=== PATIENT | male | born 1960 | race Caucasian/White ===

== ENCOUNTER 2017-08-18 17:42 | Inpatient (IN) | payer OTHER ==
[2017-08-18 17:45] VITALS: BMI 27.4
[2017-08-18 17:55] LABS: BASO % 0.6 % (0.0-2.0); EOS # 0.3 K/uL (0.0-0.7); EOS % 3.8 % (0.0-4.0); HEMOGLOBIN 15.7 g/dL (12.0-18.0); LYMPH # 2.9 K/uL (1.0-4.3); LYMPH % 39.5 % (20.0-40.0); MEAN CELL VOLUME 84.1 fL (80.0-94.0); MEAN CORPUSCULAR HEMOGLOBIN 29.5 pg (27.0-31.0); MEAN CORPUSCULAR HGB CONC 35.1 g/dL (33.0-37.0); MEAN PLATELET VOLUME 8.7 fL (7.2-11.7); MONO # 0.5 K/uL (0.0-0.8); MONO % 6.5 % (0.0-10.0); NEUT # 3.6 K/uL (1.8-7.0); NEUT % 49.6 % (50.0-75.0); NRBC % 0.1 % (0.0-2.0); RBC 5.31 Mil/uL (4.40-5.90); RED CELL DISTRIBUTION WIDTH 13.7 % (11.5-14.5); WHITE BLOOD COUNT 7.3 K/uL (4.8-10.8)
[2017-08-18] MEDS ORDERED: Morphine 4 MG/ML VIAL ONE ×2 (18:01→18:30)
--- NOTE | 2017-08-18 18:07 | C.PDOC ---
History Of Present Illness 57 y/o M c history of inner ear problem that causes dizziness p/w chest pain x 2 hours. Pain is midsternal, nonradiating, constant, started at rest. Non smoker. No recent URI like symptoms. Brother around same age had [place]. Denies fever, dyspnea, nausea, vomiting, back pain, leg swelling. No PMD Chief Complaint (Nursing): Chest Pain Past Medical History Vital Signs: Last Vital Signs Temp Pulse 91 H 08/18/17 17:45 Resp 20 08/18/17 17:45 BP 170/119 H 08/18/17 17:45 Pulse Ox 96 08/18/17 17:45 Family History: States: [place] - Social History Hx Alcohol Use: No Hx Substance Use: No Review Of Systems Except As Marked, All Systems Reviewed And Found Negative. Constitutional: Negative for: Fever Gastrointestinal: Negative for: Vomiting Physical Exam - Physical Exam Additional Physical Exam Comments: Gen: Nontoxic Head: NC Eyes: PERRL Neck: Supple Chest: Reproducible tenderness CV: Regular rate Lungs: CTA b/l Abd: Soft, NT, ND Ext: No swelling Neuro: Alert, no focal deficit ED Course And Treatment - Laboratory Results Result Diagrams: 08/18/17 17:51 O2 Sat by Pulse Oximetry: 96 Medical Decision Making Medical Decision Making: EKG performed immediately upon arrival. Sinus rhythm, 90 bpm, ST elevations III and aVF, ST depressions in I and aVL, V2. CODE HEART activated. Dr. Robert HOLGUIN HEART concrete pipe machine operator came to ED, will take patient to cytology laboratory manager. Dr. De La O at bedside, patient will be admitted to hospitalist service after procedure. Loaded with ASA, Brillinta, Heparin. CXR shows no consolidation. Disposition Discussed With : Clark Jones Doctor Will See Patient In The: ED - Disposition Disposition: HOSPITALIZED Disposition Time: 18:09 Condition: GUARDED - POA Core Measure Indicators: Code Heart - Clinical Impression Clinical Impression: STEMI (ST elevation myocardial infarction)
[2017-08-18 18:08] LABS: ALBUMIN 4.4 g/dL (3.5-5.0); ALT/SGPT 32 U/L (21-72); AST/SGOT 23 U/L (17-59); BLOOD UREA NITROGEN 17 mg/dL (9-20); CALCIUM 8.9 mg/dl (8.6-10.4); GFR AFRICAN-AMERICAN > 60; GFR NON-AFRICAN AMERICAN > 60
[2017-08-18] MEDS ORDERED: Nitroglycerin 50mg in D5W 50 MG/250 ML BOTTLE IV ONE (18:12)
[2017-08-18] MEDS ORDERED: Midazolam 2 MG/2 ML VIAL ONE (18:12)
[2017-08-18] MEDS ORDERED: Lidocaine 2% Inj (20ml) ONE (18:21)
[2017-08-18 18:22] LABS: ALB/GLOB RATIO 1.1 (1.0-2.1)
[2017-08-18] MEDS ORDERED: Iohexol 350mg/ml 100 ML ONE (18:25)
[2017-08-18] MEDS ORDERED: Iohexol 350mgl/ml 50 ML ONE (18:27)
[2017-08-18] MEDS ORDERED: Amiodarone 150mg/3 ml vial ONE (18:28)
[2017-08-18] MEDS ORDERED: Eptifibatide 20 mg/10mL Inj IVP ONE (20:01)
--- NOTE | 2017-08-18 20:38 | CP.PCM.CON ---
History of Present Illness - History of Present Illness History of Present Illness: 57 M with h/o dizziness on meds, h/o hepc s/p treatment for 6 months in 2005, around 4 pm after meal started to have chest pain, which kept on getting worse, patient presented to ER was found to have inferior STEMI. Patient is in ICU post CHARO in RCA proximal and mid, patient also had some disease in LAD and left main, pending detail cath report. 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 As per him dizziness intermittently with change in position for last 6 months and is on medication twice daily, but would not know more details. PMH as above PSH eye surg Allergies NKDA Social lives with friends, originally from [place] here since few months, denies alocohol, drugs, smoking Family history 2 elder brothers had [place] at his age one Meds for dizziness details not available Review of Systems - Review of Systems All systems: reviewed and no additional remarkable complaints except (HPI) Past Patient History - Past Social History Smoking Status: Never Smoked Alcohol: None Home Situation {Lives}: Friends Domestic Violence: Negative - NEUROLOGICAL Hx Neurological Disorder: Yes Hx Vertigo: Yes - PSYCHIATRIC Hx Substance Use: No - SURGICAL HISTORY Hx Surgeries: No Meds Allergies/Adverse Reactions: Allergies Allergy/AdvReac Type Severity Reaction Status Date / Time No Known Allergies Allergy Verified 08/18/17 17:44 - Medications Medications: Current Medications Aspirin (Aspirin Chewable) 81 mg PO DAILY [facility] Carvedilol (Coreg) 3.125 mg PO BID [facility] Enalapril Maleate (Vasotec) 5 mg PO DAILY [facility] Famotidine (Pepcid) 20 mg PO DAILY [facility] Heparin Sodium (Porcine) (Heparin) 5,000 units SC Q8 [facility] Rosuvastatin Calcium (Crestor) 20 mg PO HS [facility] Ticagrelor (Brilinta) 90 mg PO BID [facility] Physical Exam - Additional Findings Additional findings: * HEENT JAZMIN * Neck Supple * Chest Clear * CVS Regular, no gallop or rub * PA soft, nt, bs present, right groin dressing, no swelling or oozing * Ext no edema, b/l dp and pd present * 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 Results - Vital Signs Recent Vital Signs: Last Vital Signs Temp Pulse 87 08/18/17 18:03 Resp 17 08/18/17 18:03 BP 162/113 H 08/18/17 18:03 Pulse Ox 96 08/18/17 18:09 - Labs Result Diagrams: 08/18/17 17:51 08/18/17 17:51 Labs: Laboratory Results - last 24 hr 08/18/17 08/18/17 08/18/17 17:49 17:51 17:51 WBC 7.3 RBC 5.31 Hgb 15.7 Hct 44.6 MCV 84.1 MCH 29.5 MCHC 35.1 RDW 13.7 Plt Count 238 MPV 8.7 Neut % (Auto) 49.6 L Lymph % (Auto) 39.5 [place] % (Auto) 6.5 Eos % (Auto) 3.8 Baso % (Auto) 0.6 Neut # 3.6 Lymph # 2.9 [place] # 0.5 Eos # 0.3 Baso # 0.0 Sodium 133 Potassium 4.1 Chloride 97 L Carbon Dioxide 27 Anion Gap 14 BUN 17 Creatinine 1.0 Est GFR ( Amer) > 60 Est GFR (Non-Af Amer) > 60 POC Glucose (mg/dL) 151 H Random Glucose 134 H Calcium 8.9 Total Bilirubin 0.4 AST 23 ALT 32 Alkaline Phosphatase 56 Troponin I Total Protein 8.3 Albumin 4.4 Globulin 3.9 Albumin/Globulin Ratio 1.1 Blood Type Antibody Screen 08/18/17 08/18/17 17:51 17:51 WBC RBC Hgb Hct MCV MCH MCHC RDW Plt Count MPV Neut % (Auto) Lymph % (Auto) [place] % (Auto) Eos % (Auto) Baso % (Auto) Neut # Lymph # [facility] # Eos # Baso # Sodium Potassium Chloride Carbon Dioxide Anion Gap BUN Creatinine Est GFR ( Amer) Est GFR (Non-Af Amer) POC Glucose (mg/dL) Random Glucose Calcium Total Bilirubin AST ALT Alkaline Phosphatase Troponin I 0.0160 Total Protein Albumin Globulin Albumin/Globulin Ratio Blood Type A POSITIVE Antibody Screen Negative Assessment & Plan - Assessment and Plan (Free Text) Assessment: * Inferior STEMI s/p 2 CHARO in RCA, other ie LM, and LAD some disease * H/o some dizziness x6 months controlled * H/o hepc treated as per patient in 2005 * Family h/o CAD * HTN noticed in hospital ? essential * Hyperglycemia noticed in hospital ? stress related will check Hgba1c Plan: * Guideline directed medical management ASA, brilianta, coreg, enalpril, crestor * Echo * GI/DVT prophylaxis * Hgba1c, lipid panel * See orders for detail.
--- NOTE | 2017-08-18 22:17 | CP.PCM.HP ---
<Ajit Linton - Last Filed: 08/19/17 00:09> History of Present Illness - History of Present Illness History of Present Illness: PGY-1 H&P for Dr. Stein CC: "chest pain earlier but not now" Patient was seen at 23:00 on 08/18/17 in the ICU. This is a 57 year old male with PMHx of hepatitis C who came in complaining of chest pain that began around 4 PM today. It was described as a progressively worsening squeezing pain located sternally. The chest pain began after a meal. Patient does not usually see doctors in his home country. He is visiting from [place] since 08/12/17 and is living with friends presently. Patient's EKG revealed ST segment elevations in leads II, III, and aVF indicating an acute inferior wall LA. Code Heart was called and patient underwent cardiac catheterization by Dr. Jones with two CHARO, one placed in proximal RCA and one in the mid RCA. Site of access was right groin. Patient states that he now feels well and denies any chest pain or shortness of breath presently. Patient has no acute complaints at this time. PMHx: Hepatitis C s/p treatment in 2005 PSHx: unspecified eye surgery Allergies: NKDA Social: Visiting from [place]. Denies tobacco, alcohol, drugs. Family Hx: Brother with [place] at age 55. Two brothers in total with heart disease. PMD: Denies Home medications: Patient takes one medication for dizziness but he does not know the name of it. Present on Admission - Present on Admission Any Indicators Present on Admission: No Review of Systems - Constitutional Constitutional: absent: Chills, Fever - EENT Eyes: absent: Change in Vision Ears: absent: Decreased Hearing Nose/Mouth/Throat: absent: Nasal Congestion - Cardiovascular Cardiovascular: absent: Chest Pain, Diaphoresis, Dyspnea, Palpitations - Respiratory Respiratory: absent: Cough, Dyspnea - Gastrointestinal Gastrointestinal: absent: Abdominal Pain, Nausea, Vomiting - Genitourinary Genitourinary: absent: Dysuria - Musculoskeletal Musculoskeletal: absent: Back Pain - Integumentary Integumentary: absent: Rash - Neurological Neurological: absent: Dizziness, Headaches, Weakness - Psychiatric Psychiatric: absent: Anxiety - Endocrine Endocrine: absent: Fatigue, Palpitations Past Patient History - Past Medical History & Family History Past Medical History?: Yes - Past Social History Smoking Status: Never Smoked Alcohol: None Home Situation {Lives}: Friends Domestic Violence: Negative - CARDIAC Hx Angina: Yes - PULMONARY Hx Respiratory Disorders: No - NEUROLOGICAL Hx Neurological Disorder: Yes Hx Vertigo: Yes - HEENT Hx HEENT Problems: No - RENAL Hx Chronic Kidney Disease: No - ENDOCRINE/METABOLIC Hx Endocrine Disorders: No - HEMATOLOGICAL/ONCOLOGICAL Hx Hepatitis C: Yes - INTEGUMENTARY Hx Dermatological Problems: No - MUSCULOSKELETAL/RHEUMATOLOGICAL Hx Musculoskeletal Disorders: No Hx Falls: No - GASTROINTESTINAL Hx Gastrointestinal Disorders: No - GENITOURINARY/GYNECOLOGICAL Hx Genitourinary Disorders: No - PSYCHIATRIC Hx Substance Use: No - SURGICAL HISTORY Hx Surgeries: No - ANESTHESIA Hx Anesthesia: No Meds Allergies/Adverse Reactions: Allergies Allergy/AdvReac Type Severity Reaction Status Date / Time No Known Allergies Allergy Verified 08/18/17 17:44 Physical Exam - Constitutional Appears: No Acute Distress - Head Exam Head Exam: ATRAUMATIC, NORMOCEPHALIC - Eye Exam Eye Exam: EOMI, PERRL - ENT Exam ENT Exam: Mucous Membranes Moist - Respiratory Exam Respiratory Exam: Clear to Auscultation Bilateral, NORMAL BREATHING PATTERN. absent: Rales, Rhonchi, Wheezes - Cardiovascular Exam Cardiovascular Exam: REGULAR RHYTHM, +S1, +S2. absent: Bradycardia, Tachycardia - GI/Abdominal Exam GI & Abdominal Exam: Normal Bowel Sounds, Soft. absent: Distended, Guarding, Tenderness - Extremities Exam Extremities exam: Positive for: pedal pulses present. Negative for: pedal edema , tenderness - Neurological Exam Neurological exam: Alert, CN II-XII Intact, Oriented x3 - Psychiatric Exam Psychiatric exam: Normal Affect, Normal Mood - Skin Skin Exam: Dry, Warm Additional comments: Right groin access site dressing c/d/i No hematoma noted over the region Results - Vital Signs Recent Vital Signs: Last Vital Signs Temp 98.4 F 08/18/17 20:00 Pulse 93 H 08/18/17 22:00 Resp 23 08/18/17 22:00 BP 166/103 H 08/18/17 22:00 Pulse Ox 95 08/18/17 22:00 - Labs Result Diagrams: 08/18/17 17:51 08/18/17 17:51 Labs: Laboratory Results - last 24 hr 08/18/17 08/18/17 08/18/17 17:49 17:51 17:51 WBC 7.3 RBC 5.31 Hgb 15.7 Hct 44.6 MCV 84.1 MCH 29.5 MCHC 35.1 RDW 13.7 Plt Count 238 MPV 8.7 Neut % (Auto) 49.6 L Lymph % (Auto) 39.5 [place] % (Auto) 6.5 Eos % (Auto) 3.8 Baso % (Auto) 0.6 Neut # 3.6 Lymph # 2.9 [place] # 0.5 Eos # 0.3 Baso # 0.0 Sodium 133 Potassium 4.1 Chloride 97 L Carbon Dioxide 27 Anion Gap 14 BUN 17 Creatinine 1.0 Est GFR ( Amer) > 60 Est GFR (Non-Af Amer) > 60 POC Glucose (mg/dL) 151 H Random Glucose 134 H Calcium 8.9 Total Bilirubin 0.4 AST 23 ALT 32 Alkaline Phosphatase 56 Troponin I Total Protein 8.3 Albumin 4.4 Globulin 3.9 Albumin/Globulin Ratio 1.1 Blood Type Antibody Screen 08/18/17 08/18/17 17:51 17:51 WBC RBC Hgb Hct MCV MCH MCHC RDW Plt Count MPV Neut % (Auto) Lymph % (Auto) [place] % (Auto) Eos % (Auto) Baso % (Auto) Neut # Lymph # [place] # Eos # Baso # Sodium Potassium Chloride Carbon Dioxide Anion Gap BUN Creatinine Est GFR ( Amer) Est GFR (Non-Af Amer) POC Glucose (mg/dL) Random Glucose Calcium Total Bilirubin AST ALT Alkaline Phosphatase Troponin I 0.0160 Total Protein Albumin Globulin Albumin/Globulin Ratio Blood Type A POSITIVE Antibody Screen Negative Assessment & Plan - Assessment and Plan (Free Text) Plan: Code Heart Acute Inferior ST segment Elevation Myocardial Infarction s/p cardiac cath by Dr. Jones CHARO placed in proximal and mid RCA f/u Echocardiogram Management per ICU ASA 81 mg PO daily Brilianta 90 mg PO BID Coreg 3,125 mg PO BID Enalpril 5 mg PO daily Crestor 20 mg PO HS Prophylactic Measure Pepcid 20 mg PO daily Heparin 5000 units SC Q8H Case DW Dr. Sarita Linton PGY-1 <Donnie Stein - Last Filed: 08/19/17 06:18> Results - Vital Signs Recent Vital Signs: Last Vital Signs Temp 98.4 F 08/18/17 20:15 Pulse 81 08/19/17 06:00 Resp 18 08/19/17 06:00 BP 160/100 H 08/19/17 05:41 Pulse Ox 100 08/19/17 06:00 - Labs Result Diagrams: 08/18/17 17:51 08/18/17 17:51 Labs: Laboratory Results - last 24 hr 08/18/17 08/18/17 08/18/17 17:49 17:51 17:51 WBC 7.3 RBC 5.31 Hgb 15.7 Hct 44.6 MCV 84.1 MCH 29.5 MCHC 35.1 RDW 13.7 Plt Count 238 MPV 8.7 Neut % (Auto) 49.6 L Lymph % (Auto) 39.5 [place] % (Auto) 6.5 Eos % (Auto) 3.8 Baso % (Auto) 0.6 Neut # 3.6 Lymph # 2.9 [place] # 0.5 Eos # 0.3 Baso # 0.0 Sodium 133 Potassium 4.1 Chloride 97 L Carbon Dioxide 27 Anion Gap 14 BUN 17 Creatinine 1.0 Est GFR ( Amer) > 60 Est GFR (Non-Af Amer) > 60 POC Glucose (mg/dL) 151 H Random Glucose 134 H Calcium 8.9 Total Bilirubin 0.4 AST 23 ALT 32 Alkaline Phosphatase 56 Troponin I Total Protein 8.3 Albumin 4.4 Globulin 3.9 Albumin/Globulin Ratio 1.1 Blood Type Antibody Screen 08/18/17 08/18/17 17:51 17:51 WBC RBC Hgb Hct MCV MCH MCHC RDW Plt Count MPV Neut % (Auto) Lymph % (Auto) [place] % (Auto) Eos % (Auto) Baso % (Auto) Neut # Lymph # [place] # Eos # Baso # Sodium Potassium Chloride Carbon Dioxide Anion Gap BUN Creatinine Est GFR ( Amer) Est GFR (Non-Af Amer) POC Glucose (mg/dL) Random Glucose Calcium Total Bilirubin AST ALT Alkaline Phosphatase Troponin I 0.0160 Total Protein Albumin Globulin Albumin/Globulin Ratio Blood Type A POSITIVE Antibody Screen Negative Assessment & Plan - Date & Time Date: 08/19/17 (I have seen and examined the patient. I agree with the findings and plan of care as documented by Dr. Linton. Patient with STEMI. Cardiac Intervention by Dr. Jones. Admit to ICU for further management and close monitoring. Monitor vitals closely and any signs of bleeding from cath site. ) Time: 06:17 Attending/Attestation - Attestation I have personally seen and examined this patient.: Yes I have fully participated in the care of the patient.: Yes I have reviewed all pertinent clinical information: Yes
--- NOTE | 2017-08-19 00:39 | CARDCATH ---
PROCEDURE DATE: 08/18/2017 INDICATIONS: Mr. Holbrook is a 57-year-old male, who presented with acute onset of chest pain 2 hours prior to presentation to the ED with ST elevation in inferior leads. He was emergently brought to the cardiac warehouse general laborer for ST elevation DE involving the inferior leads. PROCEDURE PERFORMED: 1. Emergent left heart catheterization with selective left and right coronary angiogram. 2. PTCA stenting of proximal and mid RCA with deployment of 4.0 x 18 Xience drug-eluting stent across the RCA and 3.5 x 23 Xience drug-eluting stent in the mid RCA, lesion reduction from 100 % down to 0% PEGGY 3 flow. 3. A 6-Portuguese for right femoral arterial access and Mynx closure device for hemostasis. TECHNIQUE OF PROCEDURE: After obtaining informed consent, the patient was brought to the cardiac cath suite emergently. Using modified Seldinger technique, a 6-Portuguese sheath was introduced into the right femoral artery. Subsequently, over a JR4 guiding catheter, initial angiogram of the RCA revealed 100% occlusion. TECHNIQUES OF INTERVENTION: Whisper wire was used and easily able to negotiate through the 100% RCA occlusion. A 2.0 x 25 balloon was used for initial inflation and subsequently 3.5 x 23 Xience drug-eluting stent was deployed in the mid RCA. The proximal edge of the stent had a hazy plaque for which 4.0 x 18 Xience drug eluting stent. Final angiogram was done, showed lesion reduction down to 0% PEGGY 3 flow. Distal PDA had 55% stenosis. Subsequently, left coronary angiograms were obtained with a JL-4 diagnostic catheter and an LV gram was obtained with a pigtail catheter. HEMODYNAMIC FINDINGS: Left ventricular end-diastolic pressure was 20 mmHg. There was no gradient noted upon the aortic valve. Left ventricular ejection fraction 45% to 50% with basal inferior hypokinesis. Left main large-sized vessel at the distal bifurcation had a 20% stenosis, left circumflex medium-sized vessel runs in the AV groove, gives off large obtuse marginal branch, which has mid 65% stenosis by trifurcation to three smaller branches. The left anterior descending artery large-sized vessel had a proximal 55% stenosis, gives off two medium-sized diagonal branches, type 2 wrap-around vessels. IMPRESSION: Successful percutaneous transluminal coronary angioplasty stenting of proximal and mid right coronary artery 100% thrombotic occlusion, deployment of 2 drug-eluting stents. RECOMMENDATIONS: Dual antiplatelet therapy for 1 year, guideline directed therapy for coronary artery disease, aspirin, statin, beta-blockers, nitrates, plus/minus BALTA inhibitors depending on ejection fraction. Check echocardiogram, monitoring in ICU for 24 hours. Clark Jones MD MTDD
[2017-08-19 06:31] LABS: BASO % 0.2 % (0.0-2.0); EOS # 0.2 K/uL (0.0-0.7); EOS % 2.3 % (0.0-4.0); HEMOGLOBIN 15.2 g/dL (12.0-18.0); LYMPH # 1.8 K/uL (1.0-4.3); LYMPH % 21.1 % (20.0-40.0); MEAN CELL VOLUME 84.8 fL (80.0-94.0); MEAN CORPUSCULAR HEMOGLOBIN 30.2 pg (27.0-31.0); MEAN CORPUSCULAR HGB CONC 35.6 g/dL (33.0-37.0); MEAN PLATELET VOLUME 9.3 fL (7.2-11.7); MONO # 0.6 K/uL (0.0-0.8); MONO % 7.4 % (0.0-10.0); NRBC % 0.1 % (0.0-2.0); RBC 5.05 Mil/uL (4.40-5.90); RED CELL DISTRIBUTION WIDTH 13.7 % (11.5-14.5); WHITE BLOOD COUNT 8.7 K/uL (4.8-10.8)
[2017-08-19 06:42] LABS: LDL CHOLESTEROL 129 mg/dL (0-129)
[2017-08-19 07:17] LABS: ALB/GLOB RATIO 1.2 (1.0-2.1); ALBUMIN 4.1 g/dL (3.5-5.0); ALT/SGPT 34 U/L (21-72); AST/SGOT 108 U/L (17-59); BLOOD UREA NITROGEN 13 mg/dL (9-20); CALCIUM 8.3 mg/dl (8.6-10.4); GFR AFRICAN-AMERICAN > 60; GFR NON-AFRICAN AMERICAN > 60; HDL CHOLESTEROL 31 mg/dL (30-70); MAGNESIUM 1.6 mg/dL (1.6-2.3)
[2017-08-19 08:44] LABS: HEPATITIS C ANTIBODY REACTIVE (NEGATIVE)
--- NOTE | 2017-08-19 09:38 | CP.PCM.PN ---
Subjective - Date & Time of Evaluation Date of Evaluation: 08/19/17 Time of Evaluation: 09:20 - Subjective Subjective: Medical Attending Note: Patient seen and examined at bedside. Medical Intrepretor: [id number] Pedro Luis Choudhury Patient reports the chest pain he came in with is now half. Patient denies fever , denies chills, denies cough, reports he has a different pain located underneath "shock pad" denies the adhesive is bothering him cannot describe it when probed, denies abdominal pain, denies nausea, denies urination. Patient reports had bowel movement yesterday and per Rn, making urine. Patient has history of Hepatitis C. Patient reports he received injections for it. Patient reports mother has a history of hepatits and used to give her insulin shots and attributes to this method. Patient reports he is visiting from [facility], is here for only 3 weeks, but unable to tell me when he is supposed to go back. Objective - Vital Signs/Intake and Output Vital Signs (last 24 hours): Temp Pulse Resp BP Pulse Ox 98.4 F 82 27 H 152/94 H 98 08/18/17 20:15 08/19/17 09:20 08/19/17 09:20 08/19/17 08:41 08/19/17 09:20 Intake and Output: 08/19/17 08/19/17 06:59 18:59 Intake Total 820 150 Output Total 1300 500 Balance -480 -350 - Medications Medications: Current Medications Aspirin (Aspirin Chewable) 81 mg PO DAILY [facility] Carvedilol (Coreg) 3.125 mg PO BID [facility] Last Admin: 08/18/17 21:32 Dose: 3.125 mg Enalapril Maleate (Vasotec) 5 mg PO DAILY [facility] Famotidine (Pepcid) 20 mg PO DAILY [facility] Heparin Sodium (Porcine) (Heparin) 5,000 units SC Q8 [facility] Last Admin: 08/19/17 05:33 Dose: 5,000 units Rosuvastatin Calcium (Crestor) 20 mg PO HS [facility] Last Admin: 08/18/17 21:32 Dose: 20 mg Ticagrelor (Brilinta) 90 mg PO BID [facility] - Labs Labs: 08/19/17 06:10 08/19/17 06:11 - Constitutional Appears: Non-toxic, No Acute Distress - Head Exam Head Exam: NORMAL INSPECTION - Eye Exam Eye Exam: EOMI - ENT Exam ENT Exam: Mucous Membranes Moist - Respiratory Exam Respiratory Exam: Clear to Ausculation Bilateral. absent: Rales, Rhonchi, Wheezes, NORMAL BREATHING PATTERN - Cardiovascular Exam Cardiovascular Exam: REGULAR RHYTHM, +S1, +S2 - GI/Abdominal Exam GI & Abdominal Exam: Soft, Normal Bowel Sounds. absent: Distended, Firm, Guarding, Rigid, Tenderness, Rebound - Extremities Exam Extremities Exam: Normal Capillary Refill. absent: Pedal Edema, Tenderness - Back Exam Back Exam: absent: CVA tenderness (L), CVA tenderness (R) - Neurological Exam Neurological Exam: Alert, Awake, Oriented x3 - Psychiatric Exam Psychiatric exam: Normal Affect, Normal Mood - Skin Skin Exam: Dry, Intact, Normal Color, Warm Assessment and Plan (1) STEMI (ST elevation myocardial infarction) Assessment & Plan: Cardiology: Dr. Jones on the case help appreciated Code Heart 08/18/2017 RCA s/p CHARO stents Aspirin 81mg PO daily Coreg 3.125mg PO BID Enalapril 5mg PO daily Crestor 20mg POqHS Brilinta 90mg PO BID Pending Echocardiogram pending a1c Lipid panel abnormal: high TG, high cholestrol, Low HDL Status: Acute (2) Hepatitis-C Assessment & Plan: Reports he has been treated previously on Crestor 5mg POqHS Monitor liver function tests Status: Chronic (3) Prophylactic measure Assessment & Plan: Heparin 5000 units subq 8H Pepcid 20mg PO BID Status: Acute
--- NOTE | 2017-08-19 10:06 | RAD ---
PROCEDURE: CHEST RADIOGRAPH, 1 VIEW HISTORY: chest pain COMPARISON: None available. FINDINGS: LUNGS: Shallow lung volume. No consolidation PLEURA: No pneumothorax or pleural fluid seen. CARDIOVASCULAR: Mild cardiomegaly and minimal central pulmonary venous congestion inferred -shallow lung volume status also noted. OSSEOUS STRUCTURES: No significant abnormalities. VISUALIZED UPPER ABDOMEN: Normal. OTHER FINDINGS: Overlying cardiac devices IMPRESSION: Shallow lung volumes, mild cardiomegaly and minimal central pulmonary venous congestion. No consolidation. . No significant appearing pleural effusion or pneumothorax
[2017-08-19 11:23] LABS: SQUAMOUS EPITHIAL < 1 /hpf (0-5); URINE BILIRUBIN NEGATIVE (NEGATIVE); URINE BLOOD 1+ (NEGATIVE); URINE CLARITY Clear (Clear); URINE COLOR Straw (YELLOW); URINE GLUCOSE (UA) 1+ mg/dL (Normal); URINE LEUKOCYTE ESTERASE NEG Leu/uL (Negative); URINE NITRATE NEGATIVE (NEGATIVE); URINE PROTEIN NEGATIVE (NEGATIVE); URINE UROBILINOGEN NORMAL mg/dL (0.2-1.0)
--- NOTE | 2017-08-19 12:14 | CP.PCM.CON ---
History of Present Illness - History of Present Illness History of Present Illness: Consultation s/p AL for inferior wall AL HPI: 57 year old male with hx of vertigo for which he was initiated on some abx and antivert about 2 weeks ago presented with c/o substernal chest pressure like sensation with accompanying STEMI in inferior leads yestereday around 6pm. Emergently taken to [employer] and underwent PCI of proximal and mid RCA with CHARO x 2 this morning mild chest discomfort BP and hemodynamic stable Review of Systems - Review of Systems All systems: reviewed and no additional remarkable complaints except - Constitutional Constitutional: As Per HPI. absent: Anorexia, Chills, Daytime Sleepiness, Excessive Sweating, Fatigue, Fever, Frequent Falls, Headache, Increased Appetite , Lethargy, Malaise, Night Sweats, Snoring, Sleep Apnea, Weight Gain, Weight Loss, Weakness, Other - EENT Eyes: As Per HPI. absent: Blind Spots, Blurred Vision, Change in Vision, Decreased Night Vision, Diplopia, Discharge, Dry Eye, Exophthalmos, Floaters, Irritation, Itchy Eyes, Loss of Peripheral Vision, Pain, Photophobia, Requires Corrective Lenses, Sees Flashes, Spots in Vision, Tunnel Vision, Other Visual Disturbances, Loss of Vision, Other Ears: As Per HPI. absent: Decreased Hearing, Ear Discharge, Ear Pain, Tinnitus , Abnormal Hearing, Disequilibrium, Dizziness, Other Nose/Mouth/Throat: As Per HPI. absent: Epistaxis, Nasal Congestion, Nasal Discharge, Nasal Obstruction, Nasal Trauma, Nose Pain, Post Nasal Drip, Sinus Pain, Sinus Pressure, Bleeding Gums, Change in Voice, Dental Pain, Dry Mouth, Dysphagia, Halitosis, Hoarsness, Lip Swelling, Mouth Lesions, Mouth Pain, Odynophagia, Sore Throat, Throat Swelling, Tongue Swelling, Facial Pain, Neck Pain, Neck Mass, Other - Cardiovascular Cardiovascular: As Per HPI, Chest Pain, Chest Pain at Rest, Dyspnea. absent: Acrocyanosis, Chest Pain with Activity, Claudication, Diaphoresis, Dyspnea on Exertion, Edema, Irregular Heart Rhythm, Pain Radiating to Arm/Neck/Jaw, Leg Edema, Leg Ulcers, Lightheadedness, Orthopnea, Palpitations, Paroxysmal Nocturnal Dyspnea, Pedal Edema, Radiating Pain, Rapid Heart Rate, Slow Heart Rate, Syncope, Other - Respiratory Respiratory: As Per HPI. absent: Cough, Dyspnea, Hemoptysis, Dyspnea on Exertion, Wheezing, Snoring, Stridor, Pain on Inspiration, Chest Congestion, Excessive Mucous Production, Change in Mucous Color, Pain with Coughing, Other - Gastrointestinal Gastrointestinal: As Per HPI. absent: Abdominal Pain, Belching, Bloating, Change in Bowel Habits, Change in Stool Character, Coffee Ground Emesis, Constipation, Cramping, Diarrhea, Dyspepsia, Dysphagia, Early Satiety, Excessive Flatus, Fecal Incontinence, Heartburn, Hematemesis, Hematochezia, Loose Stools, Melena, Nausea, Odynophagia, Temesmus, Vomiting, Other - Genitourinary Genitourinary: As Per HPI. absent: Change in Urinary Stream, Difficulty Urinating, Dysuria, Flank Pain, Hematuria, Pyuria, Nocturia, Urinary Incontinence, Urinary Frequency, Urinary Hesitance, Urinary Urgency, Voiding Freq/Small Amts, Freq UTI, Hx Renal/Bladder Calculi, Hx /Renal Surgery, Bladder Distension, Other - Integumentary Integumentary: As Per HPI. absent: Acne, Alopecia, Bleeding Lesions, Change in Hair, Change in Nails, Change in Pigmentation, Changing Lesions, Dry Skin, Erythema, Furuncle, Hirsutism, Lesions, New Lesions, Non-Healing Lesions, Photosensitivity, Pruritus, Rash, Skin Pain, Skin Ulcer, Sores, Striae, Swelling , Unusual Bruising, Wounds, Jaundice, Other - Psychiatric Psychiatric: As Per HPI. absent: Abnormal Sleep Pattern, Anhedonia, Anxiety, Auditory Hallucinations, Behavioral Changes, Change in Appetite, Change in Libido, Confusion, Depression, Difficulty Concentrating, Hallucinations, Homicidal Ideation, Hopelessness, Irritability, Memory Loss, Mood Swings, Panic Attacks, Paranoia, Suicidal Ideation, Visual Hallucinations, Tactile Hallucinations, Other - Endocrine Endocrine: As Per HPI. absent: Change in Body Appearance, Change in Libido, Cold Intolorance, Deepening of Voice, Excessive Sweating, Fatigue, Flushing, Heat Intolorance, Increase in Ring/Shoe/Hat Size, Palpitations, Polydipsia, Polyphagia, Polyuria, Other - Hematologic/Lymphatic Hematologic: As Per HPI. absent: Easy Bleeding, Easy Bruising, Lymphadenopathy , Other Past Patient History - Past Medical History & Family History Past Medical History?: Yes - Past Social History Smoking Status: Never Smoked Alcohol: None Home Situation {Lives}: Friends Domestic Violence: Negative - CARDIAC Hx Angina: Yes - PULMONARY Hx Respiratory Disorders: No - NEUROLOGICAL Hx Neurological Disorder: Yes Hx Vertigo: Yes - HEENT Hx HEENT Problems: No - RENAL Hx Chronic Kidney Disease: No - ENDOCRINE/METABOLIC Hx Endocrine Disorders: No - HEMATOLOGICAL/ONCOLOGICAL Hx Hepatitis C: Yes - INTEGUMENTARY Hx Dermatological Problems: No - MUSCULOSKELETAL/RHEUMATOLOGICAL Hx Musculoskeletal Disorders: No Hx Falls: No - GASTROINTESTINAL Hx Gastrointestinal Disorders: No - GENITOURINARY/GYNECOLOGICAL Hx Genitourinary Disorders: No - PSYCHIATRIC Hx Substance Use: No - SURGICAL HISTORY Hx Surgeries: No - ANESTHESIA Hx Anesthesia: No Meds Allergies/Adverse Reactions: Allergies Allergy/AdvReac Type Severity Reaction Status Date / Time No Known Allergies Allergy Verified 08/18/17 17:44 - Medications Medications: Current Medications Aspirin (Aspirin Chewable) 81 mg PO DAILY [facility] Last Admin: 08/19/17 10:43 Dose: 81 mg Carvedilol (Coreg) 3.125 mg PO BID [facility] Last Admin: 08/19/17 10:42 Dose: 3.125 mg Enalapril Maleate (Vasotec) 5 mg PO DAILY [facility] Last Admin: 08/19/17 10:42 Dose: 5 mg Famotidine (Pepcid) 20 mg PO DAILY [facility] Last Admin: 08/19/17 10:42 Dose: 20 mg Heparin Sodium (Porcine) (Heparin) 5,000 units SC Q8 [facility] Last Admin: 08/19/17 05:33 Dose: 5,000 units Rosuvastatin Calcium (Crestor) 20 mg PO HS [facility] Last Admin: 08/18/17 21:32 Dose: 20 mg Ticagrelor (Brilinta) 90 mg PO BID [facility] Last Admin: 08/19/17 10:43 Dose: 90 mg Physical Exam - Constitutional Appears: Well - Head Exam Head Exam: ATRAUMATIC, NORMAL INSPECTION, NORMOCEPHALIC - Eye Exam Eye Exam: EOMI, Normal appearance, PERRL Pupil Exam: NORMAL ACCOMODATION, PERRL - ENT Exam ENT Exam: Mucous Membranes Moist, Normal Exam - Neck Exam Neck exam: Positive for: Normal Inspection - Respiratory Exam Respiratory Exam: Clear to Auscultation Bilateral, NORMAL BREATHING PATTERN - Cardiovascular Exam Cardiovascular Exam: REGULAR RHYTHM, RRR, +S1, +S2, Systolic Murmur - GI/Abdominal Exam GI & Abdominal Exam: Normal Bowel Sounds, Soft. absent: Tenderness - Extremities Exam Extremities exam: Positive for: normal inspection - Back Exam Back exam: NORMAL INSPECTION - Neurological Exam Neurological exam: Alert, CN II-XII Intact, Normal Gait, Oriented x3, Reflexes Normal - Psychiatric Exam Psychiatric exam: Normal Affect, Normal Mood - Skin Skin Exam: Dry, Intact, Normal Color, Warm Results - Vital Signs Recent Vital Signs: Last Vital Signs Temp 98.4 F 08/18/17 20:15 Pulse 82 08/19/17 09:20 Resp 27 H 08/19/17 09:20 BP 153/100 H 08/19/17 10:42 Pulse Ox 98 08/19/17 09:20 - Labs Result Diagrams: 08/19/17 06:10 08/19/17 06:11 Labs: Laboratory Results - last 24 hr 08/18/17 08/18/17 08/18/17 17:49 17:51 17:51 WBC 7.3 RBC 5.31 Hgb 15.7 Hct 44.6 MCV 84.1 MCH 29.5 MCHC 35.1 RDW 13.7 Plt Count 238 MPV 8.7 Neut % (Auto) 49.6 L Lymph % (Auto) 39.5 [place] % (Auto) 6.5 Eos % (Auto) 3.8 Baso % (Auto) 0.6 Neut # 3.6 Lymph # 2.9 Trimble # 0.5 Eos # 0.3 Baso # 0.0 Sodium 133 Potassium 4.1 Chloride 97 L Carbon Dioxide 27 Anion Gap 14 BUN 17 Creatinine 1.0 Est GFR ( Amer) > 60 Est GFR (Non-Af Amer) > 60 POC Glucose (mg/dL) 151 H Random Glucose 134 H Hemoglobin A1c Calcium 8.9 Magnesium Total Bilirubin 0.4 AST 23 ALT 32 Alkaline Phosphatase 56 Troponin I Total Protein 8.3 Albumin 4.4 Globulin 3.9 Albumin/Globulin Ratio 1.1 Triglycerides Cholesterol LDL Cholesterol Direct HDL Cholesterol Urine Color Urine Clarity Urine pH Ur Specific [place] Urine Protein Urine Glucose (UA) Urine Ketones Urine Blood Urine Nitrate Urine Bilirubin Urine Urobilinogen Ur Leukocyte Esterase Urine WBC (Auto) Urine RBC (Auto) Ur Squamous Epith Cells Hepatitis C Antibody Blood Type Antibody Screen 08/18/17 08/18/17 08/19/17 17:51 17:51 06:10 WBC 8.7 RBC 5.05 Hgb 15.2 Hct 42.8 MCV 84.8 MCH 30.2 MCHC 35.6 RDW 13.7 Plt Count 195 MPV 9.3 Neut % (Auto) 69.0 Lymph % (Auto) 21.1 [place] % (Auto) 7.4 Eos % (Auto) 2.3 Baso % (Auto) 0.2 Neut # 6.0 Lymph # 1.8 Trimble # 0.6 Eos # 0.2 Baso # 0.0 Sodium Potassium Chloride Carbon Dioxide Anion Gap BUN Creatinine Est GFR ( Amer) Est GFR (Non-Af Amer) POC Glucose (mg/dL) Random Glucose Hemoglobin A1c Calcium Magnesium Total Bilirubin AST ALT Alkaline Phosphatase Troponin I 0.0160 Total Protein Albumin Globulin Albumin/Globulin Ratio Triglycerides Cholesterol LDL Cholesterol Direct HDL Cholesterol Urine Color Urine Clarity Urine pH Ur Specific [place] Urine Protein Urine Glucose (UA) Urine Ketones Urine Blood Urine Nitrate Urine Bilirubin Urine Urobilinogen Ur Leukocyte Esterase Urine WBC (Auto) Urine RBC (Auto) Ur Squamous Epith Cells Hepatitis C Antibody Blood Type A POSITIVE Antibody Screen Negative 08/19/17 08/19/17 08/19/17 06:11 06:11 11:09 WBC RBC Hgb Hct MCV MCH MCHC RDW Plt Count MPV Neut % (Auto) Lymph % (Auto) [place] % (Auto) Eos % (Auto) Baso % (Auto) Neut # Lymph # Trimble # Eos # Baso # Sodium 131 L Potassium 3.8 Chloride 100 Carbon Dioxide 22 Anion Gap 13 BUN 13 Creatinine 0.8 Est GFR ( Amer) > 60 Est GFR (Non-Af Amer) > 60 POC Glucose (mg/dL) Random Glucose 100 Hemoglobin A1c 5.4 Calcium 8.3 L Magnesium 1.6 Total Bilirubin 0.7 AST 108 H D ALT 34 Alkaline Phosphatase 62 Troponin I 25.1000 H* Total Protein 7.5 Albumin 4.1 Globulin 3.5 Albumin/Globulin Ratio 1.2 Triglycerides 389 H Cholesterol 231 H LDL Cholesterol Direct 129 HDL Cholesterol 31 Urine Color Straw Urine Clarity Clear Urine pH 5.0 Ur Specific [place] 1.013 Urine Protein Negative Urine Glucose (UA) 1+ H Urine Ketones Negative Urine Blood 1+ H Urine Nitrate Negative Urine Bilirubin Negative Urine Urobilinogen Normal Ur Leukocyte Esterase Neg Urine WBC (Auto) < 1 Urine RBC (Auto) 2 Ur Squamous Epith Cells < 1 Hepatitis C Antibody Reactive Blood Type Antibody Screen Assessment & Plan (1) STEMI (ST elevation myocardial infarction) Assessment and Plan: cont dapt echo bb, statins, nitrates Status: Acute (2) HTN (hypertension) Status: Acute (3) Dyslipidemia Status: Acute (4) Hepatitis-C Status: Chronic
--- NOTE | 2017-08-19 13:28 | CP.CCUPN ---
<Katalina Sage - Last Filed: 08/19/17 13:33> CCU Subjective - Physician Review Subjective (Free Text): 08/19/17 13:[address] Howard Patient seen and examined at bedside. Patient tolerated procedure well yesterday. Patient had some mild chest discomfort but denies, fever, chills, nausea, vomiting, diarrhea. Critical Care Time Spent (in minutes): 35 CCU Objective - Vital Signs / Intake & Output Vital Signs (Last 4 hours): Vital Signs BP 08/19/17 10:42 153/100 H Intake and Output (Last 8hrs): Intake & Output 08/18/17 08/19/17 08/19/17 22:59 06:59 14:59 Intake Total 390 430 150 Output Total 600 700 500 Balance -210 -270 -350 Weight 170 lb 206 lb 11.2 oz Intake: Intake, IV Amount 150 150 Left Antecubital 150 150 Oral 240 280 150 Output: Urine 600 700 500 Urine, Voided 600 700 500 Other: Voiding Method Urinal # Bowel Movements 0 0 0 - Physical Exam Physical Exam Limitations: Positive for: Altered Mental Status Head: Positive for: Atraumatic, Normocephalic Extroacular Muscles: Positive for: EOMI Conjunctiva: Positive for: Normal Ears: Positive for: Normal Mouth: Positive for: Moist Mucous Membranes. Negative for: Dry Pharnyx: Positive for: Normal. Negative for: ERYTHEMA, EXUDATE, TONSILS ENLARGED, Muffled/Hoarse Voice Nose (Internal): Positive for: Normal Inspection Neck: Positive for: Normal Range of Motion, Trachea Midline Respiratory/Chest: Positive for: Clear to Auscultation. Negative for: Respiratory Distress, Decreased Breath Sounds Cardiovascular: Positive for: Regular Rate and Rhythm, Normal S1, S2 Abdomen: Positive for: Normal Bowel Sounds. Negative for: Tenderness, Distention Upper Extremity: Positive for: Normal Inspection Lower Extremity: Positive for: Normal Inspection, Capillary Refill < 2 s, Other (no hematoma at right femoral entrance site, no bruit, no breakthrough bleeding) . Negative for: Edema, CALF TENDERNESS Neurological: Positive for: CN II-XII Intact Skin: Positive for: Warm, Dry - Medications Active Medications: Active Medications Generic Name Dose Route Start Last Admin Trade Name Freq PRN Reason Stop Dose Admin Aspirin 81 mg 08/19/17 10:00 08/19/17 10:43 Aspirin Chewable PO 81 mg DAILY MAURA Administration Carvedilol 3.125 mg 08/18/17 20:30 08/19/17 10:42 Coreg PO 3.125 mg BID MAURA Administration Enalapril Maleate 5 mg 08/19/17 10:00 08/19/17 10:42 Vasotec PO 5 mg DAILY MAURA Administration Famotidine 20 mg 08/19/17 10:00 08/19/17 10:42 Pepcid PO 20 mg DAILY MAURA Administration Heparin Sodium (Porcine) 5,000 units 08/18/17 22:00 08/19/17 05:33 Heparin SC 5,000 units Q8 MAURA Administration Rosuvastatin Calcium 20 mg 08/18/17 22:00 08/18/17 21:32 Crestor PO 20 mg HS MAURA Administration Ticagrelor 90 mg 08/19/17 10:00 08/19/17 10:43 Brilinta PO 90 mg BID MAURA Administration - Patient Studies Lab Studies: Lab Studies 08/19/17 08/19/17 08/19/17 Range/Units 11:09 06:11 06:11 WBC (4.8-10.8) K/uL RBC (4.40-5.90) Mil/uL Hgb (12.0-18.0) g/dL Hct (35.0-51.0) % MCV (80.0-94.0) fL MCH (27.0-31.0) pg MCHC (33.0-37.0) g/dL RDW (11.5-14.5) % Plt Count (130-400) K/uL MPV (7.2-11.7) fL Neut % (Auto) (50.0-75.0) % Lymph % (Auto) (20.0-40.0) % [place] % (Auto) (0.0-10.0) % Eos % (Auto) (0.0-4.0) % Baso % (Auto) (0.0-2.0) % Neut # (1.8-7.0) K/uL Lymph # (1.0-4.3) K/uL [place] # (0.0-0.8) K/uL Eos # (0.0-0.7) K/uL Baso # (0.0-0.2) K/uL Sodium 131 L (132-148) mmol/L Potassium 3.8 (3.6-5.2) mmol/L Chloride 100 (98-107) mmol/L Carbon Dioxide 22 (22-30) mmol/L Anion Gap 13 (10-20) BUN 13 (9-20) mg/dL Creatinine 0.8 (0.8-1.5) mg/dL Est GFR ( Amer) > 60 Est GFR (Non-Af Amer) > 60 POC Glucose (mg/dL) (65-110) mg/dL Random Glucose 100 (75-110) mg/dL Hemoglobin A1c 5.4 (4.2-6.5) % Calcium 8.3 L (8.6-10.4) mg/dl Magnesium 1.6 (1.6-2.3) mg/dL Total Bilirubin 0.7 (0.2-1.3) mg/dL AST 108 H D (17-59) U/L ALT 34 (21-72) U/L Alkaline Phosphatase 62 (38-126) U/L Troponin I 25.1000 H* (0.00-0.120) ng/mL Total Protein 7.5 (6.3-8.3) g/dL Albumin 4.1 (3.5-5.0) g/dL Globulin 3.5 (2.2-3.9) gm/dL Albumin/Globulin Ratio 1.2 (1.0-2.1) Triglycerides 389 H (0-149) mg/dL Cholesterol 231 H (0-199) mg/dL LDL Cholesterol Direct 129 (0-129) mg/dL HDL Cholesterol 31 (30-70) mg/dL Urine Color Straw (YELLOW) Urine Clarity Clear (Clear) Urine pH 5.0 (5.0-8.0) Ur Specific [place] 1.013 (1.003-1.030) Urine Protein Negative (NEGATIVE) mg/dL Urine Glucose (UA) 1+ H (Normal) mg/dL Urine Ketones Negative (NEGATIVE) mg/dL Urine Blood 1+ H (NEGATIVE) Urine Nitrate Negative (NEGATIVE) Urine Bilirubin Negative (NEGATIVE) Urine Urobilinogen Normal (0.2-1.0) mg/dL Ur Leukocyte Esterase Neg (Negative) [place]/uL Urine WBC (Auto) < 1 (0-5) /hpf Urine RBC (Auto) 2 (0-3) /hpf Ur Squamous Epith Cells < 1 (0-5) /hpf Hepatitis C Antibody Reactive (NEGATIVE) Blood Type Antibody Screen 08/19/17 08/18/17 08/18/17 Range/Units 06:10 17:51 17:51 WBC 8.7 (4.8-10.8) K/uL RBC 5.05 (4.40-5.90) Mil/uL Hgb 15.2 (12.0-18.0) g/dL Hct 42.8 (35.0-51.0) % MCV 84.8 (80.0-94.0) fL MCH 30.2 (27.0-31.0) pg MCHC 35.6 (33.0-37.0) g/dL RDW 13.7 (11.5-14.5) % Plt Count 195 (130-400) K/uL MPV 9.3 (7.2-11.7) fL Neut % (Auto) 69.0 (50.0-75.0) % Lymph % (Auto) 21.1 (20.0-40.0) % [place] % (Auto) 7.4 (0.0-10.0) % Eos % (Auto) 2.3 (0.0-4.0) % Baso % (Auto) 0.2 (0.0-2.0) % Neut # 6.0 (1.8-7.0) K/uL Lymph # 1.8 (1.0-4.3) K/uL [place] # 0.6 (0.0-0.8) K/uL Eos # 0.2 (0.0-0.7) K/uL Baso # 0.0 (0.0-0.2) K/uL Sodium (132-148) mmol/L Potassium (3.6-5.2) mmol/L Chloride (98-107) mmol/L Carbon Dioxide (22-30) mmol/L Anion Gap (10-20) BUN (9-20) mg/dL Creatinine (0.8-1.5) mg/dL Est GFR ( Amer) Est GFR (Non-Af Amer) POC Glucose (mg/dL) (65-110) mg/dL Random Glucose (75-110) mg/dL Hemoglobin A1c (4.2-6.5) % Calcium (8.6-10.4) mg/dl Magnesium (1.6-2.3) mg/dL Total Bilirubin (0.2-1.3) mg/dL AST (17-59) U/L ALT (21-72) U/L Alkaline Phosphatase (38-126) U/L Troponin I 0.0160 (0.00-0.120) ng/mL Total Protein (6.3-8.3) g/dL Albumin (3.5-5.0) g/dL Globulin (2.2-3.9) gm/dL Albumin/Globulin Ratio (1.0-2.1) Triglycerides (0-149) mg/dL Cholesterol (0-199) mg/dL LDL Cholesterol Direct (0-129) mg/dL HDL Cholesterol (30-70) mg/dL Urine Color (YELLOW) Urine Clarity (Clear) Urine pH (5.0-8.0) Ur Specific [place] (1.003-1.030) Urine Protein (NEGATIVE) mg/dL Urine Glucose (UA) (Normal) mg/dL Urine Ketones (NEGATIVE) mg/dL Urine Blood (NEGATIVE) Urine Nitrate (NEGATIVE) Urine Bilirubin (NEGATIVE) Urine Urobilinogen (0.2-1.0) mg/dL Ur Leukocyte Esterase (Negative) [place]a/uL Urine WBC (Auto) (0-5) /hpf Urine RBC (Auto) (0-3) /hpf Ur Squamous Epith Cells (0-5) /hpf Hepatitis C Antibody (NEGATIVE) Blood Type A POSITIVE Antibody Screen Negative 08/18/17 08/18/17 08/18/17 Range/Units 17:51 17:51 17:49 WBC 7.3 (4.8-10.8) K/uL RBC 5.31 (4.40-5.90) Mil/uL Hgb 15.7 (12.0-18.0) g/dL Hct 44.6 (35.0-51.0) % MCV 84.1 (80.0-94.0) fL MCH 29.5 (27.0-31.0) pg MCHC 35.1 (33.0-37.0) g/dL RDW 13.7 (11.5-14.5) % Plt Count 238 (130-400) K/uL MPV 8.7 (7.2-11.7) fL Neut % (Auto) 49.6 L (50.0-75.0) % Lymph % (Auto) 39.5 (20.0-40.0) % [place] % (Auto) 6.5 (0.0-10.0) % Eos % (Auto) 3.8 (0.0-4.0) % Baso % (Auto) 0.6 (0.0-2.0) % Neut # 3.6 (1.8-7.0) K/uL Lymph # 2.9 (1.0-4.3) K/uL [place] # 0.5 (0.0-0.8) K/uL Eos # 0.3 (0.0-0.7) K/uL Baso # 0.0 (0.0-0.2) K/uL Sodium 133 (132-148) mmol/L Potassium 4.1 (3.6-5.2) mmol/L Chloride 97 L (98-107) mmol/L Carbon Dioxide 27 (22-30) mmol/L Anion Gap 14 (10-20) BUN 17 (9-20) mg/dL Creatinine 1.0 (0.8-1.5) mg/dL Est GFR ( Amer) > 60 Est GFR (Non-Af Amer) > 60 POC Glucose (mg/dL) 151 H (65-110) mg/dL Random Glucose 134 H (75-110) mg/dL Hemoglobin A1c (4.2-6.5) % Calcium 8.9 (8.6-10.4) mg/dl Magnesium (1.6-2.3) mg/dL Total Bilirubin 0.4 (0.2-1.3) mg/dL AST 23 (17-59) U/L ALT 32 (21-72) U/L Alkaline Phosphatase 56 (38-126) U/L Troponin I (0.00-0.120) ng/mL Total Protein 8.3 (6.3-8.3) g/dL Albumin 4.4 (3.5-5.0) g/dL Globulin 3.9 (2.2-3.9) gm/dL Albumin/Globulin Ratio 1.1 (1.0-2.1) Triglycerides (0-149) mg/dL Cholesterol (0-199) mg/dL LDL Cholesterol Direct (0-129) mg/dL HDL Cholesterol (30-70) mg/dL Urine Color (YELLOW) Urine Clarity (Clear) Urine pH (5.0-8.0) Ur Specific [place] (1.003-1.030) Urine Protein (NEGATIVE) mg/dL Urine Glucose (UA) (Normal) mg/dL Urine Ketones (NEGATIVE) mg/dL Urine Blood (NEGATIVE) Urine Nitrate (NEGATIVE) Urine Bilirubin (NEGATIVE) Urine Urobilinogen (0.2-1.0) mg/dL Ur Leukocyte Esterase (Negative) Mila/uL Urine WBC (Auto) (0-5) /hpf Urine RBC (Auto) (0-3) /hpf Ur Squamous Epith Cells (0-5) /hpf Hepatitis C Antibody (NEGATIVE) Blood Type Antibody Screen Laboratory Results - last 24 hr 08/18/17 08/18/17 08/18/17 17:49 17:51 17:51 WBC 7.3 RBC 5.31 Hgb 15.7 Hct 44.6 MCV 84.1 MCH 29.5 MCHC 35.1 RDW 13.7 Plt Count 238 MPV 8.7 Neut % (Auto) 49.6 L Lymph % (Auto) 39.5 [place] % (Auto) 6.5 Eos % (Auto) 3.8 Baso % (Auto) 0.6 Neut # 3.6 Lymph # 2.9 [place] # 0.5 Eos # 0.3 Baso # 0.0 Sodium 133 Potassium 4.1 Chloride 97 L Carbon Dioxide 27 Anion Gap 14 BUN 17 Creatinine 1.0 Est GFR ( Amer) > 60 Est GFR (Non-Af Amer) > 60 POC Glucose (mg/dL) 151 H Random Glucose 134 H Hemoglobin A1c Calcium 8.9 Magnesium Total Bilirubin 0.4 AST 23 ALT 32 Alkaline Phosphatase 56 Troponin I Total Protein 8.3 Albumin 4.4 Globulin 3.9 Albumin/Globulin Ratio 1.1 Triglycerides Cholesterol LDL Cholesterol Direct HDL Cholesterol Urine Color Urine Clarity Urine pH Ur Specific [place] Urine Protein Urine Glucose (UA) Urine Ketones Urine Blood Urine Nitrate Urine Bilirubin Urine Urobilinogen Ur Leukocyte Esterase Urine WBC (Auto) Urine RBC (Auto) Ur Squamous Epith Cells Hepatitis C Antibody Blood Type Antibody Screen 08/18/17 08/18/17 08/19/17 17:51 17:51 06:10 WBC 8.7 RBC 5.05 Hgb 15.2 Hct 42.8 MCV 84.8 MCH 30.2 MCHC 35.6 RDW 13.7 Plt Count 195 MPV 9.3 Neut % (Auto) 69.0 Lymph % (Auto) 21.1 [place] % (Auto) 7.4 Eos % (Auto) 2.3 Baso % (Auto) 0.2 Neut # 6.0 Lymph # 1.8 [place] # 0.6 Eos # 0.2 Baso # 0.0 Sodium Potassium Chloride Carbon Dioxide Anion Gap BUN Creatinine Est GFR ( Amer) Est GFR (Non-Af Amer) POC Glucose (mg/dL) Random Glucose Hemoglobin A1c Calcium Magnesium Total Bilirubin AST ALT Alkaline Phosphatase Troponin I 0.0160 Total Protein Albumin Globulin Albumin/Globulin Ratio Triglycerides Cholesterol LDL Cholesterol Direct HDL Cholesterol Urine Color Urine Clarity Urine pH Ur Specific [place] Urine Protein Urine Glucose (UA) Urine Ketones Urine Blood Urine Nitrate Urine Bilirubin Urine Urobilinogen Ur Leukocyte Esterase Urine WBC (Auto) Urine RBC (Auto) Ur Squamous Epith Cells Hepatitis C Antibody Blood Type A POSITIVE Antibody Screen Negative 08/19/17 08/19/17 08/19/17 06:11 06:11 11:09 WBC RBC Hgb Hct MCV MCH MCHC RDW Plt Count MPV Neut % (Auto) Lymph % (Auto) [place] % (Auto) Eos % (Auto) Baso % (Auto) Neut # Lymph # [place] # Eos # Baso # Sodium 131 L Potassium 3.8 Chloride 100 Carbon Dioxide 22 Anion Gap 13 BUN 13 Creatinine 0.8 Est GFR ( Amer) > 60 Est GFR (Non-Af Amer) > 60 POC Glucose (mg/dL) Random Glucose 100 Hemoglobin A1c 5.4 Calcium 8.3 L Magnesium 1.6 Total Bilirubin 0.7 AST 108 H D ALT 34 Alkaline Phosphatase 62 Troponin I 25.1000 H* Total Protein 7.5 Albumin 4.1 Globulin 3.5 Albumin/Globulin Ratio 1.2 Triglycerides 389 H Cholesterol 231 H LDL Cholesterol Direct 129 HDL Cholesterol 31 Urine Color Straw Urine Clarity Clear Urine pH 5.0 Ur Specific [place] 1.013 Urine Protein Negative Urine Glucose (UA) 1+ H Urine Ketones Negative Urine Blood 1+ H Urine Nitrate Negative Urine Bilirubin Negative Urine Urobilinogen Normal Ur Leukocyte Esterase Neg Urine WBC (Auto) < 1 Urine RBC (Auto) 2 Ur Squamous Epith Cells < 1 Hepatitis C Antibody Reactive Blood Type Antibody Screen EKG/Cardiology Studies: Cardiology / EKG Studies 08/18/17 17:45 ELECTROCARDIOGRAM Stat Comment: Mode Of Transportation: BED Reason For Exam: chest pain 08/18/17 17:55 EKG [ELECTROCARDIOGRAM] Stat Comment: Mode Of Transportation: BED Reason For Exam: code heart Fingerstick Blood Sugar Results: 151 Critical Care Progress Note - Nutrition Nutrition: Nutrition Category Date Time Status Heart Healthy Diet [DIET] Diets 08/19/17 Breakfast Active Assessment/Plan - Assessment and Plan (Free Text) Assessment: 57M presents with chest pain for two hours and found to have an occlusion. Patient is s/p CHARO x2 08/18/2017 Plan Neuro: Monitor vitals Cardio: STEMI Troponin I 08/18/17 17:51 0.0160 08/19/17 06:11 25.100 ASA 81mg PO QD Coreg 3.125mg PO BID Enlapril 5mg PO QD Heparin 5,000 u SC Q8 Rosuvastatin 20mg PO QHS Ticagrelor (Brilinta) 90 mg PO BID Pulm: Maintain O2 saturation >92% Endo: Hgb A1c Lipid panel TG 389, Cholesterol 231, LDL 129, HDL 31 GI: AST/ALT, ALP 08/18/17 23/32, 56 08/19/17 108/34, 62 Diet: Heart Healthy Diet : Renal: I/O:820/1300 = -480cc Heme/Onc: H/H: 08/18 15.7/44.6 08/19 15.2/42.8 COAG: MSK: Activity as tolerated ID: f/u AM CBC Hepatitis C antibody reactive Prophylaxis: DVT: SCDs, Heparin 5,000 u SC Q8 GI: Pepcid 20mg PO QD Discussed with Dr. Lee Sage DO PGY1 - Date & Time Date: 08/19/17 Time: 13:34 <Zackery Howard - Last Filed: 08/19/17 18:29> CCU Objective - Vital Signs / Intake & Output Vital Signs (Last 4 hours): Vital Signs Pulse Resp BP Pulse Ox 08/19/17 15:10 92 H 23 96 08/19/17 15:00 94 H 25 H 96 08/19/17 14:50 90 29 H 96 08/19/17 14:41 90 28 H 116/75 96 08/19/17 14:40 90 28 H 96 08/19/17 14:30 90 30 H 96 Intake and Output (Last 8hrs): Intake & Output 08/19/17 08/19/17 08/19/17 06:59 14:59 22:59 Intake Total 430 600 Output Total 700 1050 Balance -270 -450 Weight 206 lb 11.2 oz Intake: Intake, IV Amount 150 Left Antecubital 150 Oral 280 600 Output: Urine 700 1050 Urine, Voided 700 1050 Other: # Bowel Movements 0 0 - Medications Active Medications: Active Medications Generic Name Dose Route Start Last Admin Trade Name Freq PRN Reason Stop Dose Admin Aspirin 81 mg 08/19/17 10:00 08/19/17 10:43 Aspirin Chewable PO 81 mg DAILY MAURA Administration Carvedilol 3.125 mg 08/18/17 20:30 08/19/17 10:42 Coreg PO 3.125 mg BID MAURA Administration Enalapril Maleate 5 mg 08/19/17 10:00 08/19/17 10:42 Vasotec PO 5 mg DAILY MAURA Administration Famotidine 20 mg 08/19/17 10:00 08/19/17 10:42 Pepcid PO 20 mg DAILY MAURA Administration Heparin Sodium (Porcine) 5,000 units 08/18/17 22:00 08/19/17 15:00 Heparin SC 5,000 units Q8 MAURA Administration Rosuvastatin Calcium 20 mg 08/18/17 22:00 08/18/17 21:32 Crestor PO 20 mg HS MAURA Administration Ticagrelor 90 mg 08/19/17 10:00 08/19/17 10:43 Brilinta PO 90 mg BID MAURA Administration - Patient Studies Lab Studies: Lab Studies 08/19/17 08/19/17 08/19/17 Range/Units 11:09 06:11 06:11 WBC (4.8-10.8) K/uL RBC (4.40-5.90) Mil/uL Hgb (12.0-18.0) g/dL Hct (35.0-51.0) % MCV (80.0-94.0) fL MCH (27.0-31.0) pg MCHC (33.0-37.0) g/dL RDW (11.5-14.5) % Plt Count (130-400) K/uL MPV (7.2-11.7) fL Neut % (Auto) (50.0-75.0) % Lymph % (Auto) (20.0-40.0) % [place] % (Auto) (0.0-10.0) % Eos % (Auto) (0.0-4.0) % Baso % (Auto) (0.0-2.0) % Neut # (1.8-7.0) K/uL Lymph # (1.0-4.3) K/uL [place] # (0.0-0.8) K/uL Eos # (0.0-0.7) K/uL Baso # (0.0-0.2) K/uL Sodium 131 L (132-148) mmol/L Potassium 3.8 (3.6-5.2) mmol/L Chloride 100 (98-107) mmol/L Carbon Dioxide 22 (22-30) mmol/L Anion Gap 13 (10-20) BUN 13 (9-20) mg/dL Creatinine 0.8 (0.8-1.5) mg/dL Est GFR ( Amer) > 60 Est GFR (Non-Af Amer) > 60 Random Glucose 100 (75-110) mg/dL Hemoglobin A1c 5.4 (4.2-6.5) % Calcium 8.3 L (8.6-10.4) mg/dl Magnesium 1.6 (1.6-2.3) mg/dL Total Bilirubin 0.7 (0.2-1.3) mg/dL AST 108 H D (17-59) U/L ALT 34 (21-72) U/L Alkaline Phosphatase 62 (38-126) U/L Troponin I 25.1000 H* (0.00-0.120) ng/mL Total Protein 7.5 (6.3-8.3) g/dL Albumin 4.1 (3.5-5.0) g/dL Globulin 3.5 (2.2-3.9) gm/dL Albumin/Globulin Ratio 1.2 (1.0-2.1) Triglycerides 389 H (0-149) mg/dL Cholesterol 231 H (0-199) mg/dL LDL Cholesterol Direct 129 (0-129) mg/dL HDL Cholesterol 31 (30-70) mg/dL Urine Color Straw (YELLOW) Urine Clarity Clear (Clear) Urine pH 5.0 (5.0-8.0) Ur Specific [place] 1.013 (1.003-1.030) Urine Protein Negative (NEGATIVE) mg/dL Urine Glucose (UA) 1+ H (Normal) mg/dL Urine Ketones Negative (NEGATIVE) mg/dL Urine Blood 1+ H (NEGATIVE) Urine Nitrate Negative (NEGATIVE) Urine Bilirubin Negative (NEGATIVE) Urine Urobilinogen Normal (0.2-1.0) mg/dL Ur Leukocyte Esterase Neg (Negative) Mila/uL Urine WBC (Auto) < 1 (0-5) /hpf Urine RBC (Auto) 2 (0-3) /hpf Ur Squamous Epith Cells < 1 (0-5) /hpf Hepatitis C Antibody Reactive (NEGATIVE) Blood Type Antibody Screen 08/19/17 08/18/17 Range/Units 06:10 17:51 WBC 8.7 (4.8-10.8) K/uL RBC 5.05 (4.40-5.90) Mil/uL Hgb 15.2 (12.0-18.0) g/dL Hct 42.8 (35.0-51.0) % MCV 84.8 (80.0-94.0) fL MCH 30.2 (27.0-31.0) pg MCHC 35.6 (33.0-37.0) g/dL RDW 13.7 (11.5-14.5) % Plt Count 195 (130-400) K/uL MPV 9.3 (7.2-11.7) fL Neut % (Auto) 69.0 (50.0-75.0) % Lymph % (Auto) 21.1 (20.0-40.0) % [place] % (Auto) 7.4 (0.0-10.0) % Eos % (Auto) 2.3 (0.0-4.0) % Baso % (Auto) 0.2 (0.0-2.0) % Neut # 6.0 (1.8-7.0) K/uL Lymph # 1.8 (1.0-4.3) K/uL [place] # 0.6 (0.0-0.8) K/uL Eos # 0.2 (0.0-0.7) K/uL Baso # 0.0 (0.0-0.2) K/uL Sodium (132-148) mmol/L Potassium (3.6-5.2) mmol/L Chloride (98-107) mmol/L Carbon Dioxide (22-30) mmol/L Anion Gap (10-20) BUN (9-20) mg/dL Creatinine (0.8-1.5) mg/dL Est GFR ( Amer) Est GFR (Non-Af Amer) Random Glucose (75-110) mg/dL Hemoglobin A1c (4.2-6.5) % Calcium (8.6-10.4) mg/dl Magnesium (1.6-2.3) mg/dL Total Bilirubin (0.2-1.3) mg/dL AST (17-59) U/L ALT (21-72) U/L Alkaline Phosphatase (38-126) U/L Troponin I (0.00-0.120) ng/mL Total Protein (6.3-8.3) g/dL Albumin (3.5-5.0) g/dL Globulin (2.2-3.9) gm/dL Albumin/Globulin Ratio (1.0-2.1) Triglycerides (0-149) mg/dL Cholesterol (0-199) mg/dL LDL Cholesterol Direct (0-129) mg/dL HDL Cholesterol (30-70) mg/dL Urine Color (YELLOW) Urine Clarity (Clear) Urine pH (5.0-8.0) Ur Specific [place] (1.003-1.030) Urine Protein (NEGATIVE) mg/dL Urine Glucose (UA) (Normal) mg/dL Urine Ketones (NEGATIVE) mg/dL Urine Blood (NEGATIVE) Urine Nitrate (NEGATIVE) Urine Bilirubin (NEGATIVE) Urine Urobilinogen (0.2-1.0) mg/dL Ur Leukocyte Esterase (Negative) Mila/uL Urine WBC (Auto) (0-5) /hpf Urine RBC (Auto) (0-3) /hpf Ur Squamous Epith Cells (0-5) /hpf Hepatitis C Antibody (NEGATIVE) Blood Type A POSITIVE Antibody Screen Negative Laboratory Results - last 24 hr 08/18/17 08/19/17 08/19/17 17:51 06:10 06:11 WBC 8.7 RBC 5.05 Hgb 15.2 Hct 42.8 MCV 84.8 MCH 30.2 MCHC 35.6 RDW 13.7 Plt Count 195 MPV 9.3 Neut % (Auto) 69.0 Lymph % (Auto) 21.1 [place] % (Auto) 7.4 Eos % (Auto) 2.3 Baso % (Auto) 0.2 Neut # 6.0 Lymph # 1.8 [place] # 0.6 Eos # 0.2 Baso # 0.0 Sodium 131 L Potassium 3.8 Chloride 100 Carbon Dioxide 22 Anion Gap 13 BUN 13 Creatinine 0.8 Est GFR ( Amer) > 60 Est GFR (Non-Af Amer) > 60 Random Glucose 100 Hemoglobin A1c Calcium 8.3 L Magnesium 1.6 Total Bilirubin 0.7 AST 108 H D ALT 34 Alkaline Phosphatase 62 Troponin I 25.1000 H* Total Protein 7.5 Albumin 4.1 Globulin 3.5 Albumin/Globulin Ratio 1.2 Triglycerides 389 H Cholesterol 231 H LDL Cholesterol Direct 129 HDL Cholesterol 31 Urine Color Urine Clarity Urine pH Ur Specific [place] Urine Protein Urine Glucose (UA) Urine Ketones Urine Blood Urine Nitrate Urine Bilirubin Urine Urobilinogen Ur Leukocyte Esterase Urine WBC (Auto) Urine RBC (Auto) Ur Squamous Epith Cells Hepatitis C Antibody Reactive Blood Type A POSITIVE Antibody Screen Negative 08/19/17 08/19/17 06:11 11:09 WBC RBC Hgb Hct MCV MCH MCHC RDW Plt Count MPV Neut % (Auto) Lymph % (Auto) [place] % (Auto) Eos % (Auto) Baso % (Auto) Neut # Lymph # [place] # Eos # Baso # Sodium Potassium Chloride Carbon Dioxide Anion Gap BUN Creatinine Est GFR ( Amer) Est GFR (Non-Af Amer) Random Glucose Hemoglobin A1c 5.4 Calcium Magnesium Total Bilirubin AST ALT Alkaline Phosphatase Troponin I Total Protein Albumin Globulin Albumin/Globulin Ratio Triglycerides Cholesterol LDL Cholesterol Direct HDL Cholesterol Urine Color Straw Urine Clarity Clear Urine pH 5.0 Ur Specific [place] 1.013 Urine Protein Negative Urine Glucose (UA) 1+ H Urine Ketones Negative Urine Blood 1+ H Urine Nitrate Negative Urine Bilirubin Negative Urine Urobilinogen Normal Ur Leukocyte Esterase Neg Urine WBC (Auto) < 1 Urine RBC (Auto) 2 Ur Squamous Epith Cells < 1 Hepatitis C Antibody Blood Type Antibody Screen EKG/Cardiology Studies: Cardiology / EKG Studies 08/18/17 17:45 ELECTROCARDIOGRAM Stat Comment: Mode Of Transportation: BED Reason For Exam: chest pain 08/18/17 17:55 EKG [ELECTROCARDIOGRAM] Stat Comment: Mode Of Transportation: BED Reason For Exam: code heart Critical Care Progress Note - Nutrition Nutrition: Nutrition Category Date Time Status Heart Healthy Diet [DIET] Diets 08/19/17 Breakfast Active Attending/Attestation - Attestation I have personally seen and examined this patient.: Yes I have fully participated in the care of the patient.: Yes I have reviewed all pertinent clinical information: Yes Notes (Text): 08/19/17 18:28 I have seen and examined the patient. Medical records, lab studies, and imaging were reviewed by me and a management plan was formulated on multidisciplinary rounds with resident Dr. Sage. I agree with their documented assessment and plan. s/p cardiac cath, no complaints of chest pain, monitoring. if remains stable will downgrade to the floors tomorrow. Continue current medical management as per cardiology. Critical Care Time 35 minutes. Multi-disciplinary rounds were performed with house staff, nursing, speech therapy, respiratory therapy, pharmacy and nutrition with integrated input from the primary team/attending and other consulting services. The documented time is cumulative and includes review of patient data/exams/labs/chart review and examination of the patient on rounds and throughout the day; time is exclusive of any procedures or teaching time.
--- NOTE | 2017-08-19 13:38 | CARD ---
APPROVED REPORT EKG Measurement Heart [id number] CO [id number] <Conclusion> Normal sinus rhythm Possible Left atrial enlargement Left ventricular hypertrophy with repolarization abnormality ST elevation, consider inferior injury or acute infarct ACUTE CT / STEMI Consider right ventricular involvement in acute inferior infarct Abnormal ECG
[2017-08-20 06:24] LABS: BASO % 0.5 % (0.0-2.0); EOS # 0.3 K/uL (0.0-0.7); EOS % 3.3 % (0.0-4.0); HEMOGLOBIN 15.1 g/dL (12.0-18.0); LYMPH # 2.7 K/uL (1.0-4.3); MEAN CELL VOLUME 85.3 fL (80.0-94.0); MEAN CORPUSCULAR HEMOGLOBIN 29.8 pg (27.0-31.0); MEAN CORPUSCULAR HGB CONC 34.9 g/dL (33.0-37.0); MEAN PLATELET VOLUME 8.9 fL (7.2-11.7); MONO # 0.7 K/uL (0.0-0.8); NEUT # 4.4 K/uL (1.8-7.0); NEUT % 54.2 % (50.0-75.0); NRBC % 0.1 % (0.0-2.0); RBC 5.08 Mil/uL (4.40-5.90); RED CELL DISTRIBUTION WIDTH 13.9 % (11.5-14.5)
[2017-08-20 06:39] LABS: ALB/GLOB RATIO 1.1 (1.0-2.1); ALBUMIN 3.9 g/dL (3.5-5.0); ALT/SGPT 33 U/L (21-72); AST/SGOT 68 U/L (17-59); BLOOD UREA NITROGEN 14 mg/dL (9-20); CALCIUM 8.2 mg/dl (8.6-10.4); GFR AFRICAN-AMERICAN > 60; GFR NON-AFRICAN AMERICAN > 60; MAGNESIUM 1.8 mg/dL (1.6-2.3)
--- NOTE | 2017-08-20 08:06 | CP.CCUPN ---
<Katalina Sage - Last Filed: 08/20/17 08:06> CCU Subjective - Physician Review Subjective (Free Text): 08/20/17 08:[address] Mart Patient seen and examined at bedside. No acute events overnight. Patient denies fever, chills, nausea, vomiting, difficulty breathing. CCU Objective - Vital Signs / Intake & Output Vital Signs (Last 4 hours): Vital Signs Pulse Resp BP Pulse Ox 08/20/17 07:00 83 20 95 08/20/17 06:42 78 21 117/81 95 08/20/17 06:00 109 H 29 H 117/81 93 L 08/20/17 05:41 78 22 105/79 08/20/17 04:41 79 22 112/76 Intake and Output (Last 8hrs): Intake & Output 08/19/17 08/20/17 08/20/17 22:59 06:59 14:59 Intake Total 660 100 Output Total 900 850 Balance -240 -750 Weight 203 lb 0.6 oz Intake: Oral 660 100 Output: Urine 900 850 Urine, Voided 900 850 Other: # Bowel Movements 0 0 - Physical Exam Head: Positive for: Atraumatic, Normocephalic Extroacular Muscles: Positive for: EOMI Conjunctiva: Positive for: Normal Ears: Positive for: Normal Mouth: Positive for: Moist Mucous Membranes. Negative for: Dry Pharnyx: Positive for: Normal. Negative for: ERYTHEMA, EXUDATE, TONSILS ENLARGED, Muffled/Hoarse Voice Nose (Internal): Positive for: Normal Inspection Neck: Positive for: Normal Range of Motion, Trachea Midline Respiratory/Chest: Positive for: Clear to Auscultation. Negative for: Respiratory Distress, Decreased Breath Sounds Cardiovascular: Positive for: Regular Rate and Rhythm, Normal S1, S2 Abdomen: Positive for: Normal Bowel Sounds. Negative for: Tenderness, Distention Upper Extremity: Positive for: Normal Inspection Lower Extremity: Positive for: Normal Inspection, Capillary Refill < 2 s, Other (no hematoma at right femoral entrance site, no bruit, no breakthrough bleeding) . Negative for: Edema, CALF TENDERNESS Neurological: Positive for: CN II-XII Intact Skin: Positive for: Warm, Dry - Medications Active Medications: Active Medications Generic Name Dose Route Start Last Admin Trade Name Freq PRN Reason Stop Dose Admin Aspirin 81 mg 08/19/17 10:00 08/19/17 10:43 Aspirin Chewable PO 81 mg DAILY MAURA Administration Carvedilol 3.125 mg 08/18/17 20:30 08/19/17 19:00 Coreg PO 3.125 mg BID MAURA Administration Enalapril Maleate 5 mg 08/19/17 10:00 08/19/17 10:42 Vasotec PO 5 mg DAILY MAURA Administration Famotidine 20 mg 08/19/17 10:00 08/19/17 10:42 Pepcid PO 20 mg DAILY MAURA Administration Heparin Sodium (Porcine) 5,000 units 08/18/17 22:00 08/20/17 06:44 Heparin SC 5,000 units Q8 MAURA Administration Rosuvastatin Calcium 20 mg 08/18/17 22:00 08/19/17 22:38 Crestor PO 20 mg HS MAURA Administration Ticagrelor 90 mg 08/19/17 10:00 08/19/17 19:00 Brilinta PO 90 mg BID MAURA Administration - Patient Studies Lab Studies: Lab Studies 08/20/17 08/20/17 08/19/17 Range/Units 06:17 06:15 11:09 WBC 8.0 (4.8-10.8) K/uL RBC 5.08 (4.40-5.90) Mil/uL Hgb 15.1 (12.0-18.0) g/dL Hct 43.3 (35.0-51.0) % MCV 85.3 (80.0-94.0) fL MCH 29.8 (27.0-31.0) pg MCHC 34.9 (33.0-37.0) g/dL RDW 13.9 (11.5-14.5) % Plt Count 200 (130-400) K/uL MPV 8.9 (7.2-11.7) fL Neut % (Auto) 54.2 (50.0-75.0) % Lymph % (Auto) 33.0 (20.0-40.0) % Morton % (Auto) 9.0 (0.0-10.0) % Eos % (Auto) 3.3 (0.0-4.0) % Baso % (Auto) 0.5 (0.0-2.0) % Neut # 4.4 (1.8-7.0) K/uL Lymph # 2.7 (1.0-4.3) K/uL Morton # 0.7 (0.0-0.8) K/uL Eos # 0.3 (0.0-0.7) K/uL Baso # 0.0 (0.0-0.2) K/uL Sodium 134 (132-148) mmol/L Potassium 3.8 (3.6-5.2) mmol/L Chloride 104 (98-107) mmol/L Carbon Dioxide 24 (22-30) mmol/L Anion Gap 11 (10-20) BUN 14 (9-20) mg/dL Creatinine 1.0 (0.8-1.5) mg/dL Est GFR ( Amer) > 60 Est GFR (Non-Af Amer) > 60 Random Glucose 103 (75-110) mg/dL Hemoglobin A1c (4.2-6.5) % Calcium 8.2 L (8.6-10.4) mg/dl Phosphorus 3.5 (2.5-4.5) mg/dL Magnesium 1.8 (1.6-2.3) mg/dL Total Bilirubin 0.9 (0.2-1.3) mg/dL AST 68 H D (17-59) U/L ALT 33 (21-72) U/L Alkaline Phosphatase 57 (38-126) U/L Total Protein 7.4 (6.3-8.3) g/dL Albumin 3.9 (3.5-5.0) g/dL Globulin 3.4 (2.2-3.9) gm/dL Albumin/Globulin Ratio 1.1 (1.0-2.1) Urine Color Straw (YELLOW) Urine Clarity Clear (Clear) Urine pH 5.0 (5.0-8.0) Ur Specific [place] 1.013 (1.003-1.030) Urine Protein Negative (NEGATIVE) mg/dL Urine Glucose (UA) 1+ H (Normal) mg/dL Urine Ketones Negative (NEGATIVE) mg/dL Urine Blood 1+ H (NEGATIVE) Urine Nitrate Negative (NEGATIVE) Urine Bilirubin Negative (NEGATIVE) Urine Urobilinogen Normal (0.2-1.0) mg/dL Ur Leukocyte Esterase Neg (Negative) Mila/uL Urine WBC (Auto) < 1 (0-5) /hpf Urine RBC (Auto) 2 (0-3) /hpf Ur Squamous Epith Cells < 1 (0-5) /hpf Hepatitis C Antibody (NEGATIVE) 08/19/17 08/19/17 Range/Units 06:11 06:11 WBC (4.8-10.8) K/uL RBC (4.40-5.90) Mil/uL Hgb (12.0-18.0) g/dL Hct (35.0-51.0) % MCV (80.0-94.0) fL MCH (27.0-31.0) pg MCHC (33.0-37.0) g/dL RDW (11.5-14.5) % Plt Count (130-400) K/uL MPV (7.2-11.7) fL Neut % (Auto) (50.0-75.0) % Lymph % (Auto) (20.0-40.0) % Morton % (Auto) (0.0-10.0) % Eos % (Auto) (0.0-4.0) % Baso % (Auto) (0.0-2.0) % Neut # (1.8-7.0) K/uL Lymph # (1.0-4.3) K/uL Morton # (0.0-0.8) K/uL Eos # (0.0-0.7) K/uL Baso # (0.0-0.2) K/uL Sodium (132-148) mmol/L Potassium (3.6-5.2) mmol/L Chloride (98-107) mmol/L Carbon Dioxide (22-30) mmol/L Anion Gap (10-20) BUN (9-20) mg/dL Creatinine (0.8-1.5) mg/dL Est GFR ( Amer) Est GFR (Non-Af Amer) Random Glucose (75-110) mg/dL Hemoglobin A1c 5.4 (4.2-6.5) % Calcium (8.6-10.4) mg/dl Phosphorus (2.5-4.5) mg/dL Magnesium (1.6-2.3) mg/dL Total Bilirubin (0.2-1.3) mg/dL AST (17-59) U/L ALT (21-72) U/L Alkaline Phosphatase (38-126) U/L Total Protein (6.3-8.3) g/dL Albumin (3.5-5.0) g/dL Globulin (2.2-3.9) gm/dL Albumin/Globulin Ratio (1.0-2.1) Urine Color (YELLOW) Urine Clarity (Clear) Urine pH (5.0-8.0) Ur Specific [place] (1.003-1.030) Urine Protein (NEGATIVE) mg/dL Urine Glucose (UA) (Normal) mg/dL Urine Ketones (NEGATIVE) mg/dL Urine Blood (NEGATIVE) Urine Nitrate (NEGATIVE) Urine Bilirubin (NEGATIVE) Urine Urobilinogen (0.2-1.0) mg/dL Ur Leukocyte Esterase (Negative) Mila/uL Urine WBC (Auto) (0-5) /hpf Urine RBC (Auto) (0-3) /hpf Ur Squamous Epith Cells (0-5) /hpf Hepatitis C Antibody Reactive (NEGATIVE) Laboratory Results - last 24 hr 08/19/17 08/19/17 08/19/17 06:11 06:11 11:09 WBC RBC Hgb Hct MCV MCH MCHC RDW Plt Count MPV Neut % (Auto) Lymph % (Auto) Morton % (Auto) Eos % (Auto) Baso % (Auto) Neut # Lymph # Morton # Eos # Baso # Sodium Potassium Chloride Carbon Dioxide Anion Gap BUN Creatinine Est GFR ( Amer) Est GFR (Non-Af Amer) Random Glucose Hemoglobin A1c 5.4 Calcium Phosphorus Magnesium Total Bilirubin AST ALT Alkaline Phosphatase Total Protein Albumin Globulin Albumin/Globulin Ratio Urine Color Straw Urine Clarity Clear Urine pH 5.0 Ur Specific [place] 1.013 Urine Protein Negative Urine Glucose (UA) 1+ H Urine Ketones Negative Urine Blood 1+ H Urine Nitrate Negative Urine Bilirubin Negative Urine Urobilinogen Normal Ur Leukocyte Esterase Neg Urine WBC (Auto) < 1 Urine RBC (Auto) 2 Ur Squamous Epith Cells < 1 Hepatitis C Antibody Reactive 08/20/17 08/20/17 06:15 06:17 WBC 8.0 RBC 5.08 Hgb 15.1 Hct 43.3 MCV 85.3 MCH 29.8 MCHC 34.9 RDW 13.9 Plt Count 200 MPV 8.9 Neut % (Auto) 54.2 Lymph % (Auto) 33.0 Morton % (Auto) 9.0 Eos % (Auto) 3.3 Baso % (Auto) 0.5 Neut # 4.4 Lymph # 2.7 Morton # 0.7 Eos # 0.3 Baso # 0.0 Sodium 134 Potassium 3.8 Chloride 104 Carbon Dioxide 24 Anion Gap 11 BUN 14 Creatinine 1.0 Est GFR ( Amer) > 60 Est GFR (Non-Af Amer) > 60 Random Glucose 103 Hemoglobin A1c Calcium 8.2 L Phosphorus 3.5 Magnesium 1.8 Total Bilirubin 0.9 AST 68 H D ALT 33 Alkaline Phosphatase 57 Total Protein 7.4 Albumin 3.9 Globulin 3.4 Albumin/Globulin Ratio 1.1 Urine Color Urine Clarity Urine pH Ur Specific [place] Urine Protein Urine Glucose (UA) Urine Ketones Urine Blood Urine Nitrate Urine Bilirubin Urine Urobilinogen Ur Leukocyte Esterase Urine WBC (Auto) Urine RBC (Auto) Ur Squamous Epith Cells Hepatitis C Antibody Fingerstick Blood Sugar Results: 151 Critical Care Progress Note - Nutrition Nutrition: Nutrition Category Date Time Status Heart Healthy Diet [DIET] Diets 08/19/17 Breakfast Active Assessment/Plan - Assessment and Plan (Free Text) Assessment: 57M presents with chest pain for two hours and found to have an occlusion of coronary arteries. Patient is s/p CHARO x2 08/18/2017 Plan Neuro: Monitor vitals Cardio: STEMI Troponin I 08/18/17 17:51 0.0160 08/19/17 06:11 25.100 ASA 81mg PO QD Coreg 3.125mg PO BID Enlapril 5mg PO QD Heparin 5,000 u SC Q8 Rosuvastatin 20mg PO QHS Ticagrelor (Brilinta) 90 mg PO BID Pulm: Maintain O2 saturation >92% Endo: Hgb A1c Lipid panel TG 389, Cholesterol 231, LDL 129, HDL 31 GI: AST/ALT, ALP 08/18/17 23/32, 56 08/19/17 108/34, 62 Diet: Heart Healthy Diet : Renal: I/O: 1360/2800 = -1440 Heme/Onc: H/H: 08/18 15.7/44.6 08/19 15.2/42.8 08/20 15.1/43.3 MSK: Activity as tolerated ID: f/u AM CBC Hepatitis C antibody reactive Prophylaxis: DVT: SCDs, Heparin 5,000 u SC Q8 GI: Pepcid 20mg PO QD 08/20/2017: Patient is clinically stable for transfer to telemetry Discussed with Dr. Barron Sage, DO PGY1 <Freddie Mart S - Last Filed: 08/20/17 17:44> CCU Objective - Vital Signs / Intake & Output Vital Signs (Last 4 hours): Vital Signs Temp Pulse Resp BP Pulse Ox 08/20/17 17:00 82 22 95 08/20/17 16:41 78 23 124/89 97 08/20/17 16:00 78 26 H 97 08/20/17 15:41 80 26 H 120/86 96 08/20/17 15:00 81 26 H 97 08/20/17 14:41 79 17 121/86 08/20/17 14:00 97.8 F Intake and Output (Last 8hrs): Intake & Output 08/20/17 08/20/17 08/20/17 06:59 14:59 22:59 Intake Total 100 460 Output Total 850 400 0 Balance -750 60 0 Weight 203 lb 0.6 oz Intake: Oral 100 460 Output: Urine 850 400 Urine, Voided 850 400 Emesis 0 0 Other: # Bowel Movements 0 0 0 - Medications Active Medications: Active Medications Generic Name Dose Route Start Last Admin Trade Name Freq PRN Reason Stop Dose Admin Aspirin 81 mg 08/19/17 10:00 08/20/17 10:30 Aspirin Chewable PO 81 mg DAILY MAURA Administration Clopidogrel Bisulfate 75 mg 08/20/17 10:00 08/20/17 10:31 Plavix PO 75 mg DAILY MAURA Administration Enalapril Maleate 5 mg 08/19/17 10:00 08/20/17 10:30 Vasotec PO 5 mg DAILY MAURA Administration Famotidine 20 mg 08/19/17 10:00 08/20/17 10:31 Pepcid PO 20 mg DAILY MAURA Administration Heparin Sodium (Porcine) 5,000 units 08/18/17 22:00 08/20/17 14:50 Heparin SC 5,000 units Q8 MAURA Administration Metoprolol Tartrate 50 mg 08/20/17 10:00 08/20/17 10:31 Lopressor PO 50 mg BID MAURA Administration Rosuvastatin Calcium 20 mg 08/18/17 22:00 08/19/17 22:38 Crestor PO 20 mg HS MAURA Administration - Patient Studies Lab Studies: Microbiology Studies 08/19/17 Unknown MRSA Culture (Admit) - Final Naris MRSA NOT DETECTED 08/19/17 11:23 Urine Culture - Final Urine,Shine No Growth (<1,000 CFU/ML) Lab Studies 08/20/17 08/20/17 Range/Units 06:17 06:15 WBC 8.0 (4.8-10.8) K/uL RBC 5.08 (4.40-5.90) Mil/uL Hgb 15.1 (12.0-18.0) g/dL Hct 43.3 (35.0-51.0) % MCV 85.3 (80.0-94.0) fL MCH 29.8 (27.0-31.0) pg MCHC 34.9 (33.0-37.0) g/dL RDW 13.9 (11.5-14.5) % Plt Count 200 (130-400) K/uL MPV 8.9 (7.2-11.7) fL Neut % (Auto) 54.2 (50.0-75.0) % Lymph % (Auto) 33.0 (20.0-40.0) % Morton % (Auto) 9.0 (0.0-10.0) % Eos % (Auto) 3.3 (0.0-4.0) % Baso % (Auto) 0.5 (0.0-2.0) % Neut # 4.4 (1.8-7.0) K/uL Lymph # 2.7 (1.0-4.3) K/uL Morton # 0.7 (0.0-0.8) K/uL Eos # 0.3 (0.0-0.7) K/uL Baso # 0.0 (0.0-0.2) K/uL Sodium 134 (132-148) mmol/L Potassium 3.8 (3.6-5.2) mmol/L Chloride 104 (98-107) mmol/L Carbon Dioxide 24 (22-30) mmol/L Anion Gap 11 (10-20) BUN 14 (9-20) mg/dL Creatinine 1.0 (0.8-1.5) mg/dL Est GFR ( Amer) > 60 Est GFR (Non-Af Amer) > 60 Random Glucose 103 (75-110) mg/dL Calcium 8.2 L (8.6-10.4) mg/dl Phosphorus 3.5 (2.5-4.5) mg/dL Magnesium 1.8 (1.6-2.3) mg/dL Total Bilirubin 0.9 (0.2-1.3) mg/dL AST 68 H D (17-59) U/L ALT 33 (21-72) U/L Alkaline Phosphatase 57 (38-126) U/L Total Creatine Kinase 292 H (55-170) U/L CK-MB (Mass) 9.84 H (0.0-3.38) ng/mL Troponin I 7.1300 H* (0.00-0.120) ng/mL Total Protein 7.4 (6.3-8.3) g/dL Albumin 3.9 (3.5-5.0) g/dL Globulin 3.4 (2.2-3.9) gm/dL Albumin/Globulin Ratio 1.1 (1.0-2.1) Laboratory Results - last 24 hr 08/20/17 08/20/17 06:15 06:17 WBC 8.0 RBC 5.08 Hgb 15.1 Hct 43.3 MCV 85.3 MCH 29.8 MCHC 34.9 RDW 13.9 Plt Count 200 MPV 8.9 Neut % (Auto) 54.2 Lymph % (Auto) 33.0 Morton % (Auto) 9.0 Eos % (Auto) 3.3 Baso % (Auto) 0.5 Neut # 4.4 Lymph # 2.7 Morton # 0.7 Eos # 0.3 Baso # 0.0 Sodium 134 Potassium 3.8 Chloride 104 Carbon Dioxide 24 Anion Gap 11 BUN 14 Creatinine 1.0 Est GFR ( Amer) > 60 Est GFR (Non-Af Amer) > 60 Random Glucose 103 Calcium 8.2 L Phosphorus 3.5 Magnesium 1.8 Total Bilirubin 0.9 AST 68 H D ALT 33 Alkaline Phosphatase 57 Total Creatine Kinase 292 H CK-MB (Mass) 9.84 H Troponin I 7.1300 H* Total Protein 7.4 Albumin 3.9 Globulin 3.4 Albumin/Globulin Ratio 1.1 Critical Care Progress Note - Nutrition Nutrition: Nutrition Category Date Time Status Heart Healthy Diet [DIET] Diets 08/19/17 Breakfast Active Attending/Attestation - Attestation I have personally seen and examined this patient.: Yes I have fully participated in the care of the patient.: Yes I have reviewed all pertinent clinical information: Yes Notes (Text): 08/20/17 17:43 patient seen and examined in the intensive care unit. Stable for transfer to telemetry Continue present treatment
--- NOTE | 2017-08-20 09:15 | CP.PCM.PN ---
Subjective - Date & Time of Evaluation Date of Evaluation: 08/20/17 Time of Evaluation: 09:12 - Subjective Subjective: feeling fine status post MO of RCA two days ago mild epigastric discomfort noted HR fluctuated 100 getting out of bed. Objective - Vital Signs/Intake and Output Vital Signs (last 24 hours): Temp Pulse Resp BP Pulse Ox 99.6 F 83 20 117/81 95 08/20/17 04:00 08/20/17 07:00 08/20/17 07:00 08/20/17 06:42 08/20/17 07:00 Intake and Output: 08/20/17 08/20/17 06:59 18:59 Intake Total 460 Output Total 1250 Balance -790 - Medications Medications: Current Medications Aspirin (Aspirin Chewable) 81 mg PO DAILY [facility] Last Admin: 08/19/17 10:43 Dose: 81 mg Carvedilol (Coreg) 3.125 mg PO BID [facility] Last Admin: 08/19/17 19:00 Dose: 3.125 mg Enalapril Maleate (Vasotec) 5 mg PO DAILY [facility] Last Admin: 08/19/17 10:42 Dose: 5 mg Famotidine (Pepcid) 20 mg PO DAILY [facility] Last Admin: 08/19/17 10:42 Dose: 20 mg Heparin Sodium (Porcine) (Heparin) 5,000 units SC Q8 [facility] Last Admin: 08/20/17 06:44 Dose: 5,000 units Rosuvastatin Calcium (Crestor) 20 mg PO HS [facility] Last Admin: 08/19/17 22:38 Dose: 20 mg Ticagrelor (Brilinta) 90 mg PO BID [facility] Last Admin: 08/19/17 19:00 Dose: 90 mg - Labs Labs: 08/20/17 06:15 08/20/17 06:17 - Constitutional Appears: Well - Head Exam Head Exam: ATRAUMATIC, NORMAL INSPECTION, NORMOCEPHALIC - Eye Exam Eye Exam: Conjunctival injection, EOMI, Normal appearance, PERRL Pupil Exam: NORMAL ACCOMODATION, PERRL - ENT Exam ENT Exam: Mucous Membranes Moist, Normal Exam - Neck Exam Neck Exam: Full ROM, Normal Inspection. absent: Lymphadenopathy - Respiratory Exam Respiratory Exam: Clear to Ausculation Bilateral, NORMAL BREATHING PATTERN - Cardiovascular Exam Cardiovascular Exam: REGULAR RHYTHM, +S1, +S2, Murmur - GI/Abdominal Exam GI & Abdominal Exam: Soft, Normal Bowel Sounds. absent: Tenderness - Extremities Exam Extremities Exam: Full ROM, Normal Capillary Refill, Normal Inspection. absent : Joint Swelling, Pedal Edema - Back Exam Back Exam: NORMAL INSPECTION - Neurological Exam Neurological Exam: Alert, Awake, CN II-XII Intact, Normal Gait, Oriented x3 - Psychiatric Exam Psychiatric exam: Normal Affect, Normal Mood - Skin Skin Exam: Dry, Intact, Normal Color, Warm Assessment and Plan (1) STEMI (ST elevation myocardial infarction) Assessment & Plan: change Brilinta to Plavix. chg coreg to metoprolol cont dapt , cont bb and acei and statins Status: Acute (2) HTN (hypertension) Assessment & Plan: bp stable Status: Acute (3) Dyslipidemia Assessment & Plan: cont statins Status: Acute (4) Hepatitis-C Status: Chronic
[2017-08-20 09:19] LABS: CK-MB 9.84 ng/mL (0.0-3.38)
--- NOTE | 2017-08-20 09:28 | CP.PCM.PN ---
Subjective - Date & Time of Evaluation Date of Evaluation: 08/20/17 Time of Evaluation: 09:20 - Subjective Subjective: Medical Attending Note: Patient seen and examined at bedside. No family present at bedside. Patient denies headache, denies chest pain, reports mild right lower quadrant pain, denies constipation, denies diarrhea, denies constipation. Objective - Vital Signs/Intake and Output Vital Signs (last 24 hours): Temp Pulse Resp BP Pulse Ox 99.6 F 83 20 117/81 95 08/20/17 04:00 08/20/17 07:00 08/20/17 07:00 08/20/17 06:42 08/20/17 07:00 Intake and Output: 08/20/17 08/20/17 06:59 18:59 Intake Total 460 Output Total 1250 Balance -790 - Medications Medications: Current Medications Aspirin (Aspirin Chewable) 81 mg PO DAILY [facility] Last Admin: 08/19/17 10:43 Dose: 81 mg Enalapril Maleate (Vasotec) 5 mg PO DAILY [facility] Last Admin: 08/19/17 10:42 Dose: 5 mg Famotidine (Pepcid) 20 mg PO DAILY [facility] Last Admin: 08/19/17 10:42 Dose: 20 mg Heparin Sodium (Porcine) (Heparin) 5,000 units SC Q8 [facility] Last Admin: 08/20/17 06:44 Dose: 5,000 units Rosuvastatin Calcium (Crestor) 20 mg PO HS [facility] Last Admin: 08/19/17 22:38 Dose: 20 mg - Labs Labs: 08/20/17 06:15 08/20/17 06:17 - Constitutional Appears: Non-toxic, No Acute Distress - Head Exam Head Exam: NORMAL INSPECTION - Eye Exam Eye Exam: EOMI - ENT Exam ENT Exam: Mucous Membranes Dry - Respiratory Exam Respiratory Exam: Clear to Ausculation Bilateral, NORMAL BREATHING PATTERN. absent: Rales, Rhonchi - Cardiovascular Exam Cardiovascular Exam: REGULAR RHYTHM, +S1, +S2 - GI/Abdominal Exam GI & Abdominal Exam: Soft, Normal Bowel Sounds. absent: Distended, Firm, Guarding, Rigid, Tenderness, Rebound - Extremities Exam Extremities Exam: absent: Pedal Edema, Tenderness - Neurological Exam Neurological Exam: Alert, Awake, Oriented x3 - Psychiatric Exam Psychiatric exam: Normal Affect, Normal Mood - Skin Skin Exam: Dry, Normal Color, Warm Assessment and Plan (1) STEMI (ST elevation myocardial infarction) Assessment & Plan: Cardiology: Dr. Jones on the case help appreciated Code Heart 08/18/2017 RCA s/p CHARO stents Aspirin 81mg PO daily Coreg 3.125mg PO BID-->switch to beta tay (Lopressor 50mg PO BID) Enalapril 5mg PO daily Crestor 20mg POqHS Brilinta 90mg PO BID-->switch to Plavix to make an affordable option for the patient Pending Echocardiogram-->awaiting official report a1c: 5.4 Lipid panel abnormal: high TG, high cholestrol, Low HDL Status: Acute (2) Hepatitis-C Assessment & Plan: Reports he has been treated previously on Crestor 5mg POqHS Monitor liver function tests Status: Chronic (3) Prophylactic measure Assessment & Plan: Heparin 5000 units subq 8H Pepcid 20mg PO BID Status: Acute
--- NOTE | 2017-08-20 12:04 | CARD ---
APPROVED REPORT EXAM: Two-dimensional and M-mode echocardiogram with Doppler and color Doppler. Other Information Quality : GoodRhythm : INDICATION Dyspnea Chest Pain Palpitations Stemi 2D DIMENSIONS IVSd1.2 (0.7-1.1cm)LVDd4.5 (3.9-5.9cm) PWd1.2 (0.7-1.1cm)LVDs3.3 (2.5-4.0cm) FS (%) 28.1 %LVEF (%)54.5 (>50%) M-Mode DIMENSIONS Left Atrium (MM)3.07 (2.5-4.0cm)Aortic Root3.87 (2.2-3.7cm) Aortic Cusp Exc.2.45 (1.5-2.0cm) Mitral Valve MV E Gaqvfhww82.0cm/sMV A Niieaetz67.5cm/sE/A ratio0.6 TDI E/Lateral E'0.0E/Medial E'0.0 Tricuspid Valve TR Peak [id number] Peak [id number] LEFT VENTRICLE The left ventricle is normal size. There is mild concentric left ventricular hypertrophy. The Ejection Fraction is 55-60%. There is normal LV segmental wall motion. Transmitral Doppler flow pattern is Grade I-abnormal relaxation pattern. RIGHT VENTRICLE The right ventricle is normal size. The right ventricular systolic function is normal. ATRIA The left atrium size is normal. The right atrium size is normal. The interatrial septum is intact with no evidence for an atrial septal defect. AORTIC VALVE The aortic valve is normal in structure. No aortic regurgitation is present. MITRAL VALVE The mitral valve is normal in structure. There is no mitral valve regurgitation noted. TRICUSPID VALVE The tricuspid valve is normal in structure. There is mild tricuspid regurgitation. Right ventricular systolic pressure is estimated at 34 mmHg. There is no pulmonary hypertension. PULMONIC VALVE The pulmonary valve is normal in structure. There is trace pulmonic valvular regurgitation. GREAT VESSELS The aortic root is normal in size. The IVC is normal in size and collapses >50% with inspiration. PERICARDIAL EFFUSION There is no pericardial effusion. <Conclusion> The left ventricle is normal size. There is mild concentric left ventricular hypertrophy. The Ejection Fraction is 55-60%. Transmitral Doppler flow pattern is Grade I-abnormal relaxation pattern. There is mild tricuspid regurgitation. Right ventricular systolic pressure is estimated at 34 mmHg. There is no pulmonary hypertension.
--- NOTE | 2017-08-20 13:00 | CP.PCM.DIS ---
Provider - Provider Date of Admission: 08/18/17 19:43 Attending physician: Clark Jones MD Consults: Dr. Robert Rodas Time Spent in preparation of Discharge (in minutes): 31 Diagnosis - Discharge Diagnosis (1) STEMI (ST elevation myocardial infarction) Status: Resolved Comment: Please see discharge sumary for further details. (2) Hepatitis-C Status: Chronic Comment: Please see discharge sumary for further details. (3) Coronary artery disease Status: Acute Comment: Please see discharge sumary for further details. (4) Lipid disorder Status: Chronic Comment: Please see discharge sumary for further details. Hospital Course - Lab Results Lab Results: Micro Results 08/19/17 11:23 Urine,Shine Urine Culture - Final No Growth (<1,000 CFU/ML) Most Recent Lab Values WBC 8.0 K/uL (4.8-10.8) 08/20/17 06:15 RBC 5.08 Mil/uL (4.40-5.90) 08/20/17 06:15 Hgb 15.1 g/dL (12.0-18.0) 08/20/17 06:15 Hct 43.3 % (35.0-51.0) 08/20/17 06:15 MCV 85.3 fL (80.0-94.0) 08/20/17 06:15 MCH 29.8 pg (27.0-31.0) 08/20/17 06:15 MCHC 34.9 g/dL (33.0-37.0) 08/20/17 06:15 RDW 13.9 % (11.5-14.5) 08/20/17 06:15 Plt Count 200 K/uL (130-400) 08/20/17 06:15 MPV 8.9 fL (7.2-11.7) 08/20/17 06:15 Neut % (Auto) 54.2 % (50.0-75.0) 08/20/17 06:15 Lymph % (Auto) 33.0 % (20.0-40.0) 08/20/17 06:15 [place] % (Auto) 9.0 % (0.0-10.0) 08/20/17 06:15 Eos % (Auto) 3.3 % (0.0-4.0) 08/20/17 06:15 Baso % (Auto) 0.5 % (0.0-2.0) 08/20/17 06:15 Neut # 4.4 K/uL (1.8-7.0) 08/20/17 06:15 Lymph # 2.7 K/uL (1.0-4.3) 08/20/17 06:15 Glynn # 0.7 K/uL (0.0-0.8) 08/20/17 06:15 Eos # 0.3 K/uL (0.0-0.7) 08/20/17 06:15 Baso # 0.0 K/uL (0.0-0.2) 08/20/17 06:15 Sodium 134 mmol/L (132-148) 08/20/17 06:17 Potassium 3.8 mmol/L (3.6-5.2) 08/20/17 06:17 Chloride 104 mmol/L (98-107) 08/20/17 06:17 Carbon Dioxide 24 mmol/L (22-30) 08/20/17 06:17 Anion Gap 11 (10-20) 08/20/17 06:17 BUN 14 mg/dL (9-20) 08/20/17 06:17 Creatinine 1.0 mg/dL (0.8-1.5) 08/20/17 06:17 Est GFR ( Amer) > 60 08/20/17 06:17 Est GFR (Non-Af Amer) > 60 08/20/17 06:17 POC Glucose (mg/dL) 151 mg/dL (65-110) H 08/18/17 17:49 Random Glucose 103 mg/dL (75-110) 08/20/17 06:17 Hemoglobin A1c 5.4 % (4.2-6.5) 08/19/17 06:11 Calcium 8.2 mg/dl (8.6-10.4) L 08/20/17 06:17 Phosphorus 3.5 mg/dL (2.5-4.5) 08/20/17 06:17 Magnesium 1.8 mg/dL (1.6-2.3) 08/20/17 06:17 Total Bilirubin 0.9 mg/dL (0.2-1.3) 08/20/17 06:17 AST 68 U/L (17-59) H D 08/20/17 06:17 ALT 33 U/L (21-72) 08/20/17 06:17 Alkaline Phosphatase 57 U/L (38-126) 08/20/17 06:17 Total Creatine Kinase 292 U/L (55-170) H 08/20/17 06:17 CK-MB (Mass) 9.84 ng/mL (0.0-3.38) H 08/20/17 06:17 Troponin I 7.1300 ng/mL (0.00-0.120) H* 08/20/17 06:17 Total Protein 7.4 g/dL (6.3-8.3) 08/20/17 06:17 Albumin 3.9 g/dL (3.5-5.0) 08/20/17 06:17 Globulin 3.4 gm/dL (2.2-3.9) 08/20/17 06:17 Albumin/Globulin Ratio 1.1 (1.0-2.1) 08/20/17 06:17 Triglycerides 389 mg/dL (0-149) H 08/19/17 06:11 Cholesterol 231 mg/dL (0-199) H 08/19/17 06:11 LDL Cholesterol Direct 129 mg/dL (0-129) 08/19/17 06:11 HDL Cholesterol 31 mg/dL (30-70) 08/19/17 06:11 Urine Color Straw (YELLOW) 08/19/17 11:09 Urine Clarity Clear (Clear) 08/19/17 11:09 Urine pH 5.0 (5.0-8.0) 08/19/17 11:09 Ur Specific Ione 1.013 (1.003-1.030) 08/19/17 11:09 Urine Protein Negative mg/dL (NEGATIVE) 08/19/17 11:09 Urine Glucose (UA) 1+ mg/dL (Normal) H 08/19/17 11:09 Urine Ketones Negative mg/dL (NEGATIVE) 08/19/17 11:09 Urine Blood 1+ (NEGATIVE) H 08/19/17 11:09 Urine Nitrate Negative (NEGATIVE) 08/19/17 11:09 Urine Bilirubin Negative (NEGATIVE) 08/19/17 11:09 Urine Urobilinogen Normal mg/dL (0.2-1.0) 08/19/17 11:09 Ur Leukocyte Esterase Neg Mila/uL (Negative) 08/19/17 11:09 Urine WBC (Auto) < 1 /hpf (0-5) 08/19/17 11:09 Urine RBC (Auto) 2 /hpf (0-3) 08/19/17 11:09 Ur Squamous Epith Cells < 1 /hpf (0-5) 08/19/17 11:09 Hepatitis C Antibody Reactive (NEGATIVE) 08/19/17 06:11 Blood Type A POSITIVE 08/18/17 17:51 Antibody Screen Negative 08/18/17 17:51 - Hospital Course Hospital Course: CC: "chest pain earlier but not now" Patient was seen at 23:00 on 08/18/17 in the ICU. This is a 57 year old male with PMHx of hepatitis C who came in complaining of chest pain that began around 4 PM today. It was described as a progressively worsening squeezing pain located sternally. The chest pain began after a meal. Patient does not usually see doctors in his home country. He is visiting from [place] since 08/12/17 and is living with friends presently. Patient's EKG revealed ST segment elevations in leads II, III, and aVF indicating an acute inferior wall CO. Code Heart was called and patient underwent cardiac catheterization by Dr. Jones with two CHARO, one placed in proximal RCA and one in the mid RCA. Site of access was right groin. Patient states that he now feels well and denies any chest pain or shortness of breath presently. Patient has no acute complaints at this time. PMHx: Hepatitis C s/p treatment in 2005 PSHx: unspecified eye surgery Allergies: NKDA Social: Visiting from [place]. Denies tobacco, alcohol, drugs. Family Hx: Brother with CO at age 55. Two brothers in total with heart disease. PMD: Denies Home medications: Patient takes one medication for dizziness but he does not know the name of it. Insights Manager on the case. Patient required emergent catherization , which revealed successful percuaneous transluminal coronary angioplasty stenting of proximal and mid right coronary artery 100% thrombotic occlusion, deployment of 2 drug eluting stents. Patient transferred to ICU post procedure, monitored and stable for the telemetry floors. Per cardiology, patient is stable for discharge. Discussed with patient using [employer] #Asfrnicolle Flex [place] [id number] in regards to his medications, diet and lifestyle modifications and will need to follow-up with cardiology here and back at home in [facility]. Discharge Medications: 1) Aspirin 81mg PO daily (30 tabs/0) 2) Plavix 75mg PO daily (30 tabs/1) 3) Lopressor 50mg PO BID (60 tabs/0) 4) Enalapril 5mg PO daily (30 tabs/0) 5) Lipitor 40mg POqHS (30 tabs/0) This is a summary of patient's hospitalization. Please see EMR for further details. Patient is referred to see Dr. Jones in his office within 2 weeks of discharge. - Date & Time of H&P Date of H&P: 08/18/17 Time of H&P: 22:17 Discharge Exam - Head Exam Head Exam: NORMAL INSPECTION - Eye Exam Eye Exam: EOMI - ENT Exam ENT Exam: Mucous Membranes Moist - Respiratory Exam Respiratory Exam: Clear to PA & Lateral, NORMAL BREATHING PATTERN. absent: Rales, Rhonchi, Wheezes - Cardiovascular Exam Cardiovascular Exam: REGULAR RHYTHM, +S1, +S2 - GI/Abdominal Exam GI & Abdominal Exam: Normal Bowel Sounds, Soft. absent: Distended, Firm, Guarding, Rebound, Rigid, Tenderness - Extremities Exam Extremities exam: pedal pulses present - Back Exam Back exam: absent: CVA tenderness (L), CVA tenderness (R), paraspinal tenderness , rash noted - Neurological Exam Neurological exam: Alert, Oriented x3 - Skin Skin Exam: Dry, Intact, Normal Color, Warm Discharge Plan - Discharge Medications Prescriptions: Aspirin [Aspirin Chewable] 81 mg PO DAILY #30 chew Atorvastatin [Lipitor] 40 mg PO HS #30 tab Clopidogrel [Plavix] 75 mg PO DAILY #30 tab Enalapril Maleate [Vasotec] 5 mg PO DAILY #30 tab Metoprolol Tartrate [Lopressor] 50 mg PO BID #60 tab - Follow Up Plan Condition: STABLE Disposition: HOME/ ROUTINE Referrals: Clark Jones MD [Staff Provider] -
[2017-08-20 15:06] VITALS: TEMP 97.8
[2017-08-20 17:36] VITALS: BP 124/89; PULSE 82; RESP 22; O2SAT 95
--- NOTE | 2017-08-22 07:04 | CARD ---
APPROVED REPORT EKG Measurement Heart [id number] <Conclusion> Normal sinus rhythm Left axis deviation Abnormal ECG
== END 2017-08-20 18:43 | disposition home or self-care (01) | DRG 853 ==
LOC: C.ER 17:42 → EDBD 17:42 → C.ER 18:07 → C.9I 19:43
PROVIDERS: ADMIT Internal Medicine Interventional Cardiology; ATTEND Internal Medicine Interventional Cardiology
PROC: 027035Z Dilation of Coronary Artery, One Artery with Two Drug-eluting Intraluminal Devices, Percutaneous Approach (ICD-10-PCS; principal; 2017-08-18)
PROC: 4A023N7 Measurement of Cardiac Sampling and Pressure, Left Heart, Percutaneous Approach (ICD-10-PCS; 2017-08-18)
PROC: B2161ZZ Fluoroscopy of Right and Left Heart using Low Osmolar Contrast (ICD-10-PCS; 2017-08-18)
PROC: B2111ZZ Fluoroscopy of Multiple Coronary Arteries using Low Osmolar Contrast (ICD-10-PCS; 2017-08-18)
DX: I21.19 ST elevation (STEMI) myocardial infarction involving other coronary artery of inferior wall (principal); B19.20 Unspecified viral hepatitis C without hepatic coma; I25.10 Atherosclerotic heart disease of native coronary artery without angina pectoris; Z82.49 Family history of ischemic heart disease and other diseases of the circulatory system; R42 Dizziness and giddiness; E78.5 Hyperlipidemia, unspecified; I10 Essential (primary) hypertension

== ENCOUNTER 2017-08-29 16:37 | Observation (INO) | payer OTHER ==
[2017-08-29 16:37] VITALS: BMI 27.4
[2017-08-29 17:39] LABS: BASO # 0.1 K/uL (0.0-0.2); EOS # 0.4 K/uL (0.0-0.7); EOS % 5.4 % (0.0-4.0); HEMOGLOBIN 14.5 g/dL (12.0-18.0); LYMPH # 2.7 K/uL (1.0-4.3); LYMPH % 35.4 % (20.0-40.0); MEAN CELL VOLUME 83.5 fL (80.0-94.0); MEAN CORPUSCULAR HEMOGLOBIN 30.3 pg (27.0-31.0); MEAN CORPUSCULAR HGB CONC 36.3 g/dL (33.0-37.0); MEAN PLATELET VOLUME 8.4 fL (7.2-11.7); MONO # 0.6 K/uL (0.0-0.8); MONO % 7.7 % (0.0-10.0); NEUT # 3.8 K/uL (1.8-7.0); NEUT % 50.5 % (50.0-75.0); NRBC % 0.1 % (0.0-2.0); RBC 4.78 Mil/uL (4.40-5.90); RED CELL DISTRIBUTION WIDTH 13.7 % (11.5-14.5); WHITE BLOOD COUNT 7.6 K/uL (4.8-10.8)
[2017-08-29 17:47] LABS: INR 1.1; PROTHROMBIN TIME 12.5 SECONDS (9.7-12.2)
[2017-08-29 17:56] LABS: ALB/GLOB RATIO 1.2 (1.0-2.1); ALBUMIN 4.3 g/dL (3.5-5.0); ALT/SGPT 30 U/L (21-72); AST/SGOT 29 U/L (17-59); BLOOD UREA NITROGEN 16 mg/dL (9-20); CALCIUM 8.8 mg/dl (8.6-10.4); GFR AFRICAN-AMERICAN > 60; GFR NON-AFRICAN AMERICAN > 60
[2017-08-29 18:02] LABS: CK-MB 0.46 ng/mL (0.0-3.38)
[2017-08-29 18:03] LABS: B-TYPE NATRIURETIC PEPTIDE 150 pg/mL (0-900)
--- NOTE | 2017-08-29 18:40 | C.PDOC ---
Time Seen by Provider: 08/29/17 16:56 Chief Complaint (Nursing): Chest Pain History Per: Patient, Family Onset/Duration Of Symptoms: Hrs (since last night) Current Symptoms Are (Timing): Still Present Severity: Moderate Quality: "Pain" Associated Symptoms: Dyspnea Modifying Factors: Other Indicated Below Nitro Therapy Administered: 3, Per ED, Partial Relief Additional History Per: Prior Records Past Medical History Reviewed: Historical Data, Nursing Documentation, Vital Signs Vital Signs: Last Vital Signs Temp 98.9 F 08/29/17 16:42 Pulse 82 08/29/17 17:45 Resp 20 08/29/17 17:45 BP 115/65 08/29/17 17:45 Pulse Ox 100 08/29/17 17:45 - Medical History PMH: AMI-STEMI, CAD Surgical History: Coronary Stent - [facility] Procedures DILATION OF 1 COR ART WITH 2 DRUG-ELUT, PERC APPROACH (08/18/17) FLUOROSCOPY OF MULT COR ART USING L OSM CONTRAST (08/18/17) FLUOROSCOPY OF RIGHT AND LEFT HEART USING L OSM CONTRAST (08/18/17) MEASURE OF CARDIAC SAMPL & PRESSURE, L HEART, PERC APPROACH (08/18/17) Family History: States: [place] - Social History Hx Tobacco Use: No Hx Alcohol Use: No Hx Substance Use: No Review Of Systems Except As Marked, All Systems Reviewed And Found Negative. Constitutional: Negative for: Fever, Weakness Cardiovascular: Positive for: Chest Pain Respiratory: Positive for: Shortness of Breath. Negative for: Hemoptysis Gastrointestinal: Negative for: Vomiting, Abdominal Pain Musculoskeletal: Negative for: Leg Pain Skin: Negative for: Rash Neurological: Negative for: Weakness, Numbness Physical Exam - Physical Exam Appears: Non-toxic, No Acute Distress Skin: Normal Color, Warm, Dry, No Rash Head: Atraumatic, Normacephalic Eye(s): bilateral: Normal Inspection, PERRL, EOMI Neck: Normal ROM, Supple Cardiovascular: Rhythm Regular Respiratory: Normal Breath Sounds, No Accessory Muscle Use Gastrointestinal/Abdominal: Soft, No Tenderness Back: No CVA Tenderness Extremity: Normal ROM, No Pedal Edema, No Calf Tenderness Neurological/Psych: Oriented x3, Normal Motor, Normal Sensation ED Course And Treatment - Laboratory Results Result Diagrams: 08/29/17 17:35 08/29/17 17:35 Lab Interpretation: No Acute Changes ECG: Interpreted By Me, Viewed By Me ECG Rhythm: Sinus Rhythm, ST/T Changes (T wave inversions in II, III and aVF), Nonspecific Changes ECG Interpretation: Abnormal Rate From EC O2 Sat by Pulse Oximetry: 100 Pulse Ox Interpretation: Normal - Radiology CXR: Viewed By Me, Read By Radiologist CXR Interpretation: Yes: No Acute Disease Progress - Interventions Interventions:: Observation, Oxygen - Medications Administered Oral: Aspirin (taken at home today) - Data Reviewed Data Reviewed: Lab, Diagnostic imaging, EKG, Old records - Patient Status Patient status: Mostly improved - Continuity of Care Discussed patient case with:: Patient, Family-HIPPA compliant, ED Nurse, On- call PMD-pt unassigned Disposition Discussed With DrLucia: Jamison Siddiqi Comment: He accepted pt on hospitalist service. Counseled Patient/Family Regarding: Studies Performed, Diagnosis - Disposition Disposition: HOSPITALIZED Disposition Time: 18:43 Condition: STABLE - Clinical Impression Clinical Impression: Chest pain, rule out acute myocardial infarction
[2017-08-29] MEDS ORDERED: Home Med 1 UNIT PO SCH ×2 (22:45)
--- NOTE | 2017-08-29 23:03 | CP.PCM.HP ---
<Luis Carlos Peoples - Last Filed: 08/29/17 23:40> History of Present Illness - History of Present Illness History of Present Illness: This patient is a 57 year old male from [place], with a PMHx of Hep C, recent STEMI, CAD s/p 2 drug eluding stents who presents complaining of intermittent episodes of non radiating, sharp, chest pain that started about 9pm yesterday. The chest pain is associated with SOB. Patient also complains of dyspnea on exertion that has been getting progressively worse since his discharge from [facility] on 08/20/17. Patient denies taking medication for his symptoms. He has been complaint with his medications from [facility] and his discharge medications from his previous visit at [facility]. Patient was admitted to [facility] for a STEMI on 08/18/17 that required emergent catherization which revealed successful percutaneous transluminal coronary angioplasty stenting of proximal and mid right coronary artery 100% thrombotic occlusion, deployment of 2 drug eluting stents. Patient states that when he walks up the stairs he must walk slowly and catch his breath with each step. ROS POSITIVES: Chest pain, SOB, Dyspnea on exertion NEGATIVES: fever, chills, dizziness, headache, changes in vision, abdominal pain, nausea, vomiting, diarrhea, constipation, urinary symptoms PMHx: Hepatitis C s/p treatment in 2005 PSHx: unspecified eye surgery Allergies: NKDA Social: Visiting from [place]. Denies tobacco, alcohol, drugs. Family Hx: Brother with MS at age 55. Two brothers in total with heart disease. Meds from [facility] (Non FDA Approved) - Bromazepam 1.5mg PO BID, Betahistine Dihydrochloride 16mg BID, Etifoxine 50mg BID, Cinnarizine 75 HS Meds from [facility]: ASA 81, Plavix 75 PO Daily, Lopressor 50mg PO BID, Enalapril 5mg PO, Lipitor 40mg PO HS PMD: Denies Present on Admission - Present on Admission Any Indicators Present on Admission: No Review of Systems - Review of Systems Review of Systems: As per HPI Past Patient History - Past Medical History & Family History Past Medical History?: Yes - Past Social History Smoking Status: Never Smoked - CARDIAC Hx Cardiac Disorders: Yes Hx Angina: Yes - PULMONARY Hx Respiratory Disorders: No - NEUROLOGICAL Hx Neurological Disorder: Yes Hx Vertigo: Yes - HEENT Hx HEENT Problems: No - RENAL Hx Chronic Kidney Disease: No - ENDOCRINE/METABOLIC Hx Endocrine Disorders: No - HEMATOLOGICAL/ONCOLOGICAL Hx Hepatitis C: Yes - INTEGUMENTARY Hx Dermatological Problems: No - MUSCULOSKELETAL/RHEUMATOLOGICAL Hx Musculoskeletal Disorders: No Hx Falls: No - GASTROINTESTINAL Hx Gastrointestinal Disorders: No - GENITOURINARY/GYNECOLOGICAL Hx Genitourinary Disorders: No - PSYCHIATRIC Hx Substance Use: No - SURGICAL HISTORY Hx Coronary Stent: Yes - ANESTHESIA Hx Anesthesia: No Hx Anesthesia Reactions: No Meds Allergies/Adverse Reactions: Allergies Allergy/AdvReac Type Severity Reaction Status Date / Time No Known Allergies Allergy Verified 08/29/17 16:43 Physical Exam - Constitutional Appears: Well, Non-toxic, No Acute Distress - Head Exam Head Exam: ATRAUMATIC, NORMAL INSPECTION, NORMOCEPHALIC - Eye Exam Eye Exam: EOMI, Normal appearance - ENT Exam ENT Exam: Mucous Membranes Moist - Neck Exam Neck exam: Positive for: Normal Inspection - Respiratory Exam Respiratory Exam: Clear to Auscultation Bilateral. absent: Rales, Rhonchi, Wheezes - Cardiovascular Exam Cardiovascular Exam: RRR, +S1, +S2. absent: Diastolic murmur, Systolic Murmur - GI/Abdominal Exam GI & Abdominal Exam: Normal Bowel Sounds, Soft. absent: Tenderness - Extremities Exam Extremities exam: Positive for: normal capillary refill. Negative for: pedal edema - Neurological Exam Neurological exam: Alert, Oriented x3 - Psychiatric Exam Psychiatric exam: Normal Affect, Normal Mood - Skin Skin Exam: Dry, Intact, Normal Color, Warm Results - Vital Signs Recent Vital Signs: Last Vital Signs Temp 98.6 F 08/29/17 20:56 Pulse 86 08/29/17 20:56 Resp 18 08/29/17 20:56 BP 119/79 08/29/17 20:56 Pulse Ox 96 08/29/17 20:56 - Labs Result Diagrams: 08/29/17 17:35 08/29/17 17:35 Labs: Laboratory Results - last 24 hr 08/29/17 08/29/17 08/29/17 17:35 17:35 17:35 WBC 7.6 RBC 4.78 Hgb 14.5 Hct 40.0 MCV 83.5 MCH 30.3 MCHC 36.3 RDW 13.7 Plt Count 253 MPV 8.4 Neut % (Auto) 50.5 Lymph % (Auto) 35.4 [place] % (Auto) 7.7 Eos % (Auto) 5.4 H Baso % (Auto) 1.0 Neut # 3.8 Lymph # 2.7 [place] # 0.6 Eos # 0.4 Baso # 0.1 PT 12.5 H INR 1.1 APTT 27 Sodium 133 Potassium 4.0 Chloride 99 Carbon Dioxide 26 Anion Gap 13 BUN 16 Creatinine 1.0 Est GFR ( Amer) > 60 Est GFR (Non-Af Amer) > 60 Random Glucose 147 H Calcium 8.8 Total Bilirubin 0.7 AST 29 ALT 30 Alkaline Phosphatase 60 Total Creatine Kinase 102 CK-MB (Mass) 0.46 Troponin I 0.0160 NT-Pro-B Natriuret Pep 150 Total Protein 7.8 Albumin 4.3 Globulin 3.5 Albumin/Globulin Ratio 1.2 Assessment & Plan - Assessment and Plan (Free Text) Assessment: This patient is a 57 year old male from [place], with a PMHx of Hep C, recent STEMI, CAD s/p 2 drug eluding stents admitted for evaluation and treatment of chest pain r/o ACS. Plan: Chest pain, Rule out ACS Angina vs Norman Syndrome Received Nitro in ED EKG (Admission): Sinus Rhythm, ST/T Changes (T wave inversions in II, III and aVF), Nonspecific Changes, PENDING Official Read CXR (Admission): No acute disease process. PENDING OFFICIAL READ Trop #1 - NEGATIVE BNP (Admission): WNL EKG x 2 DONNELL x 2 Restart Home medications: Aspirin [Aspirin Chewable] 81 mg PO DAILY Atorvastatin [Lipitor] 40 mg PO HS Clopidogrel [Plavix] 75 mg PO DAILY Enalapril Maleate [Vasotec] 5 mg PO DAILY Metoprolol Tartrate [Lopressor] 50 mg PO BID Consult Cardiology (Dr. Jones) ECHO - Want to rule out possible Norman's Syndrome Hx of CAD Restarted Home Meds: Aspirin [Aspirin Chewable] 81 mg PO DAILY Clopidogrel [Plavix] 75 mg PO DAILY Atorvastatin [Lipitor] 40 mg PO HS HLD Restart Home Atorvastatin [Lipitor] 40 mg PO HS Hx of Hep C Reports he has been treated previously Monitor LFT's Hx of Dizziness 2/2 Unspecified condition Patient was prescribed medications for dizziness in [place] Medications listed in HPI. He has them with him. Was notified by pharmacy that those medications are not FDA approved. Will start Ativan 1 HS PRN Consider Meclizine if patient has symptoms. Proph Lovenox Protonix Heart Health 2gm Sodium Diet Patient seen and discussed with Attending Luis Carlos Peoples - PGY1 - Date & Time Date: 08/29/17 Time: 20:05 <Garett Guerra - Last Filed: 08/30/17 07:30> Results - Vital Signs Recent Vital Signs: Last Vital Signs Temp 98.1 F 08/30/17 04:00 Pulse 69 08/30/17 04:12 Resp 20 08/30/17 04:00 BP 106/69 08/30/17 04:00 Pulse Ox 97 08/30/17 04:00 - Labs Result Diagrams: 08/29/17 17:35 08/29/17 17:35 Labs: Laboratory Results - last 24 hr 08/29/17 08/29/17 08/29/17 17:35 17:35 17:35 WBC 7.6 RBC 4.78 Hgb 14.5 Hct 40.0 MCV 83.5 MCH 30.3 MCHC 36.3 RDW 13.7 Plt Count 253 MPV 8.4 Neut % (Auto) 50.5 Lymph % (Auto) 35.4 [place] % (Auto) 7.7 Eos % (Auto) 5.4 H Baso % (Auto) 1.0 Neut # 3.8 Lymph # 2.7 [place] # 0.6 Eos # 0.4 Baso # 0.1 PT 12.5 H INR 1.1 APTT 27 Sodium 133 Potassium 4.0 Chloride 99 Carbon Dioxide 26 Anion Gap 13 BUN 16 Creatinine 1.0 Est GFR ( Amer) > 60 Est GFR (Non-Af Amer) > 60 Random Glucose 147 H Calcium 8.8 Total Bilirubin 0.7 AST 29 ALT 30 Alkaline Phosphatase 60 Total Creatine Kinase 102 CK-MB (Mass) 0.46 Troponin I 0.0160 NT-Pro-B Natriuret Pep 150 Total Protein 7.8 Albumin 4.3 Globulin 3.5 Albumin/Globulin Ratio 1.2 08/30/17 08/30/17 00:47 06:34 WBC RBC Hgb Hct MCV MCH MCHC RDW Plt Count MPV Neut % (Auto) Lymph % (Auto) [place] % (Auto) Eos % (Auto) Baso % (Auto) Neut # Lymph # [place] # Eos # Baso # PT INR APTT Sodium Potassium Chloride Carbon Dioxide Anion Gap BUN Creatinine Est GFR ( Amer) Est GFR (Non-Af Amer) Random Glucose Calcium Total Bilirubin AST ALT Alkaline Phosphatase Total Creatine Kinase 89 82 CK-MB (Mass) 0.35 0.23 Troponin I 0.0130 < 0.0120 NT-Pro-B Natriuret Pep Total Protein Albumin Globulin Albumin/Globulin Ratio Attending/Attestation - Attestation I have personally seen and examined this patient.: Yes I have fully participated in the care of the patient.: Yes I have reviewed all pertinent clinical information: Yes Notes (Text): CP x 1 day, SOB since MS, h/o STEMI s/p PCI x2, and 2 more lesions, DD of atypical cp, norman's syn, recurrence Plan Echo, r/o effusion, if continues CP will need inpatient stress, if positive trop may need cath.
[2017-08-30 01:15] LABS: CK-MB 0.35 ng/mL (0.0-3.38); TROPONIN I 0.013 ng/mL (0.00-0.120)
[2017-08-30 01:58] VITALS: RESP 20
--- NOTE | 2017-08-30 04:05 | RAD ---
HISTORY: chest pain COMPARISON: None available. TECHNIQUE: Chest, one view. FINDINGS: LUNGS: No focal consolidation. Please note that chest x-ray has limited sensitivity for the detection of pulmonary masses. PLEURA: No significant pleural effusion identified. No definite pneumothorax . CARDIOVASCULAR: The cardiomediastinal silhouette appears within normal limits of size. OSSEOUS STRUCTURES: No acute osseous abnormality identified. VISUALIZED UPPER ABDOMEN: Elevation of the right hemidiaphragm. OTHER FINDINGS: None. IMPRESSION: No focal consolidation, significant pleural effusion, or definite pneumothorax identified.
[2017-08-30 07:21] LABS: CK-MB 0.23 ng/mL (0.0-3.38)
[2017-08-30 09:17] VITALS: PULSE 82; TEMP 98.3; O2SAT 99
[2017-08-30 09:41] VITALS: BP 120/70
[2017-08-30] MEDS ORDERED: Pantoprazole 40 mg EC Tab PO SCH (10:00)
[2017-08-30] MEDS ORDERED: Home Med 1 UNIT PO SCH ×6 (10:00→22:00)
[2017-08-30] MEDS ORDERED: Enoxaparin 40 mg Syringe SC SCH (10:00)
--- NOTE | 2017-08-30 17:45 | CP.PCM.DIS ---
<Sania James DO - Last Filed: 08/30/17 17:36> Provider - Provider Date of Admission: 08/29/17 18:43 Attending physician: Garett Guerra MD Time Spent in preparation of Discharge (in minutes): 40 Diagnosis - Discharge Diagnosis (1) Chest pain, rule out acute myocardial infarction Status: Acute Comment: DONNELL negative x 3, no EKG changes noted (2) Coronary artery disease Status: Acute Comment: Patient maintained on home medications Plavix, ASA 81mg. Patient to follow up with weather strip installer Dr. Jones on 09/02/17. (3) Dyslipidemia Status: Acute Comment: Patient maintained on home medication Lipitor 40mg. (4) HTN (hypertension) Status: Acute Comment: Patient maintained on home medications enalapril 5mg, metoprolol 50mg PO BID. Hospital Course - Lab Results Lab Results: Most Recent Lab Values WBC 7.6 K/uL (4.8-10.8) 08/29/17 17:35 RBC 4.78 Mil/uL (4.40-5.90) 08/29/17 17:35 Hgb 14.5 g/dL (12.0-18.0) 08/29/17 17:35 Hct 40.0 % (35.0-51.0) 08/29/17 17:35 MCV 83.5 fL (80.0-94.0) 08/29/17 17:35 MCH 30.3 pg (27.0-31.0) 08/29/17 17:35 MCHC 36.3 g/dL (33.0-37.0) 08/29/17 17:35 RDW 13.7 % (11.5-14.5) 08/29/17 17:35 Plt Count 253 K/uL (130-400) 08/29/17 17:35 MPV 8.4 fL (7.2-11.7) 08/29/17 17:35 Neut % (Auto) 50.5 % (50.0-75.0) 08/29/17 17:35 Lymph % (Auto) 35.4 % (20.0-40.0) 08/29/17 17:35 [place] % (Auto) 7.7 % (0.0-10.0) 01/12/18 17:35 Eos % (Auto) 5.4 % (0.0-4.0) H 08/29/17 17:35 Baso % (Auto) 1.0 % (0.0-2.0) 08/29/17 17:35 Neut # 3.8 K/uL (1.8-7.0) 08/29/17 17:35 Lymph # 2.7 K/uL (1.0-4.3) 08/29/17 17:35 [place] # 0.6 K/uL (0.0-0.8) 08/29/17 17:35 Eos # 0.4 K/uL (0.0-0.7) 08/29/17 17:35 Baso # 0.1 K/uL (0.0-0.2) 08/29/17 17:35 PT 12.5 SECONDS (9.7-12.2) H 08/29/17 17:35 INR 1.1 08/29/17 17:35 APTT 27 SECONDS (21-34) 08/29/17 17:35 D-Dimer, Quantitative < 200 ng/mlDDU (0-243) 08/30/17 09:52 Sodium 133 mmol/L (132-148) 08/29/17 17:35 Potassium 4.0 mmol/L (3.6-5.2) 08/29/17 17:35 Chloride 99 mmol/L (98-107) 08/29/17 17:35 Carbon Dioxide 26 mmol/L (22-30) 08/29/17 17:35 Anion Gap 13 (10-20) 08/29/17 17:35 BUN 16 mg/dL (9-20) 08/29/17 17:35 Creatinine 1.0 mg/dL (0.8-1.5) 08/29/17 17:35 Est GFR ( Amer) > 60 08/29/17 17:35 Est GFR (Non-Af Amer) > 60 08/29/17 17:35 Random Glucose 147 mg/dL (75-110) H 08/29/17 17:35 Calcium 8.8 mg/dl (8.6-10.4) 08/29/17 17:35 Total Bilirubin 0.7 mg/dL (0.2-1.3) 08/29/17 17:35 AST 29 U/L (17-59) 08/29/17 17:35 ALT 30 U/L (21-72) 08/29/17 17:35 Alkaline Phosphatase 60 U/L (38-126) 08/29/17 17:35 Total Creatine Kinase 82 U/L (55-170) 08/30/17 06:34 CK-MB (Mass) 0.23 ng/mL (0.0-3.38) 08/30/17 06:34 Troponin I < 0.0120 ng/mL (0.00-0.120) 08/30/17 06:34 NT-Pro-B Natriuret Pep 150 pg/mL (0-900) 08/29/17 17:35 Total Protein 7.8 g/dL (6.3-8.3) 08/29/17 17:35 Albumin 4.3 g/dL (3.5-5.0) 08/29/17 17:35 Globulin 3.5 gm/dL (2.2-3.9) 08/29/17 17:35 Albumin/Globulin Ratio 1.2 (1.0-2.1) 08/29/17 17:35 TSH 3rd Generation 0.76 mIU/L (0.46-4.68) 08/30/17 06:34 - Hospital Course Hospital Course: On Admission: This patient is a 57 year old male from [place], with a PMHx of Hep C, recent STEMI, CAD s/p 2 drug eluting stents who presents complaining of intermittent episodes of non radiating, sharp, chest pain that started about 9pm yesterday. The chest pain is associated with SOB. Patient also complains of dyspnea on exertion that has been getting progressively worse since his discharge from [facility] on 08/20/17. Patient denies taking medication for his symptoms. He has been complaint with his medications from [place] and his discharge medications from his previous visit at [facility]. Patient was admitted to [facility] for a STEMI on 08/18/17 that required emergent catheterization which revealed successful percutaneous transluminal coronary angioplasty stenting of proximal and mid right coronary artery 100% thrombotic occlusion, deployment of 2 drug eluting stents. Patient states that when he walks up the stairs he must walk slowly and catch his breath with each step. During hospitalization: Patient was given nitro in the ED with resolution of his chest pain. DONNELL panel was negative x 3. EKGs did not show changes from patient's baseline. D-dimer <200 BNP 150 On day following admission, patient reports resolution of his symptoms. Patient denies chest pressure, only reports point tenderness which was relieved with NSAIDs. Case was discussed with weather strip installer Dr. Jones who saw patient on last admission on 08/18/17. Per Dr. Jones, patient can be discharged home on Imdur 60mg PO Daily. Patient is to follow up with Dr. Jones in the office on 09/02/17. Patient is to resume his other home medications: aspirin 81mg, lipitor 40mg, Plavix 75mg, vasotec 5mg. Patient is to return to the ED if his symptoms reoccur or worsen. Discharge Exam - Head Exam Head Exam: ATRAUMATIC, NORMAL INSPECTION, NORMOCEPHALIC - Eye Exam Eye Exam: EOMI, Normal appearance - ENT Exam ENT Exam: Mucous Membranes Moist - Respiratory Exam Respiratory Exam: Chest Wall Tenderness (left rib), Clear to PA & Lateral, NORMAL BREATHING PATTERN - Cardiovascular Exam Cardiovascular Exam: +S1, +S2. absent: Systolic Murmur - GI/Abdominal Exam GI & Abdominal Exam: Normal Bowel Sounds, Soft. absent: Tenderness - Extremities Exam Extremities exam: normal inspection - Neurological Exam Neurological exam: Alert - Psychiatric Exam Psychiatric exam: Normal Affect - Skin Skin Exam: Warm Discharge Plan - Discharge Medications Prescriptions: RX: Aspirin [Aspirin Chewable] 81 mg PO DAILY #30 chew RX: Atorvastatin [Lipitor] 40 mg PO HS #30 tab RX: Clopidogrel [Plavix] 75 mg PO DAILY #30 tab RX: Enalapril Maleate [Vasotec] 5 mg PO DAILY #30 tab RX: Isosorbide Mononitrate [Imdur] 60 mg PO DAILY #30 tab - Follow Up Plan Condition: STABLE Disposition: HOME/ ROUTINE Instructions: Enalapril (By mouth), Aspirin (By mouth), Isosorbide Mononitrate (By mouth), Atorvastatin (By mouth), Clopidogrel (By mouth), Chest Pain (DC), Hypertension (DC), Hypertension (GEN) Additional Instructions: Patient is stable for discharge home as per Dr. Freitas. Patient is to see Dr. Jones in his office this coming 09/02/17. Patient is being discharged with new medication Imdur 60mg daily. Patient is to return to the ED if his symptoms reoccur or worsen. Referrals: Clark Jones MD [Staff Provider] - 09/02/17 <Vilma Freitas V - Last Filed: 08/30/17 20:37> Provider - Provider Date of Admission: 08/29/17 18:43 Attending physician: Garett Guerra MD Hospital Course - Lab Results Lab Results: Most Recent Lab Values WBC 7.6 K/uL (4.8-10.8) 08/29/17 17:35 RBC 4.78 Mil/uL (4.40-5.90) 08/29/17 17:35 Hgb 14.5 g/dL (12.0-18.0) 08/29/17 17:35 Hct 40.0 % (35.0-51.0) 08/29/17 17:35 MCV 83.5 fL (80.0-94.0) 08/29/17 17:35 MCH 30.3 pg (27.0-31.0) 08/29/17 17:35 MCHC 36.3 g/dL (33.0-37.0) 08/29/17 17:35 RDW 13.7 % (11.5-14.5) 08/29/17 17:35 Plt Count 253 K/uL (130-400) 08/29/17 17:35 MPV 8.4 fL (7.2-11.7) 08/29/17 17:35 Neut % (Auto) 50.5 % (50.0-75.0) 08/29/17 17:35 Lymph % (Auto) 35.4 % (20.0-40.0) 08/29/17 17:35 [place] % (Auto) 7.7 % (0.0-10.0) 08/29/17 17:35 Eos % (Auto) 5.4 % (0.0-4.0) H 08/29/17 17:35 Baso % (Auto) 1.0 % (0.0-2.0) 08/29/17 17:35 Neut # 3.8 K/uL (1.8-7.0) 08/29/17 17:35 Lymph # 2.7 K/uL (1.0-4.3) 08/29/17 17:35 [place] # 0.6 K/uL (0.0-0.8) 08/29/17 17:35 Eos # 0.4 K/uL (0.0-0.7) 08/29/17 17:35 Baso # 0.1 K/uL (0.0-0.2) 08/29/17 17:35 PT 12.5 SECONDS (9.7-12.2) H 08/29/17 17:35 INR 1.1 08/29/17 17:35 APTT 27 SECONDS (21-34) 08/29/17 17:35 D-Dimer, Quantitative < 200 ng/mlDDU (0-243) 08/30/17 09:52 Sodium 133 mmol/L (132-148) 08/29/17 17:35 Potassium 4.0 mmol/L (3.6-5.2) 08/29/17 17:35 Chloride 99 mmol/L (98-107) 08/29/17 17:35 Carbon Dioxide 26 mmol/L (22-30) 08/29/17 17:35 Anion Gap 13 (10-20) 08/29/17 17:35 BUN 16 mg/dL (9-20) 08/29/17 17:35 Creatinine 1.0 mg/dL (0.8-1.5) 08/29/17 17:35 Est GFR ( Amer) > 60 08/29/17 17:35 Est GFR (Non-Af Amer) > 60 08/29/17 17:35 Random Glucose 147 mg/dL (75-110) H 08/29/17 17:35 Calcium 8.8 mg/dl (8.6-10.4) 08/29/17 17:35 Total Bilirubin 0.7 mg/dL (0.2-1.3) 08/29/17 17:35 AST 29 U/L (17-59) 08/29/17 17:35 ALT 30 U/L (21-72) 08/29/17 17:35 Alkaline Phosphatase 60 U/L (38-126) 08/29/17 17:35 Total Creatine Kinase 82 U/L (55-170) 08/30/17 06:34 CK-MB (Mass) 0.23 ng/mL (0.0-3.38) 08/30/17 06:34 Troponin I < 0.0120 ng/mL (0.00-0.120) 08/30/17 06:34 NT-Pro-B Natriuret Pep 150 pg/mL (0-900) 08/29/17 17:35 Total Protein 7.8 g/dL (6.3-8.3) 08/29/17 17:35 Albumin 4.3 g/dL (3.5-5.0) 08/29/17 17:35 Globulin 3.5 gm/dL (2.2-3.9) 08/29/17 17:35 Albumin/Globulin Ratio 1.2 (1.0-2.1) 08/29/17 17:35 TSH 3rd Generation 0.76 mIU/L (0.46-4.68) 08/30/17 06:34 Attending/Attestation - Attestation I have personally seen and examined this patient.: Yes I have fully participated in the care of the patient.: Yes I have reviewed all pertinent clinical information, including history, physical exam and plan: Yes Notes (Text): Patient seen, examined, and case discussed with day-time resident. Patient seen this morning. Patient denies acute complaints. Patient reports point tenderness over the 4th ICU Rib space only. Patient had receive nitrate overnight and reports chest pain has resolved. Patient seen with his nephew at bedside. DONNELL X3: negative. D-dimer negative. TSH within normal. Given one time dose of Toradol 30mg IV X1. Case discussed with his weather strip installer, Dr. Jones, per cardiology, stable for discharge, recommend to start Imdur 60mg Po daily, and f/u this upcoming Friday , 09/02/17. Patient reports he has postponed his flight back to [facility] which was originally scheduled for this Friday, and plans to go back in September 2017. Discharge Diagnoses: (1) Chest pain, rule out acute myocardial infarction Status: Acute Comment: DONNELL negative x 3, no EKG changes noted from prior EKG post-cath from last admission Probnp: within normal D-dimer negative TSH within normal C/w Aspirin, beta-tay, statin, kevyn-inhibitor, and plavix. Start Imdur 60mg PO daily (2) Coronary artery disease Status: Chronic Comment: Patient maintained on home medications Plavix 75mg PO daily, ASA 81mg Po daily, Lipitor 40mg POqdaily, Enalapril 5mg POdaily. and Lopressor 50mg PO BID. Patient to follow up with weather strip installer Dr. Jones on 09/02/17 in his office. Patient has scheduled appointment since last admission for post-NM follow-up. (3) Dyslipidemia Status: Chronic Comment: Patient maintained on home medication Lipitor 40mg. POqHS This is a summary of patient's hospitalization. Please refer to EMR for further details.
--- NOTE | 2017-09-01 09:07 | CARD ---
APPROVED REPORT EKG Measurement Heart [id number] <Conclusion> Normal sinus rhythm Left anterior fascicular block Moderate voltage criteria for LVH, may be normal variant T wave abnormality, consider inferior ischemia Abnormal ECG
--- NOTE | 2017-09-01 15:03 | CARD ---
APPROVED REPORT EKG Measurement Heart [id number] MT [id number] <Conclusion> Normal sinus rhythm Left axis deviation Minimal voltage criteria for LVH, may be normal variant T wave abnormality, consider inferior ischemia Abnormal ECG
--- NOTE | 2017-09-01 15:05 | CARD ---
APPROVED REPORT EKG Measurement Heart [id number] <Conclusion> Normal sinus rhythm Left axis deviation Minimal voltage criteria for LVH, may be normal variant T wave abnormality, consider inferior ischemia Abnormal ECG
== END 2017-08-30 13:56 | disposition home or self-care (01) ==
LOC: C.ER 16:37 → C.9E 18:43 → C.6T 20:01
PROVIDERS: ADMIT Internal Medicine; ATTEND Internal Medicine
DX: R07.89 Other chest pain (principal); I10 Essential (primary) hypertension; E78.5 Hyperlipidemia, unspecified; I25.10 Atherosclerotic heart disease of native coronary artery without angina pectoris
CPT/HCPCS: 36415; 71045; 80053; 83880; 84443; 84484; 85025; 85378; 85610; 85730; 93005; 99285; G0378; J1650

== ENCOUNTER 2017-11-22 17:25 | Emergency (ER) | payer SELFPAY ==
[2017-11-22 17:25] VITALS: BMI 27.4
[2017-11-22 18:08] LABS: BASO % 0.4 % (0.0-2.0); EOS # 0.2 K/uL (0.0-0.7); HEMOGLOBIN 15.3 g/dL (12.0-18.0); LYMPH # 3.6 K/uL (1.0-4.3); LYMPH % 39.9 % (20.0-40.0); MEAN CELL VOLUME 85.9 fL (80.0-94.0); MEAN CORPUSCULAR HEMOGLOBIN 29.7 pg (27.0-31.0); MEAN CORPUSCULAR HGB CONC 34.6 g/dL (33.0-37.0); MEAN PLATELET VOLUME 8.6 fL (7.2-11.7); MONO # 0.6 K/uL (0.0-0.8); MONO % 6.2 % (0.0-10.0); NEUT # 4.7 K/uL (1.8-7.0); NEUT % 51.5 % (50.0-75.0); RBC 5.16 Mil/uL (4.40-5.90); RED CELL DISTRIBUTION WIDTH 13.5 % (11.5-14.5); WHITE BLOOD COUNT 9.1 K/uL (4.8-10.8)
[2017-11-22 18:19] LABS: ALB/GLOB RATIO 1.4 (1.0-2.1); ALBUMIN 4.1 g/dL (3.5-5.0); ALT/SGPT 69 U/L (21-72); AST/SGOT 29 U/L (17-59); BLOOD UREA NITROGEN 19 mg/dL (9-20); CALCIUM 8.6 mg/dl (8.6-10.4); GFR AFRICAN-AMERICAN > 60; GFR NON-AFRICAN AMERICAN > 60
[2017-11-22 18:31] LABS: CK-MB 0.81 ng/mL (0.0-3.38)
[2017-11-22 22:17] LABS: CK-MB 0.66 ng/mL (0.0-3.38)
--- NOTE | 2017-11-22 22:22 | C.PDOC ---
History Of Present Illness Pt c/o left sided chest pain that started while lifting a moderately heavy object. 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) Current Symptoms Are (Timing): Still Present Severity: Moderate Quality: "Pain" Modifying Factors: Other Indicated Below Exacerbating Factors: Movement Additional History Per: Prior Records Past Medical History Reviewed: Historical Data, Nursing Documentation, Vital Signs Vital Signs: Last Vital Signs Temp 98.1 F 11/22/17 17:32 Pulse 78 11/22/17 19:29 Resp 16 11/22/17 19:29 BP 106/62 11/22/17 19:29 Pulse Ox 95 11/22/17 19:29 - Medical History PMH: AMI-STEMI, CAD Surgical History: Coronary Stent (X 19 AUG 2017) - [facility] Procedures DILATION OF 1 COR ART WITH 2 DRUG-ELUT, PERC APPROACH (08/18/17) FLUOROSCOPY OF MULT COR ART USING L OSM CONTRAST (08/18/17) FLUOROSCOPY OF RIGHT AND LEFT HEART USING L OSM CONTRAST (08/18/17) MEASURE OF CARDIAC SAMPL & PRESSURE, L HEART, PERC APPROACH (08/18/17) Family History: States: [place] - Social History Hx Tobacco Use: No Hx Alcohol Use: No Hx Substance Use: No - Immunization History Hx Influenza Vaccination: No Review Of Systems Except As Marked, All Systems Reviewed And Found Negative. Constitutional: Negative for: Fever, Weakness Cardiovascular: Negative for: Light Headedness Respiratory: Negative for: Shortness of Breath, Hemoptysis Gastrointestinal: Negative for: Nausea, Vomiting, Abdominal Pain Musculoskeletal: Negative for: Neck Pain, Leg Pain Skin: Negative for: Rash Neurological: Negative for: Weakness, Numbness Physical Exam - Physical Exam Appears: Non-toxic, No Acute Distress Skin: Normal Color, Warm, Dry, No Rash Head: Atraumatic, Normacephalic Eye(s): bilateral: PERRL, EOMI Neck: Normal ROM, Supple Chest: Symmetrical, No Deformity, Tenderness (left chest wall), No Ecchymosis, No Subcutaneous Emphysema Cardiovascular: Rhythm Regular Respiratory: Normal Breath Sounds, No Accessory Muscle Use Gastrointestinal/Abdominal: Soft, No Tenderness Back: No CVA Tenderness Extremity: Normal ROM, No Pedal Edema, No Calf Tenderness Extremity: Bilateral: Normal Color And Temperature Pulses: Left Radial: Normal, Right Radial: Normal Neurological/Psych: Oriented x3, Normal Motor, Normal Sensation ED Course And Treatment - Laboratory Results Result Diagrams: 11/22/17 18:05 11/22/17 18:05 Lab Interpretation: No Acute Changes Interpretation Of Abnormal: CE's negative x 2. ECG: Interpreted By Me, Viewed By Me ECG Rhythm: Sinus Rhythm, Nonspecific Changes ECG Interpretation: No Acute Changes Rate From EC O2 Sat by Pulse Oximetry: 95 Pulse Ox Interpretation: Normal - Radiology CXR: Interpreted by Me, Viewed By Me CXR Interpretation: Yes: No Acute Disease Progress Note: Pain resolved after Tylenol. Reassessment Condition: Improved ED EKG Interpretation - Interpreted by ED Physician Interpreted by ED Physician: Yes - Type Type: 12 lead EKG Comparison: Similar to previous EKG - Rhythm Rhythm: Normal sinus - Rate BPM: 60 - [place]: Left - Conduction Conduction: Normal conduction - Impression Impression:: Non-specific Progress - Interventions Interventions:: Observation - Medications Administered Oral: Acetaminophen - Data Reviewed Data Reviewed: Lab, Diagnostic imaging, EKG, Old records - Patient Status Patient status: Completely improved - Continuity of Care Discussed patient case with:: Patient, ED Nurse - Patient Plan Patient Plan: Discharge, F/U with PCP, Continue present meds Disposition Counseled Patient/Family Regarding: Studies Performed, Diagnosis, Need For Followup - Disposition Referrals: [facility] [Outside] Disposition: HOME/ ROUTINE Disposition Time: 22:25 Condition: IMPROVED Additional Instructions: Follow up in the clinic for further evaluation and treatment. Return to the ER if you develop chest pain, shortness of breath, dizziness, worsening of symptoms or if you have any other concerns. Instructions: Chest Pain (DC) - Clinical Impression Clinical Impression: Chest pain
[2017-11-22 22:27] VITALS: BP 143/87; PULSE 63; RESP 14; TEMP 98.4; O2SAT 98
--- NOTE | 2017-11-23 07:45 | RAD ---
Chest x-ray single frontal view History: Chest pain. Comparison: 08/29/2017 Findings: Mild venous congestion. Patchy increased markings at the left lung base. Tortuous aorta. Mild cardiomegaly. Degenerative changes in the spine and shoulders. Impression: Mild venous congestion. Patchy increased markings at the left lung base. Tortuous aorta. Mild cardiomegaly.
== END 2017-11-22 23:21 | disposition home or self-care (01) ==
LOC: C.ER 17:25
DX: R07.9 Chest pain, unspecified (principal)

== ENCOUNTER 2018-03-04 17:05 | Inpatient (IN) | payer MEDICAID ==
[2018-03-04 17:12] VITALS: BMI 28.3
--- NOTE | 2018-03-04 18:09 | C.PDOC ---
History Of Present Illness 57 y/o male with history of CAD and s/p STEMI with placement of 2 drug eluting stents in 08/2017 presents to ED with c/o left sided chest pressure pain developed 1 hour ago associated with mild sob. Patient states he took 3 baby aspirin which subsided pain but pain is now 3/10. Patient states pain is similar to pain of prior CT in 08/2017 but not as severe, denies cough, nausea, vomiting, leg swelling, fever, chills or any other complaints at this time. Time Seen by Provider: 03/04/18 17:50 Chief Complaint (Nursing): Chest Pain History Per: Patient History/Exam Limitations: no limitations Onset/Duration Of Symptoms: Days Current Symptoms Are (Timing): Still Present Quality: "Pain" Past Medical History Reviewed: Historical Data, Nursing Documentation, Vital Signs Vital Signs: Last Vital Signs Temp 98.5 F 03/04/18 17:16 Pulse 60 03/04/18 20:14 Resp 20 03/04/18 20:14 BP 144/84 03/04/18 20:14 Pulse Ox 97 03/04/18 20:14 - Medical History PMH: CAD Surgical History: Coronary Stent (X 19 AUG 2017) - [facility] Procedures DILATION OF 1 COR ART WITH 2 DRUG-ELUT, PERC APPROACH (08/18/17) FLUOROSCOPY OF MULT COR ART USING L OSM CONTRAST (08/18/17) FLUOROSCOPY OF RIGHT AND LEFT HEART USING L OSM CONTRAST (08/18/17) MEASURE OF CARDIAC SAMPL & PRESSURE, L HEART, PERC APPROACH (08/18/17) Family History: States: [place] - Social History Hx Tobacco Use: No Hx Alcohol Use: No Hx Substance Use: No - Immunization History Hx Tetanus Toxoid Vaccination: No Hx Influenza Vaccination: No Hx Pneumococcal Vaccination: No Review Of Systems Constitutional: Negative for: Fever, Chills Cardiovascular: Positive for: Chest Pain. Negative for: Palpitations Respiratory: Positive for: Shortness of Breath. Negative for: Cough Gastrointestinal: Negative for: Nausea, Vomiting Skin: Negative for: Rash Physical Exam - Physical Exam Appears: Non-toxic, No Acute Distress Skin: Warm, Dry, No Rash Head: Atraumatic, Normacephalic Eye(s): bilateral: Normal Inspection Oral Mucosa: Moist Neck: Normal ROM, Supple Chest: Symmetrical Cardiovascular: Rhythm Regular Respiratory: Normal Breath Sounds, No Rales, No Rhonchi, No Wheezing Gastrointestinal/Abdominal: Soft, No Tenderness, No Guarding, No Rebound Back: No CVA Tenderness Extremity: Normal ROM, Capillary Refill (<2 seconds) Neurological/Psych: Oriented x3, Normal Speech, Normal Cognition ED Course And Treatment - Laboratory Results Result Diagrams: 03/04/18 18:37 03/04/18 18:37 Lab Interpretation: No Acute Changes ECG: Interpreted By Me ECG Rhythm: Sinus Rhythm ECG Interpretation: No Acute Changes, No Changes From Prior O2 Sat by Pulse Oximetry: 96 (RA) Pulse Ox Interpretation: Normal - Radiology CXR: Interpreted by Me CXR Interpretation: Yes: No Acute Disease Reevaluation Time: 20:07 Reassessment Condition: Improved - Physician Consult Information Time Consulting Physician Contacted: 20:16 Physician Contacted: Donnie Stein Outcome Of Conversation: Patient to be kept for cardiac observation. Disposition - Disposition Disposition: HOSPITALIZED Disposition Time: 20:17 Condition: STABLE - POA Present On Arrival: None - Clinical Impression Clinical Impression: Chest pain - Scribe Statement The provider has reviewed the documentation as recorded by the Tamyibsierra Wilcox All medical record entries made by the Foreign were at my direction and personally dictated by me. I have reviewed the chart and agree that the record accurately reflects my personal performance of the history, physical exam, medical decision making, and the department course for this patient. I have also personally directed, reviewed, and agree with the discharge instructions and disposition.
[2018-03-04 18:53] LABS: ALB/GLOB RATIO 1.5 (1.0-2.1); ALBUMIN 4.5 g/dL (3.5-5.0); ALT/SGPT 33 U/L (21-72); AST/SGOT 25 U/L (17-59); BLOOD UREA NITROGEN 18 mg/dL (9-20); CALCIUM 9.3 mg/dl (8.6-10.4); GFR AFRICAN-AMERICAN > 60; GFR NON-AFRICAN AMERICAN > 60
[2018-03-04 19:05] LABS: BASO % 0.6 % (0.0-2.0); EOS # 0.3 K/uL (0.0-0.7); EOS % 4.8 % (0.0-4.0); HEMOGLOBIN 14.5 g/dL (12.0-18.0); LYMPH # 2.6 K/uL (1.0-4.3); LYMPH % 37.3 % (20.0-40.0); MEAN CELL VOLUME 85.8 fL (80.0-94.0); MEAN CORPUSCULAR HEMOGLOBIN 29.9 pg (27.0-31.0); MEAN CORPUSCULAR HGB CONC 34.9 g/dL (33.0-37.0); MEAN PLATELET VOLUME 9.3 fL (7.2-11.7); MONO # 0.5 K/uL (0.0-0.8); MONO % 7.8 % (0.0-10.0); NEUT # 3.4 K/uL (1.8-7.0); NEUT % 49.5 % (50.0-75.0); RBC 4.84 Mil/uL (4.40-5.90); WHITE BLOOD COUNT 6.9 K/uL (4.8-10.8)
--- NOTE | 2018-03-04 20:27 | CP.PCM.HP ---
<Whitney Pickens - Last Filed: 03/04/18 21:39> History of Present Illness - History of Present Illness History of Present Illness: Medicine Note for Hospitalist Service CC: Chest pain HPI: This is a 57 year old Uz[place] male with PMHx of Inferior wall NV s/p 2 CHARO, Dyslipidemia, Hepatitis C s/p treatment in 2005, and Vertigo who presents to the ED with chest pain. Law Office Assistant #[id number] assisted me in retrieving the history. Patient reports he was walking around his apartment earlier today when he started to feel sharp, aching chest pain that was localized near the apex of his heart around 4:30PM. Admitted to dizziness, shortness of breath and generalized bilateral upper extremity weakness. Denied any syncopal episode or diaphoresis. Patient reports the pain became better after he was given ASA in the ED. He reports he is compliant with his medications and takes them daily. He has followed up with Dr. Jones 09/2017. Denied any fever, chills, headache, abdominal pain, n/v/d/c, or urinary complaints. PMHx: Inferior Wall NV (RCA) s/p 2 CHARO 08/19/2017, Dyslipidemia, Hepatitis C s/p treatment in 2005, Vertigo PSHx: unspecified eye surgery Meds: Aspirin 81mg PO daily, Plavix 75mg PO daily, Lopressor 50mg PO BID, Enalapril 5mg PO daily, Imdur 60mg PO Daily, Lipitor 40mg POqHS Allergies: NKDA SHx: Denies tobacco, alcohol, drugs. FHx: Brother with NV at age 55. Two brothers in total with heart disease. Pharmacy: [facility] [phone] Present on Admission - Present on Admission Any Indicators Present on Admission: No Past Patient History - Past Medical History & Family History Past Medical History?: Yes - Past Social History Smoking Status: Never Smoked - CARDIAC Hx Cardiac Disorders: Yes Hx Angina: Yes Hx Heart Attack: Yes - PULMONARY Hx Respiratory Disorders: No - NEUROLOGICAL Hx Neurological Disorder: Yes Hx Vertigo: Yes - HEENT Hx HEENT Problems: No - RENAL Hx Chronic Kidney Disease: No - ENDOCRINE/METABOLIC Hx Endocrine Disorders: No - HEMATOLOGICAL/ONCOLOGICAL Hx Hepatitis C: Yes - INTEGUMENTARY Hx Dermatological Problems: No - MUSCULOSKELETAL/RHEUMATOLOGICAL Hx Musculoskeletal Disorders: No Hx Falls: No - GASTROINTESTINAL Hx Gastrointestinal Disorders: No - GENITOURINARY/GYNECOLOGICAL Hx Genitourinary Disorders: No - PSYCHIATRIC Hx Substance Use: No - SURGICAL HISTORY Hx Coronary Stent: Yes (X 19 AUG 2017) - ANESTHESIA Hx Anesthesia: No Hx Anesthesia Reactions: No Meds Allergies/Adverse Reactions: Allergies Allergy/AdvReac Type Severity Reaction Status Date / Time No Known Allergies Allergy Verified 03/04/18 17:12 Physical Exam - Constitutional Appears: No Acute Distress - Head Exam Head Exam: NORMAL INSPECTION, NORMOCEPHALIC - Eye Exam Eye Exam: EOMI, Normal appearance, PERRL. absent: Nystagmus, Scleral icterus Pupil Exam: NORMAL ACCOMODATION - ENT Exam ENT Exam: Mucous Membranes Moist Additional comments: Left ear erythmatous, not TTP pinna, tragus, or mastoid - Neck Exam Neck exam: Positive for: Normal Inspection - Respiratory Exam Respiratory Exam: Clear to Auscultation Bilateral, NORMAL BREATHING PATTERN. absent: Decreased Breath Sounds, Wheezes - Cardiovascular Exam Cardiovascular Exam: REGULAR RHYTHM. absent: Diastolic murmur, Systolic Murmur - GI/Abdominal Exam GI & Abdominal Exam: Normal Bowel Sounds, Soft. absent: Distended, Tenderness - Rectal Exam Rectal Exam: Deferred - Extremities Exam Extremities exam: Positive for: normal inspection, pedal pulses present. Negative for: pedal edema, tenderness - Back Exam Back exam: NORMAL INSPECTION - Neurological Exam Neurological exam: Alert, CN II-XII Intact, Oriented x3 - Psychiatric Exam Psychiatric exam: Normal Affect, Normal Mood - Skin Skin Exam: Dry, Intact, Normal Color, Warm Results - Vital Signs Recent Vital Signs: Last Vital Signs Temp 98.5 F 03/04/18 17:16 Pulse 60 03/04/18 20:14 Resp 20 03/04/18 20:14 BP 144/84 03/04/18 20:14 Pulse Ox 96 03/04/18 20:17 - Labs Result Diagrams: 03/04/18 18:37 03/04/18 18:37 Labs: Laboratory Results - last 24 hr 03/04/18 03/04/18 18:37 18:37 WBC 6.9 RBC 4.84 Hgb 14.5 Hct 41.5 MCV 85.8 MCH 29.9 MCHC 34.9 RDW 14.0 Plt Count 173 MPV 9.3 Neut % (Auto) 49.5 L Lymph % (Auto) 37.3 [place] % (Auto) 7.8 Eos % (Auto) 4.8 H Baso % (Auto) 0.6 Neut # (Auto) 3.4 Lymph # (Auto) 2.6 [place] # (Auto) 0.5 Eos # (Auto) 0.3 Baso # (Auto) 0.0 Sodium 142 Potassium 4.2 Chloride 105 Carbon Dioxide 25 Anion Gap 17 BUN 18 Creatinine 0.9 Est GFR ( Amer) > 60 Est GFR (Non-Af Amer) > 60 Random Glucose 112 H Calcium 9.3 Total Bilirubin 0.7 AST 25 ALT 33 Alkaline Phosphatase 40 Troponin I < 0.0120 Total Protein 7.4 Albumin 4.5 Globulin 3.0 Albumin/Globulin Ratio 1.5 Assessment & Plan - Assessment and Plan (Free Text) Plan: Chest Pain r/o ACS August 2017 Admission - [facility]- underwent PCI of proximal and mid RCA with CHARO x [address] Jones - ECHO - LVEF 55%, mild LVH On this admission: Cardiology consulted - Dr. Jones - Initial DONNELL negative, EKG NSR @ 82BPM - CXR: no infiltrates noted - Follow serial ROMIs, EKGs, repeat ECHO, nuclear stress test 03/05/18 Restarted home medications: -ASA 81mg PO daily, Plavix 75mg PO daily, Enalapril 5mg PO daily, Lopressor 50mg PO BID, Imdur 60mg PO daily, and Lipitor 40mg PO daily CAD - Resumed home medications: ASA 81mg PO daily, Plavix 75mg PO daily, Enalapril 5mg PO daily, Lopressor 50mg PO BID and Lipitor 40mg PO daily Dyslipidemia - Resumed home medication: Lipitor 40mg PO daily Hx Treated Hepatitis C Vertigo - Asymptomatic currently Prophylactic Measures - GI PPX: Protonix - DVT PPX: SCDs, Lovenox - HHD DW Dr. Stein, Whitney Pickens DO, PGY2 <Donnie Stein - Last Filed: 03/05/18 06:22> Results - Vital Signs Recent Vital Signs: Last Vital Signs Temp 98.5 F 03/05/18 06:00 Pulse 66 03/05/18 06:00 Resp 20 03/05/18 06:00 BP 132/74 03/05/18 06:00 Pulse Ox 97 03/05/18 06:00 - Labs Result Diagrams: 03/04/18 18:37 03/04/18 18:37 Labs: Laboratory Results - last 24 hr 03/04/18 03/04/18 03/04/18 18:37 18:37 18:37 WBC 6.9 RBC 4.84 Hgb 14.5 Hct 41.5 MCV 85.8 MCH 29.9 MCHC 34.9 RDW 14.0 Plt Count 173 MPV 9.3 Neut % (Auto) 49.5 L Lymph % (Auto) 37.3 [place] % (Auto) 7.8 Eos % (Auto) 4.8 H Baso % (Auto) 0.6 Neut # (Auto) 3.4 Lymph # (Auto) 2.6 [place] # (Auto) 0.5 Eos # (Auto) 0.3 Baso # (Auto) 0.0 Sodium 142 Potassium 4.2 Chloride 105 Carbon Dioxide 25 Anion Gap 17 BUN 18 Creatinine 0.9 Est GFR ( Amer) > 60 Est GFR (Non-Af Amer) > 60 Random Glucose 112 H Hemoglobin A1c Calcium 9.3 Total Bilirubin 0.7 AST 25 ALT 33 Alkaline Phosphatase 40 Total Creatine Kinase CK-MB (Mass) Troponin I < 0.0120 Total Protein 7.4 Albumin 4.5 Globulin 3.0 Albumin/Globulin Ratio 1.5 Triglycerides 155 H D Cholesterol 105 LDL Cholesterol Direct 42 HDL Cholesterol 31 Free T4 TSH 3rd Generation 0.89 03/04/18 03/04/18 03/05/18 18:37 21:22 02:39 WBC RBC Hgb Hct MCV MCH MCHC RDW Plt Count MPV Neut % (Auto) Lymph % (Auto) [place] % (Auto) Eos % (Auto) Baso % (Auto) Neut # (Auto) Lymph # (Auto) [place] # (Auto) Eos # (Auto) Baso # (Auto) Sodium Potassium Chloride Carbon Dioxide Anion Gap BUN Creatinine Est GFR ( Amer) Est GFR (Non-Af Amer) Random Glucose Hemoglobin A1c 5.3 Calcium Total Bilirubin AST ALT Alkaline Phosphatase Total Creatine Kinase 91 CK-MB (Mass) 0.40 Troponin I < 0.0120 Total Protein Albumin Globulin Albumin/Globulin Ratio Triglycerides Cholesterol LDL Cholesterol Direct HDL Cholesterol Free T4 0.82 TSH 3rd Generation Assessment & Plan - Date & Time Date: 03/05/18 (I have seen and examined the patient. I agree with the findings and plan of care as documented by Dr. Pickens. Patient with chest pain. History of CAD and previous stents placed during [facility]. Consult to Cardio. Continue home meds. ROMIx3 with EKG. 2D Echo. Stress test. Monitor for acute changes.) Time: 06:20 Attending/Attestation - Attestation I have personally seen and examined this patient.: Yes I have fully participated in the care of the patient.: Yes I have reviewed all pertinent clinical information: Yes
[2018-03-04] MEDS ORDERED: Neomycin/Polymyxin/Hydrocort Otic Soln BOTTLE AU SCH (22:00)
[2018-03-05 08:11] LABS: BASO % 0.5 % (0.0-2.0); EOS # 0.4 K/uL (0.0-0.7); HEMOGLOBIN 15.4 g/dL (12.0-18.0); LYMPH # 2.6 K/uL (1.0-4.3); LYMPH % 36.1 % (20.0-40.0); MEAN CELL VOLUME 84.7 fL (80.0-94.0); MEAN CORPUSCULAR HEMOGLOBIN 29.8 pg (27.0-31.0); MEAN CORPUSCULAR HGB CONC 35.2 g/dL (33.0-37.0); MEAN PLATELET VOLUME 9.2 fL (7.2-11.7); MONO # 0.5 K/uL (0.0-0.8); MONO % 6.7 % (0.0-10.0); NEUT # 3.7 K/uL (1.8-7.0); NEUT % 51.7 % (50.0-75.0); NRBC % 0.1 % (0.0-2.0); RBC 5.17 Mil/uL (4.40-5.90); RED CELL DISTRIBUTION WIDTH 13.8 % (11.5-14.5); WHITE BLOOD COUNT 7.2 K/uL (4.8-10.8)
[2018-03-05 08:12] LABS: ALB/GLOB RATIO 1.6 (1.0-2.1); ALBUMIN 4.6 g/dL (3.5-5.0); ALT/SGPT 36 U/L (21-72); AST/SGOT 28 U/L (17-59); BLOOD UREA NITROGEN 14 mg/dL (9-20); CALCIUM 9.3 mg/dl (8.6-10.4); GFR AFRICAN-AMERICAN > 60; GFR NON-AFRICAN AMERICAN > 60
--- NOTE | 2018-03-05 10:04 | CP.PCM.PN ---
<Harley Huggins - Last Filed: 03/05/18 21:53> Subjective - Date & Time of Evaluation Date of Evaluation: 03/05/18 Time of Evaluation: 10:04 - Subjective Subjective: Progress Note for Hospitalist service Patient seen and examined at bedside. Patient speaks Belarusian. 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 He states he does not have chest pain, shortness of breath or palpitations currently. Admits to feeling dizzy which he has experienced for a few months now. He states he has had some swelling of his lower extremities about a month ago, which has since improved. He denies nausea, vomiting, diarrhea, leg pain, abdominal pain. He reports he arrived here from [place] in July 2017, however has been here since he had a heart attack in August. He states he has been taking his medication regularly. He denies any recent long flights or trips. Code star was called after patient fell today after he had his stress test today. He denies syncopal episode, but states he felt dizzy, lost his balance and fell. He denied hitting his head or losing consciousness. He states he landed on his right side and braced his fall with his hands. He then complained of pain to his right shoulder and hand. Objective - Vital Signs/Intake and Output Vital Signs (last 24 hours): Temp Pulse Resp BP Pulse Ox 97.8 F 60 20 142/86 97 03/05/18 07:35 03/05/18 07:45 03/05/18 07:35 03/05/18 07:35 03/05/18 07:35 - Medications Medications: Current Medications Aspirin (Aspirin Chewable) 81 mg PO DAILY [facility] Clopidogrel Bisulfate (Plavix) 75 mg PO DAILY [facility] Enalapril Maleate (Vasotec) 5 mg PO DAILY [facility] Enoxaparin Sodium (Lovenox) 40 mg SC DAILY [facility] Ibuprofen (Motrin Tab) 400 mg PO Q6 PRN PRN Reason: Pain, Mild (1-3) Isosorbide Mononitrate (Imdur) 60 mg PO DAILY [facility] Metoprolol Tartrate (Lopressor) 50 mg PO BID [facility] Neomycin/Polymyxin/Hydrocortisone (Cortisporin Otic Soln) 4 drop AU QID [facility] Last Admin: 03/04/18 21:58 Dose: 4 drop Pantoprazole Sodium (Protonix Ec Tab) 20 mg PO DAILY [facility] Rosuvastatin Calcium (Crestor) 20 mg PO HS [facility] Last Admin: 03/04/18 21:58 Dose: 20 mg - Labs Labs: 03/05/18 07:47 03/05/18 07:47 - Constitutional Appears: Well, No Acute Distress - Head Exam Head Exam: ATRAUMATIC, NORMOCEPHALIC - Eye Exam Eye Exam: EOMI - ENT Exam ENT Exam: Mucous Membranes Moist - Neck Exam Neck Exam: Full ROM. absent: Tenderness - Respiratory Exam Respiratory Exam: Clear to Ausculation Bilateral, NORMAL BREATHING PATTERN. absent: Rales, Rhonchi, Wheezes, Respiratory Distress, Stridor - Cardiovascular Exam Cardiovascular Exam: REGULAR RHYTHM, +S1, +S2. absent: Tachycardia - GI/Abdominal Exam GI & Abdominal Exam: Soft, Normal Bowel Sounds. absent: Distended, Firm, Tenderness - Extremities Exam Extremities Exam: absent: Calf Tenderness, Pedal Edema - Back Exam Back Exam: absent: CVA tenderness (L), CVA tenderness (R) - Neurological Exam Neurological Exam: Alert, Awake, Oriented x3 - Skin Skin Exam: Dry, Intact, Warm Assessment and Plan - Assessment and Plan (Free Text) Plan: Assessment/plan Chest Pain r/o ACS August 2017 Admission - [facility]- underwent PCI of proximal and mid RCA with CHARO x [address] Jones - ECHO - LVEF 55%, mild LVH Current admission: Cardiology consulted - Dr. Jones, help appreciated - Initial EKG NSR @ 82BPM - CXR: no infiltrates noted - Troponins x3 negative - Review of rn social services revealed patient remained in sinus rhythm in 60s - PEGGY score of 3, RACE score of 0 - Follow up ECHO results - 03/05/18 nuclear stress test results: evidence of old inferior wall GA. No evidence of reversible ischemia. Aggressive medical management and risk factor modification. Restarted home medications: -ASA 81mg PO daily, Plavix 75mg PO daily, Enalapril 5mg PO daily, Lopressor 50mg PO BID, Imdur 60mg PO daily, and Lipitor 40mg PO daily (Crestor 20mg given for Lipitor since not in formulary) CAD - Resumed home medications: ASA 81mg PO daily, Plavix 75mg PO daily, Enalapril 5mg PO daily, Lopressor 50mg PO BID and Lipitor 40mg PO daily (Crestor 20mg given for Lipitor since not in formulary) Dyslipidemia - Crestor 20mg PO HS Fall Vertigo - Code Star was called after patient fell when he became dizzy after his nuclear stress test today. He denies LOC, chest pain, shortness of breath, head trauma. He states he simply felt dizzy and fell, bracing his fall with his hands. - 03/05/18 Xrays of right shoulder and humerus no acute fracture or dislocation - 03/05/18 Xray of right hand: 10mm radioopaque foreign body in 1st web space; patient later admitted he had hand surgery 20 years ago with a surgical clip in place. Lower extremity swelling Follow up on dopplers Hx of Hepatitis C - Treated Prophylactic Measures - GI PPX: Protonix - DVT PPX: SCDs, Lovenox 40mg SC - HHD Case discussed with Dr. Zena Huggins, PGY1 <Vilma Freitas V - Last Filed: 03/07/18 17:32> Objective - Vital Signs/Intake and Output Vital Signs (last 24 hours): Temp Pulse Resp BP Pulse Ox 98.6 F 67 20 118/73 98 03/07/18 15:00 03/07/18 15:00 03/07/18 15:00 03/07/18 15:00 03/07/18 15:00 Intake and Output: 03/07/18 03/07/18 06:59 18:59 Intake Total 110 600 Balance 110 600 - Medications Medications: Current Medications Acetaminophen (Tylenol 325mg Tab) 650 mg PO Q6 PRN PRN Reason: Pain, moderate (4-7) Aspirin (Aspirin Chewable) 81 mg PO DAILY [facility] Last Admin: 03/07/18 09:29 Dose: 81 mg Clopidogrel Bisulfate (Plavix) 75 mg PO DAILY [facility] Last Admin: 03/07/18 09:29 Dose: 75 mg Diazepam (Valium) 2 mg PO Q12 [facility] Last Admin: 03/07/18 09:33 Dose: 2 mg Enalapril Maleate (Vasotec) 5 mg PO DAILY [facility] Last Admin: 03/07/18 09:29 Dose: 5 mg Enoxaparin Sodium (Lovenox) 40 mg SC DAILY [facility] Last Admin: 03/06/18 10:11 Dose: 40 mg Sodium Chloride (Sodium Chloride 0.9%) 1,000 mls @ 50 mls/hr IV .Q20H [facility] Last Admin: 03/07/18 11:20 Dose: 50 mls/hr Ibuprofen (Motrin Tab) 400 mg PO Q6 PRN PRN Reason: Pain, Mild (1-3) Isosorbide Mononitrate (Imdur) 60 mg PO DAILY [facility] Last Admin: 03/07/18 09:29 Dose: 60 mg Metoprolol Tartrate (Lopressor) 50 mg PO BID [facility] Last Admin: 03/07/18 09:29 Dose: 50 mg Nitroglycerin (Nitrostat Sl Tab) 0.4 mg SL Q5M PRN PRN Reason: Chest Pain Rosuvastatin Calcium (Crestor) 20 mg PO HS [facility] Last Admin: 03/06/18 21:36 Dose: 20 mg - Labs Labs: 03/07/18 08:29 03/07/18 08:29 Attending/Attestation - Attestation I have personally seen and examined this patient.: Yes I have fully participated in the care of the patient.: Yes I have reviewed all pertinent clinical information, including history, physical exam and plan: Yes Notes (Text): This is a late computer entry for 03/05/2018. Patient seen, examined, and case discussed with medical clerk. Patient with this morning for the first part of nuclear stress test. I saw patient in the waiting area awaiting the second part of his nuclear stress. Patient reports he feeling okay. Denies chest pain denies dizziness denies shortness of breath denies abdominal pain is nausea denies vomiting. Patient was a "Code Star" wherein he had a witnessed fall after we've asked her study by pressure staff. Resolution responded to code Star ordered additional imaging. I reviewed imaging with resident. We asked for hand surgeon to evaluate. Patient noted complaints of right shoulder pain and snuffbox pain over the right hand no acute intervention noted by hand surgeon. Patient has had prior surgical intervention for his hand many years ago. We'll continue follow-up with cardiology in regards to cardiac workup. Assessment and Plan (1) Chest Pain Coronary Artery Disease Prior history of STEMI (ST elevation myocardial infarction) Assessment & Plan: * Monitor on telemetry * Cardiology (Dr. Jones) electronic court recorder-->help appreciated * [facility] 08/18/2017-->RCA s/p CHARO stents; Cardiac cath report available in the EMR. * Aspirin 81mg PO daily * Lopressor 50mg PO BID * Enalapril 5mg PO daily * Crestor 20mg POqHS * Plavix 75mg PO daily * Initial EKG NSR @ 82BPM * CXR: no infiltrates noted * Troponins x3 negative * PEGGY score of 4 (CAD risk factors, ASA, severe angina, and Known CAD)-->20% risk at 14 days of all cause mortality, new or recurrent GA, or severe recurrent ischemia requiring urgent revascularization. 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 No evidence of reversible ischemia. Aggressive medical management and risk factor modification. * Hgba1c: 5.3 * T cholestrol: 105 HDL:31 LDL: 42 * TSH within normal Status: Acute (2) Hepatitis-C Assessment & Plan: * Reports he has been treated previously * on Crestor 5mg POqHS * Monitor liver function tests Status: Chronic (3) Vertigo Assessment & Plan: * Prior hx of vertigo. (4) Syncopal Episode Assessment & Plan: * [facility] was called on 03/05/18 after patient fell when he became dizzy after his nuclear stress test today. Resident went to assess him. He denies LOC, chest pain, shortness of breath, head trauma. He states he simply felt dizzy and fell, bracing his fall with his hands. I spoke with instructional supervisor, noted patient did well walking for 6-9 minutes on the treadmill no episodes of dizziness noted. * 03/05/18 Xrays of right shoulder and humerus no acute fracture or dislocation * 03/05/18 Xray of right hand: 10mm radioopaque foreign body in 1st web space; patient later admitted he had hand surgery 20 years ago with a surgical clip in place. * Patient was seen and evaluated by surgery rotating on hand surgery. No intervention. patient recalled later that he has had prior hand surgery intervention with the resident went to assess him (5) Leg swelling Assessment & Plan: * pending venous doppler * nonpitting * Well's criteria: 0 low risk for DVT (6) Prophylactic measure Assessment & Plan: * Heparin 5000 units subq 8H * Pepcid 20mg PO BID * Monitor on telemetry Status: Acute
--- NOTE | 2018-03-05 10:48 | RAD ---
Date of service: 03/04/2018 PROCEDURE: CHEST RADIOGRAPH, 1 VIEW HISTORY: chest pain COMPARISON: 11/22/2017. FINDINGS: LUNGS: Clear. PLEURA: No pneumothorax or pleural fluid seen. CARDIOVASCULAR: No radiographic findings to suggest acute or significant cardiovascular disease. OSSEOUS STRUCTURES: No significant abnormalities. VISUALIZED UPPER ABDOMEN: Normal. OTHER FINDINGS: None. IMPRESSION: No active disease. No acute/significant interval changes.
[2018-03-05] MEDS: Enoxaparin 40 mg Syringe SC SCH (11:25)
[2018-03-05] MEDS: Pantoprazole 20 mg EC Tab PO SCH (11:25)
--- NOTE | 2018-03-05 11:28 | CARD ---
APPROVED REPORT Date of service: 03/04/2018 EKG Measurement Heart [id number] <Conclusion> Normal sinus rhythm Possible Left atrial enlargement Borderline ECG
--- NOTE | 2018-03-05 12:27 | CP.PCM.CON ---
History of Present Illness - History of Present Illness History of Present Illness: PGY-[address] Rust Pt is a pleasant 57 yo M with PMHx Hep C, CAD, STEMI s/p placement of 2 stents in August 2017. Pt came to ED last night with sudden sharp, non-radiating L- sided chest pain that was relieved slightly with aspirin, with associated dizziness, SOB and generalized UE weakness. EKG showed left axis deviation with possible left atrial enlargement, no ST or T wave changes. Troponins have been negative x2. Patient stated that the pain he experienced during his prior AK was much more severe than the pain he has experienced during this current admission. Today patient still complains of localized L-sided chest pain, but decreased from yesterday. Pt currently complaining of shortness of breath with walking short distances, and feels very dizzy. Pt denies alcohol or tobacco use. Pt does have a significant family history of cardiac disease. One of his brother has suffered 3 MIs and his other brother due to AK in his 50s. Pt also admits to difficulty sleeping while laying flat due to SOB and lower extremity swelling that is new, for one month. Denies any history of lung disease. +dyspnea with exertion, chest pain, lower exremity edema, dizziness, distal UE paresthesias Denies dyspnea at rest, nausea, vomiting Review of Systems - Constitutional Constitutional: absent: Chills, Fever - Cardiovascular Cardiovascular: Chest Pain, Chest Pain at Rest, Dyspnea on Exertion, Pedal Edema. absent: Pain Radiating to Arm/Neck/Jaw, Palpitations Additional comments: Denies SOB at rest - Respiratory Respiratory: absent: Cough, Wheezing - Gastrointestinal Gastrointestinal: absent: Abdominal Pain, Nausea, Vomiting - Musculoskeletal Musculoskeletal: Tingling Additional comments: tingling in hands b/l - Neurological Neurological: Dizziness, Paresthesias. absent: Focal Weakness Past Patient History - Past Medical History & Family History Past Medical History?: Yes - Past Social History Smoking Status: Never Smoked - CARDIAC Hx Cardiac Disorders: Yes Hx Angina: Yes Hx Heart Attack: Yes - PULMONARY Hx Respiratory Disorders: No - NEUROLOGICAL Hx Neurological Disorder: Yes Hx Vertigo: Yes - HEENT Hx HEENT Problems: No - RENAL Hx Chronic Kidney Disease: No - ENDOCRINE/METABOLIC Hx Endocrine Disorders: No - HEMATOLOGICAL/ONCOLOGICAL Hx Hepatitis C: Yes - INTEGUMENTARY Hx Dermatological Problems: No - MUSCULOSKELETAL/RHEUMATOLOGICAL Hx Musculoskeletal Disorders: No Hx Falls: No - GASTROINTESTINAL Hx Gastrointestinal Disorders: No - GENITOURINARY/GYNECOLOGICAL Hx Genitourinary Disorders: No - PSYCHIATRIC Hx Substance Use: No - SURGICAL HISTORY Hx Coronary Stent: Yes (X 19 AUG 2017) - ANESTHESIA Hx Anesthesia: No Hx Anesthesia Reactions: No Meds Allergies/Adverse Reactions: Allergies Allergy/AdvReac Type Severity Reaction Status Date / Time No Known Allergies Allergy Verified 03/04/18 17:12 - Medications Medications: Current Medications Aspirin (Aspirin Chewable) 81 mg PO DAILY [facility] Last Admin: 03/05/18 11:25 Dose: 81 mg Clopidogrel Bisulfate (Plavix) 75 mg PO DAILY [facility] Last Admin: 03/05/18 11:25 Dose: 75 mg Enalapril Maleate (Vasotec) 5 mg PO DAILY [facility] Last Admin: 03/05/18 11:27 Dose: 5 mg Enoxaparin Sodium (Lovenox) 40 mg SC DAILY [facility] Last Admin: 03/05/18 11:25 Dose: 40 mg Ibuprofen (Motrin Tab) 400 mg PO Q6 PRN PRN Reason: Pain, Mild (1-3) Isosorbide Mononitrate (Imdur) 60 mg PO DAILY [facility] Last Admin: 03/05/18 11:25 Dose: 60 mg Metoprolol Tartrate (Lopressor) 50 mg PO BID [facility] Last Admin: 03/05/18 11:27 Dose: 50 mg Pantoprazole Sodium (Protonix Ec Tab) 20 mg PO DAILY [facility] Last Admin: 03/05/18 11:25 Dose: 20 mg Rosuvastatin Calcium (Crestor) 20 mg PO [facility] Last Admin: 03/04/18 21:58 Dose: 20 mg Physical Exam - Eye Exam Eye Exam: EOMI, Normal appearance, PERRL Pupil Exam: PERRL - ENT Exam ENT Exam: Mucous Membranes Moist - Respiratory Exam Respiratory Exam: Clear to Auscultation Bilateral, NORMAL BREATHING PATTERN - Cardiovascular Exam Cardiovascular Exam: REGULAR RHYTHM, +S1, +S2. absent: JVD - GI/Abdominal Exam GI & Abdominal Exam: Normal Bowel Sounds. absent: Tenderness - Neurological Exam Neurological exam: Alert, CN II-XII Intact, Oriented x3 Results - Vital Signs Recent Vital Signs: Last Vital Signs Temp 97.8 F 03/05/18 07:35 Pulse 60 03/05/18 07:45 Resp 20 03/05/18 07:35 BP 130/84 03/05/18 11:27 Pulse Ox 97 03/05/18 07:35 - Labs Result Diagrams: 03/05/18 07:47 03/05/18 07:47 Labs: Laboratory Results - last 24 hr 03/04/18 03/04/18 03/04/18 18:37 18:37 18:37 WBC 6.9 RBC 4.84 Hgb 14.5 Hct 41.5 MCV 85.8 MCH 29.9 MCHC 34.9 RDW 14.0 Plt Count 173 MPV 9.3 Neut % (Auto) 49.5 L Lymph % (Auto) 37.3 Avery % (Auto) 7.8 Eos % (Auto) 4.8 H Baso % (Auto) 0.6 Neut # (Auto) 3.4 Lymph # (Auto) 2.6 Avery # (Auto) 0.5 Eos # (Auto) 0.3 Baso # (Auto) 0.0 Sodium 142 Potassium 4.2 Chloride 105 Carbon Dioxide 25 Anion Gap 17 BUN 18 Creatinine 0.9 Est GFR ( Amer) > 60 Est GFR (Non-Af Amer) > 60 Random Glucose 112 H Hemoglobin A1c Calcium 9.3 Phosphorus Magnesium Total Bilirubin 0.7 AST 25 ALT 33 Alkaline Phosphatase 40 Total Creatine Kinase CK-MB (Mass) Troponin I < 0.0120 Total Protein 7.4 Albumin 4.5 Globulin 3.0 Albumin/Globulin Ratio 1.5 Triglycerides 155 H D Cholesterol 105 LDL Cholesterol Direct 42 HDL Cholesterol 31 Free T4 TSH 3rd Generation 0.89 03/04/18 03/04/18 03/05/18 18:37 21:22 02:39 WBC RBC Hgb Hct MCV MCH MCHC RDW Plt Count MPV Neut % (Auto) Lymph % (Auto) Avery % (Auto) Eos % (Auto) Baso % (Auto) Neut # (Auto) Lymph # (Auto) Avery # (Auto) Eos # (Auto) Baso # (Auto) Sodium Potassium Chloride Carbon Dioxide Anion Gap BUN Creatinine Est GFR ( Amer) Est GFR (Non-Af Amer) Random Glucose Hemoglobin A1c 5.3 Calcium Phosphorus Magnesium Total Bilirubin AST ALT Alkaline Phosphatase Total Creatine Kinase 91 CK-MB (Mass) 0.40 Troponin I < 0.0120 Total Protein Albumin Globulin Albumin/Globulin Ratio Triglycerides Cholesterol LDL Cholesterol Direct HDL Cholesterol Free T4 0.82 TSH 3rd Generation 03/05/18 03/05/18 07:47 07:47 WBC 7.2 RBC 5.17 Hgb 15.4 Hct 43.8 MCV 84.7 MCH 29.8 MCHC 35.2 RDW 13.8 Plt Count 190 MPV 9.2 Neut % (Auto) 51.7 Lymph % (Auto) 36.1 Avery % (Auto) 6.7 Eos % (Auto) 5.0 H Baso % (Auto) 0.5 Neut # (Auto) 3.7 Lymph # (Auto) 2.6 Avery # (Auto) 0.5 Eos # (Auto) 0.4 Baso # (Auto) 0.0 Sodium 143 Potassium 4.1 Chloride 105 Carbon Dioxide 27 Anion Gap 15 BUN 14 Creatinine 0.9 Est GFR ( Amer) > 60 Est GFR (Non-Af Amer) > 60 Random Glucose 103 Hemoglobin A1c Calcium 9.3 Phosphorus 3.5 Magnesium 1.8 Total Bilirubin 1.0 AST 28 ALT 36 Alkaline Phosphatase 40 Total Creatine Kinase CK-MB (Mass) Troponin I Total Protein 7.5 Albumin 4.6 Globulin 2.9 Albumin/Globulin Ratio 1.6 Triglycerides Cholesterol LDL Cholesterol Direct HDL Cholesterol Free T4 TSH 3rd Generation Assessment & Plan (1) Chest pain Assessment and Plan: Hx CAD, AK s/p 2 CHARO On tele EKG: No acute ST or T wave changes Troponins: negative x2 Nuclear stress test (03/05): Fixed inferior wall defect Symptomatic CAD: Plan for diagnostic cardiac catheterization next week Status: Acute (2) Coronary artery disease Assessment and Plan: Continue aspirin, plavix, BALTA, Imdur, Metoprolol, Rosuvastatin Patient experiencing symptomatic CAD- consider diagnostic cardiac cath Status: Acute
--- NOTE | 2018-03-05 15:44 | PCM.FALL ---
<Harley Huggins - Last Filed: 03/05/18 21:49> Post Fall Progress Note - Post Fall Fall Date: 03/05/18 Fall Time: 15:20 Description of Fall: Nguyễn hassan was called at 1520 Patient had finished nuclear stress test in vascular lab, and was putting on his clothes when he states that he felt dizzy and fell to the floor. He denies losing consciousness, and fell landing on his buttocks and right side. He reportedly broke his floor using his hands. Now complains of pain to right shoulder and right hand. Denies hitting his head. He states he felt like the room was spinning prior to his fall, consistent with prior history of vertigo. He denies feeling chest pain, shortness of breath or palpitations. BP 110/62 HR 60 - Post Fall Exam Vital Sign: Temp Pulse Resp BP Pulse Ox 97.8 F 64 20 130/84 97 03/05/18 07:35 03/05/18 12:15 03/05/18 07:35 03/05/18 11:27 03/05/18 08:00 Skull Exam: Negative for: Scalp wound, Scalp hematoma, Scalp depression, Ridge in skull (normal) Eye Exam: Positive for: Pupils equal, Pupils reactive Ear Exam: Negative for: Discharge, Bleeding Nose Exam: Negative for: Discharge, Bleeding Skin Exam: Positive for: Colour (normal). Negative for: Lacerations, Grazes, Bruising Mouth Exam: Negative for: Tongue bitten, Teeth dislodge Neck Exam: Negative for: Tenderness, Tingling, Weakness Spinal Exam: Negative for: Tenderness, Tingling, Weakness Chest Exam: Negative for: Difficulty breathing, Tenderness in collar bones, Tenderness in ribs Abdomen Exam: Negative for: Tenderness Pelvic Exam: Negative for: Tenderness, Hematuria Arm Exam: Positive for: Alteration in range of movement (Pain with elevation of right arm. Pain in right shoulder and right hand. ) Leg Exam: Negative for: Deformity, Alteration in range of movement Impression/Plan: 57 year old male with history of inferior wall OR, dyslipidemia, Hep C treated and vertigo who fell after he had a nuclear stress test in vascular lab today. Right shoulder pain - Xrays to right shoulder no fracture or dislocation - Xray to right humerus no fracture or dislocation Right hand pain -Xrays to right hand : 10mm linear radioopaque foreign body in the 1st webspace. no acute fracture or dislocation. Harley Huggins, PGYI <Vilma Freitas V - Last Filed: 03/07/18 17:35> Post Fall Progress Note - Post Fall Exam Vital Sign: Temp Pulse Resp BP Pulse Ox 98.6 F 67 20 118/73 98 03/07/18 15:00 03/07/18 15:00 03/07/18 15:00 03/07/18 15:00 03/07/18 15:00 Arm Exam: Positive for: Alteration in range of movement (Noted primarily pain with elevation of right arm. Pain in right shoulder and right hand. ) Attending/Attestation - Attestation Notes (Text): reviewed imaging rest resident. Requested opinion of hand surgeon given right hand x-ray questionable foreign body. the resident came and saw patient no acute intervention per surgery. Patient later called resident that he has had prior hand surgery and right snuffbox area of hand in the past.
--- NOTE | 2018-03-05 16:18 | CARD ---
APPROVED REPORT Date of service: 03/05/2018 EKG Measurement Heart [id number] [place] [id number] <Conclusion> Sinus bradycardia Left axis deviation Incomplete right bundle branch block Abnormal ECG
--- NOTE | 2018-03-05 16:43 | CARD ---
APPROVED REPORT Date of service: 03/05/2018 Protocol: BONNY Test Type: Stress Nuclear Test Indications: CHEST PAIN Medications: LIST SCAN Medical History: CHEST PAIN Target HR: 165 bpm Resting ECG: normal Resting Heart Rate: 80 bpm Resting Blood Pressure: 120/80mmHg submaximum (85%): 140 bpm TEST SUMMARY PRETESTWARM-UP23:[id number]/80.0. EXERCISESTAGE 103:[id number]/80.0. EXERCISESTAGE 203:[id number]/80.3. EXERCISESTAGE 302:[id number]/84.0. RDLPVQUK38:36..[id number]/82.0. POST EXERCISE Reason for Termination: Fatigue Target HR: No Max HR: 150 bpm 90% of Maximum Predicted HR: 165 bpm Exercise duration: 08:48 min:sec, 3 Stage Exercise capacity: 10.1METs Max Blood Pressure: 206/84mmHg Blood Pressure response to exercise: normal resting BP - appropriate response Heart Rate response to exercise: appropriate Chest Pain: No, none Angina index: 0 Arrhythmia: No, none ST Change: No, none Deviation: 0 mm EXAM: Myocardial Perfusion STRESS/REST Imaging Protocol The imaging protocol used to acquire images was Stress Tc-99m/rest Tc-99m 1 day Stress Spect myocardial perfusion imaging was performed in supine position 45 minutes following the injection of 12.3 mCi of Tc-99 Myoview. Gated Rest Spect was performed 58 minutes after intravenous 32.5 mci Tc-99 Myoview injection. The images were gated to evaluate regional wall motion and calculate ventricular ejection fraction.Images were reconstructed using backfilter projection method in short horizontal and verticle long axis. Spect slices were generated. RESTING DATA DKR423.32scAG3.40L/min1/3 Pk. Filling Rate1.40EDV/sec LV Time to Pk. Filling Rabj388.06msec ESV41.00mlMyocardial Adqp606.00gLV Time to Pk. Ejection Arhc123.38msec Pk. Fill Rate1.97EDV/secAv. Heart Rate58.00bpm EF59.00%Pk. Emptying Rate2.85ESV/sec STRESS DATA OUV424.71weKP5.10L/min ESV35.00mlMyocardial Vhzd074.00g Pk. Fill Rate2.67EDV/sec EF67.00%Pk. Emptying Rate3.16ESV/sec 1/3 Pk. Filling Rate1.31EDV/secRegional WT score at stress:0.00 LV Time to Pk. Filling Rate:242.46msecRegional WM score at stress:0.00 LV Time to Pk. Ejection Rate:165.79msecSummed WT score at stress:1.00 Av. Heart Rate71.00bpmSummed WM score at stress:0.00 Study quality was fair. Left Ventricular size was Normal at Rest and Stress. LV Perfusion 1 Perfusion Defect Location: inferior Perfusion Defect Size: Small (1-2 segments) Perfusion Defect Severity: Mild Type of Perfusion Defect: Fixed TCD/TID: Yes LV Perf. Quant 17 Seg. SSS2.00 17 Seg. SRS1.00 17 Seg. SDS1.00 Stress Defect Extent (% LAD)0.00Rest Defect Extent (% LAD)0.00Rev. Defect Extent (% LAD)0.00 Stress Defect Extent (% LCX)0.00Rest Defect Extent (% LCX)13.80Rev. Defect Extent (% LCX)0.00 Stress Defect Extent (% RCA)2.20Rest Defect Extent (% RCA)0.00Rev. Defect Extent (% RCA)2.20 Stress Defect Extent (% NARDA)0.90Rest Defect Extent (% NARDA)2.40Rev. Defect Extent (% NARDA)0.90 Other Information Quality:Average Overall Exercise Capacity: Average IMPRESSION Abnormal Myocardial Perfusion exercise stress study Diseased Vessels: Right Coronary Global LV Function: Normal Stress Test Summary: Normal LV Perfusion Summary: Abnormal Metabolism/Perfusion Defects: - Fixed inferior wall defect Conclusion 1. 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 - No evidence of reversible ischemia 3. - Aggressive medical management and risk factor modification
--- NOTE | 2018-03-05 16:56 | RAD ---
PROCEDURE: Radiographs of the right humerus. HISTORY: code star, right shoulder pain COMPARISON: None. FINDINGS: BONES: Bone alignment and mineralization are normal. There is no acute displaced fracture or bone destruction. SOFT TISSUES: Normal. OTHER FINDINGS: None. IMPRESSION: No acute fracture or dislocation.
--- NOTE | 2018-03-05 16:59 | RAD ---
Date of service: 03/05/2018 PROCEDURE: Radiographs of the Right Shoulder HISTORY: code star COMPARISON: No prior. FINDINGS: BONES: Bone alignment and mineralization are normal. There is no acute displaced fracture or bone destruction. JOINTS: Normal. Glenohumeral and acromioclavicular joints preserved. No osteoarthritis. SOFT TISSUES: Normal. OTHER FINDINGS: None. IMPRESSION: No acute fracture or dislocation.
--- NOTE | 2018-03-05 17:04 | RAD ---
PROCEDURE: Right Hand Radiographs. HISTORY: code star COMPARISON: None. FINDINGS: BONES: There is diffuse bone demineralization. There is no acute displaced fracture or bone destruction. JOINTS: Normal. SOFT TISSUES: There is a 10 mm linear radiopaque foreign body in the 1st web space with soft tissue swelling. OTHER FINDINGS: None. IMPRESSION: 10 mm linear radiopaque foreign body in the 1st web space. No acute fracture or dislocation.
[2018-03-05 17:39] LABS: CK-MB 0.34 ng/mL (0.0-3.38)
--- NOTE | 2018-03-05 22:32 | CARD ---
APPROVED REPORT Date of service: 03/05/2018 EXAM: Two-dimensional and M-mode echocardiogram with Doppler and color Doppler. INDICATION Chest Pain Non STEMI Surgery/Intervention CORONARY STENTS IN RISK FACTORS Hypertension 2D DIMENSIONS IVSd1.1 (0.7-1.1cm)LVDd4.6 (3.9-5.9cm) PWd1.0 (0.7-1.1cm)LVDs3.1 (2.5-4.0cm) FS (%) 33.2 %LVEF (%)61.9 (>50%) M-Mode DIMENSIONS Left Atrium (MM)3.65 (2.5-4.0cm)IVSd1.11 (0.7-1.1cm) Aortic Root3.75 (2.2-3.7cm)LVDd4.65 (4.0-5.6cm) Aortic Cusp Exc.2.02 (1.5-2.0cm)PWd1.04 (0.7-1.1cm) FS (%) 34 %LVDs3.08 (2.0-3.8cm) LVEF (%)62 (>50%) Mitral Valve MV E Quvkeojm49.8cm/sMV A Qgxbxmmw59.1cm/sE/A ratio0.7 TDI E/Lateral E'0.0E/Medial E'0.0 Tricuspid Valve TR Peak Evalirrh761tn/sTR Peak Gr.00mzZuMDNL01foLk LEFT VENTRICLE The left ventricle is normal size. There is normal left ventricular wall thickness. Left ventricle systolic function is normal. The Ejection Fraction is 60-65%. There is normal LV segmental wall motion. Tissue Doppler imaging reveals abnormal left ventricular diastolic dysfunction. RIGHT VENTRICLE The right ventricle is normal size. There is normal right ventricular wall thickness. The right ventricular systolic function is normal. ATRIA The left atrium size is normal. The right atrium size is normal. The interatrial septum is intact with no evidence for an atrial septal defect. AORTIC VALVE The aortic valve is normal in structure. No aortic regurgitation is present. There is no aortic valvular stenosis. There is no aortic valvular vegetation. MITRAL VALVE The mitral valve is normal in structure. There is no evidence of mitral valve prolapse. There is no mitral valve stenosis. There is no mitral valve regurgitation noted. TRICUSPID VALVE The tricuspid valve is normal in structure. There is mild tricuspid regurgitation. Right ventricular systolic pressure is estimated at less than 30 mmHg. There is no pulmonary hypertension. PULMONIC VALVE The pulmonary valve is normal in structure. There is mild pulmonic valvular regurgitation. GREAT VESSELS The aortic root is normal in size. PERICARDIAL EFFUSION There is no significant pericardial effusion. <Conclusion> Left ventricle systolic function is normal. The Ejection Fraction is 60-65%. Diastolic dysfunction. No aortic regurgitation is present. There is no mitral valve regurgitation noted. There is mild tricuspid regurgitation. There is no pulmonary hypertension. There is mild pulmonic valvular regurgitation.
[2018-03-06 06:34] LABS: BASO % 0.6 % (0.0-2.0); EOS # 0.4 K/uL (0.0-0.7); EOS % 5.3 % (0.0-4.0); HEMOGLOBIN 14.9 g/dL (12.0-18.0); LYMPH # 2.6 K/uL (1.0-4.3); LYMPH % 34.3 % (20.0-40.0); MEAN CELL VOLUME 84.8 fL (80.0-94.0); MEAN CORPUSCULAR HEMOGLOBIN 29.8 pg (27.0-31.0); MEAN CORPUSCULAR HGB CONC 35.1 g/dL (33.0-37.0); MONO # 0.6 K/uL (0.0-0.8); MONO % 7.7 % (0.0-10.0); NEUT # 3.9 K/uL (1.8-7.0); NEUT % 52.1 % (50.0-75.0); RBC 5.01 Mil/uL (4.40-5.90); RED CELL DISTRIBUTION WIDTH 13.9 % (11.5-14.5); WHITE BLOOD COUNT 7.5 K/uL (4.8-10.8)
[2018-03-06 06:51] LABS: ALB/GLOB RATIO 1.5 (1.0-2.1); ALBUMIN 4.4 g/dL (3.5-5.0); ALT/SGPT 35 U/L (21-72); AST/SGOT 30 U/L (17-59); BLOOD UREA NITROGEN 13 mg/dL (9-20); CALCIUM 9.2 mg/dl (8.6-10.4); GFR AFRICAN-AMERICAN > 60; GFR NON-AFRICAN AMERICAN > 60
--- NOTE | 2018-03-06 07:30 | CP.PCM.CON ---
History of Present Illness - History of Present Illness History of Present Illness: Hand Surgery Consult for Dr. Luna This is a 57M who presented with chest pain and admitted for cardiac workup to rule out HI. He reports that during the chest pain episode he fell and has pain over his thenar eminence. He denies any pain in the hand associated with the foreign body. He reports surgery in his first web[place] in [place] 20 years ago. PMHx: Inferior Wall HI (RCA) s/p 2 CHARO 08/19/2017, Dyslipidemia, Hepatitis C s/p treatment in 2005, Vertigo PSHx: unspecified eye surgery, right hand surgery 20 years ago Meds: Aspirin 81mg PO daily, Plavix 75mg PO daily, Lopressor 50mg PO BID, Enalapril 5mg PO daily, Imdur 60mg PO Daily, Lipitor 40mg POqHS Allergies: NKDA SHx: Denies tobacco, alcohol, drugs. Review of Systems - Review of Systems Review of Systems: 12 point review of symptoms conductied and negative except complaints of right hand pain, chest pain and dizziness Past Patient History - Past Medical History & Family History Past Medical History?: Yes - Past Social History Smoking Status: Never Smoked - CARDIAC Hx Cardiac Disorders: Yes Hx Angina: Yes Hx Heart Attack: Yes - PULMONARY Hx Respiratory Disorders: No - NEUROLOGICAL Hx Neurological Disorder: Yes Hx Vertigo: Yes - HEENT Hx HEENT Problems: No - RENAL Hx Chronic Kidney Disease: No - ENDOCRINE/METABOLIC Hx Endocrine Disorders: No - HEMATOLOGICAL/ONCOLOGICAL Hx Hepatitis C: Yes - INTEGUMENTARY Hx Dermatological Problems: No - MUSCULOSKELETAL/RHEUMATOLOGICAL Hx Musculoskeletal Disorders: No Hx Falls: No - GASTROINTESTINAL Hx Gastrointestinal Disorders: No - GENITOURINARY/GYNECOLOGICAL Hx Genitourinary Disorders: No - PSYCHIATRIC Hx Substance Use: No - SURGICAL HISTORY Hx Coronary Stent: Yes (X 19 AUG 2017) - ANESTHESIA Hx Anesthesia: No Hx Anesthesia Reactions: No Meds Allergies/Adverse Reactions: Allergies Allergy/AdvReac Type Severity Reaction Status Date / Time No Known Allergies Allergy Verified 03/04/18 17:12 - Medications Medications: Current Medications Aspirin (Aspirin Chewable) 81 mg PO DAILY [facility] Last Admin: 03/05/18 11:25 Dose: 81 mg Clopidogrel Bisulfate (Plavix) 75 mg PO DAILY [facility] Last Admin: 03/05/18 11:25 Dose: 75 mg Enalapril Maleate (Vasotec) 5 mg PO DAILY [facility] Last Admin: 03/05/18 11:27 Dose: 5 mg Enoxaparin Sodium (Lovenox) 40 mg SC DAILY [facility] Last Admin: 03/05/18 11:25 Dose: 40 mg Ibuprofen (Motrin Tab) 400 mg PO Q6 PRN PRN Reason: Pain, Mild (1-3) Isosorbide Mononitrate (Imdur) 60 mg PO DAILY [facility] Last Admin: 03/05/18 11:25 Dose: 60 mg Metoprolol Tartrate (Lopressor) 50 mg PO BID [facility] Last Admin: 03/05/18 17:16 Dose: Not Given Pantoprazole Sodium (Protonix Ec Tab) 20 mg PO DAILY [facility] Last Admin: 03/05/18 11:25 Dose: 20 mg Rosuvastatin Calcium (Crestor) 20 mg PO HS [facility] Last Admin: 03/05/18 21:18 Dose: 20 mg Physical Exam - Constitutional Appears: Non-toxic, No Acute Distress - Head Exam Head Exam: ATRAUMATIC, NORMOCEPHALIC - Eye Exam Eye Exam: EOMI - ENT Exam ENT Exam: Mucous Membranes Moist - Respiratory Exam Respiratory Exam: NORMAL BREATHING PATTERN - Extremities Exam Additional comments: Mild tenderness over right thenar eminence, no mobility issues or sensory deficits in the right hand. no tenderness over first web space. Results - Vital Signs Recent Vital Signs: Last Vital Signs Temp 98.1 F 03/06/18 04:45 Pulse 63 03/06/18 04:45 Resp 20 03/06/18 04:45 BP 115/70 03/06/18 04:45 Pulse Ox 99 03/06/18 03:00 - Labs Result Diagrams: 03/06/18 06:21 03/06/18 06:21 Labs: Laboratory Results - last 24 hr 03/05/18 03/05/18 03/05/18 07:47 07:47 17:09 WBC 7.2 RBC 5.17 Hgb 15.4 Hct 43.8 MCV 84.7 MCH 29.8 MCHC 35.2 RDW 13.8 Plt Count 190 MPV 9.2 Neut % (Auto) 51.7 Lymph % (Auto) 36.1 Hinds % (Auto) 6.7 Eos % (Auto) 5.0 H Baso % (Auto) 0.5 Neut # (Auto) 3.7 Lymph # (Auto) 2.6 Hinds # (Auto) 0.5 Eos # (Auto) 0.4 Baso # (Auto) 0.0 Sodium 143 Potassium 4.1 Chloride 105 Carbon Dioxide 27 Anion Gap 15 BUN 14 Creatinine 0.9 Est GFR ( Amer) > 60 Est GFR (Non-Af Amer) > 60 Random Glucose 103 Calcium 9.3 Phosphorus 3.5 Magnesium 1.8 Total Bilirubin 1.0 AST 28 ALT 36 Alkaline Phosphatase 40 Total Creatine Kinase 70 CK-MB (Mass) 0.34 Troponin I < 0.0120 Total Protein 7.5 Albumin 4.6 Globulin 2.9 Albumin/Globulin Ratio 1.6 03/06/18 03/06/18 06:21 06:21 WBC 7.5 RBC 5.01 Hgb 14.9 Hct 42.5 MCV 84.8 MCH 29.8 MCHC 35.1 RDW 13.9 Plt Count 190 MPV 9.0 Neut % (Auto) 52.1 Lymph % (Auto) 34.3 Hinds % (Auto) 7.7 Eos % (Auto) 5.3 H Baso % (Auto) 0.6 Neut # (Auto) 3.9 Lymph # (Auto) 2.6 Hinds # (Auto) 0.6 Eos # (Auto) 0.4 Baso # (Auto) 0.0 Sodium 143 Potassium 4.2 Chloride 104 Carbon Dioxide 28 Anion Gap 15 BUN 13 Creatinine 1.0 Est GFR ( Amer) > 60 Est GFR (Non-Af Amer) > 60 Random Glucose 98 Calcium 9.2 Phosphorus 3.8 Magnesium 1.9 Total Bilirubin 1.0 AST 30 ALT 35 Alkaline Phosphatase 40 Total Creatine Kinase CK-MB (Mass) Troponin I Total Protein 7.2 Albumin 4.4 Globulin 2.9 Albumin/Globulin Ratio 1.5 Assessment & Plan - Assessment and Plan (Free Text) Assessment: 57M with chest pain and incidental foreign body in right hand continue medical management of current medical problems patient may followup on an elective basis for foreign body removal if bothersome. D/W Dr. Cheryl Oneill PGY3
--- NOTE | 2018-03-06 08:46 | CP.PCM.PN ---
Subjective - Date & Time of Evaluation Date of Evaluation: 03/06/18 Time of Evaluation: 08:41 - Subjective Subjective: Pt seen and examined at bedside. No acute events overnight. Pt still complains of severe dizziness. Yesterday evening patient had a fall following nuclear stress test as he was putting on his clothes. Pt reports feeling very dizzy and falling on buttocks, denies LOC, denies hitting his head. Imaging of R humerus and R hand negative for acute fractures. Patient complained this morning of pain in his R hand on the dorsal surface proximal to the thumb, painful to touch. Pt denies any chest pain, but does complain of mild SOB at rest. Denies nausea, vomiting, paresthesias, palpitations, chest pain +R hand pain, severe dizzines, mild SOB Objective - Vital Signs/Intake and Output Vital Signs (last 24 hours): Temp Pulse Resp BP Pulse Ox 98.1 F 63 20 115/70 99 03/06/18 04:45 03/06/18 04:45 03/06/18 04:45 03/06/18 04:45 03/06/18 07:00 Intake and Output: 03/06/18 03/06/18 06:59 18:59 Intake Total 350 Balance 350 - Medications Medications: Current Medications Aspirin (Aspirin Chewable) 81 mg PO DAILY [facility] Last Admin: 03/05/18 11:25 Dose: 81 mg Clopidogrel Bisulfate (Plavix) 75 mg PO DAILY [facility] Last Admin: 03/05/18 11:25 Dose: 75 mg Enalapril Maleate (Vasotec) 5 mg PO DAILY [facility] Last Admin: 03/05/18 11:27 Dose: 5 mg Enoxaparin Sodium (Lovenox) 40 mg SC DAILY [facility] Last Admin: 03/05/18 11:25 Dose: 40 mg Ibuprofen (Motrin Tab) 400 mg PO Q6 PRN PRN Reason: Pain, Mild (1-3) Isosorbide Mononitrate (Imdur) 60 mg PO DAILY [facility] Last Admin: 03/05/18 11:25 Dose: 60 mg Metoprolol Tartrate (Lopressor) 50 mg PO BID [facility] Last Admin: 03/05/18 17:16 Dose: Not Given Pantoprazole Sodium (Protonix Ec Tab) 20 mg PO DAILY [facility] Last Admin: 03/05/18 11:25 Dose: 20 mg Rosuvastatin Calcium (Crestor) 20 mg PO HS [facility] Last Admin: 03/05/18 21:18 Dose: 20 mg - Labs Labs: 03/06/18 06:21 03/06/18 06:21 - Constitutional Appears: Well, No Acute Distress - Head Exam Head Exam: NORMAL INSPECTION, NORMOCEPHALIC - Eye Exam Eye Exam: EOMI, Normal appearance, PERRL - ENT Exam ENT Exam: Mucous Membranes Moist - Respiratory Exam Respiratory Exam: Clear to Ausculation Bilateral. absent: Rales, Rhonchi, Wheezes - Cardiovascular Exam Cardiovascular Exam: REGULAR RHYTHM, +S1, +S2. absent: JVD - GI/Abdominal Exam GI & Abdominal Exam: Soft, Normal Bowel Sounds - Extremities Exam Extremities Exam: absent: Pedal Edema Additional comments: +R hand pain - Neurological Exam Neurological Exam: Alert, CN II-XII Intact, Oriented x3 Assessment and Plan (1) Chest pain Assessment & Plan: Hx CAD, GA s/p 2 CHARO On tele EKG: No acute ST or T changes Trops: Negative x3 Nuclear stress test 03/05: Fixed inferior wall defect representing old infarct Echo 03/05: LV systolic function normal, EF 60-65%, mild TR, mild pulmonic regurgitation Symptomatic CAD: Plan for diagnostic cardiac cath next week Status: Acute (2) Coronary artery disease Assessment & Plan: Continue aspirin, plavix, BALTA, Imdur, Metoprolol, Rosuvastatin Diagnostic cardiac cath planned for next week Status: Acute
--- NOTE | 2018-03-06 09:51 | CP.PCM.PN ---
<Valerie Raya P - Last Filed: 03/06/18 22:01> Subjective - Date & Time of Evaluation Date of Evaluation: 03/06/18 Time of Evaluation: 09:51 - Subjective Subjective: PGY-[address] Freitas. Patient seen and evaluated at [facility]. [employer] services were used for Kei, # [id number]. Patient today became dizzy while walking to the bathroom. Patient did not fall. He has seen by multiple physicians for this and states he was told he had an "ear problem" by one physician and a "problem in the back of the head" by another. Dizziness occurs with head movements and improves with laying down still. Dizziness is associated with blurry vision and also complains of "static noise" to bilateral ears. States he's been having intermittent dizziness for approximately 5 months. Denies slurred speech, focal weakness, numbness and tingling. Other than the dizziness, pt complains of R thumb pain that began after attempting to brace his fall with his hand yesterday. XRay of hand yesterday shows no fracture. Objective - Vital Signs/Intake and Output Vital Signs (last 24 hours): Temp Pulse Resp BP Pulse Ox 98.1 F 63 20 115/70 99 03/06/18 04:45 03/06/18 04:45 03/06/18 04:45 03/06/18 04:45 03/06/18 07:00 Intake and Output: 03/06/18 03/06/18 06:59 18:59 Intake Total 350 Balance 350 - Medications Medications: Current Medications Aspirin (Aspirin Chewable) 81 mg PO DAILY [facility] Last Admin: 03/05/18 11:25 Dose: 81 mg Clopidogrel Bisulfate (Plavix) 75 mg PO DAILY [facility] Last Admin: 03/05/18 11:25 Dose: 75 mg Enalapril Maleate (Vasotec) 5 mg PO DAILY [facility] Last Admin: 03/05/18 11:27 Dose: 5 mg Enoxaparin Sodium (Lovenox) 40 mg SC DAILY [facility] Last Admin: 03/05/18 11:25 Dose: 40 mg Ibuprofen (Motrin Tab) 400 mg PO Q6 PRN PRN Reason: Pain, Mild (1-3) Isosorbide Mononitrate (Imdur) 60 mg PO DAILY [facility] Last Admin: 03/05/18 11:25 Dose: 60 mg Metoprolol Tartrate (Lopressor) 50 mg PO BID [facility] Last Admin: 03/05/18 17:16 Dose: Not Given Pantoprazole Sodium (Protonix Ec Tab) 20 mg PO DAILY [facility] Last Admin: 03/05/18 11:25 Dose: 20 mg Rosuvastatin Calcium (Crestor) 20 mg PO HS [facility] Last Admin: 03/05/18 21:18 Dose: 20 mg - Labs Labs: 03/06/18 06:21 03/06/18 06:21 - Constitutional Appears: No Acute Distress - Head Exam Head Exam: ATRAUMATIC, NORMOCEPHALIC - Eye Exam Eye Exam: EOMI, PERRL. absent: Nystagmus Additional comments: Patient becomes dizzy with H in space. - ENT Exam ENT Exam: Mucous Membranes Moist - Neck Exam Neck Exam: Normal Inspection - GI/Abdominal Exam GI & Abdominal Exam: Soft, Normal Bowel Sounds. absent: Guarding, Tenderness - Extremities Exam Extremities Exam: absent: Calf Tenderness, Pedal Edema - Neurological Exam Neurological Exam: Alert, Awake, CN II-XII Intact, Oriented x3 - Psychiatric Exam Psychiatric exam: Normal Mood - Skin Skin Exam: Dry, Normal Color, Warm - Additional Findings Additional findings: Movement of head of bed illicits dizzines. Assessment and Plan - Assessment and Plan (Free Text) Plan: Chest Pain r/o ACS August 2017 Admission : - CODE HEART- underwent PCI of proximal and mid RCA with CHARO x [address] Jones - ECHO - LVEF 55%, mild LVH Current admission: Cardiology consulted - Dr. Jones, help appreciated - Initial EKG NSR @ 82BPM - CXR: no infiltrates noted - Troponins x3 negative - Review of conveyor monitor revealed patient remained in sinus rhythm in 60s - PEGGY score of 3, RACE score of 0 - 03/05/18 echo results: left ventricle systolic function is normal. The ejection fraction is 60-65%. diastolic dysfunction. no aortic regurgitation is present. There is no mitral valve regurgitation noted. There is mild tricuspid regurgitation, no pulmonary hypertension, mild pulmonary valvular regurgitation. - 03/05/18 nuclear stress test results: evidence of old inferior wall MO. No evidence of reversible ischemia. Aggressive medical management and risk factor modification. Restarted home medications: -ASA 81mg PO daily, Plavix 75mg PO daily, Enalapril 5mg PO daily, Lopressor 50mg PO BID, Imdur 60mg PO daily, and Lipitor 40mg PO daily (Crestor 20mg given for Lipitor since not in formulary) CAD - Resumed home medications: ASA 81mg PO daily, Plavix 75mg PO daily, Enalapril 5mg PO daily, Lopressor 50mg PO BID and Lipitor 40mg PO daily (Crestor 20mg given for Lipitor since not in formulary) Fall Vertigo - 03/05/18 Code [facility] was called after patient fell when he became dizzy after his nuclear stress test today. He denies LOC, chest pain, shortness of breath, head trauma. He states he simply felt dizzy and fell, bracing his fall with his hands. - 03/05/18 Xrays of right shoulder and humerus no acute fracture or dislocation - 03/05/18 Xray of right hand: 10mm radioopaque foreign body in 1st web space; patient later admitted he had hand surgery 20 years ago with a surgical clip in place. - 03/05/18 Xray to right humerus no fracture or dislocation -CT of the head shows no intracranial mass, hemorrhage or evidence of acute infarct -Bilateral lower extremity dopplers negative Neurology consulted - Dr. Rick - help appreciated -MRA neck without contrast: No significant stenosis is seen at the visualized bilateral common and internal carotid arteries in the neck. The bilateral vertebral arteries appear widely patent as imaged as well -MRI brain: Limited age-related neuro degenerative findings are appreciated which appear age- appropriate in general. No acute intracranial findings by standard MR criteria as discussed above. -MRA Head: Unremarkable -Neuro recs: likely BPPV- started on Diazepam 2mg PO BID, Vestibular therapy Hx of Hepatitis C - Treated Dyslipidemia - Crestor 20mg PO HS Prophylactic Measures - GI PPX: Protonix - DVT PPX: SCDs, Lovenox 40mg SC - Healthy heart diet -fall risk precautions Patient became dizzy again today while walking to the bathroom and nearly fell. Neurology was consulted to rule out neurological eitiology of dizzines. Patient had CT Head, MRA neck and head, and MRI brain all of which were negative. Dizziness likely to be result of BPPV. Pt started on Diazepam 2mg PO BID, Vestibular therapy ordered by neuro. Patient to go to cath on 03/09/18 with <Borker,Vilma V - Last Filed: 03/07/18 17:47> Objective - Vital Signs/Intake and Output Vital Signs (last 24 hours): Temp Pulse Resp BP Pulse Ox 98.6 F 71 20 118/73 98 03/07/18 15:00 03/07/18 17:00 03/07/18 15:00 03/07/18 15:00 03/07/18 15:00 Intake and Output: 03/07/18 03/07/18 06:59 18:59 Intake Total 110 600 Balance 110 600 - Medications Medications: Current Medications Acetaminophen (Tylenol 325mg Tab) 650 mg PO Q6 PRN PRN Reason: Pain, moderate (4-7) Aspirin (Aspirin Chewable) 81 mg PO DAILY [facility] Last Admin: 03/07/18 09:29 Dose: 81 mg Clopidogrel Bisulfate (Plavix) 75 mg PO DAILY [facility] Last Admin: 03/07/18 09:29 Dose: 75 mg Diazepam (Valium) 2 mg PO Q12 [facility] Last Admin: 03/07/18 09:33 Dose: 2 mg Enalapril Maleate (Vasotec) 5 mg PO DAILY [facility] Last Admin: 03/07/18 09:29 Dose: 5 mg Enoxaparin Sodium (Lovenox) 40 mg SC DAILY [facility] Last Admin: 03/06/18 10:11 Dose: 40 mg Sodium Chloride (Sodium Chloride 0.9%) 1,000 mls @ 50 mls/hr IV .Q20H [facility] Last Admin: 03/07/18 11:20 Dose: 50 mls/hr Ibuprofen (Motrin Tab) 400 mg PO Q6 PRN PRN Reason: Pain, Mild (1-3) Isosorbide Mononitrate (Imdur) 60 mg PO DAILY [facility] Last Admin: 03/07/18 09:29 Dose: 60 mg Metoprolol Tartrate (Lopressor) 50 mg PO BID [facility] Last Admin: 03/07/18 17:18 Dose: 50 mg Nitroglycerin (Nitrostat Sl Tab) 0.4 mg SL Q5M PRN PRN Reason: Chest Pain Rosuvastatin Calcium (Crestor) 20 mg PO HS [facility] Last Admin: 03/06/18 21:36 Dose: 20 mg - Labs Labs: 03/07/18 08:29 03/07/18 08:29 Attending/Attestation - Attestation I have personally seen and examined this patient.: Yes I have fully participated in the care of the patient.: Yes I have reviewed all pertinent clinical information, including history, physical exam and plan: Yes Notes (Text): This is a late computer entry for 03/06/2018 Patient seen and examined and case discussed with medical and health services manager. Discussed with patient's nurse in this morning Ysjerald patient noted to have almost a syncopal episode while going to the bathroom. Patient's blood pressure was not orthostatic. Cardiology recommended for neurology consult given patient' s persistent dizziness. Patient changed to inpatient given that he has symptomatic coronary artery disease requiring cardiac cath. Patient reports persistent dizziness for the past 5 months. He reports the is elicited while turning his head quickly he also reports tinnitus. He reports he' s had a your exam was told that his ears in terms of hearing are fine. Reports that he's had his ear wax removed. He denies nausea denies vomiting. Case discussed with neurology. Etiology is BPPV started Valium 2 mg by mouth twice a day. CT head was performed it is normal. Neurology has ordered additional imaging studies. Also to note patient never went back to [place] since his heart attack in August.. Patient has been living here in the [facility]. Patient has not seen a doctor because of provided a reasonable explanation as to why Assessment and Plan (1) Chest Pain Coronary Artery Disease Prior history of STEMI (ST elevation myocardial infarction) Assessment & Plan: * Monitor on telemetry * Cardiology (Dr. Jones) zoning assistant-->help appreciated * Code Heart 08/18/2017-->RCA s/p CHARO stents; Cardiac cath report available in the EMR. * Aspirin 81mg PO daily * Lopressor 50mg PO BID * Enalapril 5mg PO daily * Crestor 20mg POqHS * Plavix 75mg PO daily * Initial EKG NSR @ 82BPM * CXR: no infiltrates noted * Troponins x3 negative * PEGGY score of 4 (CAD risk factors, ASA, severe angina, and Known CAD)-->20% risk at 14 days of all cause mortality, new or recurrent MO, or severe recurrent ischemia requiring urgent revascularization. * Heart Score: 5: risk of MACE: 12-16.6% (MACE is major adverse cardiac event was defined as all-cause mortality, myocardial infarction, or coronary revascularization * Patient underwent echocardiogram follow-up * 03/05/18 nuclear stress test results: evidence of old inferior wall MO. No evidence of reversible ischemia. Aggressive medical management and risk factor modification. * Hgba1c: 5.3 * T cholestrol: 105 HDL:31 LDL: 42 * TSH within normal Status: Acute (2) Hepatitis-C Assessment & Plan: * Reports he has been treated previously * on Crestor 5mg POqHS * Monitor liver function tests Status: Chronic (3) Vertigo Assessment & Plan: * Prior hx of vertigo. (4) Syncopal Episode Assessment & Plan: * Code Fabian was called on 03/05/18 after patient fell when he became dizzy after his nuclear stress test today. Resident went to assess him. He denies LOC, chest pain, shortness of breath, head trauma. He states he simply felt dizzy and fell, bracing his fall with his hands. I spoke with correspondence transcriber, noted patient did well walking for 6-9 minutes on the treadmill no episodes of dizziness noted. * 03/05/18 Xrays of right shoulder and humerus no acute fracture or dislocation * 03/05/18 Xray of right hand: 10mm radioopaque foreign body in 1st web space; patient later admitted he had hand surgery 20 years ago with a surgical clip in place. * Patient was seen and evaluated by surgery rotating on hand surgery. No intervention. patient recalled later that he has had prior hand surgery intervention with the resident went to assess him (5) Leg swelling Assessment & Plan: * Dopplers were negative for DVT * nonpitting * Well's criteria: 0 low risk for DVT (6) Prophylactic measure Assessment & Plan: * Heparin 5000 units subq 8H * Pepcid 20mg PO BID * Monitor on telemetry * PT eval * Physical therapy eval for vestibular therapy specfically Status: Acute Disposition: Neurology eval. Changed to inpatient secondary to cardiac cath for symptomatic CAD.
[2018-03-06] MEDS: Enoxaparin 40 mg Syringe SC SCH (10:11)
[2018-03-06] MEDS: Pantoprazole 20 mg EC Tab PO SCH (10:11)
--- NOTE | 2018-03-06 11:13 | CP.PCM.PCO ---
Physician Communication Note - Physician Communication Note Physician Communication Note: changed to inpatient status. cardiology request neuro for dizziness on amb.
--- NOTE | 2018-03-06 11:25 | CP.PCM.CON ---
History of Present Illness - History of Present Illness History of Present Illness: Neurology Consult Note CC: Dizziness HPI: Patient is a 57 years old with past medical history of Inferior Wall MT ( RCA) s/p 2 CHARO 08/19/2017, Dyslipidemia, Hepatitis C s/p treatment in 2005, Vertigo, who was admitted for chest pain with associated symptoms of dizziness. Neurology consultation was placed in order to rule out any neurology etiology for symptoms of dizziness. Patient states that his dizziness is associated with positional changes and ambulation, which has been ongoing for the past 51/2 months. Patient admits to associated symptom of ringing in his left ear and feeling of disequilibrium while ambulating. Patient denies any blurry vision/ visual disturbances, headache, bilateral leg weakness, chest pain, SOB, palpitations or numbness/tingling. PMHx: Inferior Wall MT (RCA) s/p 2 CHARO 08/19/2017, Dyslipidemia, Hepatitis C s/p treatment in 2005, Vertigo PSHx: unspecified eye surgery FHx: Brother with MT at age 55. Two brothers in total with heart disease. Medications: Aspirin 81mg PO daily, Plavix 75mg PO daily, Lopressor 50mg PO BID , Enalapril 5mg PO daily, Imdur 60mg PO Daily, Lipitor 40mg PO QHS Allergies: NKDA Social Hx: Lives with family, Denies tobacco, alcohol, drugs. Review of Systems - Constitutional Constitutional: absent: Chills, Fever, Headache - EENT Eyes: absent: Blurred Vision, Change in Vision Ears: Disequilibrium, Dizziness. absent: Decreased Hearing, Ear Discharge, Ear Pain Nose/Mouth/Throat: absent: Nasal Congestion, Nasal Discharge, Nose Pain - Cardiovascular Cardiovascular: absent: Chest Pain, Diaphoresis, Dyspnea, Leg Edema, Palpitations - Respiratory Respiratory: absent: Dyspnea - Gastrointestinal Gastrointestinal: absent: Abdominal Pain, Nausea, Vomiting - Musculoskeletal Musculoskeletal: absent: Neck Pain, Numbness, Tingling - Neurological Neurological: Disequilibrium, Dizziness, Vertigo. absent: Confusion, Numbness, Headaches, Loss of Vision, Tingling - Endocrine Endocrine: absent: Fatigue, Palpitations Past Patient History - Past Medical History & Family History Past Medical History?: Yes - Past Social History Smoking Status: Never Smoked - CARDIAC Hx Cardiac Disorders: Yes Hx Angina: Yes Hx Heart Attack: Yes - PULMONARY Hx Respiratory Disorders: No - NEUROLOGICAL Hx Neurological Disorder: Yes Hx Vertigo: Yes - HEENT Hx HEENT Problems: No - RENAL Hx Chronic Kidney Disease: No - ENDOCRINE/METABOLIC Hx Endocrine Disorders: No - HEMATOLOGICAL/ONCOLOGICAL Hx Hepatitis C: Yes - INTEGUMENTARY Hx Dermatological Problems: No - MUSCULOSKELETAL/RHEUMATOLOGICAL Hx Musculoskeletal Disorders: No Hx Falls: No - GASTROINTESTINAL Hx Gastrointestinal Disorders: No - GENITOURINARY/GYNECOLOGICAL Hx Genitourinary Disorders: No - PSYCHIATRIC Hx Substance Use: No - SURGICAL HISTORY Hx Coronary Stent: Yes (X 19 AUG 2017) - ANESTHESIA Hx Anesthesia: No Hx Anesthesia Reactions: No Meds Allergies/Adverse Reactions: Allergies Allergy/AdvReac Type Severity Reaction Status Date / Time No Known Allergies Allergy Verified 03/04/18 17:12 - Medications Medications: Current Medications Aspirin (Aspirin Chewable) 81 mg PO DAILY [facility] Last Admin: 03/06/18 10:11 Dose: 81 mg Clopidogrel Bisulfate (Plavix) 75 mg PO DAILY [facility] Last Admin: 03/06/18 10:11 Dose: 75 mg Enalapril Maleate (Vasotec) 5 mg PO DAILY [facility] Last Admin: 03/06/18 10:11 Dose: 5 mg Enoxaparin Sodium (Lovenox) 40 mg SC DAILY [facility] Last Admin: 03/06/18 10:11 Dose: 40 mg Ibuprofen (Motrin Tab) 400 mg PO Q6 PRN PRN Reason: Pain, Mild (1-3) Isosorbide Mononitrate (Imdur) 60 mg PO DAILY [facility] Last Admin: 03/06/18 10:11 Dose: 60 mg Metoprolol Tartrate (Lopressor) 50 mg PO BID [facility] Last Admin: 03/06/18 10:11 Dose: 50 mg Pantoprazole Sodium (Protonix Ec Tab) 20 mg PO DAILY [facility] Last Admin: 03/06/18 10:11 Dose: 20 mg Rosuvastatin Calcium (Crestor) 20 mg PO HS [facility] Last Admin: 03/05/18 21:18 Dose: 20 mg Physical Exam - Constitutional Appears: No Acute Distress Additional comments: Positive Gobler-Hallpike movement - Head Exam Head Exam: ATRAUMATIC, NORMAL INSPECTION - Eye Exam Eye Exam: EOMI, Normal appearance, PERRL. absent: Nystagmus Pupil Exam: NORMAL ACCOMODATION - ENT Exam ENT Exam: Mucous Membranes Moist, TM's Normal Bilaterally - Respiratory Exam Respiratory Exam: Clear to Auscultation Bilateral, NORMAL BREATHING PATTERN. absent: Decreased Breath Sounds, Prolonged Expiratory Phase, Rales, Rhonchi, Wheezes, Respiratory Distress - Cardiovascular Exam Cardiovascular Exam: REGULAR RHYTHM, +S1, +S2. absent: Tachycardia, Clicks, Systolic Murmur - GI/Abdominal Exam GI & Abdominal Exam: Normal Bowel Sounds, Soft. absent: Firm, Guarding, Hyperactive Bowel Sounds, Tenderness - Extremities Exam Extremities exam: Positive for: normal inspection. Negative for: calf tenderness, pedal edema - Neurological Exam Neurological exam: Alert, CN II-XII Intact, Oriented x3 - Psychiatric Exam Psychiatric exam: Normal Affect - Skin Skin Exam: Normal Color Results - Vital Signs Recent Vital Signs: Last Vital Signs Temp 98.1 F 03/06/18 04:45 Pulse 63 03/06/18 04:45 Resp 20 03/06/18 04:45 BP 150/92 H 03/06/18 11:10 Pulse Ox 99 03/06/18 07:00 - Labs Result Diagrams: 03/06/18 06:21 03/06/18 06:21 Labs: Laboratory Results - last 24 hr 03/05/18 03/06/18 03/06/18 17:09 06:21 06:21 WBC 7.5 RBC 5.01 Hgb 14.9 Hct 42.5 MCV 84.8 MCH 29.8 MCHC 35.1 RDW 13.9 Plt Count 190 MPV 9.0 Neut % (Auto) 52.1 Lymph % (Auto) 34.3 [place] % (Auto) 7.7 Eos % (Auto) 5.3 H Baso % (Auto) 0.6 Neut # (Auto) 3.9 Lymph # (Auto) 2.6 [place] # (Auto) 0.6 Eos # (Auto) 0.4 Baso # (Auto) 0.0 Sodium 143 Potassium 4.2 Chloride 104 Carbon Dioxide 28 Anion Gap 15 BUN 13 Creatinine 1.0 Est GFR ( Amer) > 60 Est GFR (Non-Af Amer) > 60 Random Glucose 98 Calcium 9.2 Phosphorus 3.8 Magnesium 1.9 Total Bilirubin 1.0 AST 30 ALT 35 Alkaline Phosphatase 40 Total Creatine Kinase 70 CK-MB (Mass) 0.34 Troponin I < 0.0120 Total Protein 7.2 Albumin 4.4 Globulin 2.9 Albumin/Globulin Ratio 1.5 Assessment & Plan (1) Benign positional vertigo Assessment and Plan: Valium 2mg PO BID Physical Therapy: Vestibular therapy Status: Acute (2) Dizziness Assessment and Plan: Head CT: Normal CT of the Head. No intracranial mass, hemorrhage or evidence of acute infarct. F/u Brain MRI F/u Head/ Neck MRA All plans and management discussed with Dr. Rick Status: Acute
--- NOTE | 2018-03-06 11:59 | VASCLAB ---
Date of service: 03/05/2018 PROCEDURE: Lower Extremity Venous Duplex Exam. HISTORY: Bilateral edema PRIORS: None. TECHNIQUE: Bilateral common femoral, femoral, popliteal and posterior tibial, peroneal and great saphenous veins were evaluated. Flow was assessed with color Doppler, compressibility, assessment of phasic flow and augmentation response. Report prepared by COLT Salomon FINDINGS: RIGHT: 1. Common Femoral Vein: 1.1. Compressibility - Fully compressible: Thrombus - None : Flow - Phasic: Augmentation -Normal: Reflux - None. 2. Femoral Vein: 2.1. Compressibility - Fully compressible: Thrombus - None : Flow - Phasic: Augmentation -Normal: Reflux - None. 3. Popliteal Vein: 3.1. Compressibility - Fully compressible: Thrombus - None : Flow - Phasic: Augmentation -Normal: Reflux - None. 4. Posterior Tibial Vein: 4.1. Compressibility - Fully compressible: Thrombus - None: Flow - Phasic: Augmentation -Normal: Reflux - None. 5. Peroneal Vein: 5.1. Compressibility - Fully compressible: Thrombus - None: Flow - Phasic: Augmentation -Normal: Reflux - None. 6. Great Saphenous Vein: 6.1. Compressibility - Fully compressible: Thrombus - None: Flow - Phasic: Augmentation - Normal: Reflux - None. LEFT: 1. Common Femoral Vein: 1.1. Compressibility - Fully compressible: Thrombus - None: Flow - Phasic: Augmentation -Normal: Reflux - None. 2. Femoral Vein: 2.1. Compressibility - Fully compressible: Thrombus - None: Flow - Phasic: Augmentation -Normal: Reflux - None. 3. Popliteal Vein: 3.1. Compressibility - Fully compressible: Thrombus - None : Flow - Phasic: Augmentation -Normal: Reflux - None. 4. Posterior Tibial Vein: 4.1. Compressibility - Fully compressible: Thrombus - None: Flow - Phasic: Augmentation -Normal: Reflux - None. 5. Peroneal Vein: 5.1. Compressibility - Fully compressible: Thrombus - None: Flow - Phasic: Augmentation -Normal: Reflux - None. 6. Great Saphenous Vein: 6.1. Compressibility - Fully compressible: Thrombus - None: Flow - Phasic: Augmentation - Normal: Reflux - None. OTHER FINDINGS: Right: None significant. Left: None significant. IMPRESSION: Right: No evidence of deep or superficial vein thrombosis of the right lower extremity. Normal valve function noted of the right side. Left: No evidence of deep or superficial vein thrombosis of the left lower extremity. Normal valve function noted of the left side.
--- NOTE | 2018-03-06 12:17 | CT ---
Date of service: 03/06/2018 PROCEDURE: CT HEAD WITHOUT CONTRAST. HISTORY: dizziness, lightheadness COMPARISON: None available. TECHNIQUE: Axial computed tomography images were obtained through the head/brain without intravenous contrast. Radiation dose: Total exam DLP = mGy-cm. This CT exam was performed using one or more of the following dose reduction techniques: Automated exposure control, adjustment of the mA and/or kV according to patient size, and/or use of iterative reconstruction technique. FINDINGS: HEMORRHAGE: No intracranial hemorrhage. BRAIN: No mass effect or edema. No atrophy or chronic microvascular ischemic changes. VENTRICLES: Unremarkable. No hydrocephalus. CALVARIUM: Unremarkable. PARANASAL SINUSES: Unremarkable as visualized. No significant inflammatory changes. MASTOID AIR CELLS: Unremarkable as visualized. No inflammatory changes. OTHER FINDINGS: None. IMPRESSION: Normal CT of the Head. No intracranial mass, hemorrhage or evidence of acute infarct.
--- NOTE | 2018-03-06 17:54 | MRI ---
Date of service: 03/06/2018 PROCEDURE: MRI BRAIN WITHOUT CONTRAST HISTORY: Dizziness COMPARISON: None. TECHNIQUE: Multiplanar, multisequence MR images of the brain were obtained without intravenous contrast enhancement. FINDINGS: HEMORRHAGE: None DWI: No evidence of an acute or early subacute infarction. BRAIN PARENCHYMA: Good corticomedullary differentiation is appreciated throughout the various MR sequences with no mass-effect evident. There is a minimal expansion of the ventricular sulcal sternal spaces appreciated compatible with diffuse cerebral atrophy and limited white-matter signal changes are appreciated in bilateral frontal and parietal lobes compatible chronic microangiopathy. There is no suspicious mass extra-axial finding in the posterior fossa contents appear unremarkable diffusely, including the brainstem. Midline brain anatomy appears unremarkable throughout. VENTRICLES: No hydrocephalus appreciated. CRANIUM: Unremarkable. ORBITS: Grossly unremarkable. PARANASAL SINUSES/MASTOIDS: Clear VASCULAR SYSTEM: Skull base flow voids intact. OTHER FINDINGS: None. IMPRESSION: Limited age-related neuro degenerative findings are appreciated which appear age-appropriate in general. No acute intracranial findings by standard MR criteria as discussed above.
--- NOTE | 2018-03-06 17:56 | MRI ---
Date of service: 03/06/2018 PROCEDURE: Magnetic Resonance Angiography Brain HISTORY: dizziness COMPARISON: None available. TECHNIQUE: 3D time of flight MR angiography of the intracranial arteries was performed. Rotating maximum intensity projection images were generated. FINDINGS: INTERNAL CAROTID ARTERIES: Unremarkable. The skull base, petrous, cavernous and supraclinoid segments are bilaterally widely patient. ANTERIOR CEREBRAL ARTERIES: Unremarkable. A1 and A2 segments are widely patent. Smaller distal branches unremarkable, as visualized. MIDDLE CEREBRAL ARTERIES: Unremarkable. M1 and M2 segments are widely patent. Perisylvian branches grossly symmetric. POSTERIOR CIRCULATION: Basilar Artery: Unremarkable. Distal Vertebral Arteries: Unremarkable. Posterior Cerebral Arteries: Unremarkable. Posterior Inferior Cerebellar Arteries: Unremarkable. ANEURYSM/ VASCULAR MALFORMATIONS: None. OTHER FINDINGS: None. IMPRESSION: Unremarkable MR angiography of the brain.
--- NOTE | 2018-03-06 18:12 | MRI ---
Date of service: 03/06/2018 PROCEDURE: MR Angiography of the neck without contrast HISTORY: Dizziness COMPARISON: None available. TECHNIQUE: 3D [id number] angiography of the neck was performed. Rotating maximum intensity projection images of the cervical carotid and vertebral arteries were generated. The origins of the common carotid arteries were not visualized, which is a limitation inherent to the non-contrast time of flight technique. FINDINGS: RIGHT CAROTID ARTERIES: Common Carotid Artery: Normal. Carotid Bifurcation: Normal. Internal Carotid Artery:Normal. External Carotid Artery (proximal branches): Normal. LEFT CAROTID ARTERIES: Common Carotid Artery: Normal. Carotid Bifurcation: Normal. Internal Carotid Artery:Normal. External Carotid Artery (proximal branches): Normal. VERTEBRAL ARTERIES: Right Vertebral Artery: Normal. Left Vertebral Artery: Normal. OTHER FINDINGS: None. IMPRESSION: No significant stenosis is seen at the visualized bilateral common and internal carotid arteries in the neck. The bilateral vertebral arteries appear widely patent as imaged as well.
--- NOTE | 2018-03-07 02:32 | CP.PCM.PN ---
<Harley Huggins - Last Filed: 03/07/18 02:28> Subjective - Date & Time of Evaluation Date of Evaluation: 03/07/18 Time of Evaluation: 02:28 - Subjective Subjective: Progress Note for Hospitalist service Patient seen and examined at bedside. He states he feels dizzy that is worse with movement and better when he is laying still. He denies chest pain, shortness of breath, headache, abdominal pain, nausea, vomiting, diarrhea, constipation, leg pain. States he has pain at the joint of right thumb. Objective - Vital Signs/Intake and Output Vital Signs (last 24 hours): Temp Pulse Resp BP Pulse Ox 98.0 F 59 L 20 133/81 98 03/06/18 23:30 03/07/18 00:00 03/06/18 23:30 03/06/18 23:30 03/06/18 23:30 - Medications Medications: Current Medications Aspirin (Aspirin Chewable) 81 mg PO DAILY [facility] Last Admin: 03/06/18 10:11 Dose: 81 mg Clopidogrel Bisulfate (Plavix) 75 mg PO DAILY [facility] Last Admin: 03/06/18 10:11 Dose: 75 mg Diazepam (Valium) 2 mg PO Q12 [facility] Last Admin: 03/06/18 21:36 Dose: 2 mg Enalapril Maleate (Vasotec) 5 mg PO DAILY [facility] Last Admin: 03/06/18 10:11 Dose: 5 mg Enoxaparin Sodium (Lovenox) 40 mg SC DAILY [facility] Last Admin: 03/06/18 10:11 Dose: 40 mg Ibuprofen (Motrin Tab) 400 mg PO Q6 PRN PRN Reason: Pain, Mild (1-3) Isosorbide Mononitrate (Imdur) 60 mg PO DAILY [facility] Last Admin: 03/06/18 10:11 Dose: 60 mg Metoprolol Tartrate (Lopressor) 50 mg PO BID [facility] Last Admin: 03/06/18 19:04 Dose: 50 mg Pantoprazole Sodium (Protonix Ec Tab) 20 mg PO DAILY [facility] Last Admin: 03/06/18 10:11 Dose: 20 mg Rosuvastatin Calcium (Crestor) 20 mg PO HS [facility] Last Admin: 03/06/18 21:36 Dose: 20 mg - Labs Labs: 03/06/18 06:21 03/06/18 06:21 - Constitutional Appears: Well, No Acute Distress - Head Exam Head Exam: ATRAUMATIC, NORMOCEPHALIC - Eye Exam Eye Exam: EOMI. absent: Nystagmus Additional comments: Dizziness exacerbated with sudden change in movement - ENT Exam ENT Exam: Mucous Membranes Moist - Neck Exam Neck Exam: Full ROM. absent: Tenderness - Respiratory Exam Respiratory Exam: Clear to Ausculation Bilateral, NORMAL BREATHING PATTERN. absent: Rales, Rhonchi, Wheezes, Respiratory Distress, Stridor - Cardiovascular Exam Cardiovascular Exam: Bradycardia, +S1, +S2 - GI/Abdominal Exam GI & Abdominal Exam: Soft, Normal Bowel Sounds. absent: Distended, Firm, Guarding, Rigid, Tenderness - Extremities Exam Extremities Exam: absent: Calf Tenderness, Pedal Edema - Back Exam Back Exam: absent: CVA tenderness (L), CVA tenderness (R) - Neurological Exam Neurological Exam: Alert, Awake, Oriented x3 - Skin Skin Exam: Dry, Intact, Warm Assessment and Plan - Assessment and Plan (Free Text) Plan: Plan: Chest Pain r/o ACS August 2017 Admission : - [facility]- underwent PCI of proximal and mid RCA with CHARO x [address] Jones - ECHO - LVEF 55%, mild LVH Current admission: Cardiology consulted - Dr. Jones, help appreciated - Initial EKG NSR @ 82BPM - CXR: no infiltrates noted - Troponins x3 negative - Review of cafeteria monitor revealed patient remained in sinus rhythm in 60s - PEGGY score of 3, RACE score of 0 - 03/05/18 echo results: left ventricle systolic function is normal. The ejection fraction is 60-65%. diastolic dysfunction. no aortic regurgitation is present. There is no mitral valve regurgitation noted. There is mild tricuspid regurgitation, no pulmonary hypertension, mild pulmonary valvular regurgitation. 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 No evidence of reversible ischemia. Aggressive medical management and risk factor modification. Restarted home medications: -ASA 81mg PO daily, Plavix 75mg PO daily, Enalapril 5mg PO daily, Lopressor 50mg PO BID, Imdur 60mg PO daily, and Lipitor 40mg PO daily (Crestor 20mg given for Lipitor since not in formulary) - Plan for cardiac cath on 03/09/18 CAD - Resumed home medications: ASA 81mg PO daily, Plavix 75mg PO daily, Enalapril 5mg PO daily, Lopressor 50mg PO BID and Lipitor 40mg PO daily (Crestor 20mg given for Lipitor since not in formulary) - Plan for cardiac cath on 03/09/18 s/p Fall Dizziness Vertigo - 03/05/18 Code Star was called after patient fell when he became dizzy after his nuclear stress test today. He denies LOC, chest pain, shortness of breath, head trauma. He states he simply felt dizzy and fell, bracing his fall with his hands. - 03/05/18 Xrays of right shoulder and humerus no acute fracture or dislocation - 03/05/18 Xray of right hand: 10mm radioopaque foreign body in 1st web space; patient later admitted he had hand surgery 20 years ago with a surgical clip in place. - 03/05/18 Xray to right humerus no fracture or dislocation -CT of the head shows no intracranial mass, hemorrhage or evidence of acute infarct -Bilateral lower extremity dopplers negative 03/06/18 Neurology consulted - Dr. Rick - help appreciated, after patient became dizzy and nearly fell. -MRA neck without contrast: No significant stenosis is seen at the visualized bilateral common and internal carotid arteries in the neck. The bilateral vertebral arteries appear widely patent as imaged as well -MRI brain: Limited age-related neuro degenerative findings are appreciated which appear age- appropriate in general. No acute intracranial findings by standard MR criteria as discussed above. -MRA Head: Unremarkable -Neuro recs: likely BPPV- started on Diazepam 2mg PO BID, Vestibular therapy - 03/06/18 As per Neuro recommendations, patient started on Diazepam 2mg PO BID and vestibular therapy since dizziness likely secondary to BPPV. - Plan for cardiac cath on 03/09/18 Hx of Hepatitis C - Treated Dyslipidemia - Crestor 20mg PO HS Prophylactic Measures - GI PPX: Protonix - DVT PPX: SCDs, Lovenox 40mg SC - Healthy heart diet - fall risk precautions Case discussed with Dr. Zena Huggins, PGY1 <Vilma Freitas V - Last Filed: 03/07/18 17:57> Objective - Vital Signs/Intake and Output Vital Signs (last 24 hours): Temp Pulse Resp BP Pulse Ox 98.6 F 71 20 118/73 98 03/07/18 15:00 03/07/18 17:00 03/07/18 15:00 03/07/18 15:00 03/07/18 15:00 Intake and Output: 03/07/18 03/07/18 06:59 18:59 Intake Total 110 600 Balance 110 600 - Medications Medications: Current Medications Acetaminophen (Tylenol 325mg Tab) 650 mg PO Q6 PRN PRN Reason: Pain, moderate (4-7) Aspirin (Aspirin Chewable) 81 mg PO DAILY [facility] Last Admin: 03/07/18 09:29 Dose: 81 mg Clopidogrel Bisulfate (Plavix) 75 mg PO DAILY [facility] Last Admin: 03/07/18 09:29 Dose: 75 mg Diazepam (Valium) 2 mg PO Q12 [facility] Last Admin: 03/07/18 09:33 Dose: 2 mg Enalapril Maleate (Vasotec) 5 mg PO DAILY [facility] Last Admin: 03/07/18 09:29 Dose: 5 mg Enoxaparin Sodium (Lovenox) 40 mg SC DAILY [facility] Last Admin: 03/06/18 10:11 Dose: 40 mg Sodium Chloride (Sodium Chloride 0.9%) 1,000 mls @ 50 mls/hr IV .Q20H [facility] Last Admin: 03/07/18 11:20 Dose: 50 mls/hr Ibuprofen (Motrin Tab) 400 mg PO Q6 PRN PRN Reason: Pain, Mild (1-3) Isosorbide Mononitrate (Imdur) 60 mg PO DAILY [facility] Last Admin: 03/07/18 09:29 Dose: 60 mg Metoprolol Tartrate (Lopressor) 50 mg PO BID [facility] Last Admin: 03/07/18 17:18 Dose: 50 mg Nitroglycerin (Nitrostat Sl Tab) 0.4 mg SL Q5M PRN PRN Reason: Chest Pain Rosuvastatin Calcium (Crestor) 20 mg PO HS [facility] Last Admin: 03/06/18 21:36 Dose: 20 mg - Labs Labs: 03/07/18 08:29 03/07/18 08:29 Attending/Attestation - Attestation I have personally seen and examined this patient.: Yes I have fully participated in the care of the patient.: Yes I have reviewed all pertinent clinical information, including history, physical exam and plan: Yes Notes (Text): Patient seen, examined, and case discussed with medical radiation dosimetrist. Patient seen during rapid response today.. Patient was working with physical therapy prior to event. Discussed the physical therapy Perry noted the patient felt dizziness and then syncopized into his arms, and he broke his fall. He brought him back to the bed. Patient came to quickly. Patient complained of chest pain to the left side of his chest to a sharp. Patient has very receive his aspirin Plavix earlier today per nursing. A ordered for dose and nitroglycerin sublingual. Patient also reported mild headache. Ordered for Tylenol 650 mg by mouth 1. Ordered for EKG and chest x-ray and Bernadette. No change from prior EKG. Troponin is negative. Resident myself did discuss with Dr. Jones will see the patient later today. Patient is scheduled for cardiac cath on Friday. Chest pain did resolve after nitroglycerin sublingual. Unable to give NSAID to patient's and sees her on aspirin for his right snuffbox pain though he did not complain that to me during during the event. Patient also did not complain of any right shoulder pain. We did use the assistance of Luz Craig Hat Block Maker Urdu at the time of AUXILIARY PLANT OPERATOR today. Assessment and Plan (1) Chest Pain Symptomatic Coronary Artery Disease Prior history of STEMI (ST elevation myocardial infarction) Assessment & Plan: * Monitor on telemetry * Cardiology (Dr. Jones) front office clerk-->help appreciated * Code Heart 08/18/2017-->RCA s/p CHARO stents; Cardiac cath report available in the EMR. * Aspirin 81mg PO daily * Lopressor 50mg PO BID * Enalapril 5mg PO daily * Crestor 20mg POqHS * Plavix 75mg PO daily * Initial EKG NSR @ 82BPM * CXR: no infiltrates noted * Troponins x3 negative * PEGGY score of 4 (CAD risk factors, ASA, severe angina, and Known CAD)-->20% risk at 14 days of all cause mortality, new or recurrent MN, or severe recurrent ischemia requiring urgent revascularization. 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 No evidence of reversible ischemia. Aggressive medical management and risk factor modification. * Hgba1c: 5.3 * T cholestrol: 105 HDL:31 LDL: 42 * TSH within normal Status: Acute (2) Hepatitis-C Assessment & Plan: * Reports he has been treated previously * on Crestor 5mg POqHS * Monitor liver function tests Status: Chronic (3) BPPV; Vertigo Assessment & Plan: * Neurology (Dr. Rick) on board-->help appreciated * Prior hx of vertigo. * CT head (03/06/18): * Head MRA (03/06/18): unremarkable * Brain MRI (03/06/18): limited age related neuro degenerative findings are appreciated which appear age appropriate in general. No acute intracranial findings by standard MR criteria * Neck MRA (03/06/18): no significant stenosis is sen at the visualized bilateral common and interval cartoid arteries in the neck. 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 Resident went to assess him. He denies LOC, chest pain, shortness of breath, head trauma. He states he simply felt dizzy and fell, bracing his fall with his hands. I spoke with freelance patternmaker, noted patient did well walking for 6-9 minutes on the treadmill no episodes of dizziness noted. * 03/05/18 Xrays of right shoulder and humerus no acute fracture or dislocation * 03/05/18 Xray of right hand: 10mm radioopaque foreign body in 1st web space; patient later admitted he had hand surgery 20 years ago with a surgical clip in place. * Patient was seen and evaluated by surgery rotating on hand surgery. No intervention. patient recalled later that he has had prior hand surgery intervention with the resident went to assess him (5) Leg swelling Assessment & Plan: * Dopplers were negative for DVT * nonpitting * Well's criteria: 0 low risk for DVT (6) Prophylactic measure Assessment & Plan: * Heparin 5000 units subq 8H * Pepcid 20mg PO BID * Monitor on telemetry * PT eval * Physical therapy eval for vestibular therapy specifically * Fall risk precautions Status: Acute Disposition: Neurology eval. Changed to inpatient secondary to cardiac cath for symptomatic CAD. Patient going for cardiac cath on Friday with Dr. Jones. Patient has known CAD noted in EMR.
[2018-03-07 08:42] LABS: BASO % 0.6 % (0.0-2.0); EOS # 0.4 K/uL (0.0-0.7); EOS % 5.7 % (0.0-4.0); HEMOGLOBIN 15.5 g/dL (12.0-18.0); LYMPH # 2.5 K/uL (1.0-4.3); LYMPH % 35.1 % (20.0-40.0); MEAN CELL VOLUME 85.4 fL (80.0-94.0); MEAN CORPUSCULAR HEMOGLOBIN 29.7 pg (27.0-31.0); MEAN CORPUSCULAR HGB CONC 34.7 g/dL (33.0-37.0); MEAN PLATELET VOLUME 9.2 fL (7.2-11.7); MONO # 0.6 K/uL (0.0-0.8); MONO % 8.9 % (0.0-10.0); NEUT # 3.5 K/uL (1.8-7.0); NEUT % 49.7 % (50.0-75.0); NRBC % 0.1 % (0.0-2.0); RBC 5.22 Mil/uL (4.40-5.90); RED CELL DISTRIBUTION WIDTH 13.7 % (11.5-14.5); WHITE BLOOD COUNT 7.1 K/uL (4.8-10.8)
[2018-03-07 08:59] LABS: ALB/GLOB RATIO 1.5 (1.0-2.1); ALBUMIN 4.3 g/dL (3.5-5.0); ALT/SGPT 36 U/L (21-72); AST/SGOT 22 U/L (17-59); BLOOD UREA NITROGEN 14 mg/dL (9-20); CALCIUM 9.4 mg/dl (8.6-10.4); GFR AFRICAN-AMERICAN > 60; GFR NON-AFRICAN AMERICAN > 60
[2018-03-07] MEDS: Pantoprazole 20 mg EC Tab PO SCH (09:29)
[2018-03-07] MEDS: Sodium Chloride 0.9% 1,000 ML IV SCH (11:20)
[2018-03-07 11:55] LABS: CK-MB 0.36 ng/mL (0.0-3.38)
--- NOTE | 2018-03-07 14:53 | CP.PCM.PN ---
Subjective - Date & Time of Evaluation Date of Evaluation: 03/07/18 Time of Evaluation: 11:00 - Subjective Subjective: Rapid Response Note Rapid Response called at 10:57am for syncope and chest pain chest pain that began during a physical therapy session. Auto Apprentice Mechanic services were used to obtain history, Georges Landaverde. [id number]. Patient states he was walking with the physical therapist when he began dizzy and syncopized. Physical therapist was able to catch the patient before, preventing him from hitting the floor, and moved him back into his bed. As per nurse, patient was out for a few seconds. When he regained consciousness, patient complained of severe chest pain. Rapid Response Team arrived on scene and patient was given sublingual Nitro, after which pain resolved. DONNELL's were drawn, first set was negative. DONNELL x2 at to be drawn at 5PM and 11PM. An EKG obtained was obtained, which showed no significant change from previous EKG's. Chest X-ray ordered showed no interval change from previous. Patient was also given IV Fluid. At this time, chest pain has resolved, DONNELL x1 is negative, and EKG shows no significant changes. Objective - Vital Signs/Intake and Output Vital Signs (last 24 hours): Temp Pulse Resp BP Pulse Ox 97.8 F 69 20 130/80 98 03/07/18 07:00 03/07/18 11:50 03/07/18 07:00 03/07/18 09:29 03/07/18 07:00 Intake and Output: 03/07/18 03/07/18 06:59 18:59 Intake Total 110 600 Balance 110 600 - Medications Medications: Current Medications Acetaminophen (Tylenol 325mg Tab) 650 mg PO Q6 PRN PRN Reason: Pain, moderate (4-7) Aspirin (Aspirin Chewable) 81 mg PO DAILY [facility] Last Admin: 03/07/18 09:29 Dose: 81 mg Clopidogrel Bisulfate (Plavix) 75 mg PO DAILY [facility] Last Admin: 03/07/18 09:29 Dose: 75 mg Diazepam (Valium) 2 mg PO Q12 [facility] Last Admin: 03/07/18 09:33 Dose: 2 mg Enalapril Maleate (Vasotec) 5 mg PO DAILY [facility] Last Admin: 03/07/18 09:29 Dose: 5 mg Enoxaparin Sodium (Lovenox) 40 mg SC DAILY [facility] Last Admin: 03/06/18 10:11 Dose: 40 mg Sodium Chloride (Sodium Chloride 0.9%) 1,000 mls @ 50 mls/hr IV .Q20H [facility] Last Admin: 03/07/18 11:20 Dose: 50 mls/hr Ibuprofen (Motrin Tab) 400 mg PO Q6 PRN PRN Reason: Pain, Mild (1-3) Isosorbide Mononitrate (Imdur) 60 mg PO DAILY [facility] Last Admin: 03/07/18 09:29 Dose: 60 mg Metoprolol Tartrate (Lopressor) 50 mg PO BID [facility] Last Admin: 03/07/18 09:29 Dose: 50 mg Nitroglycerin (Nitrostat Sl Tab) 0.4 mg SL Q5M PRN PRN Reason: Chest Pain Rosuvastatin Calcium (Crestor) 20 mg PO HS [facility] Last Admin: 03/06/18 21:36 Dose: 20 mg - Labs Labs: 03/07/18 08:29 03/07/18 08:29
[2018-03-07 17:07] LABS: CK-MB 0.36 ng/mL (0.0-3.38)
--- NOTE | 2018-03-07 17:38 | RAD ---
Date of service: 03/07/2018 HISTORY: chest pain COMPARISON: Portable chest radiograph 03/04/2018. FINDINGS: LUNGS: No active pulmonary disease. PLEURA: No significant pleural effusion identified, no pneumothorax apparent. CARDIOVASCULAR: Normal. OSSEOUS STRUCTURES: No significant abnormalities. VISUALIZED UPPER ABDOMEN: Normal. OTHER FINDINGS: None. IMPRESSION: No interval acute cardiopulmonary disease appreciable.
--- NOTE | 2018-03-07 17:44 | PCM.RRT ---
<Valerie Raya P - Last Filed: 03/07/18 17:46> CIRCUIT BOARD REPAIR TECHNICIAN Nurses Assessment - Situation Date: 03/07/18 Time CIRCUIT BOARD REPAIR TECHNICIAN was called: 10:57 CIRCUIT BOARD REPAIR TECHNICIAN Responder Arrival Time:: 10:58 CIRCUIT BOARD REPAIR TECHNICIAN Location:: Med/Surg Room Number: 656-A CIRCUIT BOARD REPAIR TECHNICIAN Reason for Call: Chest Pain CIRCUIT BOARD REPAIR TECHNICIAN Called By: RN - IV IV Inserted during CIRCUIT BOARD REPAIR TECHNICIAN?: No - Respiratory CIRCUIT BOARD REPAIR TECHNICIAN Delivery Method: Nasal Cannula @L/min Oxygen Flow Rate: 2 Received Nebulizer Treatments: No Was the Patient Ventilated with Bag/Mask 100% O2?: No Secretions Suctioned?: No Was the Patient Intubated?: No Was the Patient Placed on a Ventilator?: No - Medication Medications Administered During CIRCUIT BOARD REPAIR TECHNICIAN: NitroStat SL 0.4mg - Diagnostic Test Ordered EKG: Yes Chest X-Ray: Yes (Ordered) CT Scan: No - Stat Labs Ordered CIRCUIT BOARD REPAIR TECHNICIAN Stat Labs Ordered: TROPONIN CPR started during CIRCUIT BOARD REPAIR TECHNICIAN?: No - Vital Signs Vital Signs: Rapid Response Vital Sign Blood Pressure 142/95 Pulse Rate 72 Respiratory Rate 16 Temperature 98.3 F Oxygen Saturation 97 - Time CIRCUIT BOARD REPAIR TECHNICIAN Ended Time CIRCUIT BOARD REPAIR TECHNICIAN Ended: 11:23 - Vital Signs at end of CIRCUIT BOARD REPAIR TECHNICIAN Vital Signs at end of CIRCUIT BOARD REPAIR TECHNICIAN: Rapid Response End Vital Sign Blood Pressure 130/86 Pulse Rate 68 Respiratory Rate 16 Temperature 98.5 F O2 Sat by Pulse Oximetry 98 - Recommendations Notifications: Attending Physician I.Reason for CIRCUIT BOARD REPAIR TECHNICIAN - A) Acute Change in Patient: (Select all that apply): Chest Pain - Neurological Status (Select all that apply): Alert, Responsive, Oriented, Follows Commands - Respiratory Oxygen Delivery Method: Nasal Cannula @L/min Oxygen Flow Rate: 2 - Head Head Exam: ATRAUMATIC, NORMOCEPHALIC - Eyes Eye Exam: EOMI, Normal appearance, PERRL - Respiratory Exam Respiratory Exam: Clear to Ausculation Bilateral. absent: Rales, Rhonchi, Wheezes - Cardiovascular Exam Cardiovascular Exam: REGULAR RHYTHM, +S1, +S2 - GI/Abdominal Exam GI & Abdominal Exam: Soft, Normal Bowel Sounds. absent: Firm, Guarding, Tenderness - Neurological Exam Neurological Exam: Alert, Awake, CN II-XII Intact, Oriented x3 - Extremities Exam Extremities Exam: Full ROM, Normal Inspection. absent: Pedal Edema, Tenderness Plan - Assessment of Findings&Treatment Plan Rapid Response Note Rapid Response called at 10:57am for syncope and chest pain chest pain that began during a physical therapy session. Forensic Specialist services were used to obtain history, Georges [place]de. [id number]. Patient states he was walking with the physical therapist when he began feeling dizzy and syncopized. Physical therapist was able to catch the patient before, preventing him from hitting the floor, and moved him back into his bed. As per nurse, patient was out for a few seconds. When he regained consciousness, patient complained of severe chest pain. Rapid Response Team arrived on scene and patient was given sublingual Nitro, after which pain resolved. DONNELL's were drawn, first set was negative. DONNELL x2 at to be drawn at 5PM and 11PM. An EKG obtained was obtained, which showed no significant change from previous EKG's. Chest X-ray ordered showed no interval change from previous. Patient was also given IV Fluid. At this time, chest pain has resolved, DONNELL x1 is negative, and EKG shows no significant changes. <Vilma Freitas V - Last Filed: 03/07/18 17:57> CIRCUIT BOARD REPAIR TECHNICIAN Nurses Assessment - Vital Signs Vital Signs: Rapid Response Vital Sign Blood Pressure 142/95 Pulse Rate 72 Respiratory Rate 16 Temperature 98.3 F Oxygen Saturation 97 - Vital Signs at end of CIRCUIT BOARD REPAIR TECHNICIAN Vital Signs at end of CIRCUIT BOARD REPAIR TECHNICIAN: Rapid Response End Vital Sign Blood Pressure 130/86 Pulse Rate 68 Respiratory Rate 16 Temperature 98.5 F O2 Sat by Pulse Oximetry 98 Attending/Attestation - Attestation I have personally seen and examined this patient.: Yes I have fully participated in the care of the patient.: Yes I have reviewed all pertinent clinical information, including history, physical exam and plan: Yes
[2018-03-07 17:47] LABS: CK-MB 0.31 ng/mL (0.0-3.38)
--- NOTE | 2018-03-08 01:45 | CP.PCM.PN ---
<Harley Huggins - Last Filed: 03/08/18 02:59> Subjective - Date & Time of Evaluation Date of Evaluation: 03/08/18 Time of Evaluation: 01:42 - Subjective Subjective: Progress note for Hospitalist service Patient seen and examined at bedside. He denies chest pain currently. States his chest pain from yesterday has resolved. Has not had any syncopal episodes since yesterday. States he feels dizzy only when he moves. He denies abdominal pain, nausea, vomiting, diarrhea, leg swelling or pain. He still complains of mild pain to right thumb joint. Objective - Vital Signs/Intake and Output Vital Signs (last 24 hours): Temp Pulse Resp BP Pulse Ox 97.7 F 57 L 20 117/78 95 03/07/18 23:30 03/08/18 00:51 03/07/18 23:30 03/07/18 23:30 03/07/18 23:30 Intake and Output: 03/07/18 03/08/18 18:59 06:59 Intake Total 600 640 Balance 600 640 - Medications Medications: Current Medications Acetaminophen (Tylenol 325mg Tab) 650 mg PO Q6 PRN PRN Reason: Pain, moderate (4-7) Aspirin (Aspirin Chewable) 81 mg PO DAILY [facility] Last Admin: 03/07/18 09:29 Dose: 81 mg Clopidogrel Bisulfate (Plavix) 75 mg PO DAILY [facility] Last Admin: 03/07/18 09:29 Dose: 75 mg Diazepam (Valium) 2 mg PO Q12 [facility] Last Admin: 03/07/18 21:17 Dose: 2 mg Enalapril Maleate (Vasotec) 5 mg PO DAILY [facility] Last Admin: 03/07/18 09:29 Dose: 5 mg Enoxaparin Sodium (Lovenox) 40 mg SC DAILY [facility] Last Admin: 03/06/18 10:11 Dose: 40 mg Sodium Chloride (Sodium Chloride 0.9%) 1,000 mls @ 50 mls/hr IV .Q20H [facility] Last Admin: 03/07/18 11:20 Dose: 50 mls/hr Ibuprofen (Motrin Tab) 400 mg PO Q6 PRN PRN Reason: Pain, Mild (1-3) Isosorbide Mononitrate (Imdur) 60 mg PO DAILY [facility] Last Admin: 03/07/18 09:29 Dose: 60 mg Metoprolol Tartrate (Lopressor) 50 mg PO BID [facility] Last Admin: 03/07/18 17:18 Dose: 50 mg Nitroglycerin (Nitrostat Sl Tab) 0.4 mg SL Q5M PRN PRN Reason: Chest Pain Rosuvastatin Calcium (Crestor) 20 mg PO HS [facility] Last Admin: 03/07/18 21:17 Dose: 20 mg - Labs Labs: 03/07/18 08:29 03/07/18 08:29 - Constitutional Appears: Well, No Acute Distress - Head Exam Head Exam: ATRAUMATIC, NORMOCEPHALIC - Eye Exam Eye Exam: EOMI - ENT Exam ENT Exam: Mucous Membranes Moist - Neck Exam Neck Exam: Full ROM. absent: Tenderness - Respiratory Exam Respiratory Exam: Clear to Ausculation Bilateral, NORMAL BREATHING PATTERN. absent: Rales, Rhonchi, Wheezes, Respiratory Distress, Stridor - Cardiovascular Exam Cardiovascular Exam: REGULAR RHYTHM, +S1, +S2 - GI/Abdominal Exam GI & Abdominal Exam: Soft, Normal Bowel Sounds. absent: Distended, Firm, Guarding, Rigid, Tenderness - Extremities Exam Extremities Exam: Normal Capillary Refill. absent: Calf Tenderness, Pedal Edema - Back Exam Back Exam: absent: CVA tenderness (L), CVA tenderness (R) - Neurological Exam Neurological Exam: Alert, Awake, Oriented x3 - Skin Skin Exam: Dry, Intact, Warm Assessment and Plan - Assessment and Plan (Free Text) Plan: Plan: Chest Pain r/o ACS August 2017 Admission : - CODE HEART- underwent PCI of proximal and mid RCA with CHARO x [address] Jones - ECHO - LVEF 55%, mild LVH Current admission: Cardiology consulted - Dr. Jones, help appreciated - Initial EKG NSR @ 82BPM - CXR: no infiltrates noted - 03/04/18 Troponins x3 negative - 03/05/18 ECHO: left ventricle systolic function is normal. The ejection fraction is 60-65%. diastolic dysfunction. no aortic regurgitation is present. There is no mitral valve regurgitation noted. There is mild tricuspid regurgitation, no pulmonary hypertension, mild pulmonary valvular regurgitation. 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 No evidence of reversible ischemia. Aggressive medical management and risk factor modification. Restarted home medications: - ASA 81mg PO daily, Plavix 75mg PO daily, Enalapril 5mg PO daily, Lopressor 50mg PO BID, Imdur 60mg PO daily, and Lipitor 40mg PO daily (Crestor 20mg given for Lipitor since not in formulary) - 03/05/18: Code star was called after patient fell when he became dizzy after nuclear stress test (see below) - 03/07/18 Rapid response called after patient became dizzy and had a syncopal episode, then complained of severe chest pain. Patient was given SL Nitroglycerin, after which pain resolved. ROMIx3 negative with no new change in EKGs. - 03/08/18 Review of air sampling and monitoring revealed patient remained in sinus rhythm in 60s. Patient is asymptomatic, denies chest pain. - PEGGY score of 4 - Plan for cardiac cath on 03/09/18 CAD - Resumed home medications: ASA 81mg PO daily, Plavix 75mg PO daily, Enalapril 5mg PO daily, Lopressor 50mg PO BID and Lipitor 40mg PO daily (Crestor 20mg given for Lipitor since not in formulary) - 03/07/18 Rapid response called after patient became dizzy and had a syncopal episode, then complained of severe chest pain. Patient was given SL Nitroglycerin, after which pain resolved. ROMIx3 negative with no new change in EKGs. - 03/08/18 Review of air sampling and monitoring revealed patient remained in sinus rhythm in 60s - Plan for cardiac cath on 03/09/18 Syncope - 03/07/18 Rapid response called after patient became dizzy and had a syncopal episode, then complained of severe chest pain. Patient was given SL Nitroglycerin, after which pain resolved. ROMIx3 negative with no new change in EKGs. - 03/08/18 Review of air sampling and monitoring revealed patient remained in sinus rhythm in 60s. Patient is asymptomatic, denies chest pain. Dizziness Vertigo - 03/05/18 Code Star was called after patient fell when he became dizzy after his nuclear stress test today. He denies LOC, chest pain, shortness of breath, head trauma. He states he simply felt dizzy and fell, bracing his fall with his hands. 03/05/18 Xrays of right shoulder and humerus no acute fracture or dislocation 03/05/18 Xray of right hand: 10mm radioopaque foreign body in 1st web space; patient later admitted he had hand surgery 20 years ago with a surgical clip in place. 03/05/18 Xray to right humerus no fracture or dislocation -CT of the head shows no intracranial mass, hemorrhage or evidence of acute infarct -Bilateral lower extremity dopplers negative 03/06/18 Neurology consulted - Dr. iRck - help appreciated, after patient became dizzy and nearly fell. -MRA neck without contrast: No significant stenosis is seen at the visualized bilateral common and internal carotid arteries in the neck. The bilateral vertebral arteries appear widely patent as imaged as well -MRI brain: Limited age-related neuro degenerative findings are appreciated which appear age- appropriate in general. No acute intracranial findings by standard MR criteria as discussed above. -MRA Head: Unremarkable -Neuro recs: likely BPPV- started on Diazepam 2mg PO BID, Vestibular therapy - 03/06/18 As per Neuro recommendations, patient started on Diazepam 2mg PO BID and vestibular therapy since dizziness likely secondary to BPPV. - 03/07/18 Rapid response called after patient became dizzy and had a syncopal episode, then complained of severe chest pain. Patient was given SL Nitroglycerin, after which pain resolved. ROMIx3 negative with no new change in EKGs. - 03/08/18 Review of air sampling and monitoring revealed patient remained in sinus rhythm in 60s - Plan for cardiac cath on 03/09/18 Hx of Hepatitis C - Treated - Continue to monitor LFTs given patient is on Crestor Dyslipidemia - Crestor 20mg PO HS Prophylactic Measures - GI PPX: Protonix - DVT PPX: SCDs, Lovenox 40mg SC - Healthy heart diet - fall risk precautions Case discussed with Dr. Zena Huggins, PGY1 <Vilma Freitas V - Last Filed: 03/09/18 01:35> Objective - Vital Signs/Intake and Output Vital Signs (last 24 hours): Temp Pulse Resp BP Pulse Ox 98.6 F 62 20 118/72 97 03/08/18 15:00 03/08/18 16:38 03/08/18 15:00 03/08/18 15:00 03/08/18 15:00 Intake and Output: 03/08/18 03/09/18 18:59 06:59 Intake Total 800 400 Balance 800 400 - Medications Medications: Current Medications Acetaminophen (Tylenol 325mg Tab) 650 mg PO Q6 PRN PRN Reason: Pain, moderate (4-7) Aspirin (Aspirin Chewable) 81 mg PO DAILY [facility] Last Admin: 03/08/18 09:12 Dose: 81 mg Clopidogrel Bisulfate (Plavix) 75 mg PO DAILY [facility] Last Admin: 03/08/18 09:12 Dose: 75 mg Diazepam (Valium) 2 mg PO Q12 [facility] Last Admin: 03/08/18 21:33 Dose: 2 mg Enalapril Maleate (Vasotec) 5 mg PO DAILY [facility] Last Admin: 03/08/18 09:11 Dose: 5 mg Enoxaparin Sodium (Lovenox) 40 mg SC DAILY [facility] Last Admin: 03/06/18 10:11 Dose: 40 mg Sodium Chloride (Sodium Chloride 0.9%) 1,000 mls @ 50 mls/hr IV .Q20H [facility] Last Admin: 03/08/18 07:30 Dose: Not Given Ibuprofen (Motrin Tab) 400 mg PO Q6 PRN PRN Reason: Pain, Mild (1-3) Isosorbide Mononitrate (Imdur) 60 mg PO DAILY [facility] Last Admin: 03/08/18 09:12 Dose: 60 mg Metoprolol Tartrate (Lopressor) 50 mg PO BID [facility] Last Admin: 03/08/18 18:04 Dose: 50 mg Nitroglycerin (Nitrostat Sl Tab) 0.4 mg SL Q5M PRN PRN Reason: Chest Pain Rosuvastatin Calcium (Crestor) 20 mg PO HS [facility] Last Admin: 03/08/18 21:33 Dose: 20 mg - Labs Labs: 03/08/18 08:42 03/08/18 08:42 Attending/Attestation - Attestation I have personally seen and examined this patient.: Yes I have fully participated in the care of the patient.: Yes I have reviewed all pertinent clinical information, including history, physical exam and plan: Yes Notes (Text): This is late computer entry for 03/08/18. Patient seen, examined, and case discussed with day-time resident. Patient denies acute complaints. Patient seen in bed. Patient is scheduled for cardiac cath on Friday at [facility] with Dr. Jones. NPO order. Patient is on gentle IV hydration. Assessment and Plan (1) Chest Pain Symptomatic Coronary Artery Disease Prior history of STEMI (ST elevation myocardial infarction) Assessment & Plan: * Monitor on telemetry * Cardiology (Dr. Jones) trail construction worker-->help appreciated * Code Heart 08/18/2017-->RCA s/p CHARO stents; Cardiac cath report available in the EMR. * Aspirin 81mg PO daily * Lopressor 50mg PO BID * Enalapril 5mg PO daily * Crestor 20mg POqHS * Plavix 75mg PO daily * Initial EKG NSR @ 82BPM * CXR: no infiltrates noted * Troponins x3 negative * PEGGY score of 4 (CAD risk factors, ASA, severe angina, and Known CAD)-->20% risk at 14 days of all cause mortality, new or recurrent OH, or severe recurrent ischemia requiring urgent revascularization. 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 No evidence of reversible ischemia. Aggressive medical management and risk factor modification. * Hgba1c: 5.3 * T cholestrol: 105 HDL:31 LDL: 42 * TSH within normal Status: Acute (2) Hepatitis-C Assessment & Plan: * Reports he has been treated previously * on Crestor 5mg POqHS * Monitor liver function tests Status: Chronic (3) BPPV; Vertigo Assessment & Plan: * Neurology (Dr. Rick) on board-->help appreciated * Prior hx of vertigo. * CT head (03/06/18): * Head MRA (03/06/18): unremarkable * Brain MRI (03/06/18): limited age related neuro degenerative findings are appreciated which appear age appropriate in general. No acute intracranial findings by standard MR criteria * Neck MRA (03/06/18): no significant stenosis is sen at the visualized bilateral common and interval cartoid arteries in the neck. the bilateral vertebral arteries appear widely patent as imaged as well * Valium 2mg PO BID-->patient reports symptoms imrpoved with Valium prior to SUPERVISOR GRIPS even (4) Syncopal Episode Assessment & Plan: * Nguyễn Peralta was called on 03/05/18 after patient fell when he became dizzy after his nuclear stress test today. Resident went to assess him. He denies LOC, chest pain, shortness of breath, head trauma. He states he simply felt dizzy and fell, bracing his fall with his hands. I spoke with auto top mechanic, noted patient did well walking for 6-9 minutes on the treadmill no episodes of dizziness noted. * 03/05/18 Xrays of right shoulder and humerus no acute fracture or dislocation * 03/05/18 Xray of right hand: 10mm radioopaque foreign body in 1st web space; patient later admitted he had hand surgery 20 years ago with a surgical clip in place. * Patient was seen and evaluated by surgery rotating on hand surgery. No intervention. patient recalled later that he has had prior hand surgery intervention with the resident went to assess him (5) Leg swelling Assessment & Plan: * Dopplers were negative for DVT * nonpitting * Well's criteria: 0 low risk for DVT (6) Prophylactic measure Assessment & Plan: * Heparin 5000 units subq 8H * Lovenox held * Pepcid 20mg PO BID * Monitor on telemetry * PT eval * Physical therapy eval for vestibular therapy specifically * Fall risk precautions Status: Acute Disposition. Changed to inpatient secondary to cardiac cath for symptomatic CAD. Patient going for cardiac cath on Friday with Dr. Jones. Patient has known CAD seen on cardiac cath noted in EMR.
[2018-03-08] MEDS: Sodium Chloride 0.9% 1,000 ML IV SCH (07:30)
[2018-03-08 08:50] LABS: BASO % 0.6 % (0.0-2.0); EOS # 0.4 K/uL (0.0-0.7); EOS % 5.9 % (0.0-4.0); HEMOGLOBIN 15.3 g/dL (12.0-18.0); LYMPH # 2.4 K/uL (1.0-4.3); LYMPH % 34.8 % (20.0-40.0); MEAN CELL VOLUME 86.7 fL (80.0-94.0); MEAN CORPUSCULAR HEMOGLOBIN 29.7 pg (27.0-31.0); MEAN CORPUSCULAR HGB CONC 34.3 g/dL (33.0-37.0); MEAN PLATELET VOLUME 9.4 fL (7.2-11.7); MONO # 0.6 K/uL (0.0-0.8); MONO % 8.2 % (0.0-10.0); NEUT # 3.5 K/uL (1.8-7.0); NEUT % 50.5 % (50.0-75.0); RBC 5.14 Mil/uL (4.40-5.90); RED CELL DISTRIBUTION WIDTH 13.8 % (11.5-14.5); WHITE BLOOD COUNT 6.9 K/uL (4.8-10.8)
[2018-03-08 09:08] LABS: ALB/GLOB RATIO 1.6 (1.0-2.1); ALBUMIN 4.5 g/dL (3.5-5.0); ALT/SGPT 37 U/L (21-72); AST/SGOT 26 U/L (17-59); BLOOD UREA NITROGEN 14 mg/dL (9-20); CALCIUM 9.3 mg/dl (8.6-10.4); GFR AFRICAN-AMERICAN > 60; GFR NON-AFRICAN AMERICAN > 60
--- NOTE | 2018-03-08 10:42 | CP.PCM.PN ---
Subjective - Date & Time of Evaluation Date of Evaluation: 03/08/18 Time of Evaluation: 10:40 - Subjective Subjective: Mr. Holbrook was seen and examined at the bedside. He is alert, oriented, denies any headache or dizziness. He is able to ambulate to and from the bathroom with assistance. He is able to follow simple commands. MRI of the brain, MRA of the head did not show any acute findings.There was an episode of syncopal episodes during therapy session which prompted the staff to call for STRATEGIC INTELLIGENCE OFFICER. Objective - Vital Signs/Intake and Output Vital Signs (last 24 hours): Temp Pulse Resp BP Pulse Ox 98.2 F 69 18 133/85 96 03/08/18 07:00 03/08/18 08:19 03/08/18 07:00 03/08/18 09:11 03/08/18 07:00 Intake and Output: 03/08/18 03/08/18 06:59 18:59 Intake Total 1000 Balance 1000 - Medications Medications: Current Medications Acetaminophen (Tylenol 325mg Tab) 650 mg PO Q6 PRN PRN Reason: Pain, moderate (4-7) Aspirin (Aspirin Chewable) 81 mg PO DAILY [facility] Last Admin: 03/08/18 09:12 Dose: 81 mg Clopidogrel Bisulfate (Plavix) 75 mg PO DAILY [facility] Last Admin: 03/08/18 09:12 Dose: 75 mg Diazepam (Valium) 2 mg PO Q12 [facility] Last Admin: 03/08/18 09:12 Dose: 2 mg Enalapril Maleate (Vasotec) 5 mg PO DAILY [facility] Last Admin: 03/08/18 09:11 Dose: 5 mg Enoxaparin Sodium (Lovenox) 40 mg SC DAILY [facility] Last Admin: 03/06/18 10:11 Dose: 40 mg Sodium Chloride (Sodium Chloride 0.9%) 1,000 mls @ 50 mls/hr IV .Q20H [facility] Last Admin: 03/07/18 11:20 Dose: 50 mls/hr Ibuprofen (Motrin Tab) 400 mg PO Q6 PRN PRN Reason: Pain, Mild (1-3) Isosorbide Mononitrate (Imdur) 60 mg PO DAILY [facility] Last Admin: 03/08/18 09:12 Dose: 60 mg Metoprolol Tartrate (Lopressor) 50 mg PO BID [facility] Last Admin: 03/08/18 09:12 Dose: 50 mg Nitroglycerin (Nitrostat Sl Tab) 0.4 mg SL Q5M PRN PRN Reason: Chest Pain Rosuvastatin Calcium (Crestor) 20 mg PO HS [facility] Last Admin: 03/07/18 21:17 Dose: 20 mg - Labs Labs: 03/08/18 08:42 03/08/18 08:42 - Constitutional Appears: No Acute Distress - Head Exam Head Exam: NORMAL INSPECTION - Eye Exam Pupil Exam: PERRL - Neurological Exam Neurological Exam: Alert, Awake, Oriented x3 Neuro motor strength exam: Left Upper Extremity: 5, Right Upper Extremity: 5, Left Lower Extremity: 5, Right Lower Extremity: 5 Additional comments: alert, awake, follows commands. Assessment and Plan (1) Dizziness Assessment & Plan: Case discussed with Dr. Rick, continue all current medical, physical therapies. Recommend to follow any cardiology orders for work up since MRI of the brain and MRA of the head did not show any acute findings, hydration. Status: Acute
[2018-03-09] MEDS: Sodium Chloride 0.9% 1,000 ML IV SCH (03:10)
[2018-03-09 06:54] LABS: BASO % 0.5 % (0.0-2.0); EOS # 0.4 K/uL (0.0-0.7); EOS % 5.6 % (0.0-4.0); LYMPH # 2.5 K/uL (1.0-4.3); LYMPH % 31.9 % (20.0-40.0); MEAN CELL VOLUME 86.2 fL (80.0-94.0); MEAN CORPUSCULAR HEMOGLOBIN 29.6 pg (27.0-31.0); MEAN CORPUSCULAR HGB CONC 34.3 g/dL (33.0-37.0); MEAN PLATELET VOLUME 9.1 fL (7.2-11.7); MONO # 0.6 K/uL (0.0-0.8); MONO % 7.7 % (0.0-10.0); NEUT # 4.3 K/uL (1.8-7.0); NEUT % 54.3 % (50.0-75.0); RBC 5.06 Mil/uL (4.40-5.90); RED CELL DISTRIBUTION WIDTH 13.7 % (11.5-14.5); WHITE BLOOD COUNT 7.9 K/uL (4.8-10.8)
--- NOTE | 2018-03-09 07:17 | CP.PCM.PN ---
Subjective - Date & Time of Evaluation Date of Evaluation: 03/09/18 Time of Evaluation: 07:17 - Subjective Subjective: Progress note for Hospitalist service Patient seen and examined at bedside. He denies chest pain, shortness of breath , palpitations, abdominal pain, nausea, vomiting, diarrhea. Patient was initially due for cardiac cath today, however procedure postponed to tomorrow. Objective - Vital Signs/Intake and Output Vital Signs (last 24 hours): Temp Pulse Resp BP Pulse Ox 98.0 F 57 L 20 121/79 95 03/08/18 23:30 03/08/18 23:35 03/08/18 23:30 03/08/18 23:30 03/08/18 23:30 Intake and Output: 03/09/18 03/09/18 06:59 18:59 Intake Total 400 Output Total 300 Balance 100 - Medications Medications: Current Medications Acetaminophen (Tylenol 325mg Tab) 650 mg PO Q6 PRN PRN Reason: Pain, moderate (4-7) Aspirin (Aspirin Chewable) 81 mg PO DAILY [facility] Last Admin: 03/08/18 09:12 Dose: 81 mg Clopidogrel Bisulfate (Plavix) 75 mg PO DAILY [facility] Last Admin: 03/08/18 09:12 Dose: 75 mg Diazepam (Valium) 2 mg PO Q12 [facility] Last Admin: 03/08/18 21:33 Dose: 2 mg Enalapril Maleate (Vasotec) 5 mg PO DAILY [facility] Last Admin: 03/08/18 09:11 Dose: 5 mg Enoxaparin Sodium (Lovenox) 40 mg SC DAILY [facility] Last Admin: 03/06/18 10:11 Dose: 40 mg Ibuprofen (Motrin Tab) 400 mg PO Q6 PRN PRN Reason: Pain, Mild (1-3) Isosorbide Mononitrate (Imdur) 60 mg PO DAILY [facility] Last Admin: 03/08/18 09:12 Dose: 60 mg Metoprolol Tartrate (Lopressor) 50 mg PO BID [facility] Last Admin: 03/08/18 18:04 Dose: 50 mg Nitroglycerin (Nitrostat Sl Tab) 0.4 mg SL Q5M PRN PRN Reason: Chest Pain Rosuvastatin Calcium (Crestor) 20 mg PO HS [facility] Last Admin: 03/08/18 21:33 Dose: 20 mg - Labs Labs: 03/09/18 06:32 03/08/18 08:42 - Constitutional Appears: Well, No Acute Distress - Head Exam Head Exam: ATRAUMATIC, NORMOCEPHALIC - Eye Exam Eye Exam: EOMI - ENT Exam ENT Exam: Mucous Membranes Moist Additional comments: fibrotic TMs bilaterally, intact, nonerythematous. - Neck Exam Neck Exam: Full ROM. absent: Tenderness - Respiratory Exam Respiratory Exam: Clear to Ausculation Bilateral, NORMAL BREATHING PATTERN. absent: Rales, Rhonchi, Wheezes, Respiratory Distress, Stridor - Cardiovascular Exam Cardiovascular Exam: REGULAR RHYTHM, +S1, +S2 - GI/Abdominal Exam GI & Abdominal Exam: Soft, Normal Bowel Sounds. absent: Distended, Firm, Guarding, Rigid, Tenderness - Extremities Exam Extremities Exam: absent: Calf Tenderness, Pedal Edema - Back Exam Back Exam: absent: CVA tenderness (L), CVA tenderness (R) - Neurological Exam Neurological Exam: Alert, Awake, Oriented x3 - Psychiatric Exam Psychiatric exam: Normal Affect, Normal Mood - Skin Skin Exam: Dry, Intact, Warm Assessment and Plan - Assessment and Plan (Free Text) Plan: Assessment/Plan: Chest Pain r/o ACS Hx of inferior wall CA HFpEF August 2017 Admission : - CODE HEART- underwent PCI of proximal and mid RCA with CHARO x [address] Jones - ECHO - LVEF 55%, mild LVH Current admission: Cardiology consulted - Dr. Jones, help appreciated - Initial EKG NSR @ 82BPM - CXR: no infiltrates noted - 03/04/18 Troponins x3 negative - 03/05/18 ECHO: left ventricle systolic function is normal. The ejection fraction is 60-65%. diastolic dysfunction. no aortic regurgitation is present. There is no mitral valve regurgitation noted. There is mild tricuspid regurgitation, no pulmonary hypertension, mild pulmonary valvular regurgitation. - 03/05/18 nuclear stress test results: evidence of old inferior wall CA. No evidence of reversible ischemia. Aggressive medical management and risk factor modification. Restarted home medications: - ASA 81mg PO daily, Plavix 75mg PO daily, Enalapril 5mg PO daily, Lopressor 50mg PO BID, Imdur 60mg PO daily, and Lipitor 40mg PO daily (Crestor 20mg given for Lipitor since not in formulary) - 03/05/18: Code star was called after patient fell when he became dizzy after nuclear stress test (see below) - 03/07/18 Rapid response called after patient became dizzy and had a syncopal episode, then complained of severe chest pain. Patient was given SL Nitroglycerin, after which pain resolved. ROMIx3 negative with no new change in EKGs. - 03/08/18 Review of monitor and storage bin tender revealed patient remained in sinus rhythm in 60s. Patient is asymptomatic, denies chest pain. - PEGGY score of 4 - 03/09/18: monitor and storage bin tender reveals patient is in sinus rhythm in 60s. Initial plan for cardiac cath with Dr. Jones today, postponed till tomorrow 03/10/18. CAD - Resumed home medications: ASA 81mg PO daily, Plavix 75mg PO daily, Enalapril 5mg PO daily, Lopressor 50mg PO BID and Lipitor 40mg PO daily (Crestor 20mg given for Lipitor since not in formulary) - 03/07/18 Rapid response called after patient became dizzy and had a syncopal episode, then complained of severe chest pain. Patient was given SL Nitroglycerin, after which pain resolved. ROMIx3 negative with no new change in EKGs. - 03/08/18 Review of monitor and storage bin tender revealed patient remained in sinus rhythm in 60s - Plan for cardiac cath on 03/10/18 Syncope - 03/07/18 Rapid response called after patient became dizzy and had a syncopal episode, then complained of severe chest pain. Patient was given SL Nitroglycerin, after which pain resolved. ROMIx3 negative with no new change in EKGs. - 03/08/18 Review of monitor and storage bin tender revealed patient remained in sinus rhythm in 60s. Patient is asymptomatic, denies chest pain. - 03/09/18 Patient remains asymptomatic Dizziness Vertigo - 03/05/18 Code Star was called after patient fell when he became dizzy after his nuclear stress test today. He denies LOC, chest pain, shortness of breath, head trauma. He states he simply felt dizzy and fell, bracing his fall with his hands. 03/05/18 Xrays of right shoulder and humerus no acute fracture or dislocation 03/05/18 Xray of right hand: 10mm radioopaque foreign body in 1st web space; patient later admitted he had hand surgery 20 years ago with a surgical clip in place. 03/05/18 Xray to right humerus no fracture or dislocation -CT of the head shows no intracranial mass, hemorrhage or evidence of acute infarct -Bilateral lower extremity dopplers negative 03/06/18 Neurology consulted - Dr. Rick - help appreciated, after patient became dizzy and nearly fell. -MRA neck without contrast: No significant stenosis is seen at the visualized bilateral common and internal carotid arteries in the neck. The bilateral vertebral arteries appear widely patent as imaged as well -MRI brain: Limited age-related neuro degenerative findings are appreciated which appear age- appropriate in general. No acute intracranial findings by standard MR criteria as discussed above. -MRA Head: Unremarkable -Neuro recs: likely BPPV- started on Diazepam 2mg PO BID, Vestibular therapy - 03/06/18 As per Neuro recommendations, patient started on Diazepam 2mg PO BID and vestibular therapy since dizziness likely secondary to BPPV. - 03/07/18 Rapid response called after patient became dizzy and had a syncopal episode, then complained of severe chest pain. Patient was given SL Nitroglycerin, after which pain resolved. ROMIx3 negative with no new change in EKGs. - 03/08/18 Review of monitor and storage bin tender revealed patient remained in sinus rhythm in 60s - Plan for cardiac cath on 03/10/18 Hx of Hepatitis C - Treated - Continue to monitor LFTs given patient is on Crestor Dyslipidemia - Crestor 20mg PO HS Prophylactic Measures - GI PPX: Protonix - DVT PPX: SCDs, Lovenox 40mg SC - Healthy heart diet - fall risk precautions - NPO after midnight for cardiac catheterization tomorrow. Case discussed with Dr. Jamison Huggins, PGY1
[2018-03-09 07:33] LABS: ALB/GLOB RATIO 1.5 (1.0-2.1); ALBUMIN 4.1 g/dL (3.5-5.0); ALT/SGPT 38 U/L (21-72); AST/SGOT 27 U/L (17-59); BLOOD UREA NITROGEN 14 mg/dL (9-20); CALCIUM 9.2 mg/dl (8.6-10.4); GFR AFRICAN-AMERICAN > 60; GFR NON-AFRICAN AMERICAN > 60
[2018-03-09 10:49] LABS: INR 1.2; PROTHROMBIN TIME 12.6 SECONDS (9.7-12.2)
--- NOTE | 2018-03-09 11:31 | CP.PCM.PN ---
Subjective - Date & Time of Evaluation Date of Evaluation: 03/09/18 Time of Evaluation: 08:45 - Subjective Subjective: Pt seen and examined at bedside. Pt complaining of minor dizziness, otherwise feels well. No acute events overnight. 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 The physical therapist was able to catch the patient's fall and bring the patient to his bed, so he did not incur any physical trauma. Upon awakening from the syncopal spell, the patient complained of severe chest pain. The chest pain was resolved with sublingual nitro, and EKG showed no acute ST or T changes with troponins negative x3. Patient will go today for diagnostic cardiac catheterization to assess for any present coronary artery disease. Denies chest pain, shortness of breath, nausea, vomiting, headache +Dizziness Objective - Vital Signs/Intake and Output Vital Signs (last 24 hours): Temp Pulse Resp BP Pulse Ox 98.2 F 67 18 156/97 H 97 03/09/18 07:30 03/09/18 09:42 03/09/18 07:30 03/09/18 09:42 03/09/18 07:30 Intake and Output: 03/09/18 03/09/18 06:59 18:59 Intake Total 400 Output Total 300 Balance 100 - Medications Medications: Current Medications Acetaminophen (Tylenol 325mg Tab) 650 mg PO Q6 PRN PRN Reason: Pain, moderate (4-7) Aspirin (Aspirin Chewable) 81 mg PO DAILY [facility] Last Admin: 03/08/18 09:12 Dose: 81 mg Clopidogrel Bisulfate (Plavix) 75 mg PO DAILY [facility] Last Admin: 03/08/18 09:12 Dose: 75 mg Diazepam (Valium) 2 mg PO Q12 [facility] Last Admin: 03/09/18 09:45 Dose: Not Given Enalapril Maleate (Vasotec) 5 mg PO DAILY [facility] Last Admin: 03/08/18 09:11 Dose: 5 mg Enoxaparin Sodium (Lovenox) 40 mg SC DAILY [facility] Last Admin: 03/06/18 10:11 Dose: 40 mg Ibuprofen (Motrin Tab) 400 mg PO Q6 PRN PRN Reason: Pain, Mild (1-3) Isosorbide Mononitrate (Imdur) 60 mg PO DAILY [facility] Last Admin: 03/08/18 09:12 Dose: 60 mg Metoprolol Tartrate (Lopressor) 50 mg PO BID [facility] Last Admin: 03/09/18 09:43 Dose: 50 mg Nitroglycerin (Nitrostat Sl Tab) 0.4 mg SL Q5M PRN PRN Reason: Chest Pain Rosuvastatin Calcium (Crestor) 20 mg PO HS [facility] Last Admin: 03/08/18 21:33 Dose: 20 mg - Labs Labs: 03/09/18 06:32 03/09/18 06:32 PT 12.6 SECONDS (9.7-12.2) H 03/09/18 10:38 INR 1.2 03/09/18 10:38 APTT 32 SECONDS (21-34) 03/09/18 10:38 - Constitutional Appears: Well, No Acute Distress - Head Exam Head Exam: NORMAL INSPECTION, NORMOCEPHALIC - Eye Exam Eye Exam: EOMI, Normal appearance, PERRL - ENT Exam ENT Exam: Mucous Membranes Moist - Respiratory Exam Respiratory Exam: Clear to Ausculation Bilateral. absent: Rales, Rhonchi, Wheezes - Cardiovascular Exam Cardiovascular Exam: REGULAR RHYTHM, +S1, +S2 - Extremities Exam Extremities Exam: absent: Pedal Edema - Neurological Exam Neurological Exam: Alert, Awake, CN II-XII Intact, Oriented x3 Assessment and Plan (1) Chest pain Assessment & Plan: Hx CAD, [place] s/p CHARO x2 On tele Syncopal episode Friday a/w chest pain EKG 03/07: No acute ST or T changes Cardiac Enzymes 03/07: Negative x3 Echo 03/05: LV systolic function normal, EF 60-65%, mild TR, mild pulmonic regurgitation Status: Acute (2) Coronary artery disease Assessment & Plan: Continue aspirin, plavix, BALTA, Imdur, Metoprolol, Rosuvastatin Patient to go to labeling specialist today for diagnostic cardiac catheterization Status: Acute
--- NOTE | 2018-03-09 16:11 | CP.PCM.PN ---
Subjective - Date & Time of Evaluation Date of Evaluation: 03/09/18 Time of Evaluation: 08:40 - Subjective Subjective: Neurology progress note ( Dr. Sam's service) Patient was seen and examined at bedside. Patient reports that he is doing with improving symptoms of dizziness. As per nursing, patient was able to ambulate with minimal assistance. Patient admits to decreased dizziness with movement. Patient denies fever, chills, nausea, vomiting, chest pain, palpitatons, SOB. Objective - Vital Signs/Intake and Output Vital Signs (last 24 hours): Temp Pulse Resp BP Pulse Ox 98.2 F 63 18 145/93 H 97 03/09/18 07:30 03/09/18 13:35 03/09/18 07:30 03/09/18 13:38 03/09/18 07:30 Intake and Output: 03/09/18 03/09/18 06:59 18:59 Intake Total 400 130 Output Total 300 Balance 100 130 - Medications Medications: Current Medications Acetaminophen (Tylenol 325mg Tab) 650 mg PO Q6 PRN PRN Reason: Pain, moderate (4-7) Aspirin (Aspirin Chewable) 81 mg PO DAILY [facility] Last Admin: 03/09/18 13:37 Dose: 81 mg Clopidogrel Bisulfate (Plavix) 75 mg PO DAILY [facility] Last Admin: 03/09/18 13:37 Dose: 75 mg Diazepam (Valium) 2 mg PO Q12 [facility] Last Admin: 03/09/18 09:45 Dose: Not Given Enalapril Maleate (Vasotec) 5 mg PO DAILY [facility] Last Admin: 03/09/18 13:38 Dose: 5 mg Enoxaparin Sodium (Lovenox) 40 mg SC DAILY [facility] Last Admin: 03/06/18 10:11 Dose: 40 mg Ibuprofen (Motrin Tab) 400 mg PO Q6 PRN PRN Reason: Pain, Mild (1-3) Isosorbide Mononitrate (Imdur) 60 mg PO DAILY [facility] Last Admin: 03/09/18 13:39 Dose: 60 mg Metoprolol Tartrate (Lopressor) 50 mg PO BID [facility] Last Admin: 03/09/18 09:43 Dose: 50 mg Nitroglycerin (Nitrostat Sl Tab) 0.4 mg SL Q5M PRN PRN Reason: Chest Pain Rosuvastatin Calcium (Crestor) 20 mg PO HS [facility] Last Admin: 03/08/18 21:33 Dose: 20 mg - Labs Labs: 03/09/18 06:32 03/09/18 06:32 PT 12.6 SECONDS (9.7-12.2) H 03/09/18 10:38 INR 1.2 03/09/18 10:38 APTT 32 SECONDS (21-34) 03/09/18 10:38 - Constitutional Appears: Well, No Acute Distress - Head Exam Head Exam: ATRAUMATIC, NORMAL INSPECTION - Eye Exam Eye Exam: EOMI, Normal appearance - ENT Exam ENT Exam: Mucous Membranes Moist - Respiratory Exam Respiratory Exam: Clear to Ausculation Bilateral, NORMAL BREATHING PATTERN. absent: Rhonchi, Wheezes - Cardiovascular Exam Cardiovascular Exam: REGULAR RHYTHM, +S1, +S2. absent: Murmur - GI/Abdominal Exam GI & Abdominal Exam: Soft, Normal Bowel Sounds. absent: Distended, Firm, Guarding, Rigid, Tenderness - Extremities Exam Extremities Exam: Normal Inspection. absent: Calf Tenderness, Pedal Edema - Neurological Exam Neurological Exam: Alert, Awake, CN II-XII Intact, Oriented x3 Neuro motor strength exam: Left Upper Extremity: 5, Right Upper Extremity: 5, Left Lower Extremity: 5, Right Lower Extremity: 5 - Psychiatric Exam Psychiatric exam: Normal Affect, Normal Mood - Skin Skin Exam: Normal Color Assessment and Plan (1) Benign positional vertigo Assessment & Plan: Valium 2mg PO BID Physical Therapy: Vestibular therapy Status: Acute (2) Dizziness Assessment & Plan: Head CT without contrast: Normal CT of the Head. No intracranial mass, hemorrhage or evidence of acute infarct Brain MRI w/o contrast: Limited age-related neuro degenerative findings are appreciated which appear age-appropriate in general. No acute intracranial findings by standard MR criteria as discussed above Head/ Neck MRA: Unremarkable MR angiography of the brain / No significant stenosis is seen at the visualized bilateral common and internal carotid arteries in the neck. The bilateral vertebral arteries appear widely patent as imaged as well. No further management as per neurology at this point. Please follow up with any cardiology work-up Thank you for the consultation All plans and management discussed with Dr. Sam Status: Acute
[2018-03-10 05:40] LABS: BASO % 0.6 % (0.0-2.0); EOS # 0.5 K/uL (0.0-0.7); EOS % 6.5 % (0.0-4.0); HEMOGLOBIN 14.8 g/dL (12.0-18.0); LYMPH # 2.5 K/uL (1.0-4.3); LYMPH % 34.6 % (20.0-40.0); MEAN CELL VOLUME 85.1 fL (80.0-94.0); MEAN CORPUSCULAR HEMOGLOBIN 29.7 pg (27.0-31.0); MEAN CORPUSCULAR HGB CONC 34.9 g/dL (33.0-37.0); MEAN PLATELET VOLUME 8.9 fL (7.2-11.7); MONO # 0.6 K/uL (0.0-0.8); MONO % 7.7 % (0.0-10.0); NEUT # 3.7 K/uL (1.8-7.0); NEUT % 50.6 % (50.0-75.0); NRBC % 0.2 % (0.0-2.0); RBC 4.99 Mil/uL (4.40-5.90); RED CELL DISTRIBUTION WIDTH 13.6 % (11.5-14.5); WHITE BLOOD COUNT 7.2 K/uL (4.8-10.8)
[2018-03-10 06:27] LABS: ALB/GLOB RATIO 1.6 (1.0-2.1); ALBUMIN 4.3 g/dL (3.5-5.0); ALT/SGPT 40 U/L (21-72); AST/SGOT 26 U/L (17-59); BLOOD UREA NITROGEN 16 mg/dL (9-20); GFR AFRICAN-AMERICAN > 60; GFR NON-AFRICAN AMERICAN > 60
[2018-03-10] MEDS ORDERED: Lidocaine 2% MPF (5 ml) Inj ONE (07:00)
[2018-03-10] MEDS ORDERED: Iohexol 350mg/ml 100 ML ONE (07:03)
[2018-03-10] MEDS ORDERED: Midazolam 2 MG/2 ML VIAL ONE ×2 (07:07→07:40)
--- NOTE | 2018-03-10 18:02 | CARD ---
APPROVED REPORT Date of service: 03/05/2018 EKG Measurement Heart [id number] <Conclusion> Normal sinus rhythm Left axis deviation Abnormal ECG
--- NOTE | 2018-03-10 20:37 | CP.PCM.PN ---
Subjective - Date & Time of Evaluation Date of Evaluation: 03/10/18 Time of Evaluation: 08:00 - Subjective Subjective: PGY-1 medicne not for the hospitalist service. Patient seen and examined at bedside. He is back from his catheterization. He says he feels well and has no complaints at this time. Denies fever, chills, nausea, chest pain, shortness and vomiting Objective - Vital Signs/Intake and Output Vital Signs (last 24 hours): Temp Pulse Resp BP Pulse Ox 98.2 F 64 20 109/70 95 03/10/18 15:18 03/10/18 15:18 03/10/18 15:18 03/10/18 15:18 03/10/18 15:18 Intake and Output: 03/10/18 03/11/18 18:59 06:59 Intake Total 300 Balance 300 - Medications Medications: Current Medications Acetaminophen (Tylenol 325mg Tab) 650 mg PO Q6 PRN PRN Reason: Pain, moderate (4-7) Aspirin (Aspirin Chewable) 81 mg PO DAILY [facility] Last Admin: 03/10/18 11:16 Dose: 81 mg Clopidogrel Bisulfate (Plavix) 75 mg PO DAILY [facility] Last Admin: 03/10/18 11:17 Dose: 75 mg Diazepam (Valium) 2 mg PO Q12 [facility] Last Admin: 03/10/18 11:17 Dose: 2 mg Enalapril Maleate (Vasotec) 5 mg PO DAILY [facility] Last Admin: 03/10/18 11:17 Dose: 5 mg Enoxaparin Sodium (Lovenox) 40 mg SC DAILY [facility] Last Admin: 03/06/18 10:11 Dose: 40 mg Ibuprofen (Motrin Tab) 400 mg PO Q6 PRN PRN Reason: Pain, Mild (1-3) Isosorbide Mononitrate (Imdur) 60 mg PO DAILY [facility] Last Admin: 03/10/18 11:17 Dose: 60 mg Metoprolol Tartrate (Lopressor) 50 mg PO BID [facility] Last Admin: 03/10/18 17:27 Dose: 50 mg Nitroglycerin (Nitrostat Sl Tab) 0.4 mg SL Q5M PRN PRN Reason: Chest Pain Rosuvastatin Calcium (Crestor) 20 mg PO HS [facility] Last Admin: 03/09/18 21:22 Dose: 20 mg - Labs Labs: 03/10/18 05:37 07/24/18 05:37 PT 12.6 SECONDS (9.7-12.2) H 03/09/18 10:38 INR 1.2 03/09/18 10:38 APTT 32 SECONDS (21-34) 03/09/18 10:38 - Head Exam Head Exam: ATRAUMATIC, NORMOCEPHALIC - Eye Exam Eye Exam: EOMI, Normal appearance Pupil Exam: NORMAL ACCOMODATION - ENT Exam ENT Exam: Mucous Membranes Moist - Neck Exam Neck Exam: Full ROM - Respiratory Exam Respiratory Exam: Clear to Ausculation Bilateral, NORMAL BREATHING PATTERN. absent: Decreased Breath Sounds, Rales, Rhonchi, Wheezes - Cardiovascular Exam Cardiovascular Exam: REGULAR RHYTHM, +S1, +S2 - GI/Abdominal Exam GI & Abdominal Exam: Soft, Normal Bowel Sounds. absent: Firm, Guarding, Tenderness - Neurological Exam Neurological Exam: Alert, Altered, Awake, Oriented x3 - Psychiatric Exam Psychiatric exam: Normal Mood - Skin Skin Exam: Dry, Normal Color Assessment and Plan - Assessment and Plan (Free Text) Plan: Chest Pain r/o ACS Hx of inferior wall OR HFpEF August 2017 Admission : - CODE HEART- underwent PCI of proximal and mid RCA with CHARO x [address] Jones - ECHO - LVEF 55%, mild LVH Current admission: Cardiology consulted - Dr. Jones, help appreciated - Initial EKG NSR @ 82BPM - CXR: no infiltrates noted - 03/04/18 Troponins x3 negative - 03/05/18 ECHO: left ventricle systolic function is normal. The ejection fraction is 60-65%. diastolic dysfunction. no aortic regurgitation is present. There is no mitral valve regurgitation noted. There is mild tricuspid regurgitation, no pulmonary hypertension, mild pulmonary valvular regurgitation. - 03/05/18 nuclear stress test results: evidence of old inferior wall OR. No evidence of reversible ischemia. Aggressive medical management and risk factor modification. Restarted home medications: - ASA 81mg PO daily, Plavix 75mg PO daily, Enalapril 5mg PO daily, Lopressor 50mg PO BID, Imdur 60mg PO daily, and Lipitor 40mg PO daily (Crestor 20mg given for Lipitor since not in formulary) - 03/05/18: Code star was called after patient fell when he became dizzy after nuclear stress test (see below) - 03/07/18 Rapid response called after patient became dizzy and had a syncopal episode, then complained of severe chest pain. Patient was given SL Nitroglycerin, after which pain resolved. ROMIx3 negative with no new change in EKGs. - 03/08/18 Review of railroad firer/fireman revealed patient remained in sinus rhythm in 60s. Patient is asymptomatic, denies chest pain. 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 Initial plan for cardiac cath with Dr. Jones today, postponed till tomorrow 03/10/18. CAD - Resumed home medications: ASA 81mg PO daily, Plavix 75mg PO daily, Enalapril 5mg PO daily, Lopressor 50mg PO BID and Lipitor 40mg PO daily (Crestor 20mg given for Lipitor since not in formulary) - 03/07/18 Rapid response called after patient became dizzy and had a syncopal episode, then complained of severe chest pain. Patient was given SL Nitroglycerin, after which pain resolved. ROMIx3 negative with no new change in EKGs. - 03/08/18 Review of railroad firer/fireman revealed patient remained in sinus rhythm in 60s - Plan for cardiac cath on 03/10/18 Syncope - 03/07/18 Rapid response called after patient became dizzy and had a syncopal episode, then complained of severe chest pain. Patient was given SL Nitroglycerin, after which pain resolved. ROMIx3 negative with no new change in EKGs. - 03/08/18 Review of railroad firer/fireman revealed patient remained in sinus rhythm in 60s. Patient is asymptomatic, denies chest pain. - 03/09/18 Patient remains asymptomatic Dizziness Vertigo - 03/05/18 Code Star was called after patient fell when he became dizzy after his nuclear stress test today. He denies LOC, chest pain, shortness of breath, head trauma. He states he simply felt dizzy and fell, bracing his fall with his hands. 03/05/18 Xrays of right shoulder and humerus no acute fracture or dislocation 03/05/18 Xray of right hand: 10mm radioopaque foreign body in 1st web space; patient later admitted he had hand surgery 20 years ago with a surgical clip in place. 03/05/18 Xray to right humerus no fracture or dislocation -CT of the head shows no intracranial mass, hemorrhage or evidence of acute infarct -Bilateral lower extremity dopplers negative 03/06/18 Neurology consulted - Dr. Rick - help appreciated, after patient became dizzy and nearly fell. -MRA neck without contrast: No significant stenosis is seen at the visualized bilateral common and internal carotid arteries in the neck. The bilateral vertebral arteries appear widely patent as imaged as well -MRI brain: Limited age-related neuro degenerative findings are appreciated which appear age- appropriate in general. No acute intracranial findings by standard MR criteria as discussed above. -MRA Head: Unremarkable -Neuro recs: likely BPPV- started on Diazepam 2mg PO BID, Vestibular therapy - 03/06/18 As per Neuro recommendations, patient started on Diazepam 2mg PO BID and vestibular therapy since dizziness likely secondary to BPPV. - 03/07/18 Rapid response called after patient became dizzy and had a syncopal episode, then complained of severe chest pain. Patient was given SL Nitroglycerin, after which pain resolved. ROMIx3 negative with no new change in EKGs. - 03/08/18 Review of railroad firer/fireman revealed patient remained in sinus rhythm in 60s - Plan for cardiac cath on 03/10/18 Hx of Hepatitis C - Treated - Continue to monitor LFTs given patient is on Crestor Dyslipidemia - Crestor 20mg PO HS Prophylactic Measures - GI PPX: Protonix - DVT PPX: SCDs, Lovenox 40mg SC - Healthy heart diet - fall risk precautions - NPO after midnight for cardiac catheterization tomorrow. Patient went for diagnostic cath today, LAD is 45-55% occluded, will go for stent placment tomorrow at [place].
[2018-03-11 04:24] LABS: BASO # 0.1 K/uL (0.0-0.2); BASO % 0.6 % (0.0-2.0); EOS # 0.4 K/uL (0.0-0.7); HEMOGLOBIN 15.4 g/dL (12.0-18.0); LYMPH # 2.5 K/uL (1.0-4.3); LYMPH % 28.3 % (20.0-40.0); MEAN CORPUSCULAR HEMOGLOBIN 29.1 pg (27.0-31.0); MEAN CORPUSCULAR HGB CONC 34.3 g/dL (33.0-37.0); MEAN PLATELET VOLUME 9.2 fL (7.2-11.7); MONO # 0.7 K/uL (0.0-0.8); MONO % 8.4 % (0.0-10.0); NEUT % 57.7 % (50.0-75.0); NRBC % 0.2 % (0.0-2.0); RBC 5.27 Mil/uL (4.40-5.90); RED CELL DISTRIBUTION WIDTH 13.5 % (11.5-14.5); WHITE BLOOD COUNT 8.7 K/uL (4.8-10.8)
[2018-03-11 05:20] LABS: ALB/GLOB RATIO 1.4 (1.0-2.1); ALBUMIN 4.2 g/dL (3.5-5.0); ALT/SGPT 33 U/L (21-72); AST/SGOT 22 U/L (17-59); BLOOD UREA NITROGEN 15 mg/dL (9-20); CALCIUM 9.1 mg/dl (8.6-10.4); GFR AFRICAN-AMERICAN > 60; GFR NON-AFRICAN AMERICAN > 60
--- NOTE | 2018-03-11 09:20 | CARDCATH ---
DATE OF PROCEDURE: 03/10/2018 INDICATIONS: The patient a 57-year-old male with a history of CAD status post IA on August 18 of this year, who presented with symptoms of chest pain pressure-like in sensation with a dizziness episode. The patient underwent a nuclear stress test, which shows some reversible ischemia; and therefore was taken to the to the laboratory administrative director for further evaluation and treatment. PROCEDURE PERFORMED: Left heart catheterization with selective left and right coronary angiogram, left ventriculogram, 6-Tunisian right femoral arterial access, and Mynx closure device for hemostasis. TECHNIQUES OF PROCEDURE: After obtaining informed consent, the patient was brought to the cardiac cath suite in post-absorptive, non-sedated state. The patient was prepped and draped in the usual sterile fashion. A 2% lidocaine was used for infiltration of anesthesia. Using modified Seldinger technique, a 6-Tunisian sheath was introduced into the right femoral artery. Subsequently, over a J-wire, JL4 and JR4 diagnostic catheters were used to engage the left and right coronary system. Angiograms were obtained in different orthogonal views. LV gram was obtained pullback gradients were noted. HEMODYNAMIC FINDINGS: Left ventricular end-diastolic pressure was 22 mmHg. There was no gradient noted upon the aortic valve pullback. There was no AI and no IA. Left ventricular ejection fraction was estimated to be 60 to 65%. CORONARY ANATOMY: Left main is a large-sized vessel and bifurcates into LAD and circumflex. Left circumflex large sized vessel runs in the AV groove has a mid 85% stenosis before trifurcating into OM and [place] circumflex. LAD has a proximal 45 to 50% stenosis gives off two small diagonal branches. RCA proximal and mid stents are patent. PDA has distal high grade 65% stenosis. IMPRESSION: Two vessels coronary artery disease, high grade mid circumflex and PDA lesions. RECOMMENDATIONS: The patient is to be transferred to the [facility] for PCI of the PDA and left circumflex disease. Clark Jones MD
--- NOTE | 2018-03-11 15:09 | CP.PCM.PN ---
Subjective - Date & Time of Evaluation Date of Evaluation: 03/11/18 Time of Evaluation: 15:07 - Subjective Subjective: Progress note for Hospitalist service Patient seen and examined at bedside. He reports that he is feeling well after his procedure. Only complains of mild pain in his left groin after he had stents placed at [facility] today. He states he feels slightly dizzy with movement. He denies headache, chest pain, abdominal pain, nausea, vomiting, diarrhea, leg pain. Objective - Vital Signs/Intake and Output Vital Signs (last 24 hours): Temp Pulse Resp BP Pulse Ox 98.4 F 75 18 130/77 95 03/11/18 13:46 03/11/18 13:54 03/11/18 13:46 03/11/18 13:48 03/11/18 13:46 - Medications Medications: Current Medications Acetaminophen (Tylenol 325mg Tab) 650 mg PO Q6 PRN PRN Reason: Pain, moderate (4-7) Aspirin (Aspirin Chewable) 81 mg PO DAILY [facility] Last Admin: 03/11/18 13:08 Dose: Not Given Clopidogrel Bisulfate (Plavix) 75 mg PO DAILY [facility] Last Admin: 03/11/18 13:09 Dose: Not Given Diazepam (Valium) 2 mg PO Q12 [facility] Last Admin: 03/11/18 13:48 Dose: Not Given Enalapril Maleate (Vasotec) 5 mg PO DAILY [facility] Last Admin: 03/11/18 13:48 Dose: 5 mg Enoxaparin Sodium (Lovenox) 40 mg SC DAILY [facility] Last Admin: 03/06/18 10:11 Dose: 40 mg Ibuprofen (Motrin Tab) 400 mg PO Q6 PRN PRN Reason: Pain, Mild (1-3) Isosorbide Mononitrate (Imdur) 60 mg PO DAILY [facility] Last Admin: 03/11/18 13:47 Dose: 60 mg Metoprolol Tartrate (Lopressor) 50 mg PO BID [facility] Last Admin: 03/11/18 13:48 Dose: 50 mg Nitroglycerin (Nitrostat Sl Tab) 0.4 mg SL Q5M PRN PRN Reason: Chest Pain Rosuvastatin Calcium (Crestor) 20 mg PO HS [facility] Last Admin: 03/10/18 21:38 Dose: 20 mg - Labs Labs: 03/11/18 04:21 03/11/18 04:21 PT 12.6 SECONDS (9.7-12.2) H 03/09/18 10:38 INR 1.2 03/09/18 10:38 APTT 32 SECONDS (21-34) 03/09/18 10:38 - Constitutional Appears: Well, No Acute Distress (lying flat in bed, talking on the phone ) - Head Exam Head Exam: ATRAUMATIC, NORMOCEPHALIC - Eye Exam Eye Exam: EOMI - ENT Exam ENT Exam: Mucous Membranes Moist - Neck Exam Neck Exam: Full ROM. absent: Tenderness - Respiratory Exam Respiratory Exam: Clear to Ausculation Bilateral, NORMAL BREATHING PATTERN. absent: Rales, Rhonchi, Wheezes, Respiratory Distress, Stridor - Cardiovascular Exam Cardiovascular Exam: REGULAR RHYTHM, +S1, +S2 - GI/Abdominal Exam GI & Abdominal Exam: Soft, Normal Bowel Sounds. absent: Distended, Firm, Guarding, Rigid, Tenderness - Extremities Exam Extremities Exam: absent: Calf Tenderness, Pedal Edema Additional comments: Left groin wound s/p stent placement, dressings clean, dry and intact. 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 Jones - ECHO - LVEF 55%, mild LVH Current admission: Cardiology consulted - Dr. Jones, help appreciated - Initial EKG NSR @ 82BPM - CXR: no infiltrates noted - 03/04/18 Troponins x3 negative - 03/05/18 ECHO: left ventricle systolic function is normal. The ejection fraction is 60-65%. diastolic dysfunction. no aortic regurgitation is present. There is no mitral valve regurgitation noted. There is mild tricuspid regurgitation, no pulmonary hypertension, mild pulmonary valvular regurgitation. - 03/05/18 nuclear stress test results: evidence of old inferior wall IN. No evidence of reversible ischemia. Aggressive medical management and risk factor modification. Restarted home medications: - ASA 81mg PO daily, Plavix 75mg PO daily, Enalapril 5mg PO daily, Lopressor 50mg PO BID, Imdur 60mg PO daily, and Lipitor 40mg PO daily (Crestor 20mg given for Lipitor since not in formulary) - 03/05/18: Code star was called after patient fell when he became dizzy after nuclear stress test (see below) - 03/07/18 Rapid response called after patient became dizzy and had a syncopal episode, then complained of severe chest pain. Patient was given SL Nitroglycerin, after which pain resolved. ROMIx3 negative with no new change in EKGs. - PEGGY score of 4 - Patient had diagnostic catheterization on 03/10/18 which revealed LAD is 45-55% , transferred to [facility] 03/11/18 for stent placement. As per Dr. Jones's note, patient had mid left circumflex coronary artery stented with deployment of 2.5 x 15 mm Amish drug-eluting stent, recommended anti-platelet therapy for 1 year and guideline directed therapy for CAD. Patient to resume ASA, Plavix, Crestor, Lopressor at this time. CAD - Resumed home medications: ASA 81mg PO daily, Plavix 75mg PO daily, Enalapril 5mg PO daily, Lopressor 50mg PO BID and Lipitor 40mg PO daily (Crestor 20mg given for Lipitor since not in formulary) - 03/07/18 Rapid response called after patient became dizzy and had a syncopal episode, then complained of severe chest pain. Patient was given SL Nitroglycerin, after which pain resolved. ROMIx3 negative with no new change in EKGs. - Patient had diagnostic catheterization on 03/10/18 which revealed LAD is 45-55% , transferred to [facility] for stent placement. As per Dr. Jones's note, patient had mid left circumflex coronary artery stented with deployment of 2.5 x 15 mm Amish drug-eluting stent, recommended anti-platelet therapy for 1 year and guideline directed therapy for CAD. Syncope - 03/07/18 Rapid response called after patient became dizzy and had a syncopal episode, then complained of severe chest pain. Patient was given SL Nitroglycerin, after which pain resolved. ROMIx3 negative with no new change in EKGs. -Patient has not had any syncopal episodes. Dizziness Vertigo - 03/05/18 Code Star was called after patient fell when he became dizzy after his nuclear stress test today. He denies LOC, chest pain, shortness of breath, head trauma. He states he simply felt dizzy and fell, bracing his fall with his hands. 03/05/18 Xrays of right shoulder and humerus no acute fracture or dislocation 03/05/18 Xray of right hand: 10mm radioopaque foreign body in 1st web space; patient later admitted he had hand surgery 20 years ago with a surgical clip in place. 03/05/18 Xray to right humerus no fracture or dislocation -CT of the head shows no intracranial mass, hemorrhage or evidence of acute infarct -Bilateral lower extremity dopplers negative 03/06/18 Neurology consulted - Dr. Rick - help appreciated, after patient became dizzy and nearly fell. -MRA neck without contrast: No significant stenosis is seen at the visualized bilateral common and internal carotid arteries in the neck. The bilateral vertebral arteries appear widely patent as imaged as well -MRI brain: Limited age-related neuro degenerative findings are appreciated which appear age- appropriate in general. No acute intracranial findings by standard MR criteria as discussed above. -MRA Head: Unremarkable -Neuro recs: likely BPPV- started on Diazepam 2mg PO BID, Vestibular therapy - 03/06/18 As per Neuro recommendations, patient started on Diazepam 2mg PO BID and vestibular therapy since dizziness likely secondary to BPPV. - 03/07/18 Rapid response called after patient became dizzy and had a syncopal episode, then complained of severe chest pain. Patient was given SL Nitroglycerin, after which pain resolved. ROMIx3 negative with no new change in EKGs. - Patient had diagnostic catheterization on 03/10/18 which revealed LAD is 45-55% , transferred to [facility] today for stent placement.As per Dr. Jones's note, patient had mid left circumflex coronary artery stented with deployment of 2.5 x 15 mm Amish drug-eluting stent, recommended anti-platelet therapy for 1 year and guideline directed therapy for CAD. Hx of Hepatitis C - Treated - Continue to monitor LFTs given patient is on Crestor Dyslipidemia - Crestor 20mg PO HS Prophylactic Measures - GI PPX: Protonix - DVT PPX: SCDs, Heparin 5000 unitsQ8 - Healthy heart diet - fall risk precautions Disposition: Patient may be discharged tomorrow with the plan to follow up with Dr. Jones in 1 week. Patient to follow up outpatient for vestibular therapy. Case discussed with Dr. Jamison Huggins, PGY1
[2018-03-12 00:45] VITALS: RESP 20
[2018-03-12 08:15] LABS: BASO % 0.6 % (0.0-2.0); EOS # 0.3 K/uL (0.0-0.7); EOS % 4.3 % (0.0-4.0); HEMOGLOBIN 15.1 g/dL (12.0-18.0); LYMPH # 2.3 K/uL (1.0-4.3); LYMPH % 31.4 % (20.0-40.0); MEAN CELL VOLUME 84.9 fL (80.0-94.0); MEAN CORPUSCULAR HGB CONC 35.4 g/dL (33.0-37.0); MEAN PLATELET VOLUME 9.2 fL (7.2-11.7); MONO # 0.6 K/uL (0.0-0.8); MONO % 8.4 % (0.0-10.0); NEUT # 4.1 K/uL (1.8-7.0); NEUT % 55.3 % (50.0-75.0); NRBC % 0.1 % (0.0-2.0); RBC 5.02 Mil/uL (4.40-5.90); WHITE BLOOD COUNT 7.4 K/uL (4.8-10.8)
[2018-03-12 08:26] VITALS: BP 131/78; PULSE 67; TEMP 98.4; O2SAT 94
--- NOTE | 2018-03-12 08:34 | CP.PCM.PN ---
Subjective - Date & Time of Evaluation Date of Evaluation: 03/12/18 Time of Evaluation: 08:15 - Subjective Subjective: Hospitalist Progress Note Patient was seen and examined at 8:15 AM 667 A by speaking in [place] FULL ROS Mild Dizziness when he moves his head too quickly Left Groin pain (site of Cardiac Cath entry) is soreness that has improved since last night NO dysphagia/odynopahgia NO soreness in throat NO cough NO sinus/nasal congestion NO fever/chills NO muscle aches/pains NO joint pain NO chest pain/palpations NO SOB NO abdominal pain NO n/v/d/c NO burning pain with urination NO RAINEY NO paresthesias Exam: General: AAOX3, NAD HEENT: NCA, EOMI, PERRLA, NO cervical/supraclavicular/submandibular lymphadenopathy, NO pharyngeal erythema/exudate, Nasal Turbinates are nonerythematous/nonedematous, Oral Mucosa is moist, NO thyromegaly Cardio: NS1 and NS2, NO M/R/G Resp: CTA B/L, NO R/R/W GI: BSx4, Soft, NT, NO HSM, NO guarding/rebound tenderness Ext: Pulses are strong and equal, Capillary Refill is 2 seconds, NO edema, Extremities are noncyanotic/warm, Left Groin Cardiac Cath site shows no bleeding and no signs of cellulitis/hardness around entry site Neuro: CN II through XII are grossly intact Assessments: 1). CAD S/P Cardiac Cath 03/11/[address] Jones 2). 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 Hx Hepatitis C with treatment in 2005 as per patient 4). Hx HLD Spoke with Packaging Associate Dr. Jones on evening of 03/11/18 and he is cleared for discharge and to continue his current medication regimen. The following instructions were explained to patient in [place] and a copy will need to be provided to patient upon discharge: 1). Schedule follow up with the [facility] located on Floor [address] of [address] in [place], [place] by calling [phone] for an appointment that should take place in the next 7 to 10 days. Come through the main entrance of the hospital and speak with the security clerk at the front office representative and someone will help you get to the clinic on Floor [address]. The physicians at this clinic will be your primary care physicians that will help you to coordinate your health care and provide you with prescriptions for your medications that you will need to have filled at your pharmacy. 2). Schedule follow up with Packaging Associate Dr. Clark Jones by calling for an appointment that should take place in the next 7 days. His office is located at [address] [place] [address] [place] [address]. 3). Schedule follow up with Neurologist Dr. Too Rick by calling [phone] for an appointment that should take place in the next 7 to 10 days. His office is located at [address] [place] [address], [address] in [place], [place]. Dr. Rick will help set up physical therapy for your dizziness. Do NOT move your head too quickly as this is what has been worsening your dizziness as explained to you at the time of your exams. 4). Please have the following prescriptions filled at your pharmacy on the way from the hospital. These prescriptions are only for 30 days. You must follow up with the [facility] as mentioned above for future prescriptions. Please use these medications as instructed: Aspirin 81 mg, 1 tablet by mouth 1 time per day (8 AM) Plavix 75 mg, 1 tablet by mouth 1 time per day (8 AM) Valium 2 mg, 1 tablet by mouth 2 times per day (8 AM and 8 PM) Enalapril 5 mg, 1 tablet by mouth 1 time per day (2 PM) Isosorbide Mononitrate 60 mg, 1 tablet by mouth 1 time per day (8 PM) Crestor 20 mg, 1 tablet by mouth 1 time per day (8 PM) Nitroglycerin 0.4 mg, 1 tablet under the tongue ONLY as needed for chest pain every 5 minutes for NO MORE than 3 doses 5). Please take care and be well. Jamison Siddiqi D.O. Objective - Vital Signs/Intake and Output Vital Signs (last 24 hours): Temp Pulse Resp BP Pulse Ox 98.4 F 67 20 131/78 94 L 03/12/18 07:26 03/12/18 07:26 03/12/18 07:26 03/12/18 07:26 03/12/18 07:26 Intake and Output: 03/12/18 03/12/18 06:59 18:59 Intake Total 200 Output Total 500 Balance -300 - Medications Medications: Current Medications Acetaminophen (Tylenol 325mg Tab) 650 mg PO Q6 PRN PRN Reason: Pain, moderate (4-7) Aspirin (Aspirin Chewable) 81 mg PO DAILY [facility] Last Admin: 03/11/18 13:08 Dose: Not Given Clopidogrel Bisulfate (Plavix) 75 mg PO DAILY [facility] Last Admin: 03/11/18 13:09 Dose: Not Given Diazepam (Valium) 2 mg PO Q12 [facility] Last Admin: 03/11/18 21:21 Dose: 2 mg Enalapril Maleate (Vasotec) 5 mg PO DAILY [facility] Last Admin: 03/11/18 13:48 Dose: 5 mg Heparin Sodium (Porcine) (Heparin) 5,000 units SC Q8 [facility] Last Admin: 03/12/18 05:44 Dose: 5,000 units Ibuprofen (Motrin Tab) 400 mg PO Q6 PRN PRN Reason: Pain, Mild (1-3) Isosorbide Mononitrate (Imdur) 60 mg PO DAILY [facility] Last Admin: 03/11/18 13:47 Dose: 60 mg Metoprolol Tartrate (Lopressor) 50 mg PO BID [facility] Last Admin: 03/11/18 17:57 Dose: 50 mg Nitroglycerin (Nitrostat Sl Tab) 0.4 mg SL Q5M PRN PRN Reason: Chest Pain Rosuvastatin Calcium (Crestor) 20 mg PO HS [facility] Last Admin: 03/11/18 21:21 Dose: 20 mg - Labs Labs: 03/12/18 08:05 03/11/18 04:21 PT 12.6 SECONDS (9.7-12.2) H 03/09/18 10:38 INR 1.2 03/09/18 10:38 APTT 32 SECONDS (21-34) 03/09/18 10:38
[2018-03-12 08:40] LABS: ALB/GLOB RATIO 1.5 (1.0-2.1); ALBUMIN 4.3 g/dL (3.5-5.0); ALT/SGPT 30 U/L (21-72); AST/SGOT 25 U/L (17-59); BLOOD UREA NITROGEN 14 mg/dL (9-20); CALCIUM 9.1 mg/dl (8.6-10.4); GFR AFRICAN-AMERICAN > 60; GFR NON-AFRICAN AMERICAN > 60
--- NOTE | 2018-03-12 09:21 | CP.PCM.PN ---
Subjective - Date & Time of Evaluation Date of Evaluation: 03/12/18 Time of Evaluation: 09:15 - Subjective Subjective: Pt seen and examined at bedside. No acute events overnight. Pt is doing well after successful PCI with stenting yesterday of mid circumflex artery and PDA. Pt slept well overnight, not complaining of any pain. Denies chest pain, nausea , vomiting, headache, leg swelling. Mild dizziness still present, but much improved. Pt will be discharged today. Objective - Vital Signs/Intake and Output Vital Signs (last 24 hours): Temp Pulse Resp BP Pulse Ox 98.4 F 67 20 131/78 94 L 03/12/18 07:26 03/12/18 07:26 03/12/18 07:26 03/12/18 07:26 03/12/18 07:26 Intake and Output: 03/12/18 03/12/18 06:59 18:59 Intake Total 200 Output Total 500 Balance -300 - Medications Medications: Current Medications Acetaminophen (Tylenol 325mg Tab) 650 mg PO Q6 PRN PRN Reason: Pain, moderate (4-7) Aspirin (Aspirin Chewable) 81 mg PO DAILY [facility] Last Admin: 03/11/18 13:08 Dose: Not Given Clopidogrel Bisulfate (Plavix) 75 mg PO DAILY [facility] Last Admin: 03/11/18 13:09 Dose: Not Given Diazepam (Valium) 2 mg PO Q12 [facility] Last Admin: 03/11/18 21:21 Dose: 2 mg Enalapril Maleate (Vasotec) 5 mg PO DAILY [facility] Last Admin: 03/11/18 13:48 Dose: 5 mg Heparin Sodium (Porcine) (Heparin) 5,000 units SC Q8 [facility] Last Admin: 03/12/18 05:44 Dose: 5,000 units Ibuprofen (Motrin Tab) 400 mg PO Q6 PRN PRN Reason: Pain, Mild (1-3) Isosorbide Mononitrate (Imdur) 60 mg PO DAILY [facility] Last Admin: 03/11/18 13:47 Dose: 60 mg Metoprolol Tartrate (Lopressor) 50 mg PO BID [facility] Last Admin: 03/11/18 17:57 Dose: 50 mg Nitroglycerin (Nitrostat Sl Tab) 0.4 mg SL Q5M PRN PRN Reason: Chest Pain Rosuvastatin Calcium (Crestor) 20 mg PO HS [facility] Last Admin: 03/11/18 21:21 Dose: 20 mg - Labs Labs: 03/12/18 08:05 03/12/18 08:05 PT 12.6 SECONDS (9.7-12.2) H 03/09/18 10:38 INR 1.2 03/09/18 10:38 APTT 32 SECONDS (21-34) 03/09/18 10:38 - Constitutional Appears: Well, No Acute Distress - Head Exam Head Exam: NORMAL INSPECTION, NORMOCEPHALIC - Eye Exam Eye Exam: EOMI, Normal appearance, PERRL - ENT Exam ENT Exam: Mucous Membranes Moist - Respiratory Exam Respiratory Exam: Clear to Ausculation Bilateral, NORMAL BREATHING PATTERN. absent: Rales, Rhonchi, Wheezes - GI/Abdominal Exam GI & Abdominal Exam: Soft, Normal Bowel Sounds. absent: Tenderness - Extremities Exam Extremities Exam: absent: Pedal Edema, Tenderness - Neurological Exam Neurological Exam: Alert, Awake, CN II-XII Intact, Oriented x3 - Skin Skin Exam: Intact, Normal Color Assessment and Plan (1) Chest pain Assessment & Plan: Hx CAD, [place] s/p CHARO x2 (08/19/17) Echo 03/05: LV systolic function normal, EF 60-65%, mild TR, mild pulmonic regurgitation Status: Acute Diagnostic Cardiac Cath (03/10): High grade lesions of mid circumflex artery and PDA PCI yesterday successful with complete return of coronary blood flow Pt to be discharged this morning Follow up outpatient in one week Status: Acute (2) Coronary artery disease Status: Acute
--- NOTE | 2018-03-12 09:26 | CP.PCM.DIS ---
Provider - Provider Date of Admission: 03/06/18 11:10 Attending physician: Jamison Siddiqi MD Consults: Cardio: Robert Time Spent in preparation of Discharge (in minutes): 40 Hospital Course - Lab Results Lab Results: Most Recent Lab Values WBC 7.4 K/uL (4.8-10.8) 03/12/18 08:05 RBC 5.02 Mil/uL (4.40-5.90) 03/12/18 08:05 Hgb 15.1 g/dL (12.0-18.0) 03/12/18 08:05 Hct 42.6 % (35.0-51.0) 03/12/18 08:05 MCV 84.9 fL (80.0-94.0) 03/12/18 08:05 MCH 30.0 pg (27.0-31.0) 03/12/18 08:05 MCHC 35.4 g/dL (33.0-37.0) 03/12/18 08:05 RDW 14.0 % (11.5-14.5) 03/12/18 08:05 Plt Count 159 K/uL (130-400) 03/12/18 08:05 MPV 9.2 fL (7.2-11.7) 03/12/18 08:05 Neut % (Auto) 55.3 % (50.0-75.0) 03/12/18 08:05 Lymph % (Auto) 31.4 % (20.0-40.0) 03/12/18 08:05 [place] % (Auto) 8.4 % (0.0-10.0) 03/12/18 08:05 Eos % (Auto) 4.3 % (0.0-4.0) H 03/12/18 08:05 Baso % (Auto) 0.6 % (0.0-2.0) 03/12/18 08:05 Neut # (Auto) 4.1 K/uL (1.8-7.0) 03/12/18 08:05 Lymph # (Auto) 2.3 K/uL (1.0-4.3) 03/12/18 08:05 [place] # (Auto) 0.6 K/uL (0.0-0.8) 03/12/18 08:05 Eos # (Auto) 0.3 K/uL (0.0-0.7) 03/12/18 08:05 Baso # (Auto) 0.0 K/uL (0.0-0.2) 03/12/18 08:05 PT 12.6 SECONDS (9.7-12.2) H 03/09/18 10:38 INR 1.2 03/09/18 10:38 APTT 32 SECONDS (21-34) 03/09/18 10:38 Sodium 142 mmol/L (132-148) 03/12/18 08:05 Potassium 4.1 mmol/L (3.6-5.2) 03/12/18 08:05 Chloride 106 mmol/L (98-107) 03/12/18 08:05 Carbon Dioxide 24 mmol/L (22-30) 03/12/18 08:05 Anion Gap 17 (10-20) 03/12/18 08:05 BUN 14 mg/dL (9-20) 03/12/18 08:05 Creatinine 0.9 mg/dL (0.8-1.5) 03/12/18 08:05 Est GFR ( Amer) > 60 03/12/18 08:05 Est GFR (Non-Af Amer) > 60 03/12/18 08:05 Random Glucose 92 mg/dL (75-110) 03/12/18 08:05 Hemoglobin A1c 5.3 % (4.2-6.5) 03/04/18 18:37 Calcium 9.1 mg/dl (8.6-10.4) 03/12/18 08:05 Phosphorus 3.3 mg/dL (2.5-4.5) 03/12/18 08:05 Magnesium 1.9 mg/dL (1.6-2.3) 03/12/18 08:05 Total Bilirubin 1.3 mg/dL (0.2-1.3) 03/12/18 08:05 AST 25 U/L (17-59) 03/12/18 08:05 ALT 30 U/L (21-72) 03/12/18 08:05 Alkaline Phosphatase 55 U/L (38-126) 03/12/18 08:05 Total Creatine Kinase 64 U/L (55-170) 03/07/18 17:20 CK-MB (Mass) 0.31 ng/mL (0.0-3.38) 03/07/18 17:20 Troponin I < 0.0120 ng/mL (0.00-0.120) 03/07/18 17:20 Total Protein 7.1 g/dL (6.3-8.3) 03/12/18 08:05 Albumin 4.3 g/dL (3.5-5.0) 03/12/18 08:05 Globulin 2.8 gm/dL (2.2-3.9) 03/12/18 08:05 Albumin/Globulin Ratio 1.5 (1.0-2.1) 03/12/18 08:05 Triglycerides 155 mg/dL (0-149) H D 03/04/18 18:37 Cholesterol 105 mg/dL (0-199) 03/04/18 18:37 LDL Cholesterol Direct 42 mg/dL (0-129) 03/04/18 18:37 HDL Cholesterol 31 mg/dL (30-70) 03/04/18 18:37 Free T4 0.82 ng/dL (0.78-2.19) 03/04/18 21:22 TSH 3rd Generation 0.89 mIU/L (0.46-4.68) 03/04/18 18:37 - Hospital Course Hospital Course: On admission: HPI: This is a 57 year old Somali male with PMHx of Inferior wall [place] s/p 2 CHARO, Dyslipidemia, Hepatitis C s/p treatment in 2005, and Vertigo who presents to the ED with chest pain. Reimbursement Manager #[id number] assisted me in retrieving the history. Patient reports he was walking around his apartment earlier today when he started to feel sharp, aching chest pain that was localized near the apex of his heart around 4:30PM. Admitted to dizziness, shortness of breath and generalized bilateral upper extremity weakness. Denied any syncopal episode or diaphoresis. Patient reports the pain became better after he was given ASA in the ED. He reports he is compliant with his medications and takes them daily. He has followed up with Dr. Jones 09/2017. Denied any fever, chills, headache, abdominal pain, n/v/d/c, or urinary complaints. Hospital course: Patient was admitted for evaluation of chest pain to rule out acute coronary syndrome. Cardiology Dr. Jones was consulted on the case. EKG and Troponins were negative. After patient had his nuclear stress test, patient became dizzy and fell injuring his right shoulder and right hand. Xrays of right shoulder, right hand and CT of head without contrast did not reveal fracture, dislocation or brain bleed. Later in his hospitalization, patient also became dizzy, had a syncopal episode and then complained of severe chest pain, which resolved after he was given Nitroglycerin. Repeat serial EKGs and troponins were done, which were negative. Patient had a diagnostic catheterization which revealed occlusion of LAD at 45-55%. Patient was then transferred to [place] for placement of stent in his mid left circumflex artery with deployment of a drug- eluting stent. As per Cardiology recommendation, patient was restarted on Aspirin, Plavix, Lopressor, Imdur and Crestor. Neurology Dr. Rick was consulted on the case for dizziness and syncopal episode. MRA head and neck were done which were negative for acute findings. As per Neurology, recommended patient receive treatment with Valium 2mg PO twice daily for dizziness likely secondary to benign paroxysmal positional vertigo. Upon discharge, patient was medically stable without experiencing chest pain. Imagin03/04/18 CXR: no infiltrates noted 03/05/18 ECHO: left ventricle systolic function is normal. The ejection fraction is 60-65%. diastolic dysfunction. no aortic regurgitation is present. There is no mitral valve regurgitation noted. There is mild tricuspid regurgitation, no pulmonary hypertension, mild pulmonary valvular regurgitation. 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 No evidence of reversible ischemia. Aggressive medical management and risk factor modification. 03/05/18 Xrays of right shoulder and humerus no acute fracture or dislocation 03/05/18 Xray of right hand: 10mm radioopaque foreign body in 1st web space; patient later admitted he had hand surgery 20 years ago with a surgical clip in place. 03/05/18 Xray to right humerus no fracture or dislocation 03/06/18 CT of the head shows no intracranial mass, hemorrhage or evidence of acute infarct 03/05/18 Bilateral lower extremity dopplers negative 03/06/18 MRI brain: limited age-related neurodegenerative findings are appreciated which appear age-appropriate in general. No acute intracranial findings by standard MR criteria as discussed above. 03/06/18 MRA neck without contrast: No significant stenosis is seen at the visualized bilateral common and internal carotid arteries in the neck. The bilateral vertebral arteries appear widely patent as imaged as well -MRI brain: Limited age-related neuro degenerative findings are appreciated which appear age -appropriate in general. No acute intracranial findings by standard MR criteria as discussed above. 03/06/18 MRA Head: Unremarkable 03/07/18 no interval acute cardiopulmonary disease appreciable. Discharge summary: As per Communications Assistant Dr. Jones on evening of 03/11/18 and he is cleared for discharge and to continue his current medication regimen. The following instructions were explained to patient in [place] and a copy will need to be provided to patient upon discharge: 1). Schedule follow up with the [facility] located on Floor [address] of [address] in [place], [place] by calling [phone] for an appointment that should take place in the next 7 to 10 days. Come through the main entrance of the hospital and speak with the cloud security architect at the motel front desk attendant and someone will help you get to the clinic on Floor [address]. The physicians at this clinic will be your primary care physicians that will help you to coordinate your health care and provide you with prescriptions for your medications that you will need to have filled at your pharmacy. 2). Schedule follow up with Communications Assistant Dr. Clark Jones by calling for an appointment that should take place in the next 7 days. His office is located at [address] [place] [address] [place] [address]. 3). Schedule follow up with Neurologist Dr. Too Rick by calling [phone] for an appointment that should take place in the next 7 to 10 days. His office is located at [address] [place] [address], [address] in [place], [place] Dr. Rick will help set up physical therapy for your dizziness. Do NOT move your head too quickly as this is what has been worsening your dizziness as explained to you at the time of your exams. 4). Please have the following prescriptions filled at your pharmacy on the way from the hospital. These prescriptions are only for 30 days. You must follow up with the [facility] as mentioned above for future prescriptions. Please use these medications as instructed: Aspirin 81 mg, 1 tablet by mouth 1 time per day (8 AM) Plavix 75 mg, 1 tablet by mouth 1 time per day (8 AM) Valium 2 mg, 1 tablet by mouth 2 times per day (8 AM and 8 PM) Enalapril 5 mg, 1 tablet by mouth 1 time per day (2 PM) Isosorbide Mononitrate 60 mg, 1 tablet by mouth 1 time per day (8 PM) Nitroglycerin 0.4 mg, 1 tablet under the tongue ONLY as needed for chest pain every 5 minutes for NO MORE than 3 doses Metoprolol Tartrate 50 mg, 1 tablet by mouth 2 times per day (8AM and 8 PM) Atorvastatin 40 mg, 1 tablet by mouth 1 time per day (8PM) 5). Please take care and be well. Discharge Exam - Head Exam Head Exam: ATRAUMATIC, NORMOCEPHALIC - Eye Exam Eye Exam: EOMI - ENT Exam ENT Exam: Mucous Membranes Moist, Normal Oropharynx - Neck Exam Neck exam: Full Rom - Respiratory Exam Respiratory Exam: Clear to PA & Lateral, NORMAL BREATHING PATTERN. absent: Rales, Rhonchi, Wheezes, Respiratory Distress, Stridor - Cardiovascular Exam Cardiovascular Exam: REGULAR RHYTHM, +S1, +S2. absent: Gallop, Rubs, Systolic Murmur - GI/Abdominal Exam GI & Abdominal Exam: Normal Bowel Sounds, Soft. absent: Tenderness - Extremities Exam Extremities exam: normal capillary refill, pedal pulses present Additional comments: no calf tenderness, no pedal edema. good capillary refill. Bandage to site of cardiac cath is clean, dry, intact. no evidence of bleeding. no signs of infections around entry site. - Neurological Exam Neurological exam: Alert, CN II-XII Intact, Oriented x3 - Skin Skin Exam: Dry, Intact, Warm Discharge Plan - Discharge Medications Prescriptions: Aspirin [Aspirin Chewable] 81 mg PO DAILY #30 chew Atorvastatin [Lipitor] 40 mg PO HS #30 tab Clopidogrel [Plavix] 75 mg PO DAILY #30 tab diaZEpam [Valium] 2 mg PO Q12 #60 tab Enalapril Maleate [Vasotec] 5 mg PO DAILY #30 tab Isosorbide Mononitrate [Imdur] 60 mg PO DAILY #30 tab Metoprolol Tartrate [Lopressor] 50 mg PO BID #60 tab Nitroglycerin 0.4 mg SL Q5M PRN #30 tab.subl PRN Reason: Other - Follow Up Plan Condition: STABLE Disposition: HOME/ ROUTINE Instructions: Vertigo (a Type of Dizziness), Syncope (Fainting), Coronary Stenting, Heart Healthy Diet, Chest Pain, Cardiac Catheterization (DC), Coronary Heart Disease (DC) Additional Instructions: The following instructions were explained to patient in [place] and a copy will need to be provided to patient upon discharge: 1). Schedule follow up with the [facility] located on [address] of [address] in [place], [place] by calling [phone] for an appointment that should take place in the next 7 to 10 days. Come through the main entrance of the hospital and speak with the cloud security architect at the motel front desk attendant and someone will help you get to the clinic on Floor [address]. The physicians at this clinic will be your primary care physicians that will help you to coordinate your health care and provide you with prescriptions for your medications that you will need to have filled at your pharmacy. 2). Schedule follow up with Communications Assistant Dr. Clark Jones by calling [phone] for an appointment that should take place in the next 7 days. His office is located at [address] [place] [address] [place] [address]. 3). Schedule follow up with Neurologist Dr. Too Rick by calling [phone] for an appointment that should take place in the next 7 to 10 days. His office is located at [address] [place] [address], [address] in [place], [place] Dr. Rick will help set up physical therapy for your dizziness. Do NOT move your head too quickly as this is what has been worsening your dizziness as explained to you at the time of your exams. 4). Please have the following prescriptions filled at your pharmacy on the way from the hospital. These prescriptions are only for 30 days. You must follow up with the [facility] as mentioned above for future prescriptions. Please use these medications as instructed: Aspirin 81 mg, 1 tablet by mouth 1 time per day (8 AM) Plavix 75 mg, 1 tablet by mouth 1 time per day (8 AM) Valium 2 mg, 1 tablet by mouth 2 times per day (8 AM and 8 PM) Enalapril 5 mg, 1 tablet by mouth 1 time per day (2 PM) Isosorbide Mononitrate 60 mg, 1 tablet by mouth 1 time per day (8 PM) Metoprolol tartrate 50mg, 1 tablet by mouth 2 times per day (8AM and 8PM) Atorvastatin 40 mg, 1 tablet by mouth 1 time per day (8 PM) Nitroglycerin 0.4 mg, 1 tablet under the tongue ONLY as needed for chest pain every 5 minutes for NO MORE than 3 doses 5). Please take care and be well. Referrals: Clark Jones MD [Staff Provider] - Too Rick MD [Staff Provider] -
== END 2018-03-12 12:00 | disposition home or self-care (01) | DRG 247 ==
LOC: C.ER 17:05 → C.9E 20:17 → C.5S 21:15 → C.6T 03-05 06:47 → OBSVTOIN 03-06 11:10 → C.6T 03-06 18:58
PROVIDERS: ADMIT Family Medicine; ATTEND Family Medicine
PROC: 4A023N7 Measurement of Cardiac Sampling and Pressure, Left Heart, Percutaneous Approach (ICD-10-PCS; 2018-03-10)
PROC: B2151ZZ Fluoroscopy of Left Heart using Low Osmolar Contrast (ICD-10-PCS; 2018-03-10)
PROC: B2111ZZ Fluoroscopy of Multiple Coronary Arteries using Low Osmolar Contrast (ICD-10-PCS; 2018-03-10)
PROC: 027034Z Dilation of Coronary Artery, One Artery with Drug-eluting Intraluminal Device, Percutaneous Approach (ICD-10-PCS; principal; 2018-03-11)
DX: I25.10 Atherosclerotic heart disease of native coronary artery without angina pectoris (principal); I24.0 Acute coronary thrombosis not resulting in myocardial infarction; I50.30 Unspecified diastolic (congestive) heart failure; H81.10 Benign paroxysmal vertigo, unspecified ear; H93.19 Tinnitus, unspecified ear; I07.1 Rheumatic tricuspid insufficiency; I37.1 Nonrheumatic pulmonary valve insufficiency; M79.5 Residual foreign body in soft tissue; B19.20 Unspecified viral hepatitis C without hepatic coma; E78.5 Hyperlipidemia, unspecified; M79.641 Pain in right hand; M25.511 Pain in right shoulder; W01.0XXA Fall on same level from slipping, tripping and stumbling without subsequent striking against object, initial encounter; Y92.238 Other place in hospital as the place of occurrence of the external cause; I25.2 Old myocardial infarction; Z95.5 Presence of coronary angioplasty implant and graft; Z79.82 Long term (current) use of aspirin; Z79.899 Other long term (current) drug therapy

== ENCOUNTER 2018-03-28 11:08 | Observation (INO) | payer MEDICAID ==
--- NOTE | 2018-03-28 11:16 | C.PDOC ---
History Of Present Illness 57 year old patient with PMHx of CAD and SHx of 3 coronary stents presents to the ED complaining of left sided chest pain since midnight. Associated symptoms include SOB and dizziness that began yesterday. 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 Denies radiation of pain, fever, chills, nausea or vomiting. Time Seen by Provider: 03/28/18 11:12 Chief Complaint (Nursing): Chest Pain History Per: Patient History/Exam Limitations: no limitations Onset/Duration Of Symptoms: Hrs Current Symptoms Are (Timing): Still Present Associated Symptoms: Dyspnea Past Medical History Reviewed: Historical Data, Nursing Documentation, Vital Signs Vital Signs: Last Vital Signs Temp 98.3 F 03/28/18 11:15 Pulse 58 L 03/28/18 15:32 Resp 16 03/28/18 15:32 BP 130/82 03/28/18 15:32 Pulse Ox 100 03/28/18 15:32 - Medical History PMH: CAD Denies: Chronic Kidney Disease Surgical History: Coronary Stent (X 3) - [facility] Procedures DILATION OF 1 COR ART WITH 2 DRUG-ELUT, PERC APPROACH (08/18/17) DILATION OF 1 COR ART WITH DRUG-ELUT INTRA, PERC APPROACH (03/06/18) FLUOROSCOPY OF LEFT HEART USING LOW OSMOLAR CONTRAST (03/06/18) FLUOROSCOPY OF MULT COR ART USING L OSM CONTRAST (03/06/18) FLUOROSCOPY OF RIGHT AND LEFT HEART USING L OSM CONTRAST (08/18/17) MEASURE OF CARDIAC SAMPL & PRESSURE, L HEART, PERC APPROACH (03/06/18) Family History: States: [place] - Social History Hx Tobacco Use: No Hx Alcohol Use: No Hx Substance Use: No - Immunization History Hx Tetanus Toxoid Vaccination: No Hx Influenza Vaccination: No Hx Pneumococcal Vaccination: No Review Of Systems Except As Marked, All Systems Reviewed And Found Negative. Constitutional: Negative for: Fever, Chills Cardiovascular: Positive for: Chest Pain Respiratory: Positive for: Shortness of Breath Gastrointestinal: Negative for: Nausea, Vomiting Physical Exam - Physical Exam Appears: Non-toxic Skin: Warm, Dry Head: Atraumatic, Normacephalic Eye(s): bilateral: Normal Inspection Nose: Normal Oral Mucosa: Moist Neck: Supple Chest: Symmetrical Cardiovascular: Rhythm Regular Respiratory: Normal Breath Sounds, No Rales, No Wheezing Gastrointestinal/Abdominal: Soft, No Tenderness, No Guarding, No Rebound Extremity: Pedal Edema (Mild ) Neurological/Psych: Oriented x3, Normal Speech Gait: Steady ED Course And Treatment - Laboratory Results Result Diagrams: 03/28/18 11:38 03/28/18 11:38 ECG: Interpreted By Me, Viewed By Me ECG Interpretation: No Acute Changes Interpretation Of ECG: No ST elevation or depression. Unremarkable O2 Sat by Pulse Oximetry: 98 (RA) Pulse Ox Interpretation: Normal Medical Decision Making Medical Decision Making: Impression: chest pain Orders: - EKG - Lab work - CXR Old records reviewed. Patient was code heart in August 2017. [address] Jones. Spoke with Dr. Jones, states patient has a small blockage of coronary artery causing angina and is clear to be discharged if labs result negative. If clear for discharge, patient will be given Rx for Ranexa. Disposition Discussed With DrLucia: Jamison Siddiqi Doctor Will See Patient In The: Hospital Counseled Patient/Family Regarding: Studies Performed, Diagnosis - Disposition Disposition: HOSPITALIZED Disposition Time: 12:59 Condition: GUARDED - POA Present On Arrival: None - Clinical Impression Clinical Impression: Unstable angina, Dizziness - Scribe Statement The provider has reviewed the documentation as recorded by the Scribe Lyric Lutz All medical record entries made by the Scribe were at my direction and personally dictated by me. I have reviewed the chart and agree that the record accurately reflects my personal performance of the history, physical exam, medical decision making, and the department course for this patient. I have also personally directed, reviewed, and agree with the discharge instructions and disposition. Decision To Admit - Pt Status Changed To: Hospital Disposition Of: Observation - . Bed Request Type: Telemetry Admitting Physician: Evangelist Forbes Patient Diagnosis: Unstable angina, Dizziness
[2018-03-28 11:17] VITALS: BMI 32.8
[2018-03-28 11:42] LABS: BASO % 0.6 % (0.0-2.0); EOS # 0.2 K/uL (0.0-0.7); EOS % 3.6 % (0.0-4.0); HEMOGLOBIN 14.5 g/dL (12.0-18.0); LYMPH # 1.9 K/uL (1.0-4.3); LYMPH % 29.8 % (20.0-40.0); MEAN CELL VOLUME 84.9 fL (80.0-94.0); MEAN CORPUSCULAR HEMOGLOBIN 29.9 pg (27.0-31.0); MEAN CORPUSCULAR HGB CONC 35.3 g/dL (33.0-37.0); MEAN PLATELET VOLUME 9.1 fL (7.2-11.7); MONO # 0.5 K/uL (0.0-0.8); MONO % 8.1 % (0.0-10.0); NEUT # 3.7 K/uL (1.8-7.0); NEUT % 57.9 % (50.0-75.0); NRBC % 0.1 % (0.0-2.0); RBC 4.84 Mil/uL (4.40-5.90); RED CELL DISTRIBUTION WIDTH 13.3 % (11.5-14.5); WHITE BLOOD COUNT 6.5 K/uL (4.8-10.8)
[2018-03-28 11:59] LABS: ALB/GLOB RATIO 1.6 (1.0-2.1); ALBUMIN 4.3 g/dL (3.5-5.0); ALT/SGPT 35 U/L (21-72); AST/SGOT 23 U/L (17-59); BLOOD UREA NITROGEN 11 mg/dL (9-20); CALCIUM 9.4 mg/dl (8.6-10.4); GFR AFRICAN-AMERICAN > 60; GFR NON-AFRICAN AMERICAN > 60
[2018-03-28 12:05] LABS: B-TYPE NATRIURETIC PEPTIDE 72.9 pg/mL (0-900)
--- NOTE | 2018-03-28 14:27 | CP.PCM.HP ---
History of Present Illness - History of Present Illness History of Present Illness: CC: Chest Pain Patient is a 57 y.o male who presents to the hospital for chest pain beginning at midnight. Patient describes the pain as a substernal pressure that is associated with shortness of breath. Patient states that he took 4 aspirins last night and tried to sleep but the pain would continuously wake him up. Patient states the pain has been constant, 10/10 in pain, localized to the anterior left upper chest with pain radiating to arms at times. Patient states he was getting ready for bed when the pain started all of a sudden. Patient was here 2 weeks ago for similar symptoms and had undergone cardiac cath where he received a stent with Dr. Jones. Patient states that he has had another prior [place] in August where he received [address] Jones. He states he visited Dr. Jones this past Friday and that his doctor removed 2 medications from his regiment but he does not remember which ones. PMH: Inferior wall [place] s/p 2 CHARO, [place] 2 weeks s/p 1 stent, Dyslipidemia, Hepatitis C s/p treatment in 2005, and Vertigo PSH: eye surgery (information limited) FH: Brothers (MIs) Meds: Aspirin 81mg PO daily, Plavix 75mg PO daily, Lopressor 50mg PO BID, Enalapril 5mg PO daily, Imdur 60mg PO Daily, Lipitor 40mg POqHS Allergies: NKDA Social: denies tobacco, alcohol, and drug use Code: Full Code ROS: Pertinent Positives: SOB, Chest pain, dizziness, orthostatic hypotension, presyoncpal episodes Pertinent Negatives: palpitations, n/v, constipation, diarrhea, dysuria, headaches, dizziness, cough, vision changes Present on Admission - Present on Admission Any Indicators Present on Admission: No Review of Systems - Constitutional Constitutional: absent: Chills, Fever, Headache - EENT Eyes: absent: Blurred Vision, Change in Vision Ears: Dizziness Nose/Mouth/Throat: absent: Sore Throat - Cardiovascular Cardiovascular: Chest Pain, Chest Pain at Rest, Dyspnea, Pain Radiating to Arm/ Neck/Jaw. absent: Lightheadedness, Palpitations, Rapid Heart Rate - Respiratory Respiratory: Dyspnea. absent: Cough - Gastrointestinal Gastrointestinal: absent: Abdominal Pain, Constipation, Diarrhea, Nausea, Vomiting - Genitourinary Genitourinary: absent: Change in Urinary Stream, Difficulty Urinating, Dysuria - Neurological Neurological: Dizziness, Syncope. absent: Headaches Past Patient History - Past Medical History & Family History Past Medical History?: Yes - Past Social History Smoking Status: Never Smoked - CARDIAC Hx Cardiac Disorders: Yes (CAD, Coronary Stent, STEMI, Angina,) Other/Comment: Coronary stent x3 - PULMONARY Hx Respiratory Disorders: No - NEUROLOGICAL Hx Neurological Disorder: Yes Hx Vertigo: Yes - HEENT Hx HEENT Problems: No - RENAL Hx Chronic Kidney Disease: No - ENDOCRINE/METABOLIC Hx Endocrine Disorders: No - HEMATOLOGICAL/ONCOLOGICAL Hx Hepatitis C: Yes - INTEGUMENTARY Hx Dermatological Problems: No - MUSCULOSKELETAL/RHEUMATOLOGICAL Hx Musculoskeletal Disorders: No Hx Falls: No - GASTROINTESTINAL Hx Gastrointestinal Disorders: No - GENITOURINARY/GYNECOLOGICAL Hx Genitourinary Disorders: No - PSYCHIATRIC Hx Substance Use: No - SURGICAL HISTORY Hx Coronary Stent: Yes (X 3) - ANESTHESIA Hx Anesthesia: Yes Hx Anesthesia Reactions: No Meds Allergies/Adverse Reactions: Allergies Allergy/AdvReac Type Severity Reaction Status Date / Time No Known Allergies Allergy Verified 03/04/18 17:12 Physical Exam - Constitutional Appears: Non-toxic, No Acute Distress - Head Exam Head Exam: NORMAL INSPECTION, NORMOCEPHALIC - Eye Exam Eye Exam: EOMI, Normal appearance. absent: Nystagmus, Scleral icterus - Respiratory Exam Respiratory Exam: Clear to Auscultation Bilateral, NORMAL BREATHING PATTERN. absent: Chest Wall Tenderness, Rales, Rhonchi, Wheezes - Cardiovascular Exam Cardiovascular Exam: REGULAR RHYTHM, +S1, +S2. absent: Bradycardia, Tachycardia , JVD, Systolic Murmur - GI/Abdominal Exam GI & Abdominal Exam: Normal Bowel Sounds, Soft. absent: Distended, Firm, Tenderness - Extremities Exam Extremities exam: Positive for: normal inspection. Negative for: calf tenderness, pedal edema - Back Exam Back exam: NORMAL INSPECTION. absent: CVA tenderness (L), CVA tenderness (R) - Neurological Exam Neurological exam: Alert, Oriented x3 - Psychiatric Exam Psychiatric exam: Normal Affect, Normal Mood Results - Vital Signs Recent Vital Signs: Last Vital Signs Temp 98.3 F 03/28/18 11:15 Pulse 55 L 03/28/18 12:58 Resp 17 03/28/18 12:58 BP 126/81 03/28/18 12:58 Pulse Ox 98 03/28/18 13:02 - Labs Result Diagrams: 03/28/18 11:38 03/28/18 11:38 Labs: Laboratory Results - last 24 hr 03/28/18 03/28/18 11:38 11:38 WBC 6.5 RBC 4.84 Hgb 14.5 Hct 41.0 MCV 84.9 MCH 29.9 MCHC 35.3 RDW 13.3 Plt Count 183 MPV 9.1 Neut % (Auto) 57.9 Lymph % (Auto) 29.8 [place] % (Auto) 8.1 Eos % (Auto) 3.6 Baso % (Auto) 0.6 Neut # (Auto) 3.7 Lymph # (Auto) 1.9 [place] # (Auto) 0.5 Eos # (Auto) 0.2 Baso # (Auto) 0.0 Sodium 142 Potassium 4.2 Chloride 104 Carbon Dioxide 26 Anion Gap 16 BUN 11 Creatinine 0.8 Est GFR ( Amer) > 60 Est GFR (Non-Af Amer) > 60 Random Glucose 94 Calcium 9.4 Total Bilirubin 1.0 AST 23 ALT 35 Alkaline Phosphatase 39 Troponin I < 0.0120 NT-Pro-B Natriuret Pep 72.9 Total Protein 7.1 Albumin 4.3 Globulin 2.8 Albumin/Globulin Ratio 1.6 Assessment & Plan - Assessment and Plan (Free Text) Plan: Chest Pain First Troponin <0.012; Second Troponin pending; DONNELL x1 pending EKGS pending Cxray pending Echo pending Cardio Consulted: Dr. Jones- recommendations appreciated Heart Healthy Diet BNP 72.9 Aspirin 81mg po daily Plavix 75mg po daily Enalapril 5mg po daily Metoprolol 50mg po bid Rosuvastatin 10mg po HS Dopplers pending D-dimer< [address] Rick- recommendations were as follows: likely vasovagal in origin due to chest pain, recommend a loop recorded to determine if the patient should be started on anticoagulation. For now, we will continue aspirin /plavix and crestor. Orthostatics pending Dizziness Neurology Consulted Dr Rick- This does not appear to be neurologic in origin, since it is associated with chest pain and is described more specifically as light-headedness. He denied vertigo. A cardiac work-up is appropriate with telemetry and possible echocardiogram Valium home med held for now
[2018-03-28] MEDS ORDERED: Metoprolol 1 mg/ml Inj IVP ONE (16:17)
--- NOTE | 2018-03-28 16:36 | CP.PCM.CON ---
History of Present Illness - History of Present Illness History of Present Illness: Neurology Consultation Note: Mr. Holbrook is a 57-year-old man with a past medical history of CAD, previous AL (s/p stent two weeks ago), who states that he was having chest pain and light -headedness this morning. He presented to the ED and was feeling well enough to get up and attempt to go to the bathroom. On his way to the bathroom, he developed chest pain, became light-headed and fell to the ground. He did not lose consciousness. I am familiar with this patient, when he was previously diagnosed with vertigo and he was started on Valium 2 mg PRN vertigo since meclizine did not help. He responded well to Valium and at that time neurological work-up was negative otherwise. Review of Systems - Review of Systems All systems: reviewed and no additional remarkable complaints except Past Patient History - Past Medical History & Family History Past Medical History?: Yes - Past Social History Smoking Status: Never Smoked - CARDIAC Hx Cardiac Disorders: Yes (CAD, Coronary Stent, STEMI, Angina,) Other/Comment: Coronary stent x3 - PULMONARY Hx Respiratory Disorders: No - NEUROLOGICAL Hx Neurological Disorder: Yes Hx Vertigo: Yes - HEENT Hx HEENT Problems: No - RENAL Hx Chronic Kidney Disease: No - ENDOCRINE/METABOLIC Hx Endocrine Disorders: No - HEMATOLOGICAL/ONCOLOGICAL Hx Hepatitis C: Yes - INTEGUMENTARY Hx Dermatological Problems: No - MUSCULOSKELETAL/RHEUMATOLOGICAL Hx Musculoskeletal Disorders: No Hx Falls: No - GASTROINTESTINAL Hx Gastrointestinal Disorders: No - GENITOURINARY/GYNECOLOGICAL Hx Genitourinary Disorders: No - PSYCHIATRIC Hx Substance Use: No - SURGICAL HISTORY Hx Coronary Stent: Yes (X 3) - ANESTHESIA Hx Anesthesia: Yes Hx Anesthesia Reactions: No Meds Allergies/Adverse Reactions: Allergies Allergy/AdvReac Type Severity Reaction Status Date / Time No Known Allergies Allergy Verified 03/04/18 17:12 - Medications Medications: Current Medications Aspirin (Aspirin Chewable) 81 mg PO DAILY [facility] Clopidogrel Bisulfate (Plavix) 75 mg PO DAILY [facility] Enalapril Maleate (Vasotec) 5 mg PO DAILY [facility] Metoprolol Tartrate (Lopressor) 5 mg IVP ONCE ONE Stop: 03/28/18 16:18 Rosuvastatin Calcium (Crestor) 10 mg PO [facility] Physical Exam - Neurological Exam Neurological exam: Alert, CN II-XII Intact, Normal Gait, Oriented x3, Reflexes Normal Results - Vital Signs Recent Vital Signs: Last Vital Signs Temp 98.3 F 03/28/18 11:15 Pulse 58 L 03/28/18 15:32 Resp 16 03/28/18 15:32 BP 130/82 03/28/18 15:32 Pulse Ox 98 03/28/18 16:19 - Labs Result Diagrams: 03/28/18 11:38 03/28/18 11:38 Labs: Laboratory Results - last 24 hr 03/28/18 03/28/18 11:38 11:38 WBC 6.5 RBC 4.84 Hgb 14.5 Hct 41.0 MCV 84.9 MCH 29.9 MCHC 35.3 RDW 13.3 Plt Count 183 MPV 9.1 Neut % (Auto) 57.9 Lymph % (Auto) 29.8 [place] % (Auto) 8.1 Eos % (Auto) 3.6 Baso % (Auto) 0.6 Neut # (Auto) 3.7 Lymph # (Auto) 1.9 [place] # (Auto) 0.5 Eos # (Auto) 0.2 Baso # (Auto) 0.0 Sodium 142 Potassium 4.2 Chloride 104 Carbon Dioxide 26 Anion Gap 16 BUN 11 Creatinine 0.8 Est GFR ( Amer) > 60 Est GFR (Non-Af Amer) > 60 Random Glucose 94 Calcium 9.4 Total Bilirubin 1.0 AST 23 ALT 35 Alkaline Phosphatase 39 Troponin I < 0.0120 NT-Pro-B Natriuret Pep 72.9 Total Protein 7.1 Albumin 4.3 Globulin 2.8 Albumin/Globulin Ratio 1.6 Assessment & Plan (1) Pre-syncope Assessment and Plan: This could be vaso-vagal in origin due to chest pain. The patient was not being monitored when this event took place and we do not know if he had a cardiac dysrhhythmia. I recommend a loop recorded to determine if the patient should be started on anticoagulation. For now, we will continue aspirin/plavix and crestor. Status: Acute (2) Dizziness Assessment and Plan: This does not appear to be neurologic in origin, since it is associated with chest pain and is described more specifically as light-headedness. He denied vertigo. A cardiac work-up is appropriate with telemetry and possible echocardiogram. Thank you. Status: Acute
[2018-03-28 19:51] LABS: CK-MB 0.36 ng/mL (0.0-3.38)
--- NOTE | 2018-03-28 21:43 | RAD ---
Date of service: 03/28/2018 PROCEDURE: CHEST RADIOGRAPH, 1 VIEW HISTORY: chest pain COMPARISON: None available. FINDINGS: LUNGS: No evidence of new infiltrate or consolidation in the lungs. PLEURA: No pneumothorax or pleural fluid seen. CARDIOVASCULAR: Normal. OSSEOUS STRUCTURES: No significant abnormalities. VISUALIZED UPPER ABDOMEN: Normal. OTHER FINDINGS: None. IMPRESSION: No active disease.
[2018-03-29 00:36] VITALS: RESP 20
[2018-03-29 07:45] LABS: BASO % 0.4 % (0.0-2.0); EOS # 0.3 K/uL (0.0-0.7); EOS % 4.5 % (0.0-4.0); HEMOGLOBIN 14.9 g/dL (12.0-18.0); LYMPH # 2.2 K/uL (1.0-4.3); LYMPH % 35.3 % (20.0-40.0); MEAN CELL VOLUME 84.3 fL (80.0-94.0); MEAN CORPUSCULAR HGB CONC 35.5 g/dL (33.0-37.0); MEAN PLATELET VOLUME 9.4 fL (7.2-11.7); MONO # 0.5 K/uL (0.0-0.8); MONO % 7.5 % (0.0-10.0); NEUT # 3.3 K/uL (1.8-7.0); NEUT % 52.3 % (50.0-75.0); NRBC % 0.1 % (0.0-2.0); RBC 4.96 Mil/uL (4.40-5.90); RED CELL DISTRIBUTION WIDTH 13.5 % (11.5-14.5); WHITE BLOOD COUNT 6.3 K/uL (4.8-10.8)
[2018-03-29 08:06] LABS: ALB/GLOB RATIO 1.3 (1.0-2.1); ALT/SGPT 33 U/L (21-72); AST/SGOT 21 U/L (17-59); BLOOD UREA NITROGEN 10 mg/dL (9-20); CALCIUM 9.3 mg/dl (8.6-10.4); GFR AFRICAN-AMERICAN > 60; GFR NON-AFRICAN AMERICAN > 60
--- NOTE | 2018-03-29 10:01 | CP.PCM.PN ---
Subjective - Date & Time of Evaluation Date of Evaluation: 03/29/18 Time of Evaluation: 09:58 - Subjective Subjective: PGY-1 Medicine Progress Note for Dr. Forbes's service Patient seen and examined at bedside. Patient continues to state he has chest pain intermittently described as a dull pressure associated with shortness of breath. Patient denies chest pain currently however states it happened last night throughout but was not constant, rated at 5/10. Patient states he also feels dizzy when he stands from sitting, orthostatics were negative. Patient denies palpations, diaphoresis, n/v, constipation, diarrhea, radiation of pain, headaches. Objective - Vital Signs/Intake and Output Vital Signs (last 24 hours): Temp Pulse Resp BP Pulse Ox 97.8 F 58 L 20 138/84 97 03/29/18 07:00 03/29/18 07:00 03/29/18 07:00 03/29/18 09:17 03/29/18 07:00 Intake and Output: 03/29/18 03/29/18 06:59 18:59 Output Total 200 Balance -200 - Medications Medications: Current Medications Aspirin (Aspirin Chewable) 81 mg PO DAILY [facility] Last Admin: 03/29/18 09:17 Dose: 81 mg Clopidogrel Bisulfate (Plavix) 75 mg PO DAILY [facility] Last Admin: 03/29/18 09:17 Dose: 75 mg Enalapril Maleate (Vasotec) 5 mg PO DAILY [facility] Last Admin: 03/29/18 09:17 Dose: 5 mg Metoprolol Tartrate (Lopressor) 50 mg PO BIDCC [facility] Last Admin: 03/29/18 09:18 Dose: 50 mg Rosuvastatin Calcium (Crestor) 10 mg PO HS [facility] Last Admin: 03/28/18 21:45 Dose: 10 mg - Labs Labs: 03/29/18 07:27 03/29/18 07:27 - Additional Findings Additional findings: Constitutional Appears: Non-toxic, No Acute Distress - Head Exam Head Exam: NORMAL INSPECTION, NORMOCEPHALIC - Eye Exam Eye Exam: EOMI, Normal appearance. absent: Nystagmus, Scleral icterus - Respiratory Exam Respiratory Exam: Clear to Auscultation Bilateral, NORMAL BREATHING PATTERN. absent: Chest Wall Tenderness, Rales, Rhonchi, Wheezes - Cardiovascular Exam Cardiovascular Exam: REGULAR RHYTHM, +S1, +S2. absent: Bradycardia, Tachycardia , JVD, Systolic Murmur - GI/Abdominal Exam GI & Abdominal Exam: Normal Bowel Sounds, Soft. absent: Distended, Firm, Tenderness - Extremities Exam Extremities exam: Positive for: normal inspection. Negative for: calf tenderness, pedal edema - Back Exam Back exam: NORMAL INSPECTION. absent: CVA tenderness (L), CVA tenderness (R) - Neurological Exam Neurological exam: Alert, Oriented x3 - Psychiatric Exam Psychiatric exam: Normal Affect, Normal Mood Assessment and Plan - Assessment and Plan (Free Text) Assessment: Patient is a 57 yo M with PMH of Inferior wall ND s/p 2 CHARO, ND 2 weeks s/p 1 stent, Dyslipidemia, Hepatitis C s/p treatment in 2005, and Vertigo presents to ED for evaluation of chest pain; Troponins x 3 negative, Cardiology Consulted: Dr. Jones, Neurology Consulted: Dr. Rick; pending echo report Plan: Chest Pain Ranexa 500mg bid EKG PRN with chest pain Review Telemetry First Troponin <0.012; Second Troponin pending; DONNELL x1 pending EKGS pending Cxray pending Echo pending Cardio Consulted: Dr. Jones- recommendations appreciated Heart Healthy Diet BNP 72.9 Aspirin 81mg po daily Plavix 75mg po daily Enalapril 5mg po daily Metoprolol 25mg po bid- reduced to low blood pressure Rosuvastatin 10mg po HS Dopplers pending D-dimer< [address] Rick- recommendations were as follows: likely vasovagal in origin due to chest pain, recommend a loop recorded to determine if the patient should be started on anticoagulation. For now, we will continue aspirin /plavix and crestor. Orthostatics negative Dizziness Neurology Consulted Dr Rick- This does not appear to be neurologic in origin, since it is associated with chest pain and is described more specifically as light-headedness. He denied vertigo. A cardiac work-up is appropriate with telemetry and possible echocardiogram Valium home med held for now Prophylaxis DVT ppx: Heparin 5000 units sc q8h
--- NOTE | 2018-03-29 16:14 | VASCLAB ---
Date of service: 03/28/2018 PROCEDURE: Lower Extremity Venous Duplex Exam. HISTORY: Swelling in limb, Chest pain PRIORS: 03/05/2018, normal. TECHNIQUE: Bilateral common femoral, femoral, popliteal and posterior tibial, peroneal and great saphenous veins were evaluated. Flow was assessed with color Doppler, compressibility, assessment of phasic flow and augmentation response. Report prepared by COLT Salomon FINDINGS: RIGHT: 1. Common Femoral Vein: 1.1. Compressibility - Fully compressible: Thrombus - None : Flow - Phasic: Augmentation -Normal: Reflux - None. 2. Femoral Vein: 2.1. Compressibility - Fully compressible: Thrombus - None : Flow - Phasic: Augmentation -Normal: Reflux - None. 3. Popliteal Vein: 3.1. Compressibility - Fully compressible: Thrombus - None : Flow - Phasic: Augmentation -Normal: Reflux - None. 4. Posterior Tibial Vein: 4.1. Compressibility - Fully compressible: Thrombus - None: Flow - Phasic: Augmentation -Normal: Reflux - None. 5. Peroneal Vein: 5.1. Compressibility - Fully compressible: Thrombus - None: Flow - Phasic: Augmentation -Normal: Reflux - None. 6. Great Saphenous Vein: 6.1. Compressibility - Fully compressible: Thrombus - None: Flow - Phasic: Augmentation - Normal: Reflux - None. LEFT: 1. Common Femoral Vein: 1.1. Compressibility - Fully compressible: Thrombus - None: Flow - Phasic: Augmentation -Normal: Reflux - None. 2. Femoral Vein: 2.1. Compressibility - Fully compressible: Thrombus - None: Flow - Phasic: Augmentation -Normal: Reflux - None. 3. Popliteal Vein: 3.1. Compressibility - Fully compressible: Thrombus - None : Flow - Phasic: Augmentation -Normal: Reflux - None. 4. Posterior Tibial Vein: 4.1. Compressibility - Fully compressible: Thrombus - None: Flow - Phasic: Augmentation -Normal: Reflux - None. 5. Peroneal Vein: 5.1. Compressibility - Fully compressible: Thrombus - None: Flow - Phasic: Augmentation -Normal: Reflux - None. 6. Great Saphenous Vein: 6.1. Compressibility - Fully compressible: Thrombus - None: Flow - Phasic: Augmentation - Normal: Reflux - None. OTHER FINDINGS: Right: None significant. Left: None significant. IMPRESSION: Right: No evidence of deep or superficial vein thrombosis of the right lower extremity. Normal valve function noted of the right side. Left: No evidence of deep or superficial vein thrombosis of the left lower extremity. Normal valve function noted of the left side.
[2018-03-29 17:13] VITALS: O2SAT 96
[2018-03-29] MEDS: Ranolazine 500 mg Extended Release Tablets PO SCH (17:18)
[2018-03-30 07:44] LABS: BASO % 0.6 % (0.0-2.0); EOS # 0.3 K/uL (0.0-0.7); EOS % 4.7 % (0.0-4.0); HEMOGLOBIN 15.4 g/dL (12.0-18.0); LYMPH # 2.3 K/uL (1.0-4.3); LYMPH % 35.1 % (20.0-40.0); MEAN CELL VOLUME 84.7 fL (80.0-94.0); MEAN CORPUSCULAR HEMOGLOBIN 29.7 pg (27.0-31.0); MEAN PLATELET VOLUME 9.4 fL (7.2-11.7); MONO # 0.5 K/uL (0.0-0.8); MONO % 7.2 % (0.0-10.0); NEUT # 3.5 K/uL (1.8-7.0); NEUT % 52.4 % (50.0-75.0); NRBC % 0.1 % (0.0-2.0); RBC 5.18 Mil/uL (4.40-5.90); RED CELL DISTRIBUTION WIDTH 13.5 % (11.5-14.5); WHITE BLOOD COUNT 6.6 K/uL (4.8-10.8)
[2018-03-30 08:07] LABS: ALB/GLOB RATIO 1.4 (1.0-2.1); ALBUMIN 4.1 g/dL (3.5-5.0); ALT/SGPT 33 U/L (21-72); AST/SGOT 20 U/L (17-59); BLOOD UREA NITROGEN 13 mg/dL (9-20); CALCIUM 9.2 mg/dl (8.6-10.4); GFR AFRICAN-AMERICAN > 60; GFR NON-AFRICAN AMERICAN > 60
[2018-03-30 08:14] VITALS: TEMP 97.3
[2018-03-30] MEDS ORDERED: Ranolazine 500 mg Extended Release Tablets PO SCH (10:00)
[2018-03-30] MEDS: Ranolazine 500 mg Extended Release Tablets PO SCH (10:43)
[2018-03-30 10:44] VITALS: BP 126/80
--- NOTE | 2018-03-30 12:44 | CP.PCM.CON ---
History of Present Illness - History of Present Illness History of Present Illness: Ricardo Durant, PGY1 Cardiology Consult Note for Dr. Jones Patient is a 58 y/o male with PMHx of CAD, HLD, Hepatitis C (s/p treatment in 2005), vertigo, and previous NV (s/p stent two weeks ago) who presented to the ED for chest pain which began at midnight. Patient describes pain as substernal pressure that is associated with shortness of breath. Patient states that he took 4 aspirin without remission of pain. In the ED, patient stated that pain was constant, rated 10/10 and localized to anterior left upper chest with radiation of pain to the arms. Patient said that he started having chest pain, felt lightheaded, and fell. In the ED, Troponins negative x3. BNP negative. CXR and Duplex lower extremity were also unremarkable. Patient evaluated by cardiology team. Current vital signs stable. Patient denies chest pain, shortness of breath, palpations, diaphoresis, abdominal pain, dizziness, n/v/d. No overnight changes. Patient was explained that chest pain is likely due to vasospasm of the coronary arteries following cardiac cath procedure. A full 12 point ROS was conducted and unremarkable except as stated above. From prior charting: PMH: Inferior wall NV (s/p x2 CHARO), NV (2 weeks ago s/p 1 stent), Dyslipidemia, Hepatitis C (s/p treatment in 2005), and Vertigo PSH: eye surgery (information limited) FH: Brothers (MIs) Meds: Aspirin 81mg PO daily, Plavix 75mg PO daily, Lopressor 50mg PO BID, Enalapril 5mg PO daily, Imdur 60mg PO Daily, Lipitor 40mg POqHS Allergies: NKDA Social: denies tobacco, alcohol, and drug use Code: Full Code Review of Systems - Review of Systems All systems: reviewed and no additional remarkable complaints except (as per HPI.) Past Patient History - Past Medical History & Family History Past Medical History?: Yes - Past Social History Smoking Status: Never Smoked - CARDIAC Hx Cardiac Disorders: Yes (CAD, Coronary Stent, STEMI, Angina,) Other/Comment: Coronary stent x3 - PULMONARY Hx Respiratory Disorders: No - NEUROLOGICAL Hx Neurological Disorder: Yes Hx Vertigo: Yes - HEENT Hx HEENT Problems: No - RENAL Hx Chronic Kidney Disease: No - ENDOCRINE/METABOLIC Hx Endocrine Disorders: No - HEMATOLOGICAL/ONCOLOGICAL Hx Hepatitis C: Yes - INTEGUMENTARY Hx Dermatological Problems: No - MUSCULOSKELETAL/RHEUMATOLOGICAL Hx Musculoskeletal Disorders: No Hx Falls: No - GASTROINTESTINAL Hx Gastrointestinal Disorders: No - GENITOURINARY/GYNECOLOGICAL Hx Genitourinary Disorders: No - PSYCHIATRIC Hx Substance Use: No - SURGICAL HISTORY Hx Coronary Stent: Yes (X 3) - ANESTHESIA Hx Anesthesia: Yes Hx Anesthesia Reactions: No Meds Home Medications: Home Medication List Medication Instructions Recorded Confirmed Type Ranolazine [Ranexa] 500 mg PO BID #60 ter 03/29/18 Rx Allergies/Adverse Reactions: Allergies Allergy/AdvReac Type Severity Reaction Status Date / Time No Known Allergies Allergy Verified 03/04/18 17:12 - Medications Medications: Current Medications Aspirin (Aspirin Chewable) 81 mg PO DAILY [facility] Last Admin: 03/30/18 10:43 Dose: 81 mg Clopidogrel Bisulfate (Plavix) 75 mg PO DAILY [facility] Last Admin: 03/30/18 10:43 Dose: 75 mg Enalapril Maleate (Vasotec) 5 mg PO DAILY [facility] Last Admin: 03/30/18 10:43 Dose: 5 mg Heparin Sodium (Porcine) (Heparin) 5,000 units SC Q8 [facility] Last Admin: 03/30/18 05:40 Dose: 5,000 units [facility] Last Admin: 03/30/18 08:49 Dose: 25 mg Ranolazine (Ranexa) 500 mg PO BID [facility] Last Admin: 03/30/18 10:43 Dose: 500 mg Rosuvastatin Calcium (Crestor) 10 mg PO HS [facility] Last Admin: 03/29/18 22:37 Dose: 10 mg Physical Exam - Constitutional Appears: Well - Head Exam Head Exam: ATRAUMATIC, NORMAL INSPECTION, NORMOCEPHALIC - Eye Exam Eye Exam: EOMI, Normal appearance, PERRL Pupil Exam: NORMAL ACCOMODATION, PERRL - ENT Exam ENT Exam: Mucous Membranes Moist, Normal Exam - Neck Exam Neck exam: Positive for: Normal Inspection - Respiratory Exam Respiratory Exam: Clear to Auscultation Bilateral, NORMAL BREATHING PATTERN. absent: Rales, Rhonchi, Wheezes, Respiratory Distress - Cardiovascular Exam Cardiovascular Exam: REGULAR RHYTHM, +S1, +S2 - GI/Abdominal Exam GI & Abdominal Exam: Normal Bowel Sounds, Soft. absent: Distended, Guarding, Tenderness - Extremities Exam Extremities exam: Positive for: full ROM, normal capillary refill, normal inspection, pedal pulses present. Negative for: pedal edema, tenderness - Neurological Exam Neurological exam: Alert, Oriented x3 - Skin Skin Exam: Dry, Intact, Normal Color, Warm Results - Vital Signs Recent Vital Signs: Last Vital Signs Temp 97.3 F L 03/30/18 07:00 Pulse 62 03/30/18 07:00 Resp 20 03/30/18 07:00 BP 126/80 03/30/18 10:43 Pulse Ox 96 03/30/18 07:00 - Labs Result Diagrams: 03/30/18 07:28 03/30/18 07:28 Labs: Laboratory Results - last 24 hr 03/29/18 03/30/18 03/30/18 13:40 07:28 07:28 WBC 6.6 RBC 5.18 Hgb 15.4 Hct 43.9 MCV 84.7 MCH 29.7 MCHC 35.0 RDW 13.5 Plt Count 190 MPV 9.4 Neut % (Auto) 52.4 Lymph % (Auto) 35.1 [place] % (Auto) 7.2 Eos % (Auto) 4.7 H Baso % (Auto) 0.6 Neut # (Auto) 3.5 Lymph # (Auto) 2.3 [place] # (Auto) 0.5 Eos # (Auto) 0.3 Baso # (Auto) 0.0 APTT 33 Sodium 142 Potassium 4.1 Chloride 105 Carbon Dioxide 25 Anion Gap 15 BUN 13 Creatinine 0.9 Est GFR ( Amer) > 60 Est GFR (Non-Af Amer) > 60 Random Glucose 98 Calcium 9.2 Phosphorus 3.9 Magnesium 1.8 Total Bilirubin 0.7 AST 20 ALT 33 Alkaline Phosphatase 46 Total Protein 7.0 Albumin 4.1 Globulin 2.9 Albumin/Globulin Ratio 1.4 Assessment & Plan - Assessment and Plan (Free Text) Assessment: Patient is a 58 y/o male with PMHx of CAD, HLD, Hepatitis C (s/p treatment in 2005), vertigo, and previous NV (s/p stent two weeks ago) who presented to the ED for chest pain which began at midnight. Patient describes pain as substernal pressure that is associated with shortness of breath. Patient states that he took 4 aspirin without remission of pain. Troponins negative x3. Cardiology was consulted, chest pain is likely secondary to vasospasm of coronary arteries following cardiac catheterization procedure. Patient is currently asymptoamtic, vital signs stable, and will be started on Ranexa for anginal symptoms. Follow up outpatient with Dr. Jones. Plan: Chest pain likely 2/2 vasospasm of coronary arteries following cardiac cath - start on Ranexa 500 mg BID; c/w medication at home for at least 6 months - During interview, patient chest pain was resolved. Chest pain likely 2/2 vasospasm of coronary arteries due to recent stent placement. - c/w ASA/Plavix, enalapril, metoprolol, rosuvastatin - Serial troponins negative; BNP negative - f/u outpatient clinic (Dr. Jones) - CXR unremarkable - Duplex LE: negative for DVT Vertigo/Pre-syncope - f/u Neuro recs (Dr. Rick); less likely to be neurological in origin - f/u echo - Negative orthostatics - Patient has history of vertigo DVT ppx: Hep SC GI ppx: not indicated Dispo: Patient is hemodynamically stable and should continue with Ranexa upon discharge. Follow up in outpatient clinic (Dr. Jones). Case was discussed and reviewed with [employer] Att[employer] Dr. Jones.
[2018-03-30 14:52] VITALS: PULSE 59
--- NOTE | 2018-03-30 14:56 | CP.PCM.DIS ---
Provider - Provider Date of Admission: 03/28/18 13:02 Attending physician: Evangelist Forbes MD Consults: Dr. Robert Rick Time Spent in preparation of Discharge (in minutes): 45 Hospital Course - Lab Results Lab Results: Most Recent Lab Values WBC 6.6 K/uL (4.8-10.8) 03/30/18 07: RBC 5.18 Mil/uL (4.40-5.90) 03/30/18 07: Hgb 15.4 g/dL (12.0-18.0) 03/30/18 07:28 Hct 43.9 % (35.0-51.0) 03/30/18 07: MCV 84.7 fL (80.0-94.0) 03/30/18 07: MCH 29.7 pg (27.0-31.0) 03/30/18 07: MCHC 35.0 g/dL (33.0-37.0) 03/30/18: RDW 13.5 % (11.5-14.5) 03/30/18 07: Plt Count 190 K/uL (130-400) 03/30/18 07: MPV 9.4 fL (7.2-11.7) 03/30/18 07: Neut % (Auto) 52.4 % (50.0-75.0) 03/30/18 07: Lymph % (Auto) 35.1 % (20.0-40.0) 03/30/18: [place] % (Auto) 7.2 % (0.0-10.0) 03/30/18: Eos % (Auto) 4.7 % (0.0-4.0) H 03/30/18 07:28 Baso % (Auto) 0.6 % (0.0-2.0) 03/30/18: Neut # (Auto) 3.5 K/uL (1.8-7.0) 03/30/18 07:28 Lymph # (Auto) 2.3 K/uL (1.0-4.3) 03/30/18 07:28 [place] # (Auto) 0.5 K/uL (0.0-0.8) 03/30/18 07:28 Eos # (Auto) 0.3 K/uL (0.0-0.7) 03/30/18 07:28 Baso # (Auto) 0.0 K/uL (0.0-0.2) 03/30/18 07:28 APTT 33 SECONDS (21-34) 03/29/18 13:40 D-Dimer, Quantitative < 200 ng/mlDDU (0-243) 03/28/18 16:49 Sodium 142 mmol/L (132-148) 03/30/18 07:28 Potassium 4.1 mmol/L (3.6-5.2) 03/30/18 07:28 Chloride 105 mmol/L (98-107) 03/30/18 07:28 Carbon Dioxide 25 mmol/L (22-30) 03/30/18 07:28 Anion Gap 15 (10-20) 03/30/18 07:28 BUN 13 mg/dL (9-20) 03/30/18 07:28 Creatinine 0.9 mg/dL (0.8-1.5) 03/30/18 07:28 Est GFR ( Amer) > 60 03/30/18 07:28 Est GFR (Non-Af Amer) > 60 03/30/18 07:28 Random Glucose 98 mg/dL (75-110) 03/30/18 07:28 Calcium 9.2 mg/dl (8.6-10.4) 03/30/18 07:28 Phosphorus 3.9 mg/dL (2.5-4.5) 03/30/18 07:28 Magnesium 1.8 mg/dL (1.6-2.3) 03/30/18 07:28 Total Bilirubin 0.7 mg/dL (0.2-1.3) 03/30/18 07:28 AST 20 U/L (17-59) 03/30/18 07:28 ALT 33 U/L (21-72) 03/30/18 07:28 Alkaline Phosphatase 46 U/L (38-126) 03/30/18 07:28 Total Creatine Kinase 84 U/L (55-170) 03/28/18 19:18 CK-MB (Mass) 0.36 ng/mL (0.0-3.38) 03/28/18 19:18 Troponin I < 0.0120 ng/mL (0.00-0.120) 03/28/18 19:18 NT-Pro-B Natriuret Pep 72.9 pg/mL (0-900) 03/28/18 11:38 Total Protein 7.0 g/dL (6.3-8.3) 03/30/18 07:28 Albumin 4.1 g/dL (3.5-5.0) 03/30/18 07:28 Globulin 2.9 gm/dL (2.2-3.9) 03/30/18 07:28 Albumin/Globulin Ratio 1.4 (1.0-2.1) 03/30/18 07:28 - Hospital Course Hospital Course: PMH: Inferior wall NM s/p 2 CHARO, NM 2 weeks s/p 1 stent, Dyslipidemia, Hepatitis C s/p treatment in 2005, and Vertigo PSH: eye surgery (information limited) FH: Brothers (MIs) Meds: Aspirin 81mg PO daily, Plavix 75mg PO daily, Lopressor 50mg PO BID, Enalapril 5mg PO daily, Imdur 60mg PO Daily, Lipitor 40mg POqHS Allergies: NKDA Social: denies tobacco, alcohol, and drug use Code: Full Code Upon Admission: Patient is a 57 y.o male who presents to the hospital for chest pain beginning at midnight. Patient describes the pain as a substernal pressure that is associated with shortness of breath. Patient states that he took 4 aspirins last night and tried to sleep but the pain would continuously wake him up. Patient states the pain has been constant, 10/10 in pain, localized to the anterior left upper chest with pain radiating to arms at times. Patient states he was getting ready for bed when the pain started all of a sudden. Patient was here 2 weeks ago for similar symptoms and had undergone cardiac cath where he received a stent with Dr. Jones. Patient states that he has had another prior NM in August where he received [address] Jones. He states he visited Dr. Jones this past Friday and that his doctor removed 2 medications from his regiment but he does not remember which ones. Hospital Course: 57 yo male presents to the hospital for chest pain with shortness of breath described as if his heart was being squeezed; patient has had 2 stents placed in August and 1 more stent placed [address] Jones; Patient was experiencing dizziness in ED and Dr. Rick was consulted who knows this patient ; Troponins were negative x3, however patient continued to have intermittent chest pain throughout the next day; After discussion with Dr. Jones patient's metoprolol was decreased as his heart rate was ranging from 48 to 60s on telemetry and was given Ranexa for chest pain; patient's did not have symptoms after Ranexa and was cleared for discharge by Dr. Jones Discharge Plan: Patient is stable for discharge to home as per Dr. Varela and Dr. Jones. 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 Jones within 1 week of discharge from hospital. [facility] for 03/31/2018 at 1 pm and patient has been made aware. Patient has no difficulties making tomorrow's appointment as per our conversation. Patient is to resume the following medications at home: Aspirin 81mg once by mouth daily, Atorvastatin 40mg once by mouth daily, Plavix 75 mg once by mouth daily, Enalapril 5mg twice by mouth daily, Imdur 60mg once by mouth daily, Valium 2mg twice by mouth daily every 12 hours, Ranexa 500mg twice by mouth daily, and Metoprolol 12.5mg twice by mouth daily (not 50 twice a day) . Patient should return to the hospital if symptoms worsen or recur. Patient understands the plan as above and agrees. Discharge Exam - Head Exam Head Exam: ATRAUMATIC, NORMAL INSPECTION, NORMOCEPHALIC - Eye Exam Eye Exam: EOMI, Normal appearance. absent: Nystagmus, Scleral icterus - Respiratory Exam Respiratory Exam: Clear to PA & Lateral, NORMAL BREATHING PATTERN. absent: Chest Wall Tenderness, Rales, Rhonchi, Wheezes, Respiratory Distress - Cardiovascular Exam Cardiovascular Exam: REGULAR RHYTHM, +S1, +S2. absent: Bradycardia - GI/Abdominal Exam GI & Abdominal Exam: Normal Bowel Sounds, Soft. absent: Diminished Bowel Sounds , Distended, Firm, Tenderness - Extremities Exam Extremities exam: normal inspection, pedal pulses present - Back Exam Back exam: NORMAL INSPECTION. absent: CVA tenderness (L), CVA tenderness (R) - Neurological Exam Neurological exam: Alert, Oriented x3 - Psychiatric Exam Psychiatric exam: Normal Affect, Normal Mood - Skin Skin Exam: Intact, Normal Color Discharge Plan - Discharge Medications Prescriptions: Metoprolol Tartrate [Lopressor] 12.5 mg PO BID #30 tab Ranolazine [Ranexa] 500 mg PO BID #60 ter - Follow Up Plan Condition: GUARDED Disposition: HOME/ ROUTINE Instructions: Ranolazine, Heart Healthy Diet, Preventing Falls in the Older Adult, Heart Attack (DC), Angina (DC), Preventing Falls, Dizziness, Nonvertigo, (DC), Metoprolol Additional Instructions: Patient is stable for discharge to home as per Dr. Varela and Dr. Jones. 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 Jones within 1 week of discharge from hospital. [facility] for 03/31/2018 at 1 pm and patient has been made aware. Patient has no difficulties making tomorrow's appointment as per our conversation. Patient is to resume the following medications at home: Aspirin 81mg once by mouth daily, Atorvastatin 40mg once by mouth daily, Plavix 75 mg once by mouth daily, Enalapril 5mg twice by mouth daily, Imdur 60mg once by mouth daily, Valium 2mg twice by mouth daily every 12 hours, Ranexa 500mg twice by mouth daily, and Metoprolol 12.5mg twice by mouth daily (not 50 twice a day) . Patient should return to the hospital if symptoms worsen or recur. Patient understands the plan as above and agrees. Referrals: [facility] [Outside] Clark Jones MD [Staff Provider] - Too Rick MD [Staff Provider] -
== END 2018-03-30 16:29 | disposition home or self-care (01) ==
LOC: C.ER 11:08 → C.9E 13:02 → C.6T 17:23
PROVIDERS: ADMIT Internal Medicine; ATTEND Internal Medicine
DX: I25.111 Atherosclerotic heart disease of native coronary artery with angina pectoris with documented spasm (principal); B19.20 Unspecified viral hepatitis C without hepatic coma; E78.5 Hyperlipidemia, unspecified; I25.2 Old myocardial infarction; Z79.02 Long term (current) use of antithrombotics/antiplatelets; Z79.82 Long term (current) use of aspirin; Z95.5 Presence of coronary angioplasty implant and graft
CPT/HCPCS: 36415; 71045; 80053; 83735; 83880; 84100; 84484; 85025; 85378; 85730; 93970; 99285; G0378; J1644

== ENCOUNTER 2018-06-29 21:14 | Inpatient (IN) | payer MEDICAID, OTHER ==
--- NOTE | 2018-06-29 21:20 | C.PDOC ---
History Of Present Illness Patient presents to the ER with a complaint of sudden onset chest pain approximately 2-3 hours ago. Patient describes the pain as a dull, aching, pressure pain. He has a Hx of [place] two stents placed in 08/2017 and one placed in the beginning of 03/[address] Jones. Denies fever, chills, nausea, or vomiting.. 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 Time Seen by Provider: 06/29/18 21:20 History Per: Patient History/Exam Limitations: no limitations Onset/Duration Of Symptoms: Hrs (2-3) Current Symptoms Are (Timing): Still Present Severity: Moderate Pain Scale Rating Of: 4 Quality: Dull, Aching, Pressure Associated Symptoms: denies: Nausea, Dyspnea, Diaphoresis, Syncope Modifying Factors: None Exacerbating Factors: None Alleviating Factors: None Recent travel outside of the [place]: No Past Medical History Reviewed: Historical Data, Nursing Documentation, Vital Signs - Medical History PMH: CAD Denies: Chronic Kidney Disease Surgical History: Coronary Stent (X 3) - [facility] Procedures DILATION OF 1 COR ART WITH 2 DRUG-ELUT, PERC APPROACH (08/18/17) DILATION OF 1 COR ART WITH DRUG-ELUT INTRA, PERC APPROACH (03/06/18) FLUOROSCOPY OF LEFT HEART USING LOW OSMOLAR CONTRAST (03/06/18) FLUOROSCOPY OF MULT COR ART USING L OSM CONTRAST (03/06/18) FLUOROSCOPY OF RIGHT AND LEFT HEART USING L OSM CONTRAST (08/18/17) MEASURE OF CARDIAC SAMPL & PRESSURE, L HEART, PERC APPROACH (03/06/18) Family History: States: [place] - Social History Hx Tobacco Use: No Hx Alcohol Use: No Hx Substance Use: No - Immunization History Hx Tetanus Toxoid Vaccination: No Hx Influenza Vaccination: No Hx Pneumococcal Vaccination: No Review Of Systems Constitutional: Negative for: Fever, Chills Cardiovascular: Positive for: Chest Pain Respiratory: Negative for: Cough, Shortness of Breath Gastrointestinal: Negative for: Nausea, Vomiting Neurological: Negative for: Weakness, Numbness Physical Exam - Physical Exam Appears: Non-toxic Skin: Warm, Dry Head: Normacephalic Oral Mucosa: Moist Neck: Trachea Midline, Supple Chest: Symmetrical, No Tenderness Cardiovascular: Rhythm Regular Respiratory: No Rales, No Rhonchi, No Wheezing Gastrointestinal/Abdominal: Soft, No Tenderness Extremity: Pedal Edema (Trace) Neurological/Psych: Oriented x3 ED Course And Treatment - Laboratory Results Result Diagrams: 06/29/18 22:13 06/29/18 22:13 ECG: Interpreted By Me, Viewed By Me ECG Rhythm: Sinus Rhythm (67), ST/T Changes O2 Sat by Pulse Oximetry: 99 (Room air) Pulse Ox Interpretation: Normal - Radiology CXR: Interpreted by Me, Viewed By Me CXR Interpretation: Yes: Other (unchanged from 03/28/18). No: Infiltrates, Fracture, Pnemothorax Progress Note: EKG, blood work, CXR, and urinalysis ordered. Aspirin administered. Disposition Discussed With : Garett Guerra Comment: accepted the pt on his service and took over the care at 11:33 PM Doctor Will See Patient In The: ED Counseled Patient/Family Regarding: Studies Performed, Diagnosis - Disposition Disposition: HOSPITALIZED Disposition Time: 21:20 Condition: FAIR - POA Present On Arrival: None - Clinical Impression Clinical Impression: Chest pain - Scribe Statement The provider has reviewed the documentation as recorded by the Scribe Elvis Rothman All medical record entries made by the Scribe were at my direction and personally dictated by me. I have reviewed the chart and agree that the record accurately reflects my personal performance of the history, physical exam, medical decision making, and the department course for this patient. I have also personally directed, reviewed, and agree with the discharge instructions and disposition. Decision To Admit - Pt Status Changed To: Hospital Disposition Of: Inpatient - Admit Certification Admit to Inpatient:: After my assessment, the patient will require hospitalization for at least two midnights. This is because of the severity of symptoms shown, intensity of services needed, and/or the medical risk in this patient being treated as an outpatient. - InPatient: Physician Admission Certification: I certify that this patient requires 2 or more midnights of care for the following reason:: After my assessment, the patient will require hospitalization for at least two midnights. This is because of the severity of symptoms shown, intensity of services needed, and/or the medical risk in this patient being treated as an outpatient. - . Bed Request Type: Telemetry Admitting Physician: Garett Guerra Patient Diagnosis: Chest pain
[2018-06-29 21:37] VITALS: BMI 32.8
[2018-06-29] MEDS ORDERED: Aspirin 325 mg EC Tablets PO STA (21:37)
[2018-06-29 22:16] LABS: BASO % 0.6 % (0.0-2.0); EOS # 0.2 K/uL (0.0-0.7); EOS % 3.1 % (0.0-4.0); HEMOGLOBIN 14.6 g/dL (12.0-18.0); LYMPH # 2.2 K/uL (1.0-4.3); LYMPH % 38.2 % (20.0-40.0); MEAN CELL VOLUME 86.5 fL (80.0-94.0); MEAN CORPUSCULAR HEMOGLOBIN 29.7 pg (27.0-31.0); MEAN CORPUSCULAR HGB CONC 34.3 g/dL (33.0-37.0); MEAN PLATELET VOLUME 8.5 fL (7.2-11.7); MONO # 0.4 K/uL (0.0-0.8); MONO % 7.2 % (0.0-10.0); NEUT # 2.9 K/uL (1.8-7.0); NEUT % 50.9 % (50.0-75.0); RBC 4.92 Mil/uL (4.40-5.90); RED CELL DISTRIBUTION WIDTH 13.3 % (11.5-14.5); WHITE BLOOD COUNT 5.7 K/uL (4.8-10.8)
[2018-06-29 22:45] LABS: URINE BILIRUBIN NEGATIVE (NEGATIVE); URINE BLOOD NEGATIVE (NEGATIVE); URINE CLARITY Clear (Clear); URINE COLOR Straw (YELLOW); URINE GLUCOSE (UA) NORMAL (Normal); URINE LEUKOCYTE ESTERASE NEG Leu/uL (Negative); URINE PROTEIN NEGATIVE (NEGATIVE); URINE UROBILINOGEN NORMAL mg/dL (0.2-1.0)
[2018-06-29 22:46] LABS: ALB/GLOB RATIO 1.5 (1.0-2.1); ALBUMIN 4.5 g/dL (3.5-5.0); ALT/SGPT 36 U/L (21-72); AST/SGOT 40 U/L (17-59); BLOOD UREA NITROGEN 16 mg/dL (9-20); CALCIUM 9.1 mg/dl (8.6-10.4); GFR NON-AFRICAN AMERICAN > 60
[2018-06-29 22:48] LABS: INR 1.1; PROTHROMBIN TIME 12.1 SECONDS (9.7-12.2)
[2018-06-29 22:56] LABS: B-TYPE NATRIURETIC PEPTIDE 43.4 pg/mL (0-900)
--- NOTE | 2018-06-30 02:45 | PCM.FALL ---
Post Fall Progress Note - Post Fall Fall Date: 06/30/18 Fall Time: 00:03 - Post Fall Exam Vital Sign: Temp Pulse Resp BP Pulse Ox 98.4 F 63 19 149/90 99 06/30/18 00:40 06/30/18 02:20 06/30/18 02:20 06/30/18 02:20 06/30/18 02:20 Skull Exam: Negative for: Scalp wound, Scalp hematoma, Scalp depression, Ridge in skull Eye Exam: Positive for: Pupils equal, Pupils reactive Ear Exam: Negative for: Discharge, Bleeding Nose Exam: Negative for: Discharge, Bleeding Skin Exam: Negative for: Colour, Lacerations, Grazes, Bruising Mouth Exam: Negative for: Tongue bitten, Teeth dislodge Neck Exam: Negative for: Tenderness, Tingling, Weakness Spinal Exam: Negative for: Tenderness, Tingling, Weakness Chest Exam: Negative for: Difficulty breathing, Tenderness in collar bones, Tenderness in ribs Abdomen Exam: Negative for: Tenderness Pelvic Exam: Negative for: Tenderness, Hematuria Arm Exam: Negative for: Deformity, Alteration in range of movement Leg Exam: Negative for: Deformity, Alteration in range of movement Impression/Plan: House doctor note. Code star called in ED. Patient states he was walking back to his bed from the bathroom and suddenly felt dizzy causing him to fall. He states the dizziness felt exactly like his usual vertgo. Patient only complains of mild soreness to L buttock. Denies LOC, head trauma, and any other symptoms.
--- NOTE | 2018-06-30 02:45 | CP.PCM.HP ---
<Garett Guerra P - Last Filed: 06/30/18 09:01> Meds Allergies/Adverse Reactions: Allergies Allergy/AdvReac Type Severity Reaction Status Date / Time No Known Allergies Allergy Verified 03/04/18 17:12 Results - Vital Signs Recent Vital Signs: Last Vital Signs Temp 98.4 F 06/30/18 00:40 Pulse 58 L 06/30/18 07:31 Resp 18 06/30/18 07:31 BP 102/68 06/30/18 07:31 Pulse Ox 98 06/30/18 07:31 - Labs Result Diagrams: 06/30/18 06:12 06/30/18 06:12 Labs: Laboratory Results - last 24 hr 06/29/18 06/29/18 06/29/18 22:13 22:13 22:13 WBC 5.7 RBC 4.92 Hgb 14.6 Hct 42.5 MCV 86.5 MCH 29.7 MCHC 34.3 RDW 13.3 Plt Count 188 MPV 8.5 Neut % (Auto) 50.9 Lymph % (Auto) 38.2 [place] % (Auto) 7.2 Eos % (Auto) 3.1 Baso % (Auto) 0.6 Neut # (Auto) 2.9 Lymph # (Auto) 2.2 [place] # (Auto) 0.4 Eos # (Auto) 0.2 Baso # (Auto) 0.0 PT 12.1 INR 1.1 APTT 32 Sodium 136 Potassium 3.6 Chloride 100 Carbon Dioxide 24 Anion Gap 15 BUN 16 Creatinine 0.9 Est GFR ( Amer) > 60 Est GFR (Non-Af Amer) > 60 Random Glucose 98 Calcium 9.1 Phosphorus Magnesium Total Bilirubin 0.6 AST 40 ALT 36 Alkaline Phosphatase 41 Total Creatine Kinase CK-MB (Mass) Troponin I < 0.0120 NT-Pro-B Natriuret Pep 43.4 Total Protein 7.5 Albumin 4.5 Globulin 3.0 Albumin/Globulin Ratio 1.5 Triglycerides Cholesterol LDL Cholesterol Direct HDL Cholesterol TSH 3rd Generation Urine Color Urine Clarity Urine pH Ur Specific [place] Urine Protein Urine Glucose (UA) Urine Ketones Urine Blood Urine Nitrate Urine Bilirubin Urine Urobilinogen Ur Leukocyte Esterase Urine RBC (Auto) 06/29/18 06/30/18 06/30/18 22:40 06:12 06:12 WBC 6.0 RBC 5.09 Hgb 15.4 Hct 44.0 MCV 86.4 MCH 30.2 MCHC 35.0 RDW 13.3 Plt Count 182 MPV 9.0 Neut % (Auto) 48.3 L Lymph % (Auto) 37.5 [place] % (Auto) 9.7 Eos % (Auto) 3.7 Baso % (Auto) 0.8 Neut # (Auto) 2.9 Lymph # (Auto) 2.2 [place] # (Auto) 0.6 Eos # (Auto) 0.2 Baso # (Auto) 0.0 PT INR APTT Sodium 139 Potassium 3.6 Chloride 106 Carbon Dioxide 25 Anion Gap 12 BUN 15 Creatinine 0.8 Est GFR ( Amer) > 60 Est GFR (Non-Af Amer) > 60 Random Glucose 97 Calcium 9.0 Phosphorus 4.0 Magnesium 2.1 Total Bilirubin 0.7 AST 36 ALT 38 Alkaline Phosphatase 43 Total Creatine Kinase 121 CK-MB (Mass) 1.17 Troponin I < 0.0120 NT-Pro-B Natriuret Pep Total Protein 7.4 Albumin 4.5 Globulin 2.8 Albumin/Globulin Ratio 1.6 Triglycerides 76 D Cholesterol 101 LDL Cholesterol Direct 51 HDL Cholesterol 43 TSH 3rd Generation 2.68 Urine Color Straw Urine Clarity Clear Urine pH 6.0 Ur Specific [place] 1.003 Urine Protein Negative Urine Glucose (UA) Normal Urine Ketones Negative Urine Blood Negative Urine Nitrate Negative Urine Bilirubin Negative Urine Urobilinogen Normal Ur Leukocyte Esterase Neg Urine RBC (Auto) < 1 Attending/Attestation - Attestation I have personally seen and examined this patient.: Yes I have fully participated in the care of the patient.: Yes I have reviewed all pertinent clinical information: Yes Notes (Text): 06/30/18 09:01 * Atypical chest pain * Clinically cervical radiculopathy * h/o cad * H/o hepatitis treated * h/o dizziness, falls, one fall last night witnessed by camera, patient didn't remember the fall although felt dizzy prior, hence suspect, syncope rather vertigo Plan * serial enzymes * cardiology eval for event recorder * Home meds * See orders for detail. <Valerie Raya P - Last Filed: 06/30/18 11:22> History of Present Illness - History of Present Illness History of Present Illness: Medicine H&P CC: Chest pain and L arm pain HPI: 58 year old male with PMHx of [place] with 3 stent placments presents to ED complaining of L arm pain that radiates to left axilla and L chest and L neck. Pain started prior to arrival at 8:30PM when bending down to pray. Patient took 4 baby aspirin and Ranexa 500mg. The pain subsided after 15 minutes. Patient also reports dizziness, which is chronic. Denies diaphoresis, shortness of breath, nausea, vomiting, trauma, and any other associated symptoms. PMH: Inferior wall MIx2 with 3 stents, Dyslipidemia, Hepatitis C s/p treatment in 2005, and Vertigo PSH: eye surgery (information limited) FH: Brothers (MIs) Meds: Aspirin 81mg PO daily, Plavix 75mg PO daily, Lopressor 50mg PO BID, Ranexa 500mg PO BID, Lipitor 40mg POqHS Allergies: NKDA Social: denies tobacco, alcohol, and drug use Code: Full Code Review of Systems: -Gen: No fever, No chills, No headache, No lethargy, No weakness. -HEENT: No dizziness, No change in vision, No change in hearing, No sore throat, No dysphagia, No nasal congestion. -Cardio: + chest pain, No palpitations, No lower extremity edema, No orthopnea. -Resp: No cough, No dyspnea, No hemoptysis, No wheezing, No pain on inspiration. -GI: No abdominal pain, No nausea/vomiting, No diarrhea/constipation, No he matochezia, No hematemesis. -: No dysuria, No urinary freq, No incontinence, No hematuria, No change in urinary stream. -MSK: No back pain, No muscle weakness, +radiating pain. -Skin: No itching, No rash, No lesions. -Neuro: No confusion, No numbness, No tingling, No focal weakness, No radicular pain, No syncope. -Psych: No anxiety, No depression, No H/I, No S/I, No hallucinations. Present on Admission - Present on Admission Any Indicators Present on Admission: No Past Patient History - Past Medical History & Family History Past Medical History?: Yes - Past Social History Smoking Status: Never Smoked - CARDIAC Hx Cardiac Disorders: Yes (CAD, Coronary Stent, STEMI, Angina,) Other/Comment: Coronary stent x3 - PULMONARY Hx Respiratory Disorders: No - NEUROLOGICAL Hx Neurological Disorder: Yes Hx Vertigo: Yes - HEENT Hx HEENT Problems: No - RENAL Hx Chronic Kidney Disease: No - ENDOCRINE/METABOLIC Hx Endocrine Disorders: No - HEMATOLOGICAL/ONCOLOGICAL Hx Hepatitis C: Yes - INTEGUMENTARY Hx Dermatological Problems: No - MUSCULOSKELETAL/RHEUMATOLOGICAL Hx Musculoskeletal Disorders: No Hx Falls: No - GASTROINTESTINAL Hx Gastrointestinal Disorders: No - GENITOURINARY/GYNECOLOGICAL Hx Genitourinary Disorders: No - PSYCHIATRIC Hx Substance Use: No - SURGICAL HISTORY Hx Coronary Stent: Yes (X 3) - ANESTHESIA Hx Anesthesia: Yes Hx Anesthesia Reactions: No Physical Exam - Constitutional Appears: Non-toxic, No Acute Distress - Head Exam Head Exam: ATRAUMATIC, NORMOCEPHALIC - Eye Exam Eye Exam: EOMI, Normal appearance - ENT Exam ENT Exam: Mucous Membranes Moist - Neck Exam Neck exam: Positive for: Full Rom (but painful), Normal Inspection, Tenderness (tenderness to palpation of lower cervical paraspinal muscles) - Respiratory Exam Respiratory Exam: Clear to Auscultation Bilateral, NORMAL BREATHING PATTERN. absent: Decreased Breath Sounds, Rhonchi, Wheezes, Respiratory Distress - Cardiovascular Exam Cardiovascular Exam: REGULAR RHYTHM, +S1, +S2 - GI/Abdominal Exam GI & Abdominal Exam: Normal Bowel Sounds, Soft. absent: Guarding, Rebound, Tenderness - Extremities Exam Extremities exam: Positive for: full ROM, normal capillary refill, normal inspection, pedal pulses present. Negative for: calf tenderness, joint swelling, pedal edema, tenderness - Neurological Exam Neurological exam: Alert, CN II-XII Intact, Oriented x3 Additional comments: C8-T1 hypersensitivity to touch on the L. - Psychiatric Exam Psychiatric exam: Normal Affect, Normal Mood - Skin Skin Exam: Dry, Intact, Normal Color, Warm Results - Vital Signs Recent Vital Signs: Last Vital Signs Temp 98.4 F 06/30/18 00:40 Pulse 63 06/30/18 02:20 Resp 19 06/30/18 02:20 BP 149/90 06/30/18 02:20 Pulse Ox 99 06/30/18 02:20 - Labs Result Diagrams: 06/30/18 06:12 06/30/18 06:12 Labs: Laboratory Results - last 24 hr 06/29/18 06/29/18 06/29/18 22:13 22:13 22:13 WBC 5.7 RBC 4.92 Hgb 14.6 Hct 42.5 MCV 86.5 MCH 29.7 MCHC 34.3 RDW 13.3 Plt Count 188 MPV 8.5 Neut % (Auto) 50.9 Lymph % (Auto) 38.2 [place] % (Auto) 7.2 Eos % (Auto) 3.1 Baso % (Auto) 0.6 Neut # (Auto) 2.9 Lymph # (Auto) 2.2 [place] # (Auto) 0.4 Eos # (Auto) 0.2 Baso # (Auto) 0.0 PT 12.1 INR 1.1 APTT 32 Sodium 136 Potassium 3.6 Chloride 100 Carbon Dioxide 24 Anion Gap 15 BUN 16 Creatinine 0.9 Est GFR ( Amer) > 60 Est GFR (Non-Af Amer) > 60 Random Glucose 98 Calcium 9.1 Total Bilirubin 0.6 AST 40 ALT 36 Alkaline Phosphatase 41 Troponin I < 0.0120 NT-Pro-B Natriuret Pep 43.4 Total Protein 7.5 Albumin 4.5 Globulin 3.0 Albumin/Globulin Ratio 1.5 Urine Color Urine Clarity Urine pH Ur Specific [place] Urine Protein Urine Glucose (UA) Urine Ketones Urine Blood Urine Nitrate Urine Bilirubin Urine Urobilinogen Ur Leukocyte Esterase Urine RBC (Auto) 06/29/18 22:40 WBC RBC Hgb Hct MCV MCH MCHC RDW Plt Count MPV Neut % (Auto) Lymph % (Auto) [place] % (Auto) Eos % (Auto) Baso % (Auto) Neut # (Auto) Lymph # (Auto) [place] # (Auto) Eos # (Auto) Baso # (Auto) PT INR APTT Sodium Potassium Chloride Carbon Dioxide Anion Gap BUN Creatinine Est GFR ( Amer) Est GFR (Non-Af Amer) Random Glucose Calcium Total Bilirubin AST ALT Alkaline Phosphatase Troponin I NT-Pro-B Natriuret Pep Total Protein Albumin Globulin Albumin/Globulin Ratio Urine Color Straw Urine Clarity Clear Urine pH 6.0 Ur Specific [place] 1.003 Urine Protein Negative Urine Glucose (UA) Normal Urine Ketones Negative Urine Blood Negative Urine Nitrate Negative Urine Bilirubin Negative Urine Urobilinogen Normal Ur Leukocyte Esterase Neg Urine RBC (Auto) < 1 Assessment & Plan - Assessment and Plan (Free Text) Assessment: 58 year old male with PMHx of preveious [place] with stent placement presents with chest pain and L arm pain. Chest pain rule out ACS -likely due to cervical radiculopathy -Hx VA with stent placement -EKG: NSR at 67 bpm, L axis deviation -Troponin negative x1, f/u serial ROMIs -f/u lipid panel, TSH, HgbA1c Prophylaxis -Patient on Plavix 75mg PO daily -SCDs
[2018-06-30 06:33] LABS: ALB/GLOB RATIO 1.6 (1.0-2.1); ALBUMIN 4.5 g/dL (3.5-5.0); ALT/SGPT 38 U/L (21-72); AST/SGOT 36 U/L (17-59); BASO % 0.8 % (0.0-2.0); BLOOD UREA NITROGEN 15 mg/dL (9-20); EOS # 0.2 K/uL (0.0-0.7); EOS % 3.7 % (0.0-4.0); GFR NON-AFRICAN AMERICAN > 60; HDL CHOLESTEROL 43 mg/dL (30-70); HEMOGLOBIN 15.4 g/dL (12.0-18.0); LYMPH # 2.2 K/uL (1.0-4.3); LYMPH % 37.5 % (20.0-40.0); MEAN CELL VOLUME 86.4 fL (80.0-94.0); MEAN CORPUSCULAR HEMOGLOBIN 30.2 pg (27.0-31.0); MONO # 0.6 K/uL (0.0-0.8); MONO % 9.7 % (0.0-10.0); NEUT # 2.9 K/uL (1.8-7.0); NEUT % 48.3 % (50.0-75.0); NRBC % 0.2 % (0.0-2.0); RBC 5.09 Mil/uL (4.40-5.90); RED CELL DISTRIBUTION WIDTH 13.3 % (11.5-14.5)
[2018-06-30 06:44] LABS: CK-MB 1.17 ng/mL (0.0-3.38); LDL CHOLESTEROL 51 mg/dL (0-129)
--- NOTE | 2018-06-30 08:39 | RAD ---
Date of service: 06/29/2018 HISTORY: chest pain COMPARISON: None available. FINDINGS: LUNGS: No active pulmonary disease. Bilateral paratracheal prominence may represent prominent vasculature. PLEURA: No significant pleural effusion identified, no pneumothorax apparent. CARDIOVASCULAR: No aortic atherosclerotic calcification present. Normal cardiac size. No pulmonary vascular congestion. OSSEOUS STRUCTURES: No significant abnormalities. VISUALIZED UPPER ABDOMEN: Normal. OTHER FINDINGS: None. IMPRESSION: No active disease. Bilateral paratracheal prominence may represent prominent vasculature.
--- NOTE | 2018-06-30 10:37 | CP.PCM.PN ---
Subjective - Date & Time of Evaluation Date of Evaluation: 06/30/18 Time of Evaluation: 10:37 - Subjective Subjective: Medicine Dr. Saad Siddiqi's Service Patient seen and evaluated at bedside in the emergency room. Patient has not yet gotten a bed upstairs inpatient. He still c/o chest pain and left arm pain down to elbow. Other than that, patient denies nausea, vomiting, abdominal pain, SOB, fever, chills, sweats. Code mo was called early in the morning. Patient fell in the ER but denies hitting his head or LOC. He is now scared to get up and wal k around since he doesn't feel stable. Patient put on fall risk by night medicine resident. More to history and physical: Cardiac hx: Of note, patient states he has been in the ED and hospitalized for chest pain many times. Patient with 3 heart stents. First two was here at [facility] in Aug 2017. The last stent was right after that after angiography was done here at [facility], then stent installed in [facility]. 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 Jones. Vertigo: For his vertigo, he saw a neurologist in his home country, [place], before he moved to the in Jul [place]. The medications (unknown name) that they gave to him worked but only temporarily. For the last 6 months, he has been taking OTC lipoflavonoid plus for "ear ringing" (that is what the bottle picture says). It somewhat helps, but his left ear still constantly has a buzzing noise. Last time patient was admitted here for chest pain, he believed he also saw an inpatient neurologist but does not remember the name of the physician. Memory Loss: Patient endorses falling and hitting his head twice since his last admission in March and endorses memory loss in daily life such as forgetting what he just ate or a task he just did. He has not had a CT of the head s/p those falls. Objective - Vital Signs/Intake and Output Vital Signs (last 24 hours): Temp Pulse Resp BP Pulse Ox 97.4 F L 63 18 116/78 96 06/30/18 09:17 06/30/18 09:17 06/30/18 09:17 06/30/18 09:17 06/30/18 09:17 - Medications Medications: Current Medications Acetaminophen (Tylenol 325mg Tab) 650 mg PO Q6 PRN PRN Reason: Pain, Mild (1-3) Aspirin (Aspirin Chewable) 81 mg PO DAILY [facility] Clopidogrel Bisulfate (Plavix) 75 mg PO DAILY [facility] Diazepam (Valium) 2 mg PO HS [facility] Metoprolol Tartrate (Lopressor) 12.5 mg PO BID [facility] Ranolazine (Ranexa) 500 mg PO BID [facility] Rosuvastatin Calcium (Crestor) 20 mg PO HS [facility] - Labs Labs: 06/30/18 06:12 06/30/18 06:12 PT 12.1 SECONDS (9.7-12.2) 06/29/18 22:13 INR 1.1 06/29/18 22:13 APTT 32 SECONDS (21-34) 06/29/18 22:13 Assessment and Plan - Assessment and Plan (Free Text) Assessment: 58 y/o male with PMHx of [place] s/p 3 stents this year and vertigo presented to the ED with sudden onset chest pain and left arm pain. Patient admitted on med [facility]. Currently hemodynamically stable. Chest pain r/o active ischemia -with underlying ACS -s/p 325 mg aspirin which has relieved his pain -Pending serial ROMIs and EKGs. Negative for ischemia so far (pending 12pm and 6pm) -cardiology consulted Dr. Jones. Recommendations: --chest pain likely 2/2 medication noncompliance. Will be beneficial to go through discharge instructions of medications (same medications as home) to ensure compliance before discharge. No further work up needed. Patient cleared to go home. Vertigo -patient states that valium 2mg HS is the only medication he is aware of that works. Explained to patient that the medication is controlled so there are restrictions in giving it -s/p code star 06/30 AM, denies LOC or hitting head -c/w fall risk dispo: discharge to home with instructions and ensure compliance DVT ppx: SCDs GI ppx: not indicated diet: heart healthy case d/w Dr. Saad Thomas, DO PGY1
[2018-06-30] MEDS: Ranolazine 500 mg Extended Release Tablets PO SCH ×2 (10:53→17:38)
--- NOTE | 2018-06-30 11:33 | CP.PCM.CON ---
History of Present Illness - History of Present Illness History of Present Illness: Ernie Galaviz, PGY-[address] Jones, Cardiology Mr. Holbrook is a 58 y/o male well known to Dr. Jones with PMHx of CAD, HLD, Hepatitis C diagnosed on routine LFTs in [place] (s/p treatment, etiology unknown), vertigo, and previous stents (2 CHARO to prox and mid RCA in 09/04 and 1 CHARO to L mid circumflex in 03/04) who presented to the ED for chest pain which began suddenly yesterday. Patient describes pain as sharp left sided substernal pressure that is associated with shortness of breath. Patient states that he took 4 aspirin without remission of pain. Upon evaluation, patient states that pain is persistent, rated 4/10 and localized to anterior left upper chest with radiation of pain to the L arm. Patient states the pain sometimes starts in the L anterior shoulder and radiates down to the chest and states pain is worse with L shoulder mobility. Patient fell in the ED last night after utilizing the restroom but did not lose concsiousness. Current vital signs stable. Patient denies current shortness of breath, palpations, diaphoresis, abdominal pain, dizziness, n/v/d. Patient states he normally gets short of breath after walking one flight of stairs. Family history is significant for one brother having an IL at age 52 and a second brother having three heart attacks, earliest of which was in his 40's. Meds: Aspirin 81mg PO daily, Plavix 75mg PO daily, Diazepam 2 mg, Lopressor 12.5 mg PO BID, Ranexa 500 mg BID, Lipitor 40mg POqHS Review of Systems - Review of Systems Review of Systems: 12 point ROS completed and negative except as described in HPI. Past Patient History - Past Medical History & Family History Past Medical History?: Yes - Past Social History Smoking Status: Never Smoked - CARDIAC Hx Cardiac Disorders: Yes (CAD, Coronary Stent, STEMI, Angina,) Other/Comment: Coronary stent x3 - PULMONARY Hx Respiratory Disorders: No - NEUROLOGICAL Hx Neurological Disorder: Yes Hx Vertigo: Yes - HEENT Hx HEENT Problems: No - RENAL Hx Chronic Kidney Disease: No - ENDOCRINE/METABOLIC Hx Endocrine Disorders: No - HEMATOLOGICAL/ONCOLOGICAL Hx Hepatitis C: Yes - INTEGUMENTARY Hx Dermatological Problems: No - MUSCULOSKELETAL/RHEUMATOLOGICAL Hx Musculoskeletal Disorders: No Hx Falls: No - GASTROINTESTINAL Hx Gastrointestinal Disorders: No - GENITOURINARY/GYNECOLOGICAL Hx Genitourinary Disorders: No - PSYCHIATRIC Hx Substance Use: No - SURGICAL HISTORY Hx Coronary Stent: Yes (X 3) - ANESTHESIA Hx Anesthesia: Yes Hx Anesthesia Reactions: No Meds Allergies/Adverse Reactions: Allergies Allergy/AdvReac Type Severity Reaction Status Date / Time No Known Allergies Allergy Verified 03/04/18 17:12 - Medications Medications: Current Medications Acetaminophen (Tylenol 325mg Tab) 650 mg PO Q6 PRN PRN Reason: Pain, Mild (1-3) Aspirin (Aspirin Chewable) 81 mg PO DAILY [facility] Last Admin: 06/30/18 10:53 Dose: 81 mg Clopidogrel Bisulfate (Plavix) 75 mg PO DAILY [facility] Last Admin: 06/30/18 10:53 Dose: 75 mg Diazepam (Valium) 2 mg PO HS [facility] Metoprolol Tartrate (Lopressor) 12.5 mg PO BID [facility] Last Admin: 06/30/18 10:53 Dose: 12.5 mg Ranolazine (Ranexa) 500 mg PO BID [facility] Last Admin: 06/30/18 10:53 Dose: 500 mg Rosuvastatin Calcium (Crestor) 20 mg PO HS [facility] Physical Exam - Constitutional Appears: Well, Non-toxic, No Acute Distress - Head Exam Head Exam: ATRAUMATIC, NORMAL INSPECTION, NORMOCEPHALIC - Eye Exam Eye Exam: EOMI, Normal appearance Pupil Exam: PERRL - ENT Exam ENT Exam: Mucous Membranes Moist - Respiratory Exam Respiratory Exam: Chest Wall Tenderness (L anterior shoulder), Clear to Auscultation Bilateral, NORMAL BREATHING PATTERN. absent: Rales, Rhonchi, Wheezes, Respiratory Distress, Stridor - Cardiovascular Exam Cardiovascular Exam: RRR, +S1, +S2. absent: Irregular Rhythm - GI/Abdominal Exam GI & Abdominal Exam: Soft. absent: Distended, Tenderness - Extremities Exam Extremities exam: Negative for: pedal edema Additional comments: TTP over L acromion process Results - Vital Signs Recent Vital Signs: Last Vital Signs Temp 97.4 F L 06/30/18 09:17 Pulse 63 06/30/18 09:17 Resp 18 06/30/18 09:17 BP 116/78 06/30/18 09:17 Pulse Ox 96 06/30/18 09:17 - Labs Result Diagrams: 06/30/18 06:12 06/30/18 06:12 Labs: Laboratory Results - last 24 hr 06/29/18 06/29/18 06/29/18 22:13 22:13 22:13 WBC 5.7 RBC 4.92 Hgb 14.6 Hct 42.5 MCV 86.5 MCH 29.7 MCHC 34.3 RDW 13.3 Plt Count 188 MPV 8.5 Neut % (Auto) 50.9 Lymph % (Auto) 38.2 [place] % (Auto) 7.2 Eos % (Auto) 3.1 Baso % (Auto) 0.6 Neut # (Auto) 2.9 Lymph # (Auto) 2.2 [place] # (Auto) 0.4 Eos # (Auto) 0.2 Baso # (Auto) 0.0 PT 12.1 INR 1.1 APTT 32 Sodium 136 Potassium 3.6 Chloride 100 Carbon Dioxide 24 Anion Gap 15 BUN 16 Creatinine 0.9 Est GFR ( Amer) > 60 Est GFR (Non-Af Amer) > 60 Random Glucose 98 Hemoglobin A1c Calcium 9.1 Phosphorus Magnesium Total Bilirubin 0.6 AST 40 ALT 36 Alkaline Phosphatase 41 Total Creatine Kinase CK-MB (Mass) Troponin I < 0.0120 NT-Pro-B Natriuret Pep 43.4 Total Protein 7.5 Albumin 4.5 Globulin 3.0 Albumin/Globulin Ratio 1.5 Triglycerides Cholesterol LDL Cholesterol Direct HDL Cholesterol TSH 3rd Generation Urine Color Urine Clarity Urine pH Ur Specific [place] Urine Protein Urine Glucose (UA) Urine Ketones Urine Blood Urine Nitrate Urine Bilirubin Urine Urobilinogen Ur Leukocyte Esterase Urine RBC (Auto) 06/29/18 06/30/18 06/30/18 22:40 06:12 06:12 WBC 6.0 RBC 5.09 Hgb 15.4 Hct 44.0 MCV 86.4 MCH 30.2 MCHC 35.0 RDW 13.3 Plt Count 182 MPV 9.0 Neut % (Auto) 48.3 L Lymph % (Auto) 37.5 [place] % (Auto) 9.7 Eos % (Auto) 3.7 Baso % (Auto) 0.8 Neut # (Auto) 2.9 Lymph # (Auto) 2.2 [place] # (Auto) 0.6 Eos # (Auto) 0.2 Baso # (Auto) 0.0 PT INR APTT Sodium 139 Potassium 3.6 Chloride 106 Carbon Dioxide 25 Anion Gap 12 BUN 15 Creatinine 0.8 Est GFR ( Amer) > 60 Est GFR (Non-Af Amer) > 60 Random Glucose 97 Hemoglobin A1c Calcium 9.0 Phosphorus 4.0 Magnesium 2.1 Total Bilirubin 0.7 AST 36 ALT 38 Alkaline Phosphatase 43 Total Creatine Kinase 121 CK-MB (Mass) 1.17 Troponin I < 0.0120 NT-Pro-B Natriuret Pep Total Protein 7.4 Albumin 4.5 Globulin 2.8 Albumin/Globulin Ratio 1.6 Triglycerides 76 D Cholesterol 101 LDL Cholesterol Direct 51 HDL Cholesterol 43 TSH 3rd Generation 2.68 Urine Color Straw Urine Clarity Clear Urine pH 6.0 Ur Specific [place] 1.003 Urine Protein Negative Urine Glucose (UA) Normal Urine Ketones Negative Urine Blood Negative Urine Nitrate Negative Urine Bilirubin Negative Urine Urobilinogen Normal Ur Leukocyte Esterase Neg Urine RBC (Auto) < 1 06/30/18 06:12 WBC RBC Hgb Hct MCV MCH MCHC RDW Plt Count MPV Neut % (Auto) Lymph % (Auto) [place] % (Auto) Eos % (Auto) Baso % (Auto) Neut # (Auto) Lymph # (Auto) [place] # (Auto) Eos # (Auto) Baso # (Auto) PT INR APTT Sodium Potassium Chloride Carbon Dioxide Anion Gap BUN Creatinine Est GFR ( Amer) Est GFR (Non-Af Amer) Random Glucose Hemoglobin A1c 5.2 Calcium Phosphorus Magnesium Total Bilirubin AST ALT Alkaline Phosphatase Total Creatine Kinase CK-MB (Mass) Troponin I NT-Pro-B Natriuret Pep Total Protein Albumin Globulin Albumin/Globulin Ratio Triglycerides Cholesterol LDL Cholesterol Direct HDL Cholesterol TSH 3rd Generation Urine Color Urine Clarity Urine pH Ur Specific [place] Urine Protein Urine Glucose (UA) Urine Ketones Urine Blood Urine Nitrate Urine Bilirubin Urine Urobilinogen Ur Leukocyte Esterase Urine RBC (Auto) Assessment & Plan - Assessment and Plan (Free Text) Assessment: 58 year old male with PMHx of CAD stent x3 who presents with sharp chest pain and L shoulder pain. Atypical Chest pain, ACS vs costochondritis vs rotator cuff tear vs radiculopathy -Extensive cardiac history with 3 stents -Pain not relieved with ASA -EKG: NSR at 67 bpm, L axis deviation, await final read -Troponin negative x3 -ASA, Lopressor, Plavix, Ranexa, Crestor -Lipid panel, TSH, HgbA1c all within normal limits -Not candidate for event monitor at this time as frequent falls likely neurogenic in etiology. Recent caths opened areas of stenosis. Paroxysmal sharp chest pain 3-4 months after CHARO in setting of negative biomarkers likely due to polymer that encases drug causing irritation - Patient to be sent home on all previous medications and should be instructed to be compliant , as patient currently admits to forgetting to take his medications. May be beneficial to have family member or friend remind or be present when taking medications to ensure compliance. - Patient to follow up in office as outpatient. Patient seen, case reviewed with Dr. Jones. Further recs per Dr. Jones. Ernie Galaviz, PGY-1
[2018-06-30 14:29] VITALS: RESP 20
[2018-06-30 16:10] VITALS: BP 137/81; PULSE 67; TEMP 97.9; O2SAT 95
--- NOTE | 2018-06-30 17:22 | CP.PCM.DIS ---
Provider - Provider Date of Admission: 06/29/18 23:32 Attending physician: Jamison Siddiqi MD Primary care physician: none Consults: cardiology dr. Jones Time Spent in preparation of Discharge (in minutes): 45 Hospital Course - Lab Results Lab Results: Most Recent Lab Values WBC 6.0 K/uL (4.8-10.8) 06/30/18 06:12 RBC 5.09 Mil/uL (4.40-5.90) 06/30/18 06:12 Hgb 15.4 g/dL (12.0-18.0) 06/30/18 06:12 Hct 44.0 % (35.0-51.0) 06/30/18 06:12 MCV 86.4 fL (80.0-94.0) 06/30/18 06:12 MCH 30.2 pg (27.0-31.0) 06/30/18 06:12 MCHC 35.0 g/dL (33.0-37.0) 06/30/18 06:12 RDW 13.3 % (11.5-14.5) 06/30/18 06:12 Plt Count 182 K/uL (130-400) 06/30/18 06:12 MPV 9.0 fL (7.2-11.7) 06/30/18 06:12 Neut % (Auto) 48.3 % (50.0-75.0) L 06/30/18 06:12 Lymph % (Auto) 37.5 % (20.0-40.0) 06/30/18 06:12 [place] % (Auto) 9.7 % (0.0-10.0) 06/30/18 06:12 Eos % (Auto) 3.7 % (0.0-4.0) 06/30/18 06:12 Baso % (Auto) 0.8 % (0.0-2.0) 06/30/18 06:12 Neut # (Auto) 2.9 K/uL (1.8-7.0) 06/30/18 06:12 Lymph # (Auto) 2.2 K/uL (1.0-4.3) 06/30/18 06:12 [place] # (Auto) 0.6 K/uL (0.0-0.8) 06/30/18 06:12 Eos # (Auto) 0.2 K/uL (0.0-0.7) 06/30/18 06:12 Baso # (Auto) 0.0 K/uL (0.0-0.2) 06/30/18 06:12 PT 12.1 SECONDS (9.7-12.2) 06/29/18 22:13 INR 1.1 06/29/18 22:13 APTT 32 SECONDS (21-34) 06/29/18 22:13 Sodium 139 mmol/L (132-148) 06/30/18 06:12 Potassium 3.6 mmol/L (3.6-5.2) 06/30/18 06:12 Chloride 106 mmol/L (98-107) 06/30/18 06:12 Carbon Dioxide 25 mmol/L (22-30) 06/30/18 06:12 Anion Gap 12 (10-20) 06/30/18 06:12 BUN 15 mg/dL (9-20) 06/30/18 06:12 Creatinine 0.8 mg/dL (0.8-1.5) 06/30/18 06:12 Est GFR ( Amer) > 60 06/30/18 06:12 Est GFR (Non-Af Amer) > 60 06/30/18 06:12 Random Glucose 97 mg/dL (75-110) 06/30/18 06:12 Hemoglobin A1c 5.2 % (4.2-6.5) 06/30/18 06:12 Calcium 9.0 mg/dl (8.6-10.4) 06/30/18 06:12 Phosphorus 4.0 mg/dL (2.5-4.5) 06/30/18 06:12 Magnesium 2.1 mg/dL (1.6-2.3) 06/30/18 06:12 Total Bilirubin 0.7 mg/dL (0.2-1.3) 06/30/18 06:12 AST 36 U/L (17-59) 06/30/18 06:12 ALT 38 U/L (21-72) 06/30/18 06:12 Alkaline Phosphatase 43 U/L (38-126) 06/30/18 06:12 Total Creatine Kinase 100 U/L (55-170) 06/30/18 12:45 CK-MB (Mass) 0.80 ng/mL (0.0-3.38) 06/30/18 12:45 Troponin I < 0.0120 ng/mL (0.00-0.120) 06/30/18 12:45 NT-Pro-B Natriuret Pep 43.4 pg/mL (0-900) 06/29/18 22:13 Total Protein 7.4 g/dL (6.3-8.3) 06/30/18 06:12 Albumin 4.5 g/dL (3.5-5.0) 06/30/18 06:12 Globulin 2.8 gm/dL (2.2-3.9) 06/30/18 06:12 Albumin/Globulin Ratio 1.6 (1.0-2.1) 06/30/18 06:12 Triglycerides 76 mg/dL (0-149) D 06/30/18 06:12 Cholesterol 101 mg/dL (0-199) 06/30/18 06:12 LDL Cholesterol Direct 51 mg/dL (0-129) 06/30/18 06:12 HDL Cholesterol 43 mg/dL (30-70) 06/30/18 06:12 TSH 3rd Generation 2.68 mIU/L (0.46-4.68) 06/30/18 06:12 Urine Color Straw (YELLOW) 06/29/18 22:40 Urine Clarity Clear (Clear) 06/29/18 22:40 Urine pH 6.0 (5.0-8.0) 06/29/18 22:40 Ur Specific [place] 1.003 (1.003-1.030) 06/29/18 22:40 Urine Protein Negative mg/dL (NEGATIVE) 06/29/18 22:40 Urine Glucose (UA) Normal mg/dL (Normal) 06/29/18 22:40 Urine Ketones Negative mg/dL (NEGATIVE) 06/29/18 22:40 Urine Blood Negative (NEGATIVE) 06/29/18 22:40 Urine Nitrate Negative (NEGATIVE) 06/29/18 22:40 Urine Bilirubin Negative (NEGATIVE) 06/29/18 22:40 Urine Urobilinogen Normal mg/dL (0.2-1.0) 06/29/18 22:40 Ur Leukocyte Esterase Neg Mila/uL (Negative) 06/29/18 22:40 Urine RBC (Auto) < 1 /hpf (0-3) 06/29/18 22:40 - Hospital Course Hospital Course: On admission: 58 year old male with PMHx of KS with 3 stent placments presents to ED complaining of L arm pain that radiates to left axilla and L chest and L neck. Pain started prior to arrival at 8:30PM when bending down to pray. Patient took 4 baby aspirin and Ranexa 500mg. The pain subsided after 15 minutes. Patient also reports dizziness, which is chronic. Denies diaphoresis, shortness of breath, nausea, vomiting, trauma, and any other associated symptoms On discharge: Patient admitted for chest pain and also endorses vertigo. Patient's cardiac work up negative for acute ischemia. When admitted on telemetry floors there were no ischemic changes as well. His software validation technician, Dr. Jones, well known to him, has been consulted. Pain likely not due to acute ischemia but from the st ents he has. He recommends him to be discharged home and to be on his home medication. Patient also noted to be non compliant with medications and has not follow up with neurologist Dr. Rick for his diagnoses benign paroxysmal positional vertigo (BPPV). Patient agrees to follow up with him. Above is just a summary of hospital events. Please see medical records for complete history. Patient Instructions: The following instructions were explained to patient in Bengali and a copy will need to be provided to patient upon discharge: 1). Schedule follow up with the [facility] located on Floor [address] of [address] in [place], [place] by calling [phone] for an appointment that should take place in the next 7 to 10 days. Come through the main entrance of the hospital and speak with the chief security and safety officer at the hotel front office manager and someone will help you get to the clinic on Floor [address]. The physicians at this clinic will be your primary care physicians that will help you to coordinate your health care and provide you with prescriptions for your medications that you will need to have filled at your pharmacy. 2). Schedule follow up with Emergency Room Tech Dr. Clark Jones by calling [phone] for an appointment that should take place in the next 7 days. His office is located at [address] [place] [address] [place] [address]. 3). Schedule follow up with Neurologist Dr. Too Rick by calling [phone] for an appointment that should take place in the next 7 to 10 days. His office is located at [address] [place] [address], [address] in [place], [place]. Dr. Rick will help set up physical therapy for your dizziness. Do NOT move your head too quickly as this is what has been worsening your dizziness as explained to you at the time of your exams. 4). Please have the following prescriptions filled at your pharmacy on the way from the hospital. These prescriptions are only for 30 days. You must follow up with the [facility] as mentioned above for future prescriptions. Please use these medications as instructed: Aspirin 81 mg, 1 tablet by mouth 1 time per day (8 AM) Plavix 75 mg, 1 tablet by mouth 1 time per day (8 AM) Valium 2 mg, 1 tablet by mouth 2 times per day (8 AM and 8 PM) Enalapril 5 mg, 1 tablet by mouth 1 time per day (2 PM) Isosorbide Mononitrate 60 mg, 1 tablet by mouth 1 time per day (8 PM) Metoprolol tartrate 12.5mg, 1 tablet by mouth 2 times per day (8AM and 8PM) Atorvastatin 40 mg, 1 tablet by mouth 1 time per day (8 PM) Patient agrees with the above. mónica fordn rogee zenaida britton chasity aur nirvahan par rogee ko kuldeep wright: 1). shedyool aspataal nebarahud helth sentar ke saath anuvartee kraist aspataal ke pharsh bee par sthit kraist aspataal 176 paalisis evenyoo jarsee sitee, donaje mein [phone] par kol karake agale 7 se 10 dinon mein kj buffye dave ke lie anusoochesierra tamara. aspataal ke mukhkrystle pravesh dvaar ke maadhyam se aaen aur phrant desk par suraksha gaard se baat tamara aur koee aapako surya bee par klinik mein jaane mein madosvaldo karega. is klinik mein chikitsak aapakee praathamik dekhabhaal chikitsak honge shu aapako apane svaasthy ko samanvayit karane mein madad karenge dekhabhaal tamara aur aapako apanee davaon ke lie nuskhe pradaan tamara ki aapako apanee phaarmesee mein bharana hoga. 2). agale 7 dinon mein kj vaalee niyukti ke lie [phone] par phon karake kaardiyolojist do haaroon pharaaj ke saath [place] ka [place] tamara. unaka kaiaaarosalinda [place], [place] [phone] [facility]. 3). agale 7 se 10 dinon mein kj vaalee niyukti ke lie [phone] par kol [facility]ake [facility] do. daanee korya ke [facility] [place] ka paalan tamara. unaka fe 142 paalisis evenyoo mein [facility], jarsee sitee, enaje mein kaaryaalay # 200. do emeli aapake chakkar aane ke lie shaareerik chikitsa sthaapit karane mein [facility] [place] apane sir ko bahut tezee se na chalaen kyonki yah aapakee pareekshaon ke samay aapako samajhaaya gaya froylan ki yah aapake chakkar ko khara [facility]. 4). aspataal se raaste par apanee phaarmesee mein bharane vaale nimnalikhit nuskhe rakhen. ye parche carrie 30 dinon ke lie brianna. bhavishy mein nuskhe ke lie oopar varnit kraist aspataal nebarahud helth sentar ke saath aapako avashy paalan karana hoga. nirdesh ke anusaar krpaya in [facility] tamara: aspirin 81 mileegraam, 1 taibalet munh se 1 baar prati din (8 baje) plaiviks 75 mileegraam, 1 taibalet munh se 1 baar prati din (8 baje) vailiyam 2 mileegraam, munh se 1 taibalet prati din 2 baar (8 poorvaahn aur 8 baje) ainalapril 5 mileegraam, 1 taibalet munh se 1 baar prati din (2 aparaahn) isosorbidai mononitratai 60 mileegraam, 1 taibalet munh se 1 baar prati din (8 baje) maitoprolol 12.5 mileegraam, 1 taibalet prati din 2 baar prati din (8am aur 8 peeem) etoravaastaitin 40 mileegraam, 1 taibalet munh se 1 baar prati din (8 baje) Discharge Exam - Head Exam Head Exam: ATRAUMATIC, NORMAL INSPECTION, NORMOCEPHALIC Discharge Plan - Discharge Medications Prescriptions: Aspirin [Aspirin Chewable] 81 mg PO DAILY #30 chew Clopidogrel [Plavix] 75 mg PO DAILY #30 tab diaZEpam [Valium] 2 mg PO HS #30 tab Metoprolol Tartrate [Lopressor] 12.5 mg PO BID #30 tab Ranolazine [Ranexa] 500 mg PO BID #60 ter Ranolazine [Ranexa] 500 mg PO BID #60 ter Rosuvastatin Calcium [Crestor] 20 mg PO HS #30 tab - Follow Up Plan Condition: FAIR Disposition: HOME/ ROUTINE Instructions: Chest Pain (DC) Additional Instructions: The following instructions were explained to patient in Bengali and a copy will need to be provided to patient upon discharge: 1). Schedule follow up with the [facility] located on [address] of [address] in [place], [place] by calling [phone] for an appointment that should take place in the next 7 to 10 days. Come through the main entrance of the hospital and speak with the chief security and safety officer at the hotel front office manager and someone will help you get to the clinic on Floor [address]. The physicians at this clinic will be your primary care physicians that will help you to coordinate your health care and provide you with prescriptions for your medications that you will need to have filled at your pharmacy. 2). Schedule follow up with Emergency Room Tech Dr. Clark Jones by calling [phone] for an appointment that should take place in the next 7 days. His office is located at [address] [place] [address] [place] [address]. 3). Schedule follow up with Neurologist Dr. Too Rick by calling [phone] for an appointment that should take place in the next 7 to 10 days. His office is located at [address] [place] [address], [address] in [place], [place] Dr. Rick will help set up physical therapy for your dizziness. Do NOT move your head too quickly as this is what has been worsening your dizziness as explained to you at the time of your exams. 4). Please have the following prescriptions filled at your pharmacy on the way from the hospital. These prescriptions are only for 30 days. You must follow up with the [facility] as mentioned above for future prescriptions. Please use these medications as instructed: Aspirin 81 mg, 1 tablet by mouth 1 time per day (8 AM) Plavix 75 mg, 1 tablet by mouth 1 time per day (8 AM) Valium 2 mg, 1 tablet by mouth 2 times per day (8 AM and 8 PM) Enalapril 5 mg, 1 tablet by mouth 1 time per day (2 PM) Isosorbide Mononitrate 60 mg, 1 tablet by mouth 1 time per day (8 PM) Metoprolol tartrate 12.5mg, 1 tablet by mouth 2 times per day (8AM and 8PM) Atorvastatin 40 mg, 1 tablet by mouth 1 time per day (8 PM) mónica wooten mein gabby yanezvahan par santino reyna ko kuldeep wright: 1). shedyool aspataal nebarahud helth sentar ke saath anuvartee kraist aspataal ke pharsh bee par sthit kraist aspataal 176 paalis[address] evenyoo jarsee sitee, enaje mein [phone] par jaymie paul 7 se 10 dinon mein kj acosta ke enid mcdonald. aspataal ke mukhy pravesh dvaar ke maadhyam se aaen aur phrant desk par suraksha gaard se baat tamara aur koee aapako surya bee par klinik mein jaane mein [facility] karega. is klinik mein ch[place]its[place] aapakee praathamik dekhabhaal chikitsak honge shu aapako apane svaasthy ko samanvayit karane mein madad karenge dekhabhaal tamara aur aapako apanee davaon ke lie nuskhe pradaan tamara ki aapako apanee phaarmesee mein bharana hoga. 2). agale 7 dinon mein kj vaalee niyukti ke lie [phone] par phon karake kaardiyolojist do haaroon pharaaj ke saath [place] ka [place] tamara. unajarad miramontes [place], [place] [phone] [address] [facility]. 3). agale 7 se 10 dinon mein kj vaalee niyukti ke lie [phone] par kol karake [facility] do. daanee korya ke [facility] [place] ka paalan tamara. unajarad miramontes 142 paalisis evenyoo mein [facility], jarsee sitee, [place] mein ka aryaalay # [address]. do emeli aapake chakkar aane ke lie shaareerik chikitsa sthaapit karane mein madad karenge. apane sir ko bahut tezee se na chalaen kyonki yah aapakee pareekshaon ke samay aapako samajhaaya gaya forylan ki yah aapake chakkar ko kharaab [facility]. 4). aspataal se raaste par apanee phaarmesee mein bharane vaale nimnalikhit nuskhe rakhen. ye parche carrie 30 dinon ke lie brianna. bhavishy mein nuskhe ke lie oopar varnit kraist aspataal nebarahud helth sentar ke saath [facility] avashy paalan [facility], [facility] hoga. nirdesh ke anusaar krpaya in [facility] tamara: aspirin 81 mileegraam, 1 taibalet munh se 1 baar prati din (8 baje) plaiviks 75 mileegraam, 1 taibalet munh se 1 baar prati din (8 baje) vailiyam 2 mileegraam, munh se 1 taibalet prati din 2 baar (8 poorvaahn aur 8 baje) ainalapril 5 mileegraam, 1 taibalet munh se 1 baar prati din (2 aparaahn) isosorbidai mononitratai 60 mileegraam, 1 taibalet munh se 1 baar prati din (8 baje) maitoprolol 12.5 mileegraam, 1 taibalet prati din 2 baar prati din (8am aur 8 peeem) etoravaastaitin 40 mileegraam, 1 taibalet munh se 1 baar prati din (8 baje)
[2018-06-30] MEDS ORDERED: Pneumococcal 23-Valent Vaccine IM ONE (17:25)
[2018-06-30] MEDS ORDERED: Influenza Vaccine 60 MCG/0.5 ML SYR (3 yr & up) IM ONE (17:25)
[2018-07-02] MEDS ORDERED: Influenza Vaccine 60 MCG/0.5 ML SYR (3 yr & up) IM ONE (10:00)
[2018-07-02] MEDS ORDERED: Pneumococcal 23-Valent Vaccine IM ONE (10:00)
== END 2018-06-30 19:14 | disposition home or self-care (01) | DRG 313 ==
LOC: C.ER 21:14 → C.9E 23:32 → C.5S 06-30 13:10
PROVIDERS: ADMIT Family Medicine; ATTEND Family Medicine
DX: R07.89 Other chest pain (principal); M54.12 Radiculopathy, cervical region; I25.2 Old myocardial infarction; E78.5 Hyperlipidemia, unspecified; I25.10 Atherosclerotic heart disease of native coronary artery without angina pectoris; Z91.14 Patient's other noncompliance with medication regimen; Z91.81 History of falling; Z95.5 Presence of coronary angioplasty implant and graft; B19.20 Unspecified viral hepatitis C without hepatic coma; R42 Dizziness and giddiness